=== PATIENT | female | born 1960 | race Caucasian/White ===

== ENCOUNTER 2023-06-10 07:38 | Outpatient (OUT) | payer OTHER, SELFPAY ==
--- NOTE | 2023-06-10 07:48 | US_ITS ---
The [address] [address] Patient Name: MUNA MCKINNEY MRN: [id number] date: 1960 Sex: F Assigned Patient Location: [place] Current Patient Location: US Accession/Order Number: [id number] Exam Date: 06/10/2023 08:00 Report Date: 06/10/2023 09:21 At the request of: FLORENCIA WILSON Procedure: US renal bladder EXAM: US renal bladder HISTORY: . Flank Pain R10.9 . COMPARISON: None. TECHNIQUE: Grayscale and color imaging was performed FINDINGS: Scanning of the right kidney demonstrates right kidney to measure 10 x 3.5 x 2.7 cm. No solid renal cortical masses or hydronephrosis is noted. Left kidney measures 10.7 x 4.9 x 5.4 cm. No solid renal cortical masses or hydronephrosis was noted. Scanning of the bladder demonstrates no masses within the bladder. Prevoid volume was 493 cc and post void residual was 23 cc ureteral jets were noted. US/US renal bladder IMPRESSION: 1. Normal ultrasound of the kidneys. 2. Normal-appearing bladder with bilateral ureteral jets. 3. Post void residual was 23 cc for a post void residual of approximately 5%. Electronically authenticated by: MICKI RAMIREZ Date: 06/10/2023 09:21
[2023-06-10 07:59] LABS: Basophils Absolute Auto 0.1 10^3/uL (0.0-0.1); Basophils Percent Auto 0.9 % (0.2-2.0); Eosinophils Percent Auto 0.6 % (0.9-7.0); Hematocrit 39.8 % (36.0-48.0); Hemoglobin 12.8 g/dL (12.0-16.0); Immature Granulocytes Abs Auto 0.01 10^3/uL (0.00-0.03); Immature Granulocytes Pct Auto 0.1 % (0.0-0.5); Lymphocytes Absolute Auto 1.5 10^3/uL (1.2-3.8); Mean Corpuscular HGB Conc 32.2 g/dL (29.9-35.2); Mean Corpuscular Hemoglobin 29.2 pg (26.7-34.0); Mean Corpuscular Volume 90.9 fL (81.0-99.0); Mean Platelet Volume 9.9 fL (9.5-13.5); Monocytes Absolute Auto 0.6 10^3/uL (0.3-0.8); Monocytes Percent Auto 8.5 % (1.7-12.0); Neutrophils Absolute Auto 4.6 10^3/uL (1.4-6.5); Neutrophils Percent Auto 67.9 % (43.0-75.0); Platelet Count 214 10^3/uL (150-450); Red Blood Count 4.38 10^6/uL (4.20-5.40); Red Cell Distribution Width 11.9 % (11.0-15.0); White Blood Count 6.7 10^3/uL (4.0-11.0)
[2023-06-10 08:16] LABS: Estimated Average Glucose 108 mg/dL; Glycohemoglobin A1C 5.4 % (4.5-6.2)
[2023-06-10 08:32] LABS: Alanine Aminotransferase 21 U/L (14-59); Albumin Globulin Ratio 1.3; Albumin Level 3.9 g/dL (3.4-5.0); Alkaline Phosphatase 69 U/L (46-116); Anion Gap 14.3; Aspartate Amino Transferase 22 U/L (15-37); BUN Creatinine Ratio 17.8; Bilirubin Total 0.6 mg/dL (0.2-1.0); Calcium 8.3 mg/dL (8.5-10.1); Carbon Dioxide 28.5 mmol/L (21.0-32.0); Chloride 101 mmol/L (98-107); Chol HDL Ratio 2.7; Cholesterol 177 mg/dL (<=200); Estimated GFR (African America >60 (>=60); Estimated GFR (Non-African Ame >60 (>=60); Free T3 2.75 pg/mL (2.18-3.98); Globulin 3.1 g/dL; Glucose 90 mg/dL (74-106); HDL Cholesterol 65 mg/dL (40-60); Potassium 3.8 mmol/L (3.5-5.1); Sodium 140 mmol/L (136-145); Thyroid Stimulating Hormone 1.472 uIU/mL (0.358-3.740); Triglycerides 95 mg/dL (<=150)
--- OUTSIDE RECORDS SUMMARY | 2023-07-16 17:35 | XMS_ITS | CCD ---
Author Name Unknown Address [address] [place] [address] Organization [facility] Care Team Providers Care Benefits Analyst Name Role Phone Álvaro Powell Attending Unavailable Álvaro Powell Referring Unavailable Florencia Tomas Primary Care Unavailable Unavailable Primary Care Provider Unavailberna e Unavailable Primary Care Provider Unavailabl e LUIY ., DR DON Consulting Unavailable HOY ., DR DON Primary Care Unavailable HOY ., DR DON Admitting Unavailable HOY ., DR DON Attending Unavailable HOY ., DR DON Primary Care Unavailable HOY ., DR DON Admitting Unavailable HOY ., DR DON Attending Unavailable HOY ., DR DON Consulting Unavailable HOY ., DR DON Primary Care Unavailable HOY ., DR DON Admitting Unavailable HOY ., DR DON Attending Unavailable HOY ., DR DON Primary Care Unavailable JAMES PERERA Admitting Unavailable JAMES PERERA Attending Unavailable JAMES PERERA Consulting Unavailable HOY ., DR DON Consulting Unavailable HOY ., DR DON Primary Care Unavailable HOY ., DR DON Admitting Unavailable HOY ., DR DON Attending Unavailable MARLBORO, DR MICKI Burgess Consulting Unavailable Unavailable Primary Care Provider UnavailLILLIE Robertson Attending Unavailable RUSSELL MAGALLANES Referring Unavailable RUSSELL MAGALLANES Attending Unavailable HAILEY GONZALEZ Attending Unavailable Allergies Allergy Classification Reported Allergen(s) Allergy Type Date of Onset Reaction(s) Facility (5 sources) Sulfonamides (Antibiotic); Translations: [SULFA (SULFONAMIDE ANTIBIOTICS)] Propensity to adverse reactions to drug 2 Unknown [facility] (5 sources) Sutures; Translations: [SUTURES] Propensity to adverse reactions 2 Unknown [facility] (1 source) Sulfonamides (Antibiotic) Drug allergy (disorder) 5 [facility] Medications Completed/Discontinued Medications Medication Drug Class(es) Dates Sig (Normalized) Sig (Original) diclofenac sodium 75 mg delayed release oral tablet (4 sources) Nonsteroidal Anti-inflammatory Drug Start: 03-19-2022 take 1 tablet by mouth twice daily diclofenac, EC, (VOLTAREN) 75 mg EC tablet Take 75 mg by mouth twice daily. 0 03/19/2022 Active Comment on above: Take 75 mg by mouth twice daily. gabapentin 100 mg oral capsule (1 source) Anti-epileptic Agent Start: 02-04-2022 End: 04-13-2022 take 1 capsule by mouth twice daily gabapentin (NEURONTIN) 100 mg capsule Take 100 mg by mouth twice daily. 0 02/04/2022 04/13/2022 Discontinued Comment on above: Take 100 mg by mouth twice daily. pregabalin 25 mg oral capsul e (4 sources) Start: 04-13-2022 End: 05-12-2022 pregabalin (LYRICA) 25 mg ca psule Indications: Radiculopathy of lumbar region Take one capsule daily at bedtime for 3-5 days, then one in the morning and one at night for 3-5 days. Then increase to one capsule three times daily if tolerating well. 90 capsule 1 04/13/2022 Active Comment on above: Take one capsule lina ly at bedtime for 3-5 days, then one in the morning and one at night for 3-5 days. Then increase to one capsule three times daily if tolerating well. Problems Active Problems Problem Classification Problem Date Documented Da te Episodic/Chronic Allergic reactions (1 source) Solar degeneration; Translations: [Other skin changes due to chronic exposure to nonionizing radiation] Episodic Other and unspecified benign neoplasm (1 source) Dermatofibroma; Translations: [Other benign neoplasm of skin, unspecified] Episodic Other and unspecified benign neoplasm (1 source) Hemangioma; Translations: [Hemangioma unspecified site] Episodic Other and unspecified benign neoplasm (1 source) Multiple benign melanocytic nevi ; Translations: [Melanocytic nevi, unspecified] Episodic Other connective tissue disease (2 sources) Pain of left thigh; Translations: [Pain in left thigh] Episodic Other injuries and conditions due to external causes (4 sources) Other injury of muscle, fascia and tendon of lower back, initial encounter; Translations: [OTH INJ MUSC FASC TEND LW BACK INIT] Onset: 08-20-2022 Episodic Other non-traumatic joint disorders (2 sources) Hip pain; Translations: [Pain in left hip] Episodic Other non-traumatic joint disorders (1 source) Pain in right hip; Translations: [PAIN IN RIGHT HIP] Onset: 08-28-2022 Episodic Other non-traumatic joint disorders (1 source) Pain in right hip joint; Translations: [Pain in right hip] Onset: 08-28-2022 11-09-2022 Episodic Other skin disorders (1 source) Seborrheic keratosis; Translations: [Other seborrheic keratosis] Episodic Sprains and strains (2 sources) Strain of flexor muscle of left hip; Translations: [Strain of muscle, fascia and tendon of left hip, sequela] Episodic Viral infection (1 source) COVID-19; Translations: [COVID-19] Onset: 05-31-2022 Past or Other Problems Problem Classification Problem Date Documented Da te Episodic/Chronic Other connective tissue disease (1 source) Pain in left thigh; Translations: [Left thigh pain] Onset: 04-13-2022 Episodic Other non-traumatic joint disorders (1 source) Pain in left hip; Translations: [Lateral pain of left hip] Onset: 04-13-2022 Episodic Other upper respiratory infections (4 sources) Acute sinusitis, unspecified; Translations: [ACUTE SINUSITIS UNSPECIFIED] Onset: 05-29-2022 Episodic Spondylosis; intervertebral disc disorders; other back problems (8 sources) Lumbar radiculopathy; Translations: [Radiculopathy, lumbar region] Onset: 04-13-2022 Episodic Results Test Name Value Interpretation Reference Range Rula Olivares 11-09-2022 CNOV Office Visit (DERMCC ) KARINA FLEMING ([id number]) 1960 F Date Time Provider Department 11/09/22 8:30 AM LILLIE BARONE During your visit today, we recorded the following information about you: Lillie Barone MD 11/09/2022 8:49 AM Signed DERMATOLOGY / NEW PATIENT CONSULT Consultation requested by patient for an opinion regarding skin. HPI: The patient is a 62 year old female presenting with a 3 lesions of concern Left lateral lower leg - raised conley lesion Mid upper back - brown raised lesion [place] raised lesion- right cheek DERM HISTORY: No history of chronic skin disease FAMILY DERM HISTORY: Positive for non melanoma skin cancer No past medical history on file. No past surgical history on file. Medications and Allergies reviewed. PHYSICAL EXAM: The patient is pleasant, oriented x 3, in no acute distress. Exam performed of the face, neck, back, arms, and legs. Significant findings noted below, otherwise no suspicious lesions noted at this time. Head, Neck, Torso - Posterior (Back) Diffusely scattered conley macules and patches on sun exposed areas. Left Lower Leg - Anterior Hyperpigmented 5 mm fibrous papule that dimples with lateral pressure Right Malar Cheek Page red papule Mid Back Brown flat-topped papule. Torso - Posterior (Back) Multiple scattered symmetric conley to brown macules with uniform pigmentation over the trunk IMPRESSION/PLAN: Diffuse photodamage of skin (3) Torso - Posterior (Back); Head; Neck Diffuse photodamage of skin Sun protection and avoidance discussed with patient Dermatofibroma Left Lower Leg - Anterior Educated and reassured. AAD booklet given. Hemangioma, unspecified site Right Malar Cheek -Educated and reassured Seborrheic keratosis Mid Back -Patient reassured of benign nature of lesion(s). Multiple benign nevi Torso - Posterior (Back) FOLLOW UP: PRN The documentation for this note was completed by Loni Thompson RN/ Dora Conley LPN acting as scribe for Lillie Barone MD. November 09, 2022 8:22 AM. I agree with the Chief Complaint, ROS, and Past Histories independently gathered by the clinical network support engineer and the remaining scribed note accurately describes my personal service to the patient. Lillie Barone MD Medical Decision Making: Problems: Low: 2+ self-limited or minor problems Risk: Low: Low risk from testing/treatment Medical Decision Making Level: 3 - Low Referring Provider: SELF [200] Allergies As of Date: 11/09/2022 Noted Allergy Reaction SULFA (SULFONAMIDE ANTIBIOTICS) 04/13/2022 16 - Unknown VICRYL (SUTURES) 04/13/2022 16 - Unknown Date Reviewed: 04/13/2022 Reviewed by: Ebony Weiss Ma - Fully Assessed Reason for Visit: LESION, SKIN [936] Primary Visit Diagnosis:Diffuse photodamage of skin [L57.8] Other Visit Diagnoses:Dermatofibroma [D23.9] Hemangioma, unspecified site [D18.00] Seborrheic keratosis [L82.1] Multiple benign nevi [D22.9] Prescriptions as of 11/09/2022 - diclofenac, EC, (VOLTAREN) 75 mg EC tablet Take 75 mg by mouth twice daily. - pregabalin (LYRICA) 25 mg capsule Take one capsule daily at bedtime for 3-5 days, then one in the morning and one at night for 3-5 days. Then increase to one capsule three times daily if tolerating well. Problem List As Of Date 11/09/2022 Noted Resolved Dorsalgia, unspecified [M54.9] 08/28/2022 Right hip pain [M25.551] 08/28/2022 Disposition: Return if symptoms worsen or fail to improve. Follow-up and Disposition History for Encounter Date Provider Department Center 11/09/2022 [id number] BARONE [facility] Encounter Status:Closed by LILLIE BARONE on 11/09/22 Normal [facility] XR LSPINE MIN 4 VIEWSon 07-30 XR LSPINE MIN 4 VIEWS EXAMINATION: XR LS PINE MIN 4 VIEWS HISTORY: Muscle and tendon injury COMPARISON: No relevant comparison available. FINDINGS: BONES: Minimal dextrocurvature centered at L2-L3. Mild degenerative spondylosis and facet osteoarthropathy DISC SPACES: Normal. No significant disc height narrowing, subluxation, or endplate abnormality. PARASPINOUS: Negative. No paraspinous abnormality is seen. OTHER: Negative. IMPRESSION: Mild degenerative changes Electronically authenticated by: MICKI LUCERO Date: 2022-08-21 07:50 Normal [facility] l GLUCOSE BLOODon 07-10-2022 Glucose [Mass/Vol] 87 mg/dL Normal 74-[address] [facility] Comment on above: Performed By: #### L IPID, GLUC #### [facility] [address] [address] [address] Kadeem Clemens LIPID PROFILEon 07-10-2022 CHOL-HDL RATIO NORM SEE BELOW Normal [facility] Comment on above: Result Comment: 3.3 - 4.4 LOW RISK 4.4 - 7.1 AVERAGE RISK 7.1 - 11.0 MODERATE RISK >11.0 HIGH RISK Performed By: #### L IPID, GLUC #### [facility] [address] [address] [address] Kadeem Clemens Cholesterol [Mass/Vol] 182 mg/dL Normal <=200 [facility] Comment on above: Performed By: #### L IPID, GLUC #### [facility] [address] [address] [address] Kadeem Clemens Cholesterol in HDL [Mass/Vol] 66 mg/dL Critically high 4 0-60 [facility] Comment on above: Performed By: #### L IPID, GLUC #### [facility] [address] [address] [address] Kadeem Clemens Cholesterol in LDL [Mass/Vol] 101.4 mg/dL Normal [facility] Comment on above: Performed By: #### L IPID, GLUC #### [facility] [address] [address] [address] Kadeem Clemens Cholesterol.total/Cholestero l in HDL [Mass ratio] 2.8 {ratio} Normal [facility] Comment on above: Performed By: #### L IPID, GLUC #### [facility] [address] [address] [address] Kadeem Clemens HDL NORMAL > or = 60 mg/dl - LO W CARDIOVASCULAR RISK <40 mg/dl - HIGH CARDIOVASCULAR RISK Normal [facility] Comment on above: Performed By: #### L IPID, GLUC #### [facility] [address] [address] [address] Kadeem Clemens LDL CALC NORMAL SEE BELOW Normal [facility] Comment on above: Result Comment: <100 mg/dl OPTIMAL 100 - 129 mg/dl NEAR OR ABOVE OPTIMAL 130 - 159 mg/dl BORDERLINE HIGH 160 - 189 mg/dl HIGH >190 mg/dl VERY HIGH Performed By: #### L IPID, GLUC #### [facility] [address] [address] [address] Kadeem Clemens Triglyceride [Mass/Vol] 73 mg/dL Normal <=150 [facility] Comment on above: Performed By: #### L IPID, GLUC #### [facility] [address] [address] [address] Kadeem Clemens VLDL CALC 14.6 mg/dL Normal [facility] Comment on above: Performed By: #### L IPID, GLUC #### [facility] [address] [address] [address] Kadeem Clemens Covid-19 PCR (CVDTB)on SARS-CoV-2 (COVID-19) RNA DARÍO+probe Ql (Unsp spec) Detected Critically abnormal NOT DETECTED [facility] Comment on above: Result Comment: This test is not yet approved or cleared by the [place] FDA. When there are no FDA-approved or cleared tests available, and other criteria are met, FDA can make tests available under an emergency access mechanism called an Emergency Use Authorization (EUA). The EUA for this test is supported by the [place] of Health and Human Service's (HHS's) declaration that circumstances exist to justify the emergency use of in vitro diagnostics for the detection and/or diagnosis of the virus that causes COVID-19. This EUA will remain in effect (meaning this test can be used) for the duration of the COVID-19 declaration justifying emergency of IVDs, unless it is terminated or revoked by FDA (after which the test may no longer be used). Performed By: #### C VDTBH #### [facility] [address] [address] [address] Kadeem Clemens INFLUENZA A AND B AGon 05-29 INFLUANEGH SEE BELOW Normal [facility] Comment on above: Result Comment: Nega tive for Flu A protein angiten. Infection due to Flu A cannot be ruled out. Flu A angiten in the sample may be below the detection limit of the test. Performed By: #### I NFLUAB #### [facility] [address] [place] [address] [facility] SEE BELOW Normal [facility] Comment on above: Result Comment: Nega tive for Flu B protein antigen. Infection due to Flu B cannot be ruled out. Flu B antigen in the sample may be below the detection limit of the test. Performed By: #### I NFLUAB #### [facility] [address] [place] [address] Dr. Kadeem Clemens INFLUENZA A AG Negative Normal NEGATIVE SEE COMMENT [facility] Comment on above: Performed By: #### I NFLUAB #### [facility] [address] [place] [address] Dr. Kadeem Clemens INFLUENZA B AG Negative Normal NEGATIVE SEE COMMENT [facility] Comment on above: Performed By: #### I NFLUAB #### [facility] [address] [place] [address] Dr. Kadeem Clemens INTERNAL CONTROLS Within Normal Limits Normal Wi thin Normal Limits [facility] Comment on above: Performed By: #### I NFLUAB #### [facility] [address] [place] [address] Dr. Kadeem Olivares 04-13-2022 CNOV Office Visit (SPMESH ) HANKKARINA S ([id number]) 1960 F Date Time Provider Department 04/13/22 2:30 PM RUSSELL MAGALLANES During your visit today, we recorded the following information about you: Pulse Respiration Blood pressure Weight 65/minute 16/minute 111/47 45.5 kg Height 1.524 m Russell Magallanes DO 05/06/2022 1:40 PM Signed [facility] - [facility] Spine Initial Exam SUBJECTIVE HISTORY OF PRESENT ILLNESS: Karina Fleming is a 61 year old female who presents with a chief complaint of left posterior thigh pain. Pain since Summer 2014 without inciting event. Pain is located left middle of posterior thigh and radiates distally either medially or laterally, not directly into knee. Described as burning, aching, discomfort. Sometimes numbness/tingling. General weakness LLE. Pain has improved some ever since her son helped her perform a piriformis stretch and she felt relief in the exact spot of her pain. Denies low back pain. Also for 3 months has pain around left lateral hip/pelvis region, sometimes lateral, sometimes groin, sometimes around posteriorly, and sometimes along with that will have pain left posterior calf. Patient limits her energy. Denies bowel/bladder incontinence or saddle anesthesia. The pain is currently 3/10 posterior thigh, but now gets up to 5-6/10. The pain previously got up to 8/10 at the highest. Pain around left hip 2/10, but can get to 8/10. PAIN EVALUATION 04/13/2022 1406 04/13/2022 1408 Pain Level: 2 -- Pain Location: Leg-Left -- Description: Pressure;Aching -- Duration Amount of Time: 7 -- Duration Units: Years -- Frequency: Continuous Intermittent Intervention/Comfort measure: -- Medication Pain Radiation: As above Aggravating Factors: Sitting Heat Alleviating Factors: Ice Stretching Pain Ratio: Left posterior thigh Current Treatment: Medications Aspercreme with Lidocaine cream - good relief Therapies PT HEP 5 days per week Stretching - has helped some Prior Treatment: Medications Diclofenac 75 mg BID PRN - mild relief Gabapentin 100 mg BID - caused too much drowsiness Voltaren gel - some relief Therapies PT: November 2020, maybe 15 sessions, some included dry needling, treatment for possible sciatic nerve pain. Massage therapy 3 visits - first time helped for 2 weeks, other sessions didn't help Heat - worse Heat patches - worse Prior spine interventions: Denies Prior spine surgery: Denies Previously treated by: -Neurologist that performed EMG told her no neuropathy, nerve damage, not coming from her back. -Ortho surgeon Dr. Agosto in [place] prior to pandemic. Told her it was not her back, but it was her sciatic nerve. 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 Higher percentile rankings indicate better function/quality of life. 50th percentile is the average of the general population and indicates half of respondents had a worse score. Depression Screening: PHQ-9 Self-Harm (Item 9) response options: 0 Not at all 1 Several days 2 More than half the days 3 Nearly every day PHQ-9 Levels: 0-4 No - mild depression 5-9 Mild depression 10-14 Moderate depression 15-19 Moderately severe depression 20-27 Severe depression There is no problem list on file for this patient. No past medical history on file. No past surgical history on file. Social History Tobacco Use Smoking status: Never Passive exposure: Never Smokeless tobacco: Never No family history on file. ALLERGIES Allergen Reactions Sulfa (Sulfonamide * Unknown Vicryl [Sutures] Unknown CURRENT MEDICATIONS: diclofenac, EC, (VOLTAREN) 75 mg EC tablet Take 75 mg by mouth twice daily. gabapentin (NEURONTIN) 100 mg capsule Take 100 mg by mouth twice daily. REVIEW OF SYSTEMS: 14 systems reviewed and otherwise negative unless mentioned above. OBJECTIVE: PHYSICAL EXAM BP (!) 111/47 Pulse 65 Resp 16 Ht 152.4 cm (5') Wt 45.5 kg (100 lb 4.8 oz) SpO2 99% BMI 19.59 kg/m? GENERAL APPEARANCE: Well nourished, well developed, and no apparent distress. NEURO PSYCH: Patient oriented to person, place, (more content not included)... Normal [facility] No Panel Informationon 04-13 [facility] XR HIP 3V PELV+ AP/LAT LTon 04-13-2022 XR HIP 3V PELV+ AP/LAT LT * * *Final Report* * * DATE OF EXAM: Apr 13 2022 3:47PM [id number] - XR HIP 3V PELV+ AP/LAT LT / PROCEDURE REASON: multiple diagnoses * * * * Physician Interpretation * * * * TECHNIQUE: AP pelvis and 2 coned-down views of the left hip CLINICAL DATA: Left thigh pain. COMPARISON: None. RESULT: There is no acute fracture or dislocation. The joint spaces demonstrate early arthritic changes involving both hips. There is mild narrowing of the inferior right sacroiliac joint. IMPRESSION: No acute findings. Tomographic Tech: [facility] Transcribe Date/Time: Apr 14 2022 2:38P Dictated by : BRUNA LUONG MD This examination was interpreted and the report reviewed and electronically signed by: BRUNA LUONG MD on Apr 14 2022 2:39PM EST [id number] Normal [facility] XR LUMBAR 2V AP/LATon 2021 XR LUMBAR 2V AP/LAT * * *Final Report* * * DATE OF EXAM: Apr 13 2022 3:47PM [id number] - XR LUMBAR 2V AP/LAT / PROCEDURE REASON: Radiculopathy of lumbar region * * * * Physician Interpretation * * * * XR LUMBAR 2V AP/LAT PROVIDED HISTORY: Radiculopathy of lumbar region COMPARISON: No previous similar exams are available for comparison TECHNIQUE: 2 views lumbar spine RESULT: Bony mineralization grossly unremarkable. Mild narrowing at L5-S1 disc space. Moderate facet degenerative change L4-5 and severe facet degenerative change L5-S1. No acute fracture or radiopaque foreign body is seen IMPRESSION: Lower lumbar degenerative changes Tomographic Tech: [employer] Transcribe Date/Time: Apr 15 2022 11:11P Dictated by : REGINO ELIAS MD This examination was interpreted and the report reviewed and electronically signed by: REGINO ELIAS MD on Apr 15 2022 11:12PM EST [id number] Normal [facility] INSULINon 03-24-2022 Insulin 6.0 uIU/mL Normal 2.6-24.9 [facility] Comment on above: Performed By: #### I NSULIN ####[facility] [address] [place], [place] [address]Dr. Kadeem Clemens T4, T3U, FTI LABCORPon 03-24 Free Thyroxine Index 2.3 Normal 1.2-4.9 [facility] Comment on above: Performed By: #### T HYLC ####[facility] [address] [address]Dr. Kadeem Clemens T3 Uptake 32 % Normal 24-39 [facility] Comment on above: Performed By: #### T HYLC ####[facility] [address] [address]Dr. Kadeem Clemens T4 [Mass/Vol] 7.1 ug/dL Normal 4.5-12.0 [facility] Comment on above: Performed By: #### T HYLC ####[facility] [address] [place], [place] [address]Dr. Kadeem Clemens CBC AUTO DIFFon 03-23-2022 BASO # 0.1 103/ul Normal 0.0-0.1 [facility] Comment on above: Performed By: #### C BC ####[facility] [address] [place], [place] [address]Dr. Kadeem Sarath Basophils/100 WBC (Bld) 1.0 % Normal 0.2-2.0 [facility] Comment on above: Performed By: #### C BC ####[facility] [address] [place], [place] [address]Dr. Kadeem Clemens EO # 0.1 103/ul Normal 0.0-0.7 [facility] Comment on above: Performed By: #### C BC ####[facility] [address] [place], [place] [address]Dr. Kadeem Clemens Eosinophils/100 WBC (Bld) 2.1 % Normal 0.9-7.0 [facility] Comment on above: Performed By: #### C BC ####[facility] [address] [place], [place] [address]Dr. Kadeem Clemens Erythrocyte distribution wid th (RBC) [Ratio] 12.2 % Normal 11.0-15.0 [facility] Comment on above: Performed By: #### C BC ####[facility] [address] [address]Dr. Kadeem Clemens Hematocrit (Bld) [Volume fraction] 42.3 % Normal 3 6.0-48.0 [facility] Comment on above: Performed By: #### C BC ####[facility] [address] [address]Dr. Kadeem Clemens Hemoglobin (Bld) [Mass/Vol] 13.8 g/dL Normal 12.0-16. 0 [facility] Comment on above: Performed By: #### C BC ####[facility] [address] [place], [place] [address]Dr. Carolinmiguel Clemens IG # 0.01 10e3/ul Normal 0.00-0.03 [facility] Comment on above: Performed By: #### C BC ####[facility] [address] [place], [place] [address]Dr. Kadeem Clemens IG % 0.2 % Normal 0.0-0.5 [facility] [facility] Comment on above: Performed By: #### C BC ####[facility] [address] [place], [place] [address]Dr. Kadeem Sarath LYMPH # 2.3 103/ul Normal 1.2-3.8 [facility] Comment on above: Performed By: #### C BC ####[facility] W[address]hych[address]pe[address] [place], [place] [address]Dr. Carolinmiguel Clemens Lymphocytes/100 WBC (Bld) 37.8 % Normal 20.5-60.0 [facility] Comment on above: Performed By: #### C BC ####[facility] Lmbv[address]grn[address] [place], [place] [address]Dr. Carolinmiguel Clemens MANUAL DIFF REQ NO Normal The [facility] Comment on above: Performed By: #### C BC ####[facility] [address]vpfwspz[address] [place], [place] [address]Dr. Kadeem Clemens MCH (RBC) [Entitic mass] 29.1 pg Normal 26.7-34.0 [facility] Comment on above: Performed By: #### C BC ####[facility] [address] [place] [id number]. Kadeem Sarath MCHC (RBC) [Mass/Vol] 32.6 g/dL Normal 29.9-35.2 [facility] Comment on above: Performed By: #### C BC ####[facility] [address] [place], [place] [address]Dr. Kadeem Clemens MCV (RBC) [Entitic vol] 89.1 fL Normal 81.0-99.0 [facility] Comment on above: Performed By: #### C BC ####[facility] Tum[address]zzbdy[address] [place], [place] [address]Dr. Kadeem Clemens MONO # 0.5 103/ul Normal 0.3-0.8 [facility] Comment on above: Performed By: #### C BC ####[facility] W[address]zgxfzs[address] [place], [place] [address]Dr. Kadeem Clemens Monocytes/100 WBC (Bld) 7.6 % Normal 1.7-12.0 [facility] Comment on above: Performed By: #### C BC ####[facility] [address]flu[address] [place], [place] [address]Dr. Kadeem Clemens NEUT # 3.1 103/ul Normal 1.4-6.5 [facility] Comment on above: Performed By: #### C BC ####[facility] [address] [place], [place] [address]Dr. Kadeem Clemens Neutrophils/100 WBC (Bld) 51.3 % Normal 43.0-75.0 [facility] Comment on above: Performed By: #### C BC ####[facility] [address] [place], [place] [address]DrOdette Clemens Platelet mean volume (Bld) [Entitic vol] 9.6 fL Normal 9.5-13.5 [facility] Comment on above: Performed By: #### C BC ####[facility] [address] [place], [place] [address]Dr. Kadeem Clemens PLT 240 103/ul Normal 150-450 [facility] Comment on above: Performed By: #### C BC ####[facility] [address] [place] [address]DrOdette Clemens RBC 4.75 106/ul Normal 4.20-5.40 [facility] Comment on above: Performed By: #### C BC ####[facility] [address] [place] [id number] Clemens WBC 6.1 103/ul Normal 4.0-11.0 [facility] Comment on above: Performed By: #### C BC ####[facility] [address] [place] [address]Dr. Kadeem Clemens GLYCOHEMOGLOBIN A1Con 2021 ADA RECOMMENDATION SEE BELOW Normal [facility] Comment on above: Result Comment: ADA RECOMMENDED LIMIT 4.0 - 6.0 ADA THERAPEUTIC TARGET < 7.0 ACTION SUGGESTED > 7.0 Performed By: #### A 1C ####[facility] [address] [place] [address]Dr. Kadeem Clemens Glucose [Mass/Vol] 105 mg/dL Normal The [facility] Comment on above: Performed By: #### A 1C ####[facility] [address] [place] [address]DrOdette Clemens HbA1c (Bld) [Mass fraction] 5.3 % Normal 4.5-6.2 [facility] Comment on above: Performed By: #### A 1C ####[facility] [address] [place] [address]Dr. Kadeem Clemens IRONon 03-23-2022 Iron [Mass/Vol] 106.0 ug/dL Normal 50.0-170.0 The [facility] Comment on above: Performed By: #### I MOO #### [facility] [address] [address] [address] Kadeem Clemens LIPID PROFILEon 03-23-2022 CHOL-HDL RATIO NORM SEE BELOW Normal [facility] Comment on above: Result Comment: 3.3 - 4.4 LOW RISK 4.4 - 7.1 AVERAGE RISK 7.1 - 11.0 MODERATE RISK >11.0 HIGH RISK Performed By: #### C MP, LIPID, TSH #### [facility] [address] [address] [address] Kadeem Clemens Cholesterol [Mass/Vol] 185 mg/dL Normal <=200 Th [facility] Comment on above: Performed By: #### C MP, LIPID, TSH #### [facility] [address] [address] [address] Kadeem Clemens Cholesterol in HDL [Mass/Vol] 66 mg/dL Critically high 4 0-60 [facility] Comment on above: Performed By: #### C MP, LIPID, TSH #### [facility] [address] [place] [address] Dr. Kadeem Clemens Cholesterol in LDL [Mass/Vol] 99.6 mg/dL Normal [facility] Comment on above: Performed By: #### C MP, LIPID, TSH #### [facility] [address] [place] [address] Dr. Kadeem Clemens Cholesterol.total/Cholestero l in HDL [Mass ratio] 2.8 {ratio} Normal [facility] Comment on above: Performed By: #### C MP, LIPID, TSH #### [facility] [address] [place] [address] Dr. Kadeem Clemens HDL NORMAL > or = 60 mg/dl - LO W CARDIOVASCULAR RISK <40 mg/dl - HIGH CARDIOVASCULAR RISK Normal [facility] Comment on above: Performed By: #### C MP, LIPID, TSH #### [facility] [address] [place] [address] Dr. Kadeem Clemens LDL CALC NORMAL SEE BELOW Normal [facility] Comment on above: Result Comment: <100 mg/dl OPTIMAL 100 - 129 mg/dl NEAR OR ABOVE OPTIMAL 130 - 159 mg/dl BORDERLINE HIGH 160 - 189 mg/dl HIGH >190 mg/dl VERY HIGH Performed By: #### C MP, LIPID, TSH #### [facility] [address] [place] [address] Dr. Kadeem Clemens Triglyceride [Mass/Vol] 97 mg/dL Normal <=150 T [facility] Comment on above: Performed By: #### C MP, LIPID, TSH #### [facility] [address] [address] [address] Kadeem Clemens VLDL CALC 19.4 mg/dL Normal [facility] Comment on above: Performed By: #### C MP, LIPID, TSH #### [facility] [address] [address] [address] Kadeem Clemens PROF 14(COMP METB)on 022 Albumin [Mass/Vol] 4.0 g/dL Normal 3.4-5.[address] [facility] Comment on above: Performed By: #### C MP, LIPID, TSH #### [facility] [address] [place] [address] Dr. Kadeem Clemens Albumin/Globulin [Mass ratio] 1.3 {ratio} Normal [facility] Comment on above: Performed By: #### C MP, LIPID, TSH #### [facility] [address] [place] [address] Dr. Kadeem Clemens ALP [Catalytic activity/Vol] 82 U/L Normal 46-116 [facility] Comment on above: Performed By: #### C MP, LIPID, TSH #### [facility] [address] [place] [address] Dr. Kadeem Clemens ALT [Catalytic activity/Vol] 20 U/L Normal 14-59 [facility] Comment on above: Performed By: #### C MP, LIPID, TSH #### [facility] [address] [address] [address] Kadeem Clemens Anion gap [Moles/Vol] 11.4 mmol/L Normal [facility] Comment on above: Performed By: #### C MP, LIPID, TSH #### [facility] [address] [place] [address] Dr. Kadeem Clemens AST [Catalytic activity/Vol] 23 U/L Normal 15-37 [facility] Comment on above: Performed By: #### C MP, LIPID, TSH #### [facility] [address] [address] [address] Kadeem Clemens Bilirubin [Mass/Vol] 0.6 mg/dL Normal 0.2-1.0 [facility] Comment on above: Performed By: #### C MP, LIPID, TSH #### [facility] [address] [place] [address] Dr. Kadeem Clemens Calcium [Mass/Vol] 8.8 mg/dL Normal 8.5-10.[address] [facility] Comment on above: Performed By: #### C MP, LIPID, TSH #### [facility] [address] [place] [address] Dr. Kadeem Clemens Chloride [Moles/Vol] 105 mmol/L Normal 98-107 [facility] Comment on above: Performed By: #### C MP, LIPID, TSH #### [facility] [address] [place] [address] Dr. Kadeem Clemens CO2 [Moles/Vol] 28.3 mmol/L Normal 21.0-32.0 [facility] Comment on above: Performed By: #### C MP, LIPID, TSH #### [facility] [address] [place] [address] Dr. Kadeem Cleemns Creatinine [Mass/Vol] 0.73 mg/dL Normal 0.55-1.02 [facility] Comment on above: Performed By: #### C MP, LIPID, TSH #### [facility] [address] [place] [address] Dr. Kadeem Clemens EGFR-AF [place]IAN >60 Normal >=60 [facility] Comment on above: Performed By: #### C MP, LIPID, TSH #### [facility] [address] [place] [address] Dr. Kadeem Clemens EGFR-NON AF [place]IAN >60 Normal >=60 [facility] Comment on above: Performed By: #### C MP, LIPID, TSH #### [facility] [address] [place] [address] Dr. Kadeem Clemens Globulin (S) [Mass/Vol] 3.2 g/dL Normal T [facility] Comment on above: Performed By: #### C MP, LIPID, TSH #### [facility] [address] [place] [address] Dr. Kadeem Clemens Glucose [Mass/Vol] 92 mg/dL Normal 74-106 [facility] Comment on above: Performed By: #### C MP, LIPID, TSH #### [facility] [address] [address] [address] Kadeem Clemens Potassium [Moles/Vol] 3.7 mmol/L Normal 3.5-5.1 [facility] Comment on above: Performed By: #### C MP, LIPID, TSH #### [facility] [address] [address] [address] Kadeem Clemens Protein [Mass/Vol] 7.2 g/dL Normal 6.4-8.2 [facility] Comment on above: Performed By: #### C MP, LIPID, TSH #### [facility] [address] [place] [address] Dr. Kadeem Clemens Sodium [Moles/Vol] 141 mmol/L Normal 136-[address] [facility] Comment on above: Performed By: #### C MP, LIPID, TSH #### [facility] [address] [place] [address] Dr. Kadeem Clemens Urea nitrogen [Mass/Vol] 15.0 mg/dL Normal 7.0-18.0 [facility] Comment on above: Performed By: #### C MP, LIPID, TSH #### [facility] [address] [place] [address] Dr. Kadeem Clemens Urea nitrogen/Creatinine [Mass ratio] 20.5 mg/mg Normal [facility] Comment on above: Performed By: #### C MP, LIPID, TSH #### [facility] [address] [place] [address] Dr. Kadeem Clemens TSHon 03-23-2022 TSH 1.409 uIU/mL Normal 0.358-3.740 [facility] Comment on above: Performed By: #### C MP, LIPID, TSH #### [facility] [address] [place] [address] Dr. Kadeem Clemens SCREENING MAMMOGRAM W/MELI, BILATERAL*on 12-04-2021 SCREENING MAMMOGRAM W/MELI, BILATERAL* CLINICAL HISTORY: Screening Mammogram COMPARISON: Priors from 2020, 2019 TECHNIQUE: 2D and 3D mammogram imaging of both breasts was performed. RESULT: DENSITY: Heterogeneously dense, which may obscure small masses. There is no suspicious mass, asymmetry, architectural distortion, or calcification. No significant change since the prior mammograms. Stable asymmetries. IMPRESSION: BIRADS 2 : BENIGN FINDINGS, NORMAL INTERVAL FOLLOW UP. FOLLOW UP: 12 months DENSITY: Heterogeneously dense MAMMOGRAPHY IS VERY IMPORTANT TO YOUR HEALTH. THE CURRENT [place] [employer] GUIDELINES RECOMMENDS ANNUAL MAMMOGRAPHY BEGINNING AT AGE 38 THIS FACILITY USES A REMINDER SYSTEM TO ENSURE ALL PATIENTS RECEIVE REMINDER NOTIFICATIONS AT THE APPROPRIATE TIME BASED ON THE RECOMMENDATIONS OF THIS EXAM. Board Certified Radiologist. Accredited by the ACR and FDA. Report reported and signed by Deep Haney on 12/04/2021 1301 Normal [facility] Medica l Specialist [facility] Cytologyon 11-12-2018 [facility] Cytology Patient Name KARINA FLEMING Date of Procedure: 11/12/2018 Date Reported: 11/14/2018 Date Received: 11/12/2018 Date of / Sex 1960 (Age: 58) / F Race: WHITE Submitting Physician: ÁLVARO POWELL MD Attending Physician: ÁLVARO POWELL MD Other External # FINAL CYTOLOGICAL INTERPRETATION A. FINE NEEDLE ASPIRATION OF THYROID - RIGHT LOBE: --BENIGN. --ABUNDANT MACROPHAGES, FOLLICULAR CELLS AND COLLOID. Interpretation performed at: [facility] Department of Pathology [id number] [place] [address] Electronically Signed Out By MAXIME JACOBSEN MD By the signature on this report, the individual or group listed as making the Final Interpretation/Diagnosis certifies that they have reviewed this case. 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 FINE NEEDLE ASPIRATION OF THYROID - RIGHT LOBE: RECEIVED 30 cc TURBID WITH PARTICLES DARK RED CYTOLYT, 6 DIRECT SMEARS, 3 AIR DRIED, 3 SPRAY FIXED Normal [facility] Comment on above: Performed By: #### C #### [facility] Cytology [id number] [address] [facility] [address] [place] FNA SUPERFCLon 11-12-2018 US FNA SUPERFCL Patient Name: KARINA FLEMING STUDY: US FNA SUPERFCL; 11/12/2018 3:03 pm INDICATION: right thyroid nodule. COMPARISON: Outside thyroid ultrasound, 08/26/2018. ACCESSION NUMBER(S): [id number] ORDERING CLINICIAN: ÁLVARO POWELL TECHNIQUE: Prior to the procedure, the risks, benefits, and alternatives to the procedure were discussed with the patient and written informed consent was obtained. Preliminary ultrasound evaluation of the right thyroid lobe was performed. Findings: There is a mixed cystic and solid nodule at the lower pole of the right thyroid measuring up to 1.7 x 1.2 cm. A time-out was performed and the patient's name, the procedure, and the site of the procedure were verified. The neck was prepped and draped in the usual sterile fashion. Local anesthesia was performed with 1% lidocaine. Under direct ultrasound guidance, a total of three 25 gauge needles were advanced into the thyroid nodule and FNA of both the cystic and solid components was performed with light aspiration. Samples were obtained and placed in fixation solution and on slides per standard hospital protocol. At the conclusion of the procedure, the needle was removed and hemostasis was obtained with direct pressure. The patient was observed for 1 hour and was discharged home in good condition. Ice was applied to the biopsy site during recovery. SEDATION: Local anesthesia with lidocaine. No intravenous sedation required. IMPRESSION: Successful ultrasound-guided fine-needle aspiration of a mixed cystic and solid nodule at the lower pole of the right thyroid measuring up to 1.7 cm. Electronically signed by: BERNICE MANDUJANO MD [facility] Initial Visit (Otolaryngolog y)on 10-14-2018 Initial Visit (Otolaryngology) Diagnoses/Problems Right thyroid nodule (241.0) (E04.1) Patient Discussion/Summary Right-sided thyroid nodule which measures 1.6 cm. The patient is sent for an ultrasound-guided needle aspirate. I discussed with her all the different possible results. I will see her after the biopsy. Provider ImpressionsRight-sided thyroid nodule which measures 1.6 cm. The patient is sent for an ultrasound-guided needle aspirate. I discussed with her all the different possible results. I will see her after the biopsy. Chief Complaint Consultation for the management of a thyroid nodule History of Present Illness This 58-year-old lady is seen at the request of her family physician he cause she was found to have a thyroid nodule. This was found on a CT scan that was obtained for a different reason. This led to an ultrasound that showed a 1.6 cm partially solid and partially cystic right-sided thyroid nodule. There is some calcification. There is no family history of thyroid cancer. Her mother takes thyroid medication. I personally reviewed the scan that was done. It shows some nodularities on the thyroid. Past Medical History History of Sciatic nerve pain (724.3) (M54.30) Surgical History History of section History of Hysterectomy Family History Family history of hypertension (V17.49) (Z82.49) Family history of Heart problem Family history of Meniere's disease (V19.3) (Z83.52) Social History Currently working Lives with family Allergies sulfa Recorded By: Cheo Lora; 10/14/2018 2:04:41 PM Current Meds Medication NameInstruction Voltaren 75 MG TBEC (Diclofenac Sodium) Vitals Vital Signs Recorded: 14Oct2018 01:56PM Ojvuwmmrnsz91.9 F Heart Rate73 Vmpsprcp415 Knevpvqpf75 Height5 ft Yqdplc534 lb 6 oz BMI Uhtxnopdqb35.8 BSA Calculated1.4 Physical Exam The patient is alert and oriented. Examination of the external ears, ear canals, and eardrums, is within normal limits. Examination of the anterior and external nose is negative. Examination of the oral cavity and oropharynx is normal. There is no evidence of any mucosal lesions. There is good mobility of the tongue and palate. There is good mandibular excursion. Palpation of the parotid, neck, and thyroid field is negative except for a small nodularity that is perceived in the right paratracheal area. This is very ill-defined. There is no worrisome adenopathies. A flexible laryngoscopy was carried out. Under topical Xylocaine and Alfredo-Synephrine the scope was introduced through the nostril. The nasopharynx, base of tongue, hypopharynx, and larynx are visualized. The vocal cords are normally mobile. There is no pooling of secretions in the piriform sinuses. There is no evidence of any mucosal lesions. Signatures Electronically signed by : Álvaro Powell MD; Oct 14 2018 2:19PM EST (Author) Normal [facility] Vital Signs Date Time Vital Sign Value Performing Clinician Faci lity 04-13-2022 14:16-0400 Diastolic blood pressure 47 mm[Hg] Russell Magallanes DO Work Phone: [facility] 04-13-2022 14:16-0400 Systolic blood pressure 111 mm[Hg] Russell Sextonis DO Work Phone: [facility] 04-13-2022 14:11-0400 Body height 152.4 cm Russell Magallanes DO Work Phone: [facility] 04-13-2022 14:11-0400 Body weight 45.5 kg Russell Magallanes DO Work Phone: [facility] 04-13-2022 14:11-0400 Heart rate 65 /min Russell Sextonis DO Work Phone: [facility] 04-13-2022 14:11-0400 Respiratory rate 16 /min Russell Sextonis DO Work Phone: [facility] 04-13-2022 14:11-0400 SaO2% (BldA) [Mass fraction] 99 % Russellstaci Magallanes DO Work Phone: [facility] Encounters Encounter Date Encounter Type Care Provider Facility Start: 07-03-2023 End: 07-03-2023 ambulatory HAILEY GONZALEZ Not Available Start: 11-09-2022 End: 11-09-2022 ambulatory LILLIE BARONE Facility:[facility] Start: 11-09-2022 End: 11-09-2022 Patient encounter procedure Lillie Barone MD Work Phone: Dermatology Comment on above: Diffuse photodamage of skin (Primary Dx); Dermatofibroma; Hemangioma, unspecified site; Seborrheic keratosis; Multiple benign nevi Start: 08-28-2022 End: 09-21-[address] FLORENCIA TOMAS . Facility:[facility] Start: 08-20-2022 End: 08-21-[address] FLORENCIA TOMAS . Facility:[facility] Start: 07-14-2022 Encounter for genera l adult medical examination without abnormal findings JAMES PERERA [facility] Start: 07-10-2022 End: 07-11-[address] FLORENCIA TOMAS . Facility:[facility] Start: 07-10-2022 End: 07-11-2022 Encounter for general adult medical examination without abnormal findings DR FLORENCIA TOMAS . Facility:[facility] Start: 05-29-2022 End: 05-29-[address] FLORENCIA TOMAS . Facility: Start: 04-13-2022 End: 04-13-2022 Subsequent hospital visit by physician Xr [facility] Work Phone: Radiology Comment on above: Left thigh pain [M79 .652] Start: 04-13-2022 End: 04-13-2022 ambulatory Deborah Awad RT(R) Radiology Comment on above: Radiology XR Start: 04-13-2022 End: 04-13-2022 Patient encounter procedure Deborah Awad RT(R) [facility] Saldana Comment on above: Radiculopathy of lum bar region (Primary Dx); Left thigh pain; Lateral pain of left hip; Strain of flexor muscle of left hip, sequela; Strain of left piriformis muscle, sequela Start: 03-23-2022 End: 03-24-[address] FLORENCIA TOMAS . Facility: Start: 10-14-2018 Patient encounter procedure Álvaro cheema Facility:[id number] Procedures Date Procedure Procedure Detail Performing Clinician Start: 04-13-2022 Radex hip unilateral with pelvis 2-3 views Russell Magallanes DO Work Phone: Plan of Treatment Date Care Activity Detail Author Start: 03-29-2023 Influenza vaccination INFLUENZA (Season Ended) [facility] Start: 07-29-2022 DEPRESSION ASSESSMENT DEPRESSION ASSESSMENT [facility] Start: 03-29-2022 Influenza vaccination INFLUENZA (#1) [facility] Start: 07-29-2021 DEPRESSION ASSESSMENT DEPRESSION ASSESSMENT [facility] Start: 03-02-2021 COVID-19 VACCINE (3 - Booster for Pfizer series) COVID-19 VACCINE (3 - Booster for Pfizer series) [facility] Start: 11-25-2020 COVID-19 VACCINE (3 - Booster for Pfizer series) COVID-19 VACCINE (3 - Booster for Pfizer series) [facility] Start: 2008 SHINGRIX VACCINE (1 of 2) SHINGRIX VACCINE (1 of 2) [facility] Start: 2003 COLOGUARD (FIT-DNA) COLOGUARD (FIT-DNA) [facility] Start: 2003 Colonoscopy COLONOSCOPY [facility] Start: 2003 COLORECTAL CANCER SCREENING COLORECTAL CANCER SCREENING [facility] Start: [address] COLONOGRAPHY [facility] Start: 2003 DIABETES SCREEN DIABETES SCREEN [facility] Start: 2003 FECAL OCCULT BLOOD FECAL OCCULT BLOOD [facility] Start: 2003 LIPID SCREEN LIPID SCREEN [facility] Start: 2003 SIGMOIDOSCOPY SIGMOIDOSCOPY [facility] Start: 1998 Mammography MAMMOGRAM [facility] Start: 1988 HPV TESTING HPV TESTING [facility] Start: 1979 PAP TESTING PAP TESTING [facility] Start: 1977 Urine microalbumin profile DTAP,TDAP,TD (1 - Tdap) [facility] Start: 1976 HEPATITIS C SCREENING HEPATITIS C SCREENING [facility] Start: 1976 HIV SCREENING HIV SCREENING [facility] Start: 1970 Adult depression screening assessment DEPRESSION SCREENING [facility] End: 05-13-2023 Mri spinal canal lumbar w/o contrast material MRI LUMBAR SPINE WO IVCON Radiology Routine Radiculopathy of lumbar region Left thigh pain Lateral pain of left hip 1 Occurrences starting 04/13/2022 until 05/13/2023 [facility] Work Phone: Comment on above: 1 Occurrences starti ng 04/13/2022 until 05/13/2023 End: 04-13-2022 Radex spine lumbosacral 2/3 views [facility] Work Phone: Comment on above: 1 Occurrences starti ng 04/13/2022 until 04/13/2022 Payers Date Payer Category Payer Unknown [id number] 2021 Unknown [id number] 1959 Unknown [id number] 1958 Unknown [id number]. [id number] 1958 Unknown [id number] 2.16.84 [id number] 1958 Unknown [id number] 2.16.84 [id number] 1958 Unknown [id number] 2.16.84 [id number] 1958 Unknown [id number] 2.16.84 [id number] 1958 Unknown [id number] 2.16.84 [id number] 1958 Unknown [id number] Unknown [id number] Social History Date Type Detail Facility Start: 04-13-2022 Tobacco smoking status NHIS Never smoked tobacco [facility] Start: 04-13-2022 Tobacco use and exposure Smokeless tobacco non-user [facility] Start: 1960 Sex Assigned At Not on file [facility] Start: 04-03-2022 End: 04-13-2022 Exposure to SARS-CoV-2 (event) Not sure [facility] NEGATED: Highlighted rowStart: NINF History of tobacco use Passive smoker [facility] Clinical Notes 12-04-2021 to 11-09-2022 Lillie Barone MD - 11/09/2022 8:18 AM EDTRT Vaughn(R) - 04/13/2022 3:41 PM EDTPangelique Magallanes DO - 04/13/2022 2:25 PM EDT Note Date & Type Note Facility 11-09-2022 Note HNO ID: [id number] Author: Lillie Barone MD Service: ? Author Type: Physician Type: Progress Notes Filed: 11/09/2022 8:49 AM Note Text: DERMATOLOGY / NEW PATIENT CONSULT Consultation requested by patient for an opinion regarding skin. HPI: The patient is a 62 year old female presenting with a 3 lesions of concern Left lateral lower leg - raised conley lesion Mid upper back - brown raised lesion [place] raised lesion- right cheek DERM HISTORY: No history of chronic skin disease FAMILY DERM HISTORY: Positive for non melanoma skin cancer No past medical history on file. No past surgical history on file. Medications and Allergies reviewed. PHYSICAL EXAM: The patient is pleasant, oriented x 3, in no acute distress. Exam performed of the face, neck, back, arms, and legs. Significant findings noted below, otherwise no suspicious lesions noted at this time. Head, Neck, Torso - Posterior (Back) Diffusely scattered conley macules and patches on sun exposed areas. Left Lower Leg - Anterior Hyperpigmented 5 mm fibrous papule that dimples with lateral pressure Right Malar Cheek Page red papule Mid Back Brown flat-topped papule. Torso - Posterior (Back) Multiple scattered symmetric conley to brown macules with uniform pigmentation over the trunk IMPRESSION/PLAN: Diffuse photodamage of skin (3) Torso - Posterior (Back); Head; Neck Diffuse photodamage of skin Sun protection and avoidance discussed with patient Dermatofibroma Left Lower Leg - Anterior Educated and reassured. AAD booklet given. Hemangioma, unspecified site Right Malar Cheek -Educated and reassured Seborrheic keratosis Mid Back -Patient reassured of benign nature of lesion(s). Multiple benign nevi Torso - Posterior (Back) FOLLOW UP: PRN The documentation for this note was completed by Loni Thompson RN/ Dora Conley LPN acting as scribe for Lillie Barone MD. November 09, 2022 8:22 AM. I agree with the Chief Complaint, ROS, and Past Histories independently gathered by the clinical network support engineer and the remaining scribed note accurately describes my personal service to the patient. Lillie Barone MD Medical Decision Making: Problems: Low: 2+ self-limited or minor problems Risk: Low: Low risk from testing/treatment Medical Decision Making Level: 3 - Low [facility] 11-09-2022 History of Present illness Narrative DERMATOLOGY / NEW PATIENT CONSULT Consultation requested by patient for an opinion regarding skin. HPI: The patient is a 62 year old female presenting with a 3 lesions of concern Left lateral lower leg - raised conley lesion Mid upper back - brown raised lesion [place] raised lesion- right cheek DERM HISTORY: No history of chronic skin disease FAMILY DERM HISTORY: Positive for non melanoma skin cancer No past medical history on file. No past surgical history on file. Medications and Allergies reviewed. PHYSICAL EXAM: The patient is pleasant, oriented x 3, in no acute distress. Exam performed of the face, neck, back, arms, and legs. Significant findings noted below, otherwise no suspicious lesions noted at this time. Head, Neck, Torso - Posterior (Back) Diffusely scattered conley macules and patches on sun exposed areas. Left Lower Leg - Anterior Hyperpigmented 5 mm fibrous papule that dimples with lateral pressure Right Malar Cheek Page red papule Mid Back Brown flat-topped papule. Torso - Posterior (Back) Multiple scattered symmetric conley to brown macules with uniform pigmentation over the trunk IMPRESSION/PLAN: Diffuse photodamage of skin (3) Torso - Posterior (Back); Head; Neck Diffuse photodamage of skin Sun protection and avoidance discussed with patient Dermatofibroma Left Lower Leg - Anterior Educated and reassured. AAD booklet given. Hemangioma, unspecified site Right Malar Cheek -Educated and reassured Seborrheic keratosis Mid Back -Patient reassured of benign nature of lesion(s). Multiple benign nevi Torso - Posterior (Back) FOLLOW UP: PRN The documentation for this note was completed by Loni Thompson RN/ Dora Conley LPN acting as scribe for Lillie Barone MD. November 09, 2022 8:22 AM. I agree with the Chief Complaint, ROS, and Past Histories independently gathered by the clinical network support engineer and the remaining scribed note accurately describes my personal service to the patient. Lillie Barone MD Medical Decision Making: Problems: Low: 2+ self-limited or minor problems Risk: Low: Low risk from testing/treatment Medical Decision Making Level: 3 - Low documented in this encounter [facility] 08-21-2022 Note PROCEDURE: XR HIP RT 2 3V W PELVIS COMPARISON: None. HISTORY: Muscle and tendon injury FINDINGS: BONES:No fracture, acute abnormality, or significant arthropathy. SOFT TISSUES:Negative. No visible soft tissue swelling. EFFUSION:None visible. OTHER: Negative. IMPRESSION: No acute abnormality Electronically authenticated by: MICKI ULCERO Date: 2022-08-21 07:52 [facility] 04-13-2022 Note HNO ID: [id number] Author: RT Vaughn(R) Service: ? Author Type: Technologist Type: Progress Notes Filed: 04/13/2022 3:42 PM Note Text: Radiology Service Progress Note PATIENT NAME: Karina Fleming DATE OF SERVICE: April 13, 2022 TIME: 3:41 PM PATIENT IDENTITY VERIFICATION COMPLETED USING TWO (2) IDENTIFIERS: Name and Date of confirmed by patient verbally. FALL SCREENING: Has the patient had 2 falls in the last year or 1 fall with injury or currently using an Ambulatory Assistive Device (Walker, Cane, Wheelchair, Crutches, etc.)? No PATIENT GENDER DATA: Female. status: : No status: NO. PATIENT RELEVANT IMPLANT DATA REVIEWED: Not Applicable RADIOLOGY DEPARTMENT: General X-ray: Exam(s) Completed: Spine X-Ray(s): Lumbar AP / LAT / L5-S1 Pelvis X-Ray: Pelvis with Hip Left PERIPHERAL IV DATA: Not applicable SIGNED BY: RT Vaughn(R), RT Suyapa April 13, 2022 3:41 PM [facility] 04-13-2022 Note HNO ID: [id number] Author: Russell Magallanes, DO Service: ? Author Type: Physician Type: Progress Notes Filed: 05/06/2022 1:40 PM Note Text: [facility] [place] [facility] [place] [facility] - Medical Spine Initial Exam SUBJECTIVE HISTORY OF PRESENT ILLNESS: Karina Fleming is a 61 year old female who presents with a chief complaint of left posterior thigh pain. Pain since Summer 2014 without inciting event. Pain is located left middle of posterior thigh and radiates distally either medially or laterally, not directly into knee. Described as burning, aching, discomfort. Sometimes numbness/tingling. General weakness LLE. Pain has improved some ever since her son helped her perform a piriformis stretch and she felt relief in the exact spot of her pain. Denies low back pain. Also for 3 months has pain around left lateral hip/pelvis region, sometimes lateral, sometimes groin, sometimes around posteriorly, and sometimes along with that will have pain left posterior calf. Patient limits her energy. Denies bowel/bladder incontinence or saddle anesthesia. The pain is currently 3/10 posterior thigh, but now gets up to 5-6/10. The pain previously got up to 8/10 at the highest. Pain around left hip 2/10, but can get to 8/10. PAIN EVALUATION 04/13/2022 1406 04/13/2022 1408 Pain Level: 2 -- Pain Location: Leg-Left -- Description: Pressure;Aching -- Duration Amount of Time: 7 -- Duration Units: Years -- Frequency: Continuous Intermittent Intervention/Comfort measure: -- Medication Pain Radiation: As above Aggravating Factors: Sitting Heat Alleviating Factors: Ice Stretching Pain Ratio: Left posterior thigh Current Treatment: Medications Aspercreme with Lidocaine cream - good relief Therapies PT HEP 5 days per week Stretching - has helped some Prior Treatment: Medications Diclofenac 75 mg BID PRN - mild relief Gabapentin 100 mg BID - caused too much drowsiness Voltaren gel - some relief Therapies PT: November 2020, maybe 15 sessions, some included dry needling, treatment for possible sciatic nerve pain. Massage therapy 3 visits - first time helped for 2 weeks, other sessions didn't help Heat - worse Heat patches - worse Prior spine interventions: Denies Prior spine surgery: Denies Previously treated by: -Neurologist that performed EMG told her no neuropathy, nerve damage, not coming from her back. -Ortho surgeon Dr. Agosto in [place] prior to pandemic. Told her it was not her back, but it was her sciatic nerve. 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 Higher percentile rankings indicate better function/quality of life. 50th percentile is the average of the general population and indicates half of respondents had a worse score. Depression Screening: PHQ-9 Self-Harm (Item 9) response options: 0 Not at all 1 Several days 2 More than half the days 3 Nearly every day PHQ-9 Levels: 0-4 No - mild depression 5-9 Mild depression 10-14 Moderate depression 15-19 Moderately severe depression 20-27 Severe depression There is no problem list on file for this patient. No past medical history on file. No past surgical history on file. Social History Tobacco Use Smoking status: Never Passive exposure: Never Smokeless tobacco: Never No family history on file. ALLERGIES Allergen Reactions Sulfa (Sulfonamide * Unknown Vicryl [Sutures] Unknown CURRENT MEDICATIONS: diclofenac, EC, (VOLTAREN) 75 mg EC tablet Take 75 mg by mouth twice daily. gabapentin (NEURONTIN) 100 mg capsule Take 100 mg by mouth twice daily. REVIEW OF SYSTEMS: 14 systems reviewed and otherwise negative unless mentioned above. OBJECTIVE: PHYSICAL EXAM BP (!) 111/47 Pulse 65 Resp 16 Ht 152.4 cm (5') Wt 45.5 kg (100 lb 4.8 oz) SpO2 99% BMI 19.59 kg/m? GENERAL APPEARANCE: Well nourished, well developed, and no apparent distress. NEURO PSYCH: Patient oriented to person, place, and time. Mood pleasant. Benign affect. CARDIOVASCULAR: Palpable pulses. No edema noted. RESPIRATORY: non-labored breathing, no grunting/flaring/retractions SKIN: Head, neck, trunk, and extremities dry, intact and without lesions. MUSCULOSKELETAL VISUAL INSPECTION Posture: (more content not included)... [facility] 04-13-2022 History of Present illness Narrative Radiology Service Progress Note PATIENT NAME: Karina Fleming DATE OF SERVICE: April 13, 2022 TIME: 3:41 PM PATIENT IDENTITY VERIFICATION COMPLETED USING TWO (2) IDENTIFIERS: Name and Date of confirmed by patient verbally. FALL SCREENING: Has the patient had 2 falls in the last year or 1 fall with injury or currently using an Ambulatory Assistive Device (Walker, Cane, Wheelchair, Crutches, etc.)? No PATIENT GENDER DATA: Female. status: : No status: NO. PATIENT RELEVANT IMPLANT DATA REVIEWED: Not Applicable RADIOLOGY DEPARTMENT: General X-ray: Exam(s) Completed: Spine X-Ray(s): Lumbar AP / LAT / L5-S1 Pelvis X-Ray: Pelvis with Hip Left PERIPHERAL IV DATA: Not applicable SIGNED BY: RT Vaughn(R), RT Suyapa April 13, 2022 3:41 PM documented in this encounter [facility] 04-13-2022 History of Present illness Narrative Images from the original note were not included. [facility] [place] [facility] - Medical Spine Initial Exam SUBJECTIVE HISTORY OF PRESENT ILLNESS: Karina Fleming is a 61 year old female who presents with a chief complaint of left posterior thigh pain. Pain since Summer 2014 without inciting event. Pain is located left middle of posterior thigh and radiates distally either medially or laterally, not directly into knee. Described as burning, aching, discomfort. Sometimes numbness/tingling. General weakness LLE. Pain has improved some ever since her son helped her perform a piriformis stretch and she felt relief in the exact spot of her pain. Denies low back pain. Also for 3 months has pain around left lateral hip/pelvis region, sometimes lateral, sometimes groin, sometimes around posteriorly, and sometimes along with that will have pain left posterior calf. Patient limits her energy. Denies bowel/bladder incontinence or saddle anesthesia. The pain is currently 3/10 posterior thigh, but now gets up to 5-6/10. The pain previously got up to 8/10 at the highest. Pain around left hip 2/10, but can get to 8/10. PAIN EVALUATION 04/13/2022 1406 04/13/2022 1408 Pain Level: 2 -- Pain Location: Leg-Left -- Description: Pressure;Aching -- Duration Amount of Time: 7 -- Duration Units: Years -- Frequency: Continuous Intermittent Intervention/Comfort measure: -- Medication Pain Radiation: As above Aggravating Factors: Sitting Heat Alleviating Factors: Ice Stretching Pain Ratio: Left posterior thigh Current Treatment: Medications Aspercreme with Lidocaine cream - good relief Therapies PT HEP 5 days per week Stretching - has helped some Prior Treatment: Medications Diclofenac 75 mg BID PRN - mild relief Gabapentin 100 mg BID - caused too much drowsiness Voltaren gel - some relief Therapies PT: November 2020, maybe 15 sessions, some included dry needling, treatment for possible sciatic nerve pain. Massage therapy 3 visits - first time helped for 2 weeks, other sessions didn't help Heat - worse Heat patches - worse Prior spine interventions: Denies Prior spine surgery: Denies Previously treated by: -Neurologist that performed EMG told her no neuropathy, nerve damage, not coming from her back. -Ortho surgeon Dr. Agosto in [place] prior to pandemic. Told her it was not her back, but it was her sciatic nerve. 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 Higher percentile rankings indicate better function/quality of life. 50th percentile is the average of the general population and indicates half of respondents had a worse score. Depression Screening: PHQ-9 Self-Harm (Item 9) response options: 0 Not at all 1 Several days 2 More than half the days 3 Nearly every day PHQ-9 Levels: 0-4 No - mild depression 5-9 Mild depression 10-14 Moderate depression 15-19 Moderately severe depression 20-27 Severe depression There is no problem list on file for this patient. No past medical history on file. No past surgical history on file. Social History Tobacco Use Smoking status: Never Passive exposure: Never Smokeless tobacco: Never No family history on file. ALLERGIES Allergen Reactions Sulfa (Sulfonamide * Unknown Vicryl [Sutures] Unknown CURRENT MEDICATIONS: diclofenac, EC, (VOLTAREN) 75 mg EC tablet Take 75 mg by mouth twice daily. gabapentin (NEURONTIN) 100 mg capsule Take 100 mg by mouth twice daily. REVIEW OF SYSTEMS: 14 systems reviewed and otherwise negative unless mentioned above. OBJECTIVE: PHYSICAL EXAM BP (!) 111/47 Pulse 65 Resp 16 Ht 152.4 cm (5') Wt 45.5 kg (100 lb 4.8 oz) SpO2 99% BMI 19.59 kg/m GENERAL APPEARANCE: Well nourished, well developed, and no apparent distress. NEURO PSYCH: Patient oriented to person, place, and time. Mood pleasant. Benign affect. CARDIOVASCULAR: Palpable pulses. No edema noted. RESPIRATORY: non-labored breathing, no grunting/flaring/retractions SKIN: Head, neck, trunk, and extremities dry, intact and without lesions. MUSCULOSKELETAL VISUAL INSPECTION Posture: normal posture and alignment PALPATION: mild tenderness to palpation left piriformis, none in lumbar or sacroiliac joint SPINE ROM: LUMBAR ROM: Full ROM Without Pain MUSCLE BULK: Normal and symmetrical in the upper & lower extremities. MUSCLE TONE: Normal. MOTOR: 4/5 BL EHL 5/5 bilateral LE hip flexion, knee flexion, knee extension, ankle dorsiflexion, plantarflexion. SENSORY: sensation intact to light touch BLE REFLEXES: 2+ bilateral patella, medial hamstring, achilles LONG TRACT SIGNS: No clonus. No Hoffmans. BABINSKI: absent bilateral GAIT: Non-antalgic. Able to stand on toes and heels. Able to perform tandem gait. PERIPHERAL JOINT ROM: HIP ROM: WFL STRAIGHT LEG TEST: negative bilateral Hip: tenderness to palpation left hip flexor medial to ASIS Mild pain with DIDIER on left lateral hip, negative right. FADIR, Stinchfield, log roll negative. SI joint: Negative Al, thigh thrust, sacral thrust, gaenslen, yeoman, compression, distraction Extremity: no tenderness hamstring Knee: No pain with flexion. Data Review: All images/reports listed below were personally reviewed by me unless otherwise indicated. Imaging and outside records independently reviewed XR lumbar: Bony mineralization grossly unremarkable. Mild narrowing at L5-S1 disc space. Moderate facet degenerative change L4-5 and severe facet degenerative change L5-S1. No acute fracture or radiopaque foreign body is seen. 04/13/22 XR left hip/pelvis: There is no acute fracture or dislocation. The joint spaces demonstrate early arthritic changes involving both hips. There is mild narrowing of the inferior right sacroiliac joint. February 2022 EMG/NCS - report not available: Patient was told no nerve damage, neuropathy, not coming from her back. 2021 DXA scan per patient -3.7 07/13/2021 MRI left thigh with and without contrast ([facility] [place], [place]): Bones: Normal. No significant arthropathy or acute abnormality. Soft tissues: Negative. No visible soft tissue swelling, mass, fluid collection, edema or hematoma. Effusion: None visible. Other: Skin surface markers overlie the posterior thigh and localized area of pain. Impression: No abnormal or suspicious findings to account for patient's symptoms. 06/28/2021 ultrasound venous Doppler LLE ([place], [place]): No left femoral-popliteal venous thrombosis. 06/23/2021 XR left femur ([facility] [place], [place]): Bones: No fracture, acute abnormality, or significant arthropathy. No bone lesion. Soft tissue: No visible soft tissue swelling. Effusion: None visible. Other: Negative. Impression: No abnormal or suspicious findings to account for patient's symptoms. 2019 DXA scan per patient report. -3.4 ASSESSMENT/PLAN DIAGNOSIS: M54.16 Radiculopathy of lumbar region (primary encounter diagnosis) M79.652 Left thigh pain M25.552 Lateral pain of left hip S76.012S Strain of flexor muscle of left hip, sequela S76.312S Strain of left piriformis muscle, sequela ASSESSMENT: Karina Fleming is a 61 year old female with PMH of Osteoporosis, presenting with chronic pain left middle of posterior thigh and radiates distally either medially or laterally, not directly into knee. Described as burning, aching, discomfort. Sometimes numbness/tingling. General weakness LLE. This pain is improved partially with piriformis stretching. For 3 months also reports pain around left lateral hip/pelvis region, sometimes groin, sometimes around posteriorly, and sometimes along with that will have pain left posterior calf. Unclear source of her pain at this time. Pain is rather diffuse through the left hip/thigh/pelvis. She had mild pain left lateral hip with DIDIER. Tenderness palpation left hip flexor region and left piriformis. Exam otherwise unremarkable. LLE US was negative for DVT. MRI left thigh did not show any findings to explain patient's pain. MSK source such as piriformis or hip flexor could be involved, however patient's description suggest possible nerve source. Recommend MRI lumbar spine to evaluate for lumbosacral nerve etiology. PLAN: 1) Imaging/Diagnostic Studies: -XR lumbar spine and left hip. -MRI lumbar spine without contrast. Chronic pain left posterior thigh to knee, left lateral hip to posterior calf, burning pain, associated with numnbess/tingling, general weakness. Pain has not improved with physical therapy, NSAIDs, Gabapentin, massage, dry needling. Suspect possible lumbosacral nerve impingement causing radicular pain. Interventional planning. -Imaging reviewed as above. 2) Therapy/Rehabilitation: -Continue PT HEP. -Activities and exercise as tolerated. 3) Pharmacological Management: -Trial Lyrica 25 mg, titrate to TID. Common side effects discussed. Avoid abrupt discontinuation. 4) Spine/MSK Interventions: -none 5) Consultations: -none 6) Follow -up: -We will notify patient of MRI lumbar findings once available. -Patient instructed to call/seek urgent medical care with worsening of symptoms or change of neurological status. 7) Future treatment considerations: -Left Sciatic nerve US. -Left piriformis injection. -Sports Medicine consult I spent a total of 70 minutes on the date of the service which included preparing to see the patient, [id number] patient care, completing clinical documentation, obtaining and/or reviewing separately obtained history, performing a medically appropriate examination, counseling and educating the patient/family/caregiver, ordering medications, tests, or procedures, independently interpreting results (not separately reported), and communicating results to the patient/family/caregiver. SIGNATURE: Russell Magallanes DO PATIENT NAME: Karina Fleming DATE: April 13, 2022 TIME: 2:25 PM documented in this encounter [facility] 12-04-2021 Note HISTORY: Bone densit y screening. COMPARISON: 09/03/2019 PROCEDURE: Imaging of the lumbar spine and bilateral hips was obtained for bone density evaluation. FINDINGS: REGION BMD (g/cm??) YOUNG ADULT T-SCORE AGE-MATCHED Z-SCORE LEFT NECK 0.616 -2.1 -0.7 RIGHT NECK 0.597 -2.3 -0.8 LUMBAR (L1-L4) 0.645 -3.7 -2.0 The mean BMD and corresponding T-score listed above indicate: Osteoporosis and thus places the patient at a significant increased risk for fracture. Recommend follow-up exam in 1 year, sooner as clinically necessary. Compared to prior study, significant 3.7% decrease in BMD of the lumbar spine and 3.4% increase in BMD of the hip via total mean. Comment: The T-score is the primary focus of the interpretation of a patient???s bone mineral density measurement. The T-score is the number of standard deviations and individual is above or below the mean value for a young female having normal bone mass. The WHO defines osteoporosis based on the T-score value: +1.0 to -0.9 : Normal bone mass -1.0 to -2.5 : Osteopenia and thus may be at future risk of fracture. -2.6 to -5.0 : Osteoporosis and at significantly increased risk of fracture. IMPRESSION: OSTEOPOROSIS : RECOMMEND ONE YEAR FOLLOW-UP. Report reported and signed by Deep Haney on 12/04/2021 130[address] [facility] Order Puller Evaluation note Diagnosis Left thigh pain Pain in limb Lateral pain of left hip Pain in joint, pelvic region and thigh Radiculopathy of lumbar region Thoracic or lumbosacral neuritis or radiculitis, unspecified documented [facility] this [facility] Diagnosis Radiculopathy of lumbar region- Primary Thoracic or lumbosacral neuritis or radiculitis, unspecified Left thigh pain Pain in limb Lateral pain of left hip Pain in joint, pelvic region and thigh Strain of flexor muscle of left hip, sequela Strain of left piriformis muscle, sequela documented in this encounter [facility] Diagnosis Diffuse photodamage of skin- Primary Other chronic dermatitis due to solar radiation Dermatofibroma Benign neoplasm of skin, site unspecified Hemangioma, unspecified site Seborrheic keratosis Other seborrheic keratosis Multiple benign nevi Benign neoplasm of skin, site unspecified documented in this encounter [facility] for referral (narrative)* Diagnostic Procedure Only (Routine) - Closed Specialty Diagnoses / Procedures Referred By Contac t Referred To Contact XR IMAGING Diagnoses Radiculopathy of lumbar region Procedures XR LUMBAR LIMITED 2V AP/LAT RADEX SPINE LUMBOSACRAL 2/3 VIEWS Russell Magallanes DO [address] [place] [address] Xr Imaging Referral ID Status Reason Start Date Expiration Date V isits Requested Visits Authorized [id number] Closed Auto-Generate d Referral 04/13/2022 05/13/2023 1 1 * Diagnostic Procedure Only (Routine) - Closed Specialty Diagnoses / Procedures Referred By Contac t Referred To Contact XR IMAGING Diagnoses Left thigh pain Lateral pain of left hip Procedures XR HIP GENERAL 3V PELV/AP/LAT LEFT RADEX HIP UNILATERAL WITH PELVIS 2-3 VIEWS Russell Magallanes DO [address] [place] [address] Xr Imaging Referral ID Status Reason Start Date Expiration Date V isits Requested Visits Authorized [id number] Closed Auto-Generate d Referral 04/13/2022 05/13/2023 1 1 [facility] for referral (narrative)* Diagnostic Procedure Only (Routine) - Closed Specialty Diagnoses / Procedures Referred By Contac t Referred To Contact XR IMAGING Diagnoses Radiculopathy of lumbar region Procedures XR LUMBAR LIMITED 2V AP/LAT RADEX SPINE LUMBOSACRAL 2/3 VIEWS Russell Magallanes, DO [address] [place] [address] Xr Imaging Referral ID Status Reason Start Date Expiration Date V isits Requested Visits Authorized [id number] Closed Auto-Generate d Referral 04/13/2022 05/13/2023 1 1 * Diagnostic Procedure Only (Routine) - Closed Specialty Diagnoses / Procedures Referred By Contac t Referred To Contact XR IMAGING Diagnoses Left thigh pain Lateral pain of left hip Procedures XR HIP GENERAL 3V PELV/AP/LAT LEFT RADEX HIP UNILATERAL WITH PELVIS 2-3 VIEWS Russell Magallanes DO [address] [place] [address] Xr Imaging Referral ID Status Reason Start Date Expiration Date V isits Requested Visits Authorized [id number] Closed Auto-Generate d Referral 04/13/2022 05/13/2023 1 1 * MRI/CT (Routine) - Pending Review Specialty Diagnoses / Procedures Referred By Devon stern Referred To Contact MR IMAGING Diagnoses Radiculopathy of lumbar region Left thigh pain Lateral pain of left hip Procedures MRI LUMBAR SPINE WO IVCON MRI SPINAL CANAL LUMBAR W/O CONTRAST MATERIAL Russell Magallanes DO [address] [place] [address] Mr Imaging Referral ID Status Reason Start Date Expiration Date Visits Requested Visits Authorized [id number] Pending Review Auto-Generat ed Referral 04/13/2022 05/13/2023 1 1 [facility] for visit Narrative* Diagnostic Procedure Only (Routine) - Closed Specialty Diagnoses / Procedures Referred By Devon t Referred To Contact XR IMAGING Diagnoses Radiculopathy of lumbar region Procedures XR LUMBAR LIMITED 2V AP/LAT RADEX SPINE LUMBOSACRAL 2/3 VIEWS Russell Magallanes DO [address] [place] [address] Xr Imaging Referral ID Status Reason Start Date Expiration Date V isits Requested Visits Authorized [id number] Closed Auto-Generate d Referral 04/13/2022 05/13/2023 1 1 [facility] Summary Purpose Family History No Family History Records FoundNo Family History Records FoundNo Family History Records FoundNo Family History Records FoundNo Family History Records FoundNo Family History Records FoundNo Family History Records Found Advance Directives No Advanced Directives Records FoundNo Advanced Directives Records FoundNo Advanced Directives Records FoundNo Advanced Directives Records FoundNo Advanced Directives Records FoundNo Advanced Directives Records FoundNo Advanced Directives Records Found Procedure Findings Note Pre-procedure Verification a nd Time Out: Pre-Procedure Verification and Time Out: Procedure Locationprocedure area HUDDLE - Pre-procedure Verificationcompleted TIME OUT - Final Verificationcompleted DEBRIEFcompleted General Information: Date/Time of Procedure: 12-Nov-2018 14:59 Post-Procedure Diagnosis: thyroid nodule Procedure Name: thyroid FNA Findings: thyroid nodule Procedure performed by: wi Bed Spring Maker(s): none Estimated Blood Loss (mL): none Specimen: yes Informed Consent: written consent obtained Signature/Cosignature/Attestation: Attending AttestationI performed the procedure without a resident Electronic Signatures: Bernice Mandujano) (Signed 12-Nov-2018 15:00) Authored: Pre-procedure Verification and Time Out, General Information, Signature/Cosignature/Attestation Last Updated: 12-Nov-2018 15:00 by Bernice Mandujano) Additional Source Comments INFORMATION SOURCE (unrecogn ized section and content) DATE CREATED AUTHOR 10/14/2018 [employer] DATE CREATED AUTHOR AUTHOR'S ORGANIZ ATION 11/15/2018 [facility] DATE CREATED AUTHOR AUTHOR'S ORGANIZ ATION 02/16/2019 [facility] DATE CREATED AUTHOR AUTHOR'S ORGANIZ ATION 12/05/2021 [facility] Specialist DATE CREATED AUTHOR AUTHOR'S ORGANIZ ATION 09/28/2022 [facility] DATE CREATED AUTHOR AUTHOR'S ORGANIZ ATION 11/12/2022 [facility] DATE CREATED AUTHOR AUTHOR'S ORGANIZ ATION 07/05/2023 [facility] dical Specialists EPIC Source Comments (unrecognize d section and content) In the event this informatio n is protected by the Federal Confidentiality of Alcohol and Drug Abuse Patient Records regulations: The Federal rules restrict any use of the information to criminally investigate or prosecute any alcohol or drug abuse patient.[facility] the event this information is protected by the Federal Confidentiality of Alcohol and Drug Abuse Patient Records regulations: The Federal rules restrict any use of the information to criminally investigate or prosecute any alcohol or drug abuse patient.[facility] the event this information is protected by the Federal Confidentiality of Alcohol and Drug Abuse Patient Records regulations: The Federal rules restrict any use of the information to criminally investigate or prosecute any alcohol or drug abuse patient.[facility] Reason for Visit (unrecogniz ed section and content) Reason Comments Radiology XR Reason Comments Leg Pain Nerve pain in left l eg since 2014. Begins middle of thigh downward and sometimes from inner thigh downward. Has xray and MRI of leg images from [facility]. Inaddition to left hip as well. Disc with MRI, Xray, and US of leg. Reason Comments LESION, SKIN FOR RECORDS PERTAINING TO PATIENTS WHO ARE OR HAVE BEEN ENROLLED IN A CHEMICAL DEPENDENCY/SUBSTANCEABUSE PROGRAM, SOME INFORMATION MAY BE OMITTED. This clinical summary was aggregated from multiple sources. Caution should be exercised in using it in the provision of clinical care. This summary normalizes information from multiple sources, and as a consequence, information in this document may materially change the coding, format and clinical context of patient data. In addition, data may be omitted in some cases. CLINICAL DECISIONS SHOULD BE BASED ON THE PRIMARY CLINICAL RECORDS. [facility]. provides no warranty or guarantee of the accuracy or completeness of information in this document.
== END 2023-06-10 07:39 | disposition home or self-care (01) ==
LOC: US 07:39
PROVIDERS: PCP Family Medicine; Visit Provider Family Medicine
DX: Z00.00 Encounter for general adult medical examination without abnormal findings (principal); R10.9 Unspecified abdominal pain
CPT/HCPCS: 36415; 76770; 80053; 80061; 82306; 83036; 83540; 84436; 84443; 84481; 85025

== ENCOUNTER 2024-05-05 07:54 | Outpatient (OUT) | payer MEDICARE, OTHER, SELFPAY ==
--- OUTSIDE RECORDS SUMMARY | 2024-05-05 08:16 | XMS_ITS | CCD ---
Author Organization [facility] Care Team Providers Care Director Phone Name Role Phone Álvaro Powell Attending Unavailable Álvaro Powell Referring Unavailable Florencia Tomas Primary Care Unavailable Unavailable Primary Care Provider Unavailberna e Unavailable Primary Care Provider Unavailberna POEY ., DR DON Consulting Unavailable HOY ., [...] Unavailable HOY ., DR DON Attending Unavailable PRIM, DR MICKI Burgess Consulting Unavailable Unavailable Primary Care Provider UnavailLILLIE Robertson Attending Unavailable RUSSELL MAGALLANES Referring Unavailable RUSSELL MAGALLANES Attending Unavailable STALIN GONZALEZA Junior Attending Unavailable STALIN GONZALEZA Junior Attending Unavailable NATAPRSALORA, HAILEY J Referring Unavailable NATAPRJORGE, HAILEY J Attending Unavailable NATRASHIDA, HAILEY J Referring Unavailable Allergies Allergy Classification Reported Allergen(s) Allergy Type Date of Onset Reaction(s) Facility (5 sources) Sulfonamides (Antibiotic); Translations: [SULFA (SULFONAMIDE ANTIBIOTICS)] Propensity to adverse reactions to drug 2 Unknown [facility] (5 sources) Sutures; Translations: [SUTURES] Propensity to adverse reactions 2 Unknown [facility] (1 source) Sulfonamides (Antibiotic) Drug allergy (disorder) 5 [facility] Repository Medications Completed/Discontinued Medications Medication Drug Class(es) [...] mouth twice daily. pregabalin 25 mg oral capsule (4 sources) Start: 04-13-2022 End: 05-12-2022 pregabalin (LYRICA) 25 mg capsule Indications: Radiculopathy of lumbar region Take one [...] Results Test Name Value Interpretation Reference Range Facility BI MAMMOGRAM SCREENING TOMOS YNTHESIS BILATERALon 08-08-2023 BI MAMMOGRAM SCREENING TOMOSYNTHESIS BILATERAL This is a summary report. The complete report is available in the patient's medical record. If you cannot access the medical record, please contact the sending organization for a detailed fax or copy. EXAM: BI MAMMOGRAM SCREENING TOMOSYNTHESIS BILATERAL DATE: 09/05/2023 10:37 AM CLINICAL HISTORY: screening. COMPARISONS: 12/04/2021, 11/24/2020, and 09/03/2019. TECHNIQUE: Routine full-field digital mammograms and 3D breast tomosynthesis of both breasts were obtained. FINDINGS: There are no developing masses, suspicious microcalcifications, or areas of architectural distortion identified on the current study. No significant changes are identified from the prior studies, given differences in technique and positioning. Stable postoperative changes with a few coarse microcalcifications, and asymmetric densities. IMPRESSION: BIRADS 2 - Benign Follow-up: Routine Screening Mamm. Density: Heterogeneously dense [3]. Board Certified Radiologists. Accredited by the ACR and FDA. MAMMOGRAPHY IS VERY IMPORTANT TO YOUR HEALTH. THE CURRENT ETHIOPIAN COLLEGE OF RADIOLOGY AND NATIONAL COMPREHENSIVE CANCER NETWORK GUIDELINES RECOMMENDS ANNUAL MAMMOGRAPHY BEGINNING AT AGE 40. THIS FACILITY UTILIZES A REMINDER SYSTEM TO ENSURE ALL PATIENTS RECEIVE REMINDER NOTIFICATIONS AT THE APPROPRIATE TIME BASED ON THE RECOMMENDATIONS OF THIS EXAM. ELECTRONICALLY SIGNED BY: Arcadio Hamilton MD Normal Not Available Comment on above: Order Comment: Us or spot compression prn CNOVon 11-09-2022 CNOV Office Visit (DERMCC) KARINA FLEMING ([id number]) 1960 F Date Time Provider Department 11/09/22 8:30 AM LILLIE BARONE DERMHENRRY During your visit today, we recorded the following information about you: Lillie Barone MD 11/09/2022 8:49 AM Signed DERMATOLOGY / NEW PATIENT CONSULT Consultation requested by patient for an opinion regarding skin. HPI: The patient is a 62 year old female presenting with a 3 lesions of concern Left lateral lower leg - raised conley lesion Mid upper back - brown raised lesion [place] raised lesion- right cheek DERM HISTORY: No [...] Past Histories independently gathered by the clinical director of operations support and the remaining scribed note accurately describes [...] Diagnosis:Diffuse photodamage of skin [L57.8] Other Visit Diagnoses:Dermatofib dudley [D23.9] Hemangioma, unspecified site [D18.00] Seborrheic keratosis [...] for Encounter Date Provider Department Center 11/09/2022 [id number] BARONE [facility] Encounter Status:Closed by LILLIE BARONE on 11/09/22 Normal [facility] XR LSPINE MIN 4 VIEWSon 07-30 XR LSPINE MIN 4 VIEWS EXAMINATION: XR LSPINE MIN 4 VIEWS HISTORY: Muscle and tendon injury COMPARISON: No relevant comparison available. FINDINGS: BONES: Minimal dextrocurvature centered at L2-L3. Mild degenerative spondylosis and facet osteoarthropathy DISC SPACES: Normal. No significant disc height narrowing, subluxation, or endplate abnormality. PARASPINOUS: Negative. No paraspinous abnormality is seen. OTHER: Negative. IMPRESSION: Mild degenerative changes Electronically authenticated by: MICKI LUCERO Date: 2022-08-21 07:50 Normal [facility] GLUCOSE BLOODon 07-10-2022 Glucose [Mass/Vol] 87 mg/dL Normal 74-106 [facility] Comment on above: Performed By: #### L IPID, GLUC #### [facility] [address] [address] [address] Kadeem Clemens LIPID PROFILEon 07-10-2022 CHOL-HDL RATIO NORM SEE BELOW Normal [facility] Comment on above: Result Comment: 3.3 - 4.4 LOW RISK 4.4 - 7.1 AVERAGE RISK 7.1 - 11.0 MODERATE RISK >11.0 HIGH RISK Performed By: #### L IPID, GLUC #### [facility] [address] [address] [address] Kadeem Clemens Cholesterol [Mass/Vol] 182 mg/dL Normal <=200 [facility] Comment on above: Performed By: #### L IPID, GLUC #### [facility] [address] [address] [address] Kadeem Clemens Cholesterol in HDL [Mass/Vol] 66 mg/dL Critically high 40-60 [facility] Comment on above: Performed By: #### L IPID, GLUC #### [facility] [address] [address] [address] Kadeem Clemens Cholesterol in LDL [Mass/Vol] 101.4 mg/dL Normal [facility] Comment on above: Performed By: #### L IPID, GLUC #### [facility] [address] [address] [address] Kadeem Clemens Cholesterol.total/Ch olesterol in HDL [Mass ratio] 2.8 {ratio} Normal [facility] Comment on above: Performed By: #### L IPID, GLUC #### [facility] [address] [address] [address] Kadeem Clemens HDL NORMAL > or = 60 mg/dl - LOW CARDIOVASCULAR RISK <40 mg/dl - HIGH CARDIOVASCULAR RISK Normal [facility] Comment on above: Performed By: #### L IPID, GLUC #### [facility] [address] [address] [address] Kadeem Clemens LDL CALC NORMAL SEE BELOW Normal [facility] Comment on above: Result Comment: <100 mg/dl OPTIMAL 100 - 129 mg/dl NEAR OR ABOVE OPTIMAL 130 - 159 mg/dl BORDERLINE HIGH 160 - 189 mg/dl HIGH >190 mg/dl VERY HIGH Performed By: #### L IPID, GLUC #### [facility] [address] [address] [address] Kadeem Clemens Triglyceride [Mass/Vol] 73 mg/dL Normal <=150 [facility] Comment on above: Performed By: #### L IPID, GLUC #### [facility] [address] [address] [address] Kadeem Clemens VLDL CALC 14.6 mg/dL Normal [facility] Comment on above: Performed By: #### L IPID, GLUC #### [facility] [address] [place] [address] Dr. Kadeem Clemens Covid-19 PCR (CVDTB)on SARS-CoV-2 (COVID-19) RNA DARÍO+probe Ql (Unsp spec) Detected Critically abnormal NOT DETECTED [facility] Comment on above: Result Comment: This test is not yet approved or cleared by the [place] FDA. When there are no FDA-approved or cleared tests available, and other criteria are met, FDA can make tests available under an emergency access mechanism called an Emergency Use Authorization (EUA). The EUA for this test is supported by the Subacute Nurse of Health and Human Service's (HHS's) declaration [...] used). Performed By: #### C VDTBH #### [facility] [address] [place] [address] Dr. Kadeem Clemens INFLUENZA A AND B AGon 05-29 INFLUANEGH SEE BELOW Normal [facility] Comment on above: Result Comment: Nega tive for Flu A protein angiten. Infection due to Flu A cannot be ruled out. Flu A angiten in the sample may be below the detection limit of the test. Performed By: #### I NFLUAB #### [facility] [address] [place] [address] Dr. Kadeem Clemens INFLUBNEGH SEE BELOW Normal [facility] Comment on above: Result Comment: Nega tive for Flu B protein antigen. Infection due to Flu B cannot be ruled out. Flu B antigen in the sample may be below the detection limit of the test. Performed By: #### I NFLUAB #### [facility] [address] [place] [address] Dr. Kadeem Clemens INFLUENZA A AG Negative Normal NEGATIVE SEE COMMENT [facility] Comment on above: Performed By: #### I NFLUAB #### [facility] [address] [address] [address] Kadeem Clemens INFLUENZA B AG Negative Normal NEGATIVE SEE COMMENT [facility] Comment on above: Performed By: #### I NFLUAB #### [facility] [address] [address] [address] Kadeem Clemens INTERNAL CONTROLS Within Normal Limits Normal Wi thin Normal Limits [facility] Comment on above: Performed By: #### I NFLUAB #### [facility] [address] [address] [address] Kadeem Clemens CNOVon 04-13-2022 CNOV Office Visit (SPMESH) KARINA FLEMING ([id number]) 1960 F Date Time Provider Department 04/13/22 2:30 PM RUSSELL MAGALLANES [facility] During your visit today, we recorded the following information about you: Pulse Respiration Blood pressure Weight 65/minute 16/minute 111/47 45.5 kg Height 1.524 m Russell Magallanes DO 05/06/2022 1:40 PM Signed [facility] Neurological [facility] [...] her back. -Ortho surgeon Dr. Agosto in [place] prior to pandemic. Told her it was not her back, but it was her sciatic nerve. 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 Normal [facility] No Panel Informationon 04-13 [facility] XR HIP 3V PELV+ AP/LAT LTon 04-13-2022 [...] right sacroiliac joint. IMPRESSION: No acute findings. Putty Glazer: GARY Transcribe Date/Time: Apr 14 2022 2:38P Dictated by : BRUNA LUONG MD This examination was interpreted and the report reviewed and electronically signed by: BRUNA LUONG MD on Apr 14 2022 2:39PM EST [id number] CN Normal [facility] XR LUMBAR 2V AP/LATon 2021 XR LUMBAR [...] is seen IMPRESSION: Lower lumbar degenerative changes Putty Glazer: GARY Transcribe Date/Time: Apr 15 2022 11:11P Dictated by : REGINO ELIAS MD This examination was interpreted and the report reviewed and electronically signed by: REGINO ELIAS MD on Apr 15 2022 11:12PM EST [id number] CN Normal [facility] INSULINon 03-24-2022 Insulin 6.0 uIU/mL Normal 2.6-24.9 [facility] Comment on above: Performed By: #### I NSULIN ####[facility] [address] [address]Dr. Kadeem Clemens T4, T3U, FTI LABCORPon 03-24 Free Thyroxine Index 2.3 Normal 1.2-4.9 [facility] Comment on above: Performed By: #### T HYLC ####[facility] [address] [id number]. Kadeem Clemens T3 Uptake 32 % Normal 24-39 [facility] Comment on above: Performed By: #### T HYLC ####[facility] [address] [id number]. Kadeem Clemens T4 [Mass/Vol] 7.1 ug/dL Normal 4.5-12.0 [facility] Comment on above: Performed By: #### T HYLC ####[facility] [address] [address]Dr. Kadeem Clemens CBC AUTO DIFFon 03-23-2022 BASO # 0.1 103/ul Normal 0.0-0.1 [facility] Comment on above: Performed By: #### C BC ####[facility] [address] [place], [place] [id number]. Kadeem Clemens Basophils/100 WBC (Bld) 1.0 % Normal 0.2-2.0 [facility] Comment on above: Performed By: #### C BC ####[facility] [address] [place], [place] [address]Dr. Kadeem Clemens EO # 0.1 103/ul Normal 0.0-0.7 [facility] Comment on above: Performed By: #### C BC ####[facility] [address] [place], [place] [address]Dr. Kadeem Sarath Eosinophils/100 WBC (Bld) 2.1 % Normal 0.9-7.0 [facility] Comment on above: Performed By: #### C BC ####[facility] [address] [place], [place] [address]Dr. Kadeem Clemens Erythrocyte distribution width (RBC) [Ratio] 12.2 % Normal 11.0-15.0 [facility] Comment on above: Performed By: #### C BC ####[facility] [address] [place], [place] [address]Dr. Kadeem Clemens Hematocrit (Bld) [Volume fraction] 42.3 % Normal 36.0-48.0 [facility] Comment on above: Performed By: #### C BC ####[facility] [address] [place], [place] [address]Dr. Kadeem Clemens Hemoglobin (Bld) [Mass/Vol] 13.8 g/dL Normal 12.0-16.0 [facility] Comment on above: Performed By: #### C BC ####[facility] [address] [place], [place] [address]Dr. Kadeem Clemens IG # 0.01 10e3/ul Normal 0.00-0.03 [facility] Comment on above: Performed By: #### C BC ####[facility] [address] [place], [place] [address]Yg. Kadeem Clemens IG % 0.2 % Normal 0.0-0.5 [facility] Comment on above: Performed By: #### C BC ####[facility] [address] [id number]. Kadeem Clemens LYMPH # 2.3 103/ul Normal 1.2-3.8 [facility] Comment on above: Performed By: #### C BC ####[facility] [address] [id number]. Kadeem Clemens Lymphocytes/100 WBC (Bld) 37.8 % Normal 20.5-60.0 [facility] Comment on above: Performed By: #### C BC ####[facility] [address] [id number]. Kadeem Clemens MANUAL DIFF REQ NO Normal [facility] Comment on above: Performed By: #### C BC ####[facility] [address] [id number]. Kadeem Clemens MCH (RBC) [Entitic mass] 29.1 pg Normal 26.7-34.0 [facility] Comment on above: Performed By: #### C BC ####[facility] [address] [id number]. Kadeem Clemens MCHC (RBC) [Mass/Vol] 32.6 g/dL Normal 29.9-35.2 [facility] Comment on above: Performed By: #### C BC ####[facility] [address] [id number]. Kadeem Clemens MCV (RBC) [Entitic vol] 89.1 fL Normal 81.0-99.0 [facility] Comment on above: Performed By: #### C BC ####[facility] [address] [id number]. Kadeem Clemens MONO # 0.5 103/ul Normal 0.3-0.8 [facility] Comment on above: Performed By: #### C BC ####[facility] [address] [id number]. Kadeem Clemens Monocytes/100 WBC (Bld) 7.6 % Normal 1.7-12.0 [facility] Comment on above: Performed By: #### C BC ####[facility] [address] [id number]. Kadeem Clemens NEUT # 3.1 103/ul Normal 1.4-6.5 [facility] Comment on above: Performed By: #### C BC ####[facility] [address] [id number]. Kadeem Clemens Neutrophils/100 WBC (Bld) 51.3 % Normal 43.0-75.0 [facility] Comment on above: Performed By: #### C BC ####[facility] [address] [id number]. Kadeem Clemens Platelet mean volume (Bld) [Entitic vol] 9.6 fL Normal 9.5-13.5 [facility] Comment on above: Performed By: #### C BC ####[facility] [address] [id number]. Kadeem Clemens PLT 240 103/ul Normal 150-450 [facility] Comment on above: Performed By: #### C BC ####[facility] [address] [id number]. Kadeem Clemens RBC 4.75 106/ul Normal 4.20-5.40 [facility] Comment on above: Performed By: #### C BC ####[facility] [address] [id number]. Kadeem Clemens WBC 6.1 103/ul Normal 4.0-11.0 [facility] Comment on above: Performed By: #### C BC ####[facility] [address] [id number]. Kadeem Clemens GLYCOHEMOGLOBIN A1Con 2021 ADA RECOMMENDATION SEE BELOW Normal [facility] Comment on above: Result Comment: ADA RECOMMENDED LIMIT 4.0 - 6.0 ADA THERAPEUTIC TARGET < 7.0 ACTION SUGGESTED > 7.0 Performed By: #### A 1C ####[facility] [address] [id number] Clemens Glucose [Mass/Vol] 105 mg/dL Normal [facility] Comment on above: Performed By: #### A 1C ####[facility] [address] [place], [place] [address]YyOdette Clemens HbA1c (Bld) [Mass fraction] 5.3 % Normal 4.5-6.2 [facility] Comment on above: Performed By: #### A 1C ####[facility] [address] [id number] Clemens IRONon 03-23-2022 Iron [Mass/Vol] 106.0 ug/dL Normal 50.0-170.0 [facility] Comment on above: Performed By: #### I MOO #### [facility] [address] [address] [address] Kadeem Clemens LIPID PROFILEon 03-23-2022 CHOL-HDL RATIO NORM SEE BELOW Normal [facility] Comment on above: Result Comment: 3.3 - 4.4 LOW RISK 4.4 - 7.1 AVERAGE RISK 7.1 - 11.0 MODERATE RISK >11.0 HIGH RISK Performed By: #### C MP, LIPID, TSH #### [facility] [address] [address] [address] Kadeem Clemens Cholesterol [Mass/Vol] 185 mg/dL Normal <=200 [facility] Comment on above: Performed By: #### C MP, LIPID, TSH #### [facility] [address] [address] [address] Kadeem Clemens Cholesterol in HDL [Mass/Vol] 66 mg/dL Critically high 40-60 [facility] Comment on above: Performed By: #### C MP, LIPID, TSH #### [facility] [address] [address] [address] Kadeem Clemens Cholesterol in LDL [Mass/Vol] 99.6 mg/dL Normal [facility] Comment on above: Performed By: #### C MP, LIPID, TSH #### [facility] [address] [address] [address] Kadeem Clemens Cholesterol.total/Ch olesterol in HDL [Mass ratio] 2.8 {ratio} Normal [facility] Comment on above: Performed By: #### C MP, LIPID, TSH #### [facility] [address] [address] [address] Kadeem Clemens HDL NORMAL > or = 60 mg/dl - LOW CARDIOVASCULAR RISK <40 mg/dl - HIGH CARDIOVASCULAR RISK Normal [facility] Comment on above: Performed By: #### C MP, LIPID, TSH #### [facility] [address] [address] [address] Kadeem Clemens LDL CALC NORMAL SEE BELOW Normal [facility] Comment on above: Result Comment: <100 mg/dl OPTIMAL 100 - 129 mg/dl NEAR OR ABOVE OPTIMAL 130 - 159 mg/dl BORDERLINE HIGH 160 - 189 mg/dl HIGH >190 mg/dl VERY HIGH Performed By: #### C MP, LIPID, TSH #### [facility] [address] [address] [address] Kadeem Clemens Triglyceride [Mass/Vol] 97 mg/dL Normal <=150 [facility] Comment on above: Performed By: #### C MP, LIPID, TSH #### [facility] [address] [address] [address] Kadeem Clemens VLDL CALC 19.4 mg/dL Normal [facility] Comment on above: Performed By: #### C MP, LIPID, TSH #### [facility] [address] [place] [address] Dr. Kadeem Clemens PROF 14(COMP METB)on 022 Albumin [Mass/Vol] 4.0 g/dL Normal 3.4-5.0 [facility] Comment on above: Performed By: #### C MP, LIPID, TSH #### [facility] [address] [place] [address] Dr. Kadeem Clemens Albumin/Globulin [Mass ratio] 1.3 {ratio} Normal [facility] Comment on above: Performed By: #### C MP, LIPID, TSH #### [facility] [address] [place] [address] Dr. Kadeem Clemens ALP [Catalytic activity/Vol] 82 U/L Normal 46-116 [facility] Comment on above: Performed By: #### C MP, LIPID, TSH #### [facility] [address] [address] [address] Kadeem Clemens ALT [Catalytic activity/Vol] 20 U/L Normal 14-59 [facility] Comment on above: Performed By: #### C MP, LIPID, TSH #### [facility] [address] [address] [address] Kadeem Clemens Anion gap [Moles/Vol] 11.4 mmol/L Normal [facility] Comment on above: Performed By: #### C MP, LIPID, TSH #### [facility] [address] [address] [address] Kadeem Clemens AST [Catalytic activity/Vol] 23 U/L Normal 15-37 [facility] Comment on above: Performed By: #### C MP, LIPID, TSH #### [facility] [address] [address] [address] Kadeem Clemens Bilirubin [Mass/Vol] 0.6 mg/dL Normal 0.2-1.0 [facility] Comment on above: Performed By: #### C MP, LIPID, TSH #### [facility] [address] [address] [address] Kadeem Clemens Calcium [Mass/Vol] 8.8 mg/dL Normal 8.5-10.1 [facility] Comment on above: Performed By: #### C MP, LIPID, TSH #### [facility] [address] [place] [address] Dr. Kadeem Clemens Chloride [Moles/Vol] 105 mmol/L Normal 98-107 [facility] Comment on above: Performed By: #### C MP, LIPID, TSH #### [facility] [address] [address] [address] Kdaeem Clemens CO2 [Moles/Vol] 28.3 mmol/L Normal 21.0-32.0 [facility] Comment on above: Performed By: #### C MP, LIPID, TSH #### [facility] [address] [address] [address] Kadeem Clemens Creatinine [Mass/Vol] 0.73 mg/dL Normal 0.55-1.02 [facility] Comment on above: Performed By: #### C MP, LIPID, TSH #### [facility] [address] [address] [address] Kadeem Clemens EGFR-AF ETHIOPIAN >60 Normal >=60 [facility] Comment on above: Performed By: #### C MP, LIPID, TSH #### [facility] [address] [address] [address] Kadeem Clemens EGFR-NON AF ETHIOPIAN >60 Normal >=60 [facility] Comment on above: Performed By: #### C MP, LIPID, TSH #### [facility] [address] [address] [address] Kadeem Clemens Globulin (S) [Mass/Vol] 3.2 g/dL Normal [facility] Comment on above: Performed By: #### C MP, LIPID, TSH #### [facility] [address] [address] [address] Kadeem Clemens Glucose [Mass/Vol] 92 mg/dL Normal 74-106 [facility] Comment on above: Performed By: #### C MP, LIPID, TSH #### [facility] [address] [address] [address] Kadeem Clemens Potassium [Moles/Vol] 3.7 mmol/L Normal 3.5-5.1 [facility] Comment on above: Performed By: #### C MP, LIPID, TSH #### [facility] [address] [address] [address] Kadeem Clemens Protein [Mass/Vol] 7.2 g/dL Normal 6.4-8.2 [facility] Comment on above: Performed By: #### C MP, LIPID, TSH #### [facility] [address] [address] [address] Kadeem Clemens Sodium [Moles/Vol] 141 mmol/L Normal 136-145 [facility] Comment on above: Performed By: #### C MP, LIPID, TSH #### [facility] [address] [place], [place] [address] Dr. Kadeem Clemens Urea nitrogen [Mass/Vol] 15.0 mg/dL Normal 7.0-18.0 [facility] Comment on above: Performed By: #### C MP, LIPID, TSH #### [facility] [address] [address] [address] Kadeem Clemens Urea nitrogen/Creatinine [Mass ratio] 20.5 mg/mg Normal [facility] Comment on above: Performed By: #### C MP, LIPID, TSH #### [facility] [address] [address] [address] Kadeem Clemens TSHon 03-23-2022 TSH 1.409 uIU/mL Normal 0.358-3.740 [facility] Comment on above: Performed By: #### C MP, LIPID, TSH #### [facility] [address] [address] [address] Kadeem Clemens SCREENING MAMMOGRAM W/MELI, BILATERAL*on [...] VERY IMPORTANT TO YOUR HEALTH. THE CURRENT [employer] AND N[employer] COMPREHENSIVE CANCER NETWORK GUIDELINES RECOMMENDS ANNUAL MAMMOGRAPHY BEGINNING AT AGE 38 THIS FACILITY USES A REMINDER SYSTEM TO ENSURE ALL PATIENTS RECEIVE REMINDER NOTIFICATIONS AT THE APPROPRIATE TIME BASED ON THE RECOMMENDATIONS OF THIS EXAM. Board Certified Radiologist. Accredited by the ACR and FDA. Report reported and signed by Deep Haney on 12/04/2021 1301 Normal [facility] Therapy Assistant [facility] Cytologyon 11-12-2018 [facility] Cytology Patient Name KARINA FLEMING Date of Procedure: 11/12/2018 Date Reported: 11/14/2018 Date Received: 11/12/2018 Date of / Sex 1960 (Age: 58) / F Race: WHITE Submitting Physician: ÁLVARO POWELL MD Attending Physician: ÁLVARO POWELL MD Other External # FINAL CYTOLOGICAL INTERPRETATION A. FINE NEEDLE ASPIRATION OF THYROID - RIGHT LOBE: --BENIGN. --ABUNDANT MACROPHAGES, FOLLICULAR CELLS AND COLLOID. Interpretation performed at: [facility] [place] [address] [address] Electronically Signed Out By MAXIME JACOBSEN MD By the signature on this report, the individual or group listed as making the Final Interpretation/Diagn osis certifies that they have reviewed this case. 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 FINE NEEDLE ASPIRATION OF THYROID - RIGHT LOBE: RECEIVED 30 cc TURBID WITH PARTICLES DARK RED CYTOLYT, 6 DIRECT SMEARS, 3 AIR DRIED, 3 SPRAY FIXED Normal [facility] Comment on above: Performed By: #### C #### [facility] Cytology [address] [place] [address] US FNA SUPERFCLon 11-12-2018 US FNA SUPERFCL Patient Name: KARINA FLEMING STUDY: US FNA SUPERFCL; 11/12/2018 3:03 pm INDICATION: right thyroid nodule. COMPARISON: Outside thyroid ultrasound, 08/26/2018. ACCESSION NUMBER(S): [id number] ORDERING CLINICIAN: ÁLVARO POWELL TECHNIQUE: Prior to [...] cm. Electronically signed by: BERNICE MANDUJANO MD [facility] Initial Visit (Otolaryngolog y)on 10-14-2018 Initial Visit (Otolaryngology) Diagnoses/Problems Right thyroid nodule (241.0) (E04.1) Patient Discussion/Summary Right-sided thyroid nodule which measures 1.6 cm. The patient is sent for an ultrasound-guided needle aspirate. I discussed with her all the different possible results. I will see her after the biopsy. [facility] which measures 1.6 cm. The [...] Sodium) Vitals Vital Signs Recorded: 14Oct2018 01:56PM Hdmsyuxjknn71.9 F Heart Rate73 Gclpfgvr024 Hvyscttth47 Height5 ft Vpaddv475 lb 6 oz BMI Zgemuucpgd49.8 BSA Calculated1.4 Physical Exam The patient is [...] Oct 14 2018 2:19PM EST (Author) Normal [facility] Vital Signs Date Time Vital Sign Value Performing Clinician Faci lity 04-13-2022 14:16-0400 Diastolic blood pressure 47 mm[Hg] Russell Magallanes DO Work Phone: [facility] 04-13-2022 14:16-0400 Systolic blood pressure 111 mm[Hg] Russell Magallanes DO Work Phone: [facility] 04-13-2022 14:11-0400 Body height 152.4 cm Russell Magallanes DO Work Phone: [facility] 04-13-2022 14:11-0400 Body weight 45.5 kg Russell Magallanes DO Work Phone: [facility] 04-13-2022 14:110400 Heart rate 65 /min Russell Magallanes DO Work Phone: [facility] 04-13-2022 14:110400 Respiratory rate 16 /min Russell Magallanes DO Work Phone: [facility] 04-13-2022 14:11-0400 SaO2% (BldA) [Mass fraction] 99 % Russell Magallanes DO Work Phone: [facility] Encounters Encounter Date Encounter Type Care Provider Facility Start: 09-05-2023 End: 09-06-2023 ambulatory HAILEY GONZALEZ Not Available Start: 08-28-2023 End: 08-28-2023 ambulatory HAILEY Pacheco NATRASHIDA Not Available Start: 08-08-2023 End: 08-08-2023 ambulatory HAILEY GONZALEZ Not Available Start: 07-03-2023 End: 07-03-2023 ambulatory HAILEY GONZALEZ Not Available Start: 11-09-2022 End: 11-09-2022 ambulatory LILLIE BARONE Facility:[facility] Start: 11-09-2022 End: 11-09-2022 Patient [...] medical examination without abnormal findings JAMES PERERA [facility] Start: 07-10-2022 End: 07-11-[address] FLORENCIA TOMAS . Facility:[facility] Start: 07-10-2022 End: 07-11-2022 Encounter for general adult medical examination without abnormal findings DR FLORENCIA TOMAS . Facility:[facility] Start: 05-29-2022 End: 05-29-[address] FLORENCIA TOMAS . Facility:[facility] Start: 04-13-2022 End: 04-13-2022 Subsequent hospital visit by physician Yaya [facility] Work Phone: Radiology Comment on above: Left thigh pain [M79 .652] Start: 04-13-2022 End: 04-13-2022 ambulatory Deborah Awad RT(R) Radiology Comment on above: Radiology XR Start: 04-13-2022 End: 04-13-2022 Patient encounter procedure Deborah Awad RT(R) [facility] Comment on above: Radiculopathy of lum bar region (Primary Dx); Left thigh pain; Lateral pain of left hip; Strain of flexor muscle of left hip, sequela; Strain of left piriformis muscle, sequela Start: 03-23-2022 End: 03-24-[address] FLORENCIA TOMAS . Facility: Start: 10-14-2018 Patient encounter procedure Álvaro Powell Facility:[id number] Procedures Date Procedure Procedure Detail Performing Clinician Start: 04-13-2022 Radex hip unilateral with pelvis 2-3 views Russell Magallanes DO Work Phone: Plan of Treatment Date Care Activity Detail Author Start: 03-29-2023 Influenza vaccination INFLUENZ A (Season Ended) [facility] Start: 07-29-2022 DEPRESSION ASSESSMENT DEPRESSION ASS ESSMENT [facility] Start: 03-29-2022 Influenza vaccination INFLUENZA (#1) [facility] Start: 07-29-2021 DEPRESSION ASSESSMENT DEPRESSION ASS ESSMENT [facility] Start: 03-02-2021 COVID-19 VACCINE (3 - Booster for Pfizer series) COVID-19 VACCINE (3 - Booster for Pfizer series) [facility] Start: 11-25-2020 COVID-19 VACCINE (3 - Booster for Pfizer series) COVID-19 VACCINE (3 - Booster for Pfizer series) [facility] Start: 2008 SHINGRIX VACCINE (1 of 2) SHINGRIX VACCINE (1 of 2) [facility] Start: 2003 COLOGUARD (FIT-DNA) COLOGUARD (FIT-D NA) [facility] Start: 2003 Colonoscopy COLONOSCOPY [facility] Start: 2003 COLORECTAL CANCER SCREENING COLORECTAL CANCER SCREENING [facility] Start: [address] COLONOGRAPHY [facility] Start: 2003 DIABETES SCREEN DIABETES SCREEN [facility] Start: 2003 FECAL OCCULT BLOOD FECAL OCCULT BLOO D [facility] Start: 2003 LIPID SCREEN LIPID SCREEN [facility] Start: 2003 SIGMOIDOSCOPY SIGMOIDOSCOPY [facility] Start: 1998 Mammography MAMMOGRAM [facility] Start: 1988 HPV TESTING HPV TESTING [facility] Start: 1979 PAP TESTING PAP TESTING [facility] Start: 1977 Urine microalbumin profile DTAP,TDAP,TD (1 - Tdap) [facility] Start: 1976 HEPATITIS C SCREENING HEPATITIS C SC REENING [facility] Start: 1976 HIV SCREENING HIV SCREENING [facility] Start: 1970 Adult depression screening assessment DEPRESSION SCREENING [facility] End: 05-13-2023 Mri spinal canal lumbar w/o contrast material MRI LUMBAR SPINE WO IVCON Radiology Routine Radiculopathy of lumbar region Left thigh pain Lateral pain of left hip 1 Occurrences starting 04/13/2022 until 05/13/2023 [facility] Work Phone: Comment on above: 1 Occurrences starti ng 04/13/2022 until 05/13/2023 End: 04-13-2022 Radex spine lumbosacral 2/3 views [facility] Work Phone: Comment on above: 1 Occurrences starti ng 04/13/2022 until 04/13/2022 Payers Date Payer Category Payer Medicare [id number] 2023 Unknown [id number] 2022 Unknown [id number] 2021 Unknown [id number] 1959 Unknown [id number] 1960 Unknown [id number] 2.16. [id number] 1960 Unknown [id number] 2.16.84 [id number] 1960 Unknown [id number] 2.16.84 [id number] 1960 Unknown [id number] 2.16.84 [id number] 1960 Unknown [id number] 2.16.84 [id number] 1960 Unknown [id number] 2.16.84 [id number] 1960 Unknown [id number] 2.16.84 [id number] 1960 Unknown [id number] 2.16.84 [id number] 1960 Unknown [id number] 2.16.84 [id number] 1960 Unknown [id number] [id number] .[id number] Unknown [id number] Social History Date Type Detail Facility Start: 04-13-2022 Tobacco smoking status NHIS Never smoked tobacco [facility] Start: 04-13-2022 Tobacco use and exposure Smokeless tobacco non-user [facility] Start: 1960 Sex Assigned At Not on file [facility] Start: 04-03-2022 End: 04-13-2022 Exposure to SARS-CoV-2 (event) Not sure [facility] NEGATED: Highlighted rowStart: NINF History of tobacco use Passive smoker [facility] Clinical Notes 12-04-2021 to 11-09-2022 Lillie Barone MD - 11/09/2022 8:18 AM EDTRT Vaughn(R) - 04/13/2022 3:41 PM EDTPangelique Magallanes DO - 04/13/2022 2:25 PM EDT Note Date & Type Note Facility 11-09-2022 Note HNO ID: [id number] Author: Lillie Barone MD Service: ? Author Type: Physician Type: Progress Notes Filed: 11/09/2022 8:49 AM Note Text: DERMATOLOGY / NEW PATIENT CONSULT Consultation requested by patient for an opinion regarding skin. HPI: The patient is a 62 year old female presenting with a 3 lesions of concern Left lateral lower leg - raised conley lesion Mid upper back - brown raised lesion [place] raised lesion- right cheek DERM HISTORY: No [...] Past Histories independently gathered by the clinical director of operations support and the remaining scribed note accurately describes my personal service to the patient. Lillie Barone MD Medical Decision Making: Problems: Low: 2+ self-limited or minor problems Risk: Low: Low risk from testing/treatment Medical Decision Making Level: 3 - Low [facility] 11-09-2022 History of Present illness Narrative DERMATOLOGY / NEW PATIENT CONSULT Consultation requested by patient for an opinion regarding skin. HPI: The patient is a 62 year old female presenting with a 3 lesions of concern Left lateral lower leg - raised conley lesion Mid upper back - brown raised lesion [place] raised lesion- right cheek DERM HISTORY: No [...] Past Histories independently gathered by the clinical director of operations support and the remaining scribed note accurately describes my personal service to the patient. Lillie Barone MD Medical Decision Making: Problems: Low: 2+ self-limited or minor problems Risk: Low: Low risk from testing/treatment Medical Decision Making Level: 3 - Low documented in this encounter [facility] 08-21-2022 Note PROCEDURE: XR HIP RT 2 3V W PELVIS COMPARISON: None. HISTORY: Muscle and tendon injury FINDINGS: BONES:No fracture, acute abnormality, or significant arthropathy. SOFT TISSUES:Negative. No visible soft tissue swelling. EFFUSION:None visible. OTHER: Negative. IMPRESSION: No acute abnormality Electronically authenticated by: MICKI LUCERO Date: 2022-08-21 07:52 [facility] 04-13-2022 Note HNO ID: [id number] Author: RT Vaughn(R) Service: ? Author Type: [...] RT Suyapa April 13, 2022 3:41 PM [facility] 04-13-2022 Note HNO ID: [id number] Author: Russell Magallanes, DO Service: ? Author Type: Physician Type: Progress Notes Filed: 05/06/2022 1:40 PM Note Text: [facility] [place] [facility] [place] [facility] - Medical Spine Initial [...] her back. -Ortho surgeon Dr. Agosto in [place] prior to pandemic. Told her it was not her back, but it was her sciatic nerve. 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 [facility] 04-13-2022 History of Present illness Narrative Radiology [...] 2022 3:41 PM documented in this encounter [facility] 04-13-2022 History of Present illness Narrative Images from the original note were not included. [facility] [place] [facility] [place] [facility] - Medical Spine Initial [...] her back. -Ortho surgeon Dr. Agosto in [place] prior to pandemic. Told her it was not her back, but it was her sciatic nerve. 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 No significant arthropathy or acute abnormality. Soft tissues: Negative. No visible soft tissue swelling, mass, fluid collection, edema or hematoma. Effusion: None visible. Other: Skin surface markers overlie the posterior thigh and localized area of pain. Impression: No abnormal or suspicious findings to account for patient's symptoms. 06/28/2021 ultrasound venous Doppler LLE ([place], [place]): No left femoral-popliteal venous thrombosis. 06/23/2021 XR left femur ([place], [place]): Bones: No fracture, acute abnormality, or [...] which included preparing to see the patient, [id number] patient care, completing clinical documentation, obtaining and/or reviewing separately obtained history, performing a medically appropriate examination, counseling and educating the patient/family/caregiver, ordering medications, tests, or procedures, independently interpreting results (not separately reported), and communicating results to the patient/family/caregiver. SIGNATURE: Russell Magallanes DO PATIENT NAME: Karina Fleming DATE: April 13, 2022 TIME: 2:25 PM documented in this encounter [facility] 12-04-2021 Note HISTORY: Bone densit y screening. [...] by Deep Haney on 12/04/2021 1305 [facility] Therapy Assistant Evaluation note Diagnosis Left thigh pain Pain in limb Lateral pain of left hip Pain in joint, pelvic region and thigh Radiculopathy of lumbar region Thoracic or lumbosacral neuritis or radiculitis, unspecified documented [facility] this [facility] Diagnosis Radiculopathy of lumbar region- Primary Thoracic or lumbosacral neuritis or radiculitis, unspecified Left thigh pain Pain in limb Lateral pain of left hip Pain in joint, pelvic region and thigh Strain of flexor muscle of left hip, sequela Strain of left piriformis muscle, sequela documented [facility] Diagnosis Diffuse photodamage of skin- Primary Other chronic dermatitis due to solar radiation Dermatofibroma Benign neoplasm of skin, site unspecified Hemangioma, unspecified site Seborrheic keratosis Other seborrheic keratosis Multiple benign nevi Benign neoplasm of skin, site unspecified documented in this encounter [facility] Diagnostic Procedure Only (Routine) - Closed Specialty Diagnoses / Procedures Referred By Contac t Referred To Contact XR IMAGING Diagnoses Radiculopathy of lumbar region Procedures XR LUMBAR LIMITED 2V AP/LAT RADEX SPINE LUMBOSACRAL 2/3 VIEWS Russell Magallanes, DO [address] [place] [address] Xr Imaging Referral ID Status Reason Start Date Expiration Date V isits Requested Visits Authorized [id number] Closed Auto-Generate d Referral 04/13/2022 05/13/2023 1 1 * Diagnostic Procedure Only (Routine) - Closed Specialty Diagnoses / Procedures Referred By Contac t Referred To Contact XR IMAGING Diagnoses Left thigh pain Lateral pain of left hip Procedures XR HIP GENERAL 3V PELV/AP/LAT LEFT RADEX HIP UNILATERAL WITH PELVIS 2-3 VIEWS Russell Magallanes, [address] [place] [address] Xr Imaging Referral ID Status Reason Start Date Expiration Date V isits Requested Visits Authorized [id number] Closed Auto-Generate d Referral 04/13/2022 05/13/2023 1 1 [facility] for referral (narrative)* Diagnostic Procedure Only (Routine) - Closed Specialty Diagnoses / Procedures Referred By Contac t Referred To Contact XR IMAGING Diagnoses Radiculopathy of lumbar region Procedures XR LUMBAR LIMITED 2V AP/LAT RADEX SPINE LUMBOSACRAL 2/3 VIEWS Russell Magallanes, DO [address] [place] [address] Xr Imaging Referral ID Status Reason Start Date Expiration Date V isits Requested Visits Authorized [id number] Closed Auto-Generate d Referral 04/13/2022 05/13/2023 1 1 * Diagnostic Procedure Only (Routine) - Closed Specialty Diagnoses / Procedures Referred By Contac t Referred To Contact XR IMAGING Diagnoses Left thigh pain Lateral pain of left hip Procedures XR HIP GENERAL 3V PELV/AP/LAT LEFT RADEX HIP UNILATERAL WITH PELVIS 2-3 VIEWS Russell Magallanes DO [address] [place] [address] Xr Imaging Referral ID Status Reason Start Date Expiration Date V isits Requested Visits Authorized [id number] Closed Auto-Generate d Referral 04/13/2022 05/13/2023 1 1 * MRI/CT (Routine) - Pending Review Specialty Diagnoses / Procedures Referred By Conthanane stern Referred To Contact MR IMAGING Diagnoses Radiculopathy of lumbar region Left thigh pain Lateral pain of left hip Procedures MRI LUMBAR SPINE WO IVCON MRI SPINAL CANAL LUMBAR W/O CONTRAST MATERIAL Russell Magallanes DO [address] [place] [address] Mr Imaging Referral ID Status Reason Start Date Expiration Date Visits Requested Visits Authorized [id number] Pending Review Auto-Generat ed Referral 04/13/2022 05/13/2023 1 1 [facility] for visit Narrative* Diagnostic Procedure Only (Routine) - Closed Specialty Diagnoses / Procedures Referred By Devon t Referred To Contact XR IMAGING Diagnoses Radiculopathy of lumbar region Procedures XR LUMBAR LIMITED 2V AP/LAT RADEX SPINE LUMBOSACRAL 2/3 VIEWS Russell Magallanes DO [address] [place] [address] Xr Imaging Referral ID Status Reason Start Date Expiration Date V isits Requested Visits Authorized [id number] Closed Auto-Generate d Referral 04/13/2022 05/13/2023 1 1 [facility] Summary Purpose Family History No Family History [...] FNA Findings: thyroid nodule Procedure performed by: nv Inter Com Installer(s): none Estimated Blood Loss (mL): none Specimen: yes Informed Consent: written consent obtained Signature/Cosignature/Attestation: Attending AttestationI performed the procedure without a resident Electronic Signatures: Bernice Mandujano) (Signed 12-Nov-2018 15:00) Authored: Pre-procedure Verification and Time Out, General Information, Signature/Cosignature/Attestation Last Updated: 12-Nov-2018 15:00 by Bernice Mandujano) Additional Source Comments INFORMATION SOURCE (unrecogn ized section and content) DATE CREATED AUTHOR 10/14/2018 [employer] DATE CREATED AUTHOR AUTHOR'S ORGANIZ ATION 11/15/2018 [facility] DATE CREATED AUTHOR AUTHOR'S ORGANIZ ATION 02/16/2019 [facility] DATE CREATED AUTHOR AUTHOR'S ORGANIZ ATION 12/05/2021 [facility] DATE CREATED AUTHOR AUTHOR'S ORGANIZ ATION 09/28/2022 [facility] DATE CREATED AUTHOR AUTHOR'S ORGANIZ ATION 11/12/2022 [facility] DATE CREATED AUTHOR AUTHOR'S ORGANIZ ATION 09/09/2023 [facility] EPIC Source Comments (unrecognize d section and content) In the event this informatio n is protected by the Federal Confidentiality of Alcohol and Drug Abuse Patient Records regulations: The Federal rules restrict any use of the information to criminally investigate or prosecute any alcohol or drug abuse patient.[facility] the event this information is protected by the Federal Confidentiality of Alcohol and Drug Abuse Patient Records regulations: The Federal rules restrict any use of the information to criminally investigate or prosecute any alcohol or drug abuse patient.[facility] the event this information is protected by the Federal Confidentiality of Alcohol and Drug Abuse Patient Records regulations: The Federal rules restrict any use of the information to criminally investigate or prosecute any alcohol or drug abuse patient.[facility] Reason for Visit (unrecogniz ed section and content) Reason Comments Radiology XR Reason Comments Leg Pain Nerve pain in left l eg since 2014. Begins middle of thigh downward and sometimes from inner thigh downward. Has xray and MRI of leg images from [facility]. Inaddition to left hip as well. Disc [...] BE BASED ON THE PRIMARY CLINICAL RECORDS. [employer] [facility]. provides no warranty or guarantee of the accuracy or completeness of information in this document.
[2024-05-05 10:14] LABS: Calcium 8.9 mg/dL (8.5-10.1)
== END 2024-05-05 07:55 | disposition home or self-care (01) ==
LOC: LAB 07:58
PROVIDERS: PCP Family Medicine; Visit Provider Obstetrics & Gynecology
DX: M81.0 Age-related osteoporosis without current pathological fracture (principal)
CPT/HCPCS: 36415; 82310

== ENCOUNTER 2024-09-30 13:13 | Outpatient (OUT) | payer MEDICARE, OTHER, SELFPAY ==
--- OUTSIDE RECORDS SUMMARY | 2024-09-30 13:24 | XMS_ITS | CCD ---
Author Organization [facility] Care Team Providers Care Rx Specialist Name Role Phone Álvaro Powell Attending Unavailable Álvaro Powell Referring Unavailable Florencia Tomas Primary Care Unavailable Unavailable Primary Care Provider Unavailberna e Unavailable Primary Care Provider Unavailberna TOMAS ., DR DON Consulting Unavailable HOY ., DR DON Primary Care Unavailable HOY ., DR DON Admitting Unavailable HOY ., DR DON Attending Unavailable HOY ., DR DON Primary Care Unavailable HOY ., DR DON Admitting Unavailable HOY ., DR DON Attending Unavailable HOY ., DR DON Consulting Unavailable HOY ., DR ODN Primary Care Unavailable HOY ., DR DON Admitting Unavailable HOY ., DR DON Attending Unavailable HOY ., DR DON Primary Care Unavailable JAMES PERERA Admitting Unavailable JAMES PERERA Attending Unavailable JAMES PERERA Consulting Unavailable HOY ., DR DON Consulting Unavailable HOY ., DR DON Primary Care Unavailable HOY ., DR DON Admitting Unavailable HOY ., DR DON Attending Unavailable [place], DR MICKI Burgess Consulting Unavailable Unavailable Primary Care Provider UnavailLILLIE Robertson Attending Unavailable RUSSELL MAGALLANES Referring Unavailable RUSSELL MAGALLANES Attending Unavailable Taina Chakraborty Attending Unavailable Taina Chakraborty Referring Unavailable Florencia Tomas Primary Care Unavailable Taina Chakraborty Admitting Unavailable Florencia Tomas MD Primary Care Provider [phone] TAINA CHAKRABORTY Attending Unavailable TAINA CHAKRABORTY Referring Unavailable TAINA CHAKRABORTY Referring Unavailable TAINA CHAKRABORTY Attending Unavailable Allergies Allergy Classification Reported Allergen(s) Allergy Type Date of Onset Reaction(s) Facility (7 sources) Sulfonamides (Antibiotic); Translations: [SULFA (SULFONAMIDE ANTIBIOTICS)] Propensity to adverse reactions to drug 2 Unknown [facility] (6 sources) Sutures; Translations: [SUTURES] Propensity to adverse reactions 2 Unknown [facility] (1 source) Sulfonamides (Antibiotic) Drug allergy (disorder) 5 [facility] Repository (1 source) Sulfonamides (Antibiotic) Drug allergy (disorder) 4 [facility] Repository (2 sources) Other Propensity to adverse reactions 2 Unknown [facility] Medications Current Medications Medication Drug Class(es) Dates Sig (Normalized) Sig (Original) Multiple Vitamins-Minerals (Multivitamin Women) tablet (2 sources) Multiple Vitamins-Minerals (Multivitamin Women) tablet as directed Orally Active Completed/Discontinued Medications Medication Drug Class(es) Dates Sig (Normalized) Sig (Original) 1 ml denosumab 60 mg/ml prefilled syringe (2 sources) RANK Ligand Inhibitor Start: 08-12-2023 End: 08-10-2024 denosumab (Prolia) 60 MG/ML solution prefilled syringe Indications: Osteoporosis, post-menopausal ([facility]) Inject 1 mL (60 mg) under the skin every 6 (six) months 1 mL 1 08/12/2023 08/10/2024 Discontinued diclofenac sodium 75 mg delayed release oral [...] Active Problems Problem Classification Problem Date Documented Date Episodic/Chronic Allergic reactions (1 source) Solar degeneration; Translations: [Other skin changes due to chronic exposure to nonionizing radiation] Episodic Osteoporosis (5 sources) Age-related osteoporosis without current pathological fracture; Translations: [Postmenopausal osteoporosis] Onset: 05-11-2024 08-12-2024 Chronic Other and unspecified benign neoplasm (1 source) Dermatofibroma; Translations: [Other benign neoplasm of skin, unspecified] Episodic Other and unspecified benign neoplasm (1 source) Hemangioma; Translations: [Hemangioma unspecified site] Episodic Other and unspecified benign neoplasm (1 source) Multiple benign melanocytic nevi ; Translations: [Melanocytic nevi, unspecified] Episodic Other connective tissue disease (2 sources) Pain of left thigh; Translations: [Pain in left thigh] Episodic Other female genital disorders (2 sources) Stenosis of vagina; 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] 08-12-2024 Episodic Other injuries and conditions due to [...] right hip] Onset: 08-28-2022 11-09-2022 Episodic Other screening for suspected conditions (not mental disorders or infectious disease) (2 sources) Breast neoplasm screening status; Translations: [Encounter for screening mammogram for malignant neoplasm of breast] 08-12-2024 Episodic Other skin disorders (1 source) Seborrheic keratosis; Translations: [Other seborrheic keratosis] Episodic Residual codes; unclassified (2 sources) Postmenopausal state; Translations: [Asymptomatic menopausal state] 08-10-2024 Episodic Residual codes; unclassified (2 sources) History of hysterectomy for benign disease; Translations: [Acquired absence of both cervix and uterus] 08-10-2024 Episodic Spondylosis; intervertebral disc disorders; other back problems (10 sources) Lumbar radiculopathy; Translations: [Radiculopathy, lumbar region] Onset: 04-13-2022 Episodic Sprains and strains (2 sources) Strain [...] Translations: [ACUTE SINUSITIS UNSPECIFIED] Onset: 05-29-2022 Episodic Results Test Name Value Interpretation Reference Range Facility Urinalysis macro (dipstick) panel (U)on 08-12-2024 Bilirubin, UA Negative Negative - 4(70) +++ mg/dL [facility] Blood, UA Negative Negative - 50 Shiv/mcL [facility] Clarity, UA Clear [facility] Color, UA Ashley [facility] Glucose, UA Negative Negative - 1999(110) ++++ mg/dL [facility] Interpretation and review of laboratory results Normal [facility] Ketones, UA Negative Negative - 160(16) ++++ mg/dL [facility] Leukocytes, UA Negative Negative - 500+++ Mauricio/mcL [facility] Nitrite, UA Negative Negative - Positive [facility] pH, UA 6 5 - 9 [facility] Protein, UA Trace Negative - 2000(20) ++++ mg/dL [facility] Spec Grav, UA 1.02 1 - 1.03 [facility] Urobilinogen, UA 1.0 0.2 - 12 mg/[facility] HANKKARINA Olguin ([id number]) 1960 F Date Time Provider Department 11/09/22 8:30 AM LILLIE BARONE DERM[facility] During your visit today, we recorded the following information about you: Lillie Barone MD 11/09/2022 8:49 AM Signed DERMATOLOGY / NEW PATIENT CONSULT Consultation requested by patient for an opinion regarding skin. HPI: The patient is a 62 year old female presenting with a 3 lesions of concern Left lateral lower leg - raised conley lesion Mid upper back - brown raised lesion [place] raised lesion- right cheek DERM HISTORY: No [...] Past Histories independently gathered by the clinical direct support staff and the remaining scribed note accurately describes [...] for Encounter Date Provider Department Center 11/09/2022 [id number]-ZKSELLILLIE BARONE [facility] Encounter Status:Closed by LILLIE BARONE on 11/09/[address] [facility] XR LSPINE MIN 4 VIEWSon 01-2 4-2023 XR LSPINE MIN 4 VIEWS EXAMINATION: XR [...] MICKI LUCERO Date: 2022-08-21 07:50 Normal [facility] GLUCOSE BLOODon 07-10-2022 Glucose [Mass/Vol] 87 mg/dL Normal 74-106 [facility] Comment on above: Performed By: #### L IPID, GLUC #### [facility] [address] [place] [address] Dr. Kadeem Clemens LIPID PROFILEon 07-10-2022 CHOL-HDL RATIO NORM SEE BELOW Normal [facility] Comment on above: Result Comment: 3.3 - 4.4 LOW RISK 4.4 - 7.1 AVERAGE RISK 7.1 - 11.0 MODERATE RISK >11.0 HIGH RISK Performed By: #### L IPID, GLUC #### [facility] [address] [address] [address] Kadeem Clemens Cholesterol [Mass/Vol] 182 mg/dL Normal <=200 [facility] Comment on above: Performed By: #### L IPID, GLUC #### [facility] [address] [address] [address] Kadeem Clemens Cholesterol in HDL [Mass/Vol] 66 mg/dL Critically high 40-60 [facility] Comment on above: Performed By: #### L IPID, GLUC #### [facility] [address] [address] [address] Kadeem Clemens Cholesterol in LDL [Mass/Vol] 101.4 mg/dL Normal [facility] Comment on above: Performed By: #### L IPID, GLUC #### [facility] [address] [address] [address] Kadeem Clemens Cholesterol.total/Ch olesterol in HDL [Mass ratio] 2.8 {ratio} Normal [facility] Comment on above: Performed By: #### L IPID, GLUC #### [facility] [address] [address] [address] Kadeem Clemens HDL NORMAL > or = 60 mg/dl - LOW CARDIOVASCULAR RISK <40 mg/dl - HIGH CARDIOVASCULAR RISK Normal [facility] Comment on above: Performed By: #### L IPID, GLUC #### [facility] [address] [address] [address] Kadeem Clemens LDL CALC NORMAL SEE BELOW Normal [facility] Comment on above: Result Comment: <100 mg/dl OPTIMAL 100 - 129 mg/dl NEAR OR ABOVE OPTIMAL 130 - 159 mg/dl BORDERLINE HIGH 160 - 189 mg/dl HIGH >190 mg/dl VERY HIGH Performed By: #### L IPID, GLUC #### [facility] [address] [place] [address] Dr. Kadeem Clemens Triglyceride [Mass/Vol] 73 mg/dL Normal <=150 [facility] Comment on above: Performed By: #### L IPID, GLUC #### [facility] [address] [address] [address] Kadeem Clemens VLDL CALC 14.6 mg/dL Normal [facility] Comment on above: Performed By: #### L IPID, GLUC #### [facility] [address] [place] [address] Dr. Kadeem Clemens [facility]on SARS-CoV-2 (COVID-19) RNA DARÍO+probe Ql (Unsp spec) Detected Critically abnormal NOT DETECTED [facility] Comment on above: Result Comment: This test is not yet approved or cleared by the [place] FDA. When there are no FDA-approved or cleared tests available, and other criteria are met, FDA can make tests available under an emergency access mechanism called an Emergency Use Authorization (EUA). The EUA for this test is supported by the Supervisor M[employer] of Health and Human Service's (HHS's) declaration [...] longer be used). Performed By: #### [facility] #### [facility] [address] [place] [address] Dr. Kadeem Clemens INFLUENZA A AND B AGon 05-29 [facility] SEE BELOW Normal [facility] Comment on above: Result Comment: Nega tive for Flu A protein angiten. Infection due to Flu A cannot be ruled out. Flu A angiten in the sample may be below the detection limit of the test. Performed By: #### I NFLUAB #### [facility] [address] [place] [address] Dr. Kadeem Clemens [facility] SEE BELOW Normal [facility] Comment on above: Result Comment: Nega tive for Flu B protein antigen. Infection due to Flu B cannot be ruled out. Flu B antigen in the sample may be below the detection limit of the test. Performed By: #### I NFLUAB #### [facility] [address] [place] [address] Dr. Kadeem Clemens INFLUENZA A AG Negative Normal NEGATIVE SEE COMMENT [facility] Comment on above: Performed By: #### I NFLUAB #### [facility] [address] [place] [address] Dr. Kadeem Clemens INFLUENZA B AG Negative Normal NEGATIVE SEE COMMENT [facility] Comment on above: Performed By: #### I NFLUAB #### [facility] [address] [place] [address] Dr. Kadeem Clemens INTERNAL CONTROLS Within Normal Limits Normal Wi thin Normal Limits [facility] Comment on above: Performed By: #### I NFLUAB #### [facility] [address] [place] [address] Dr. Kadeem Olivares 04-13-2022 CNOV Office Visit ([facility]) KARINA FLEMING ([id number]) 1960 F Date Time Provider Department 04/13/22 2:30 PM RUSSELL MAGALLANES During your visit today, we recorded the following information about you: Pulse Respiration Blood pressure Weight 65/minute 16/minute 111/47 45.5 kg Height 1.524 m Russell Magallanes DO 05/06/2022 1:40 PM Signed [facility] [...] her back. -Ortho surgeon Dr. Agosto in [place] prior to pandemic. Told her it was not her back, but it was her sciatic nerve. 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 Normal [facility] No Panel Informationon 04-13 [facility] XR HIP 3V PELV+ AP/LAT LTon [...] right sacroiliac joint. IMPRESSION: No acute findings. Geophysical Support Specialist: GARY Transcribe Date/Time: Apr 14 2022 2:38P Dictated by : BRUNA LUONG MD This examination was interpreted and the report reviewed and electronically signed by: BRUNA LUONG MD on Apr 14 2022 2:39PM EST [id number] CN Normal [facility] XR LUMBAR 2V AP/LATon 2021 XR [...] is seen IMPRESSION: Lower lumbar degenerative changes Geophysical Support Specialist: [facility] Transcribe Date/Time: Apr 15 2022 11:11P Dictated by : REGINO ELIAS MD This examination was interpreted and the report reviewed and electronically signed by: REGINO ELIAS MD on Apr 15 2022 11:12PM EST [id number] CN Normal [facility] INSULINon 03-24-2022 Insulin 6.0 uIU/mL Normal 2.6-24.9 [facility] Comment on above: Performed By: #### I NSULIN ####[facility] [address] [place], [place] [address]Dr. Kadeem Clemens T4, T3U, FTI LABCORPon 03-24 Free Thyroxine Index 2.3 Normal 1.2-4.9 [facility] Comment on above: Performed By: #### T HYLC ####[facility] [address] [place], [place] [address]Dr. Kadeem Clemens T3 Uptake 32 % Normal 24-39 [facility] Comment on above: Performed By: #### T HYLC ####[facility] [address] [place], [place] [address]Dr. Kadeem Clemens T4 [Mass/Vol] 7.1 ug/dL Normal 4.5-12.0 [facility] Comment on above: Performed By: #### T HYLC ####[facility] [address] [place], [place] [address]Dr. Kadeem Clemens CBC AUTO DIFFon 03-23-2022 BASO # 0.1 103/ul Normal 0.0-0.1 [facility] Comment on above: Performed By: #### C BC ####[facility] [address] [place], [place] [address]Dr. Kadeem Clemens Basophils/100 WBC (Bld) 1.0 % Normal 0.2-2.0 [facility] Comment on above: Performed By: #### C BC ####[facility] [address] [place], [place] [address]Dr. Kadeem Clemens EO # 0.1 103/ul Normal 0.0-0.7 [facility] Comment on above: Performed By: #### C BC ####[facility] [address] [place], [place] [address]Dr. Kadeem Clemens Eosinophils/100 WBC (Bld) 2.1 % Normal 0.9-7.0 [facility] Comment on above: Performed By: #### C BC ####[facility] [address] [address]Dr. Kadeem Clemens Erythrocyte distribution width (RBC) [Ratio] 12.2 % Normal 11.0-15.0 [facility] Comment on above: Performed By: #### C BC ####[facility] [address] [place], [place] [address]Dr. Kadeem Clemens Hematocrit (Bld) [Volume fraction] 42.3 % Normal 36.0-48.0 [facility] Comment on above: Performed By: #### C BC ####[facility] [address] [place], [place] [address]Dr. Kadeem Clemens Hemoglobin (Bld) [Mass/Vol] 13.8 g/dL Normal 12.0-16.0 [facility] Comment on above: Performed By: #### C BC ####[facility] [address] [place], [place] [address]Dr. Kadeem Clemens IG # 0.01 10e3/ul Normal 0.00-0.03 [facility] Comment on above: Performed By: #### C BC ####[facility] [address] [place], [place] [address]Dr. Kadeem Clemens IG % 0.2 % Normal 0.0-0.5 [facility] Comment on above: Performed By: #### C BC ####[facility] [address] [place], [place] [address]Dr. Kadeem Clemens LYMPH # 2.3 103/ul Normal 1.2-3.8 [facility] Comment on above: Performed By: #### C BC ####[facility] [address] [place], [place] [address]Dr. Kadeem Clemens Lymphocytes/100 WBC (Bld) 37.8 % Normal 20.5-60.0 [facility] Comment on above: Performed By: #### C BC ####[facility] [address] [address]Dr. Kadeem Sarath MANUAL DIFF REQ NO Normal [facility] Comment on above: Performed By: #### C BC ####[facility] [address] [address]Dr. Kadeem Clemens MCH (RBC) [Entitic mass] 29.1 pg Normal 26.7-34.0 [facility] Comment on above: Performed By: #### C BC ####[facility] [address] [place], [place] [address]Dr. Kadeem Sarath MCHC (RBC) [Mass/Vol] 32.6 g/dL Normal 29.9-35.2 [facility] Comment on above: Performed By: #### C BC ####[facility] [address] [place], [place] [address]Dr. Kadeem Sarath MCV (RBC) [Entitic vol] 89.1 fL Normal 81.0-99.0 [facility] Comment on above: Performed By: #### C BC ####[facility] [address] [place], [place] [address]Dr. Kadeem Sarath MONO # 0.5 103/ul Normal 0.3-0.8 [facility] Comment on above: Performed By: #### C BC ####[facility] [address] [place], [place] [address]Dr. Carolinmiguel Clemens Monocytes/100 WBC (Bld) 7.6 % Normal 1.7-12.0 [facility] Comment on above: Performed By: #### C BC ####[facility] [address] [place], [place] [address]Dr. Carolinmiguel Sarath NEUT # 3.1 103/ul Normal 1.4-6.5 [facility] Comment on above: Performed By: #### C BC ####[facility] [address] [place], [place] [address]Dr. Carolinmiguel Clemens Neutrophils/100 WBC (Bld) 51.3 % Normal 43.0-75.0 [facility] Comment on above: Performed By: #### C BC ####[facility] [address] [place], [place] [address]Dr. Kadeem Clemens Platelet mean volume (Bld) [Entitic vol] 9.6 fL Normal 9.5-13.5 [facility] Comment on above: Performed By: #### C BC ####[facility] [address] [address]Dr. Kadeem Clemens PLT 240 103/ul Normal 150-450 [facility] Comment on above: Performed By: #### C BC ####[facility] [address] [address]Dr. Kadeem Clemens RBC 4.75 106/ul Normal 4.20-5.40 [facility] Comment on above: Performed By: #### C BC ####[facility] [address] [address]Dr. Kadeem Clemens WBC 6.1 103/ul Normal 4.0-11.0 [facility] Comment on above: Performed By: #### C BC ####[facility] [address] [address]Dr. Kadeem Clemens GLYCOHEMOGLOBIN A1Con 2021 ADA RECOMMENDATION SEE BELOW Normal [facility] Comment on above: Result Comment: ADA RECOMMENDED LIMIT 4.0 - 6.0 ADA THERAPEUTIC TARGET < 7.0 ACTION SUGGESTED > 7.0 Performed By: #### A 1C ####[facility] [address] [address]Dr. Kadeem Clemens Glucose [Mass/Vol] 105 mg/dL Normal [facility] Comment on above: Performed By: #### A 1C ####[facility] [address] [address]Dr. Kadeem Clemens HbA1c (Bld) [Mass fraction] 5.3 % Normal 4.5-6.2 [facility] Comment on above: Performed By: #### A 1C ####[facility] [address] [address]Dr. Kadeem Clemens IRONon 03-23-2022 Iron [Mass/Vol] 106.0 ug/dL Normal 50.0-170.0 [facility] Comment on above: Performed By: #### I MOO #### [facility] [address] [address] [address] Kadeem Clemens LIPID PROFILEon 03-23-2022 CHOL-HDL RATIO NORM SEE BELOW Normal [facility] Comment on above: Result Comment: 3.3 - 4.4 LOW RISK 4.4 - 7.1 AVERAGE RISK 7.1 - 11.0 MODERATE RISK >11.0 HIGH RISK Performed By: #### C MP, LIPID, TSH #### [facility] [address] [address] [address] Kadeem Clemens Cholesterol [Mass/Vol] 185 mg/dL Normal <=200 [facility] Comment on above: Performed By: #### C MP, LIPID, TSH #### [facility] [address] [address] [address] Kadeem Clemens Cholesterol in HDL [Mass/Vol] 66 mg/dL Critically high 40-60 [facility] Comment on above: Performed By: #### C MP, LIPID, TSH #### [facility] [address] [address] [address] Kadeem Clemens Cholesterol in LDL [Mass/Vol] 99.6 mg/dL Normal [facility] Comment on above: Performed By: #### C MP, LIPID, TSH #### [facility] [address] [address] [address] Kadeem Clemens Cholesterol.total/Ch olesterol in HDL [Mass ratio] 2.8 {ratio} Normal [facility] Comment on above: Performed By: #### C MP, LIPID, TSH #### [facility] [address] [place] [address] Dr. Kadeem Clemens HDL NORMAL > or = 60 mg/dl - LOW CARDIOVASCULAR RISK <40 mg/dl - HIGH CARDIOVASCULAR RISK Normal [facility] Comment on above: Performed By: #### C MP, LIPID, TSH #### [facility] [address] [place] [address] Dr. Kadeem Clemens LDL CALC NORMAL SEE BELOW Normal [facility] Comment on above: Result Comment: <100 mg/dl OPTIMAL 100 - 129 mg/dl NEAR OR ABOVE OPTIMAL 130 - 159 mg/dl BORDERLINE HIGH 160 - 189 mg/dl HIGH >190 mg/dl VERY HIGH Performed By: #### C MP, LIPID, TSH #### [facility] [address] [place] [address] Dr. Kadeem Clemens Triglyceride [Mass/Vol] 97 mg/dL Normal <=150 [facility] Comment on above: Performed By: #### C MP, LIPID, TSH #### [facility] [address] [address] [address] Kadeem Clemens VLDL CALC 19.4 mg/dL Normal [facility] Comment on above: Performed By: #### C MP, LIPID, TSH #### [facility] [address] [place] [address] Dr. Kadeem Clemens PROF 14(COMP METB)on 022 Albumin [Mass/Vol] 4.0 g/dL Normal 3.4-5.0 [facility] Comment on above: Performed By: #### C MP, LIPID, TSH #### [facility] [address] [place] [address] Dr. Kadeem Clemens Albumin/Globulin [Mass ratio] 1.3 {ratio} Normal [facility] Comment on above: Performed By: #### C MP, LIPID, TSH #### [facility] [address] [place] [address] Dr. Kadeem Clemens ALP [Catalytic activity/Vol] 82 U/L Normal 46-116 [facility] Comment on above: Performed By: #### C MP, LIPID, TSH #### [facility] [address] [place] [address] Dr. Kadeem Clemens ALT [Catalytic activity/Vol] 20 U/L Normal 14-59 [facility] Comment on above: Performed By: #### C MP, LIPID, TSH #### [facility] [address] [place] [address] Dr. Kadeem Clemens Anion gap [Moles/Vol] 11.4 mmol/L Normal [facility] Comment on above: Performed By: #### C MP, LIPID, TSH #### [facility] [address] [place] [address] Dr. Kadeem Clemens AST [Catalytic activity/Vol] 23 U/L Normal 15-37 [facility] Comment on above: Performed By: #### C MP, LIPID, TSH #### [facility] [address] [place] [address] Dr. Kadeem Clemens Bilirubin [Mass/Vol] 0.6 mg/dL Normal 0.2-1.0 [facility] Comment on above: Performed By: #### C MP, LIPID, TSH #### [facility] [address] [place] [address] Dr. Kadeem Clemens Calcium [Mass/Vol] 8.8 mg/dL Normal 8.5-10.1 [facility] Comment on above: Performed By: #### C MP, LIPID, TSH #### [facility] [address] [place] [address] Dr. Kadeem Clemens Chloride [Moles/Vol] 105 mmol/L Normal 98-107 [facility] Comment on above: Performed By: #### C MP, LIPID, TSH #### [facility] [address] [place] [address] Dr. Kadeem Clemens CO2 [Moles/Vol] 28.3 mmol/L Normal 21.0-32.0 [facility] [place] [facility] Comment on above: Performed By: #### C MP, LIPID, TSH #### [facility] [address] [place] [address] Dr. Kadeem Clemens Creatinine [Mass/Vol] 0.73 mg/dL Normal 0.55-1.02 [facility] Comment on above: Performed By: #### C MP, LIPID, TSH #### [facility] [address] [place] [address] Dr. Kadeem Clemens EGFR-AF ANGUILLAN >60 Normal >=60 [facility] [place] [facility] Comment on above: Performed By: #### C MP, LIPID, TSH #### [facility] [address] [place] [address] Dr. Kadeem Clemens EGFR-NON AF ANGUILLAN >60 Normal >=60 [facility] Comment on above: Performed By: #### C MP, LIPID, TSH #### [facility] [address] [place] [address] Dr. Kadeem Clemens Globulin (S) [Mass/Vol] 3.2 g/dL Normal [facility] Comment on above: Performed By: #### C MP, LIPID, TSH #### [facility] [address] [place] [address] Dr. Kadeem Clemens Glucose [Mass/Vol] 92 mg/dL Normal 74-106 [facility] Comment on above: Performed By: #### C MP, LIPID, TSH #### [facility] [address] [place] [address] Dr. Kadeem Clemens Potassium [Moles/Vol] 3.7 mmol/L Normal 3.5-5.1 [facility] Comment on above: Performed By: #### C MP, LIPID, TSH #### [facility] [address] [place] [address] Dr. Kadeem Clemens Protein [Mass/Vol] 7.2 g/dL Normal 6.4-8.2 [facility] Comment on above: Performed By: #### C MP, LIPID, TSH #### [facility] [address] [place] [address] Dr. Kadeem Clemens Sodium [Moles/Vol] 141 mmol/L Normal 136-145 [facility] Comment on above: Performed By: #### C MP, LIPID, TSH #### [facility] [address] [place] [address] Dr. Kadeem Clemens Urea nitrogen [Mass/Vol] 15.0 mg/dL Normal 7.0-18.0 [facility] Comment on above: Performed By: #### C MP, LIPID, TSH #### [facility] [address] [place] [address] Dr. Kadeem Clemens Urea nitrogen/Creatinine [Mass ratio] 20.5 mg/mg Normal [facility] Comment on above: Performed By: #### C MP, LIPID, TSH #### [facility] [address] [place] [address] Dr. Kadeem Clemens TSHon 03-23-2022 TSH 1.409 uIU/mL Normal 0.358-3.740 [facility] Comment on above: Performed By: #### C MP, LIPID, TSH #### [facility] [address] [place], [place] [address] Dr. Kadeem Clemens SCREENING MAMMOGRAM W/MELI, BILATERAL*on [...] VERY IMPORTANT TO YOUR HEALTH. THE CURRENT [employer] OF [employer] AND NATIONAL COMPREHENSIVE CANCER NETWORK GUIDELINES RECOMMENDS ANNUAL MAMMOGRAPHY BEGINNING AT AGE 38 THIS FACILITY USES A REMINDER SYSTEM TO ENSURE ALL PATIENTS RECEIVE REMINDER NOTIFICATIONS AT THE APPROPRIATE TIME BASED ON THE RECOMMENDATIONS OF THIS EXAM. Board Certified Radiologist. Accredited by the ACR and FDA. Report reported and signed by Deep Haney on 12/04/2021 1301 Normal [facility] Cytologyon 11-12-2018 [facility] Cytology Patient Name KARINA FLEMING Date of Procedure: 11/12/2018 Date Reported: 11/14/2018 Date Received: 11/12/2018 Date of / Sex 1960 (Age: 58) / F Race: WHITE Submitting Physician: ÁLVARO POWELL MD Attending Physician: ÁLVARO POWELL MD Other External # FINAL CYTOLOGICAL INTERPRETATION A. FINE NEEDLE ASPIRATION OF THYROID - RIGHT LOBE: --BENIGN. --ABUNDANT MACROPHAGES, FOLLICULAR CELLS AND COLLOID. Interpretation performed at: [facility] Department of Pathology [id number] [place] [address] Electronically Signed Out By MAXIME JACOBSEN MD By the signature on this report, the individual or group listed as making the Final Interpretation/Diagn osis certifies that they have reviewed this case. Slide(s) initially screened by a Solar Business Developer at [place] [address] Clinical History RIGHT THYROID NODULE Source of Specimen A: FINE NEEDLE ASPIRATION OF THYROID - RIGHT LOBE Specimen Submitted as: A: FINE NEEDLE ASPIRATION OF THYROID - RIGHT LOBE pap stain non-boiler installer, pap stain non-boiler installer, pap stain non-boiler installer, Pap conventional Diff Quick, Pap conventional Diff Quick, Pap conventional Diff Quick, pap non-boiler installer ThinPrep slide Gross Description A. FINE NEEDLE ASPIRATION OF THYROID - RIGHT LOBE: RECEIVED 30 cc TURBID WITH PARTICLES DARK RED CYTOLYT, 6 DIRECT SMEARS, 3 AIR DRIED, 3 SPRAY FIXED Normal [facility] Comment on above: Performed By: #### C #### [facility]ology [id number] [address] [facility] [address] [place] [facility] SUPERFCLon 11-12-2018 [facility] SUPERFCL Patient Name: KARINA FLEMING STUDY: US FNA SUPERFCL; 11/12/2018 3:03 pm INDICATION: right thyroid nodule. COMPARISON: Outside thyroid ultrasound, 08/26/2018. ACCESSION NUMBER(S): [id number] ORDERING CLINICIAN: ÁLVARO POWELL TECHNIQUE: Prior to [...] cm. Electronically signed by: BERNICE MANDUJANO MD [facility] Initial Visit (Otolaryngolog y)on 10-14-2018 Initial Visit (Otolaryngology) Diagnoses/Problems Right thyroid nodule (241.0) (E04.1) Patient Discussion/Summary Right-sided thyroid nodule which measures 1.6 cm. The patient is sent for an ultrasound-guided needle aspirate. I discussed with her all the different possible results. I will see her after the biopsy. [facility] which measures 1.6 cm. [...] Sodium) Vitals Vital Signs Recorded: 14Oct2018 01:56PM Xqcccrnanus71.9 F Heart Rate73 Rtcviktc571 Nepftlnnc66 Height5 ft Nzsudn961 lb 6 oz BMI Cuzlawazug84.8 BSA Calculated1.4 Physical Exam The patient is [...] Oct 14 2018 2:19PM EST (Author) Normal [employer] Vital Signs Date Time Vital Sign Value Performing Clinician Gisselle armenta 08-12-2024 10:55-0500 Body mass index (BMI) [Ratio] 20.31 kg/m2 Taina Natnicolera DO Work Phone: [facility] 08-12-2024 10:55-0500 Body weight 47.17 kg Taina Nataprhannahra DO Work Phone: [facility] 08-12-2024 10:55-0500 Diastolic blood pressure 64 mm[Hg] Taina Nataprawira DO Work Phone: [facility] 08-12-2024 10:55-0500 Systolic blood pressure 110 mm[Hg] Taina Nataprawira DO Work Phone: [facility] 04-13-2022 14:16-0400 Diastolic blood pressure 47 mm[Hg] Russell Magallanes DO Work Phone: [facility] 04-13-2022 14:16-0400 Systolic blood pressure 111 mm[Hg] Russell Sextonis DO Work Phone: [facility] 04-13-2022 14:11-0400 Body height 152.4 cm Russell Magallanes DO Work Phone: [facility] 04-13-2022 14:11-0400 Body weight 45.5 kg Russell Magallanes DO Work Phone: [facility] 04-13-2022 14:11-0400 Heart rate 65 /min Russell Magallanes DO Work Phone: [facility] 04-13-2022 14:0400 Respiratory rate 16 /min Russell Magallanes DO Work Phone: [facility] 04-13-2022 14:11-0400 SaO2% (BldA) [Mass fraction] 99 % Russell Magallanes DO Work Phone: [facility] Encounters Encounter Date Encounter Type Care Provider Facility Start: 08-12-2024 End: 08-12-2024 Office outpatient visit 15 minutes Taina Pacheco Chrisshannah DO Work Phone: [facility] Comment on above: Vaginal stenosis (Pr imary Dx); Osteoporosis, post-menopausal (CMS/HCC); Age-related osteoporosis without current pathological fracture (CMS/HCC); Postmenopausal; Hx of hysterectomy for benign disease; Low back pain, unspecified back pain laterality, unspecified chronicity, unspecified whether sciatica present; Other screening mammogram Start: 08-12-2024 End: 08-12-2024 ambulatory TAINA LINRA Not Available Start: 05-11-2024 ambulatory Taina Del Toroawira Facili ty:[facility] Start: 09-05-2023 End: 09-05-2023 ambulatory TAINA Junior DEL TOROAWIRA Not Available Start: 08-28-2023 End: 08-28-2023 ambulatory TAINA Junior MITTALAPRAWIRA Not Available Start: 11-09-2022 End: 11-09-2022 ambulatory LILLIE BARONE Facility:[facility] Start: 11-09-2022 End: 11-09-2022 Patient encounter procedure Lillie Barone MD Work Phone: Dermatology Comment on above: Diffuse photodamage of skin (Primary Dx); Dermatofibroma; Hemangioma, unspecified site; Seborrheic keratosis; Multiple benign nevi Start: 08-28-2022 End: 09-21-[address] FLORENCIA TOMAS . Facility: Start: 08-20-2022 End: 08-21-[address] FLORENCIA TOMAS . Facility:[facility] Start: 07-14-2022 Encounter for genera l adult medical examination without abnormal findings JAMES PERERA [facility] Start: 07-10-2022 End: 07-11-[address] FLORENCIA TOMAS . Facility: Start: 07-10-2022 End: 07-11-2022 Encounter for general adult medical examination without abnormal findings DR FLORENCIA TOMAS . Facility: Start: 05-29-2022 End: 05-29-[address] FLORENCIA TOMAS . Facility:[facility] Start: 04-13-2022 End: 04-13-2022 Subsequent hospital visit by physician Xr [facility] Work Phone: Radiology Comment on above: Left thigh pain [M79 .652] Start: 04-13-2022 End: 04-13-2022 ambulatory Deborah Awad RT(R) Radiology Comment on above: Radiology XR Start: 04-13-2022 End: 04-13-2022 Patient encounter procedure Deborah Awad RT(R) [facility] Comment on above: Radiculopathy of lum bar region (Primary Dx); Left thigh pain; Lateral pain of left hip; Strain of flexor muscle of left hip, sequela; Strain of left piriformis muscle, sequela Start: 03-23-2022 End: 03-24-[address] FLORENCIA TOMAS . Facility: Start: 10-14-2018 Patient encounter procedure Álvaro Powell Facility:[id number] Procedures Date Procedure Procedure Detail Performing Clinician Start: 08-12-2024 Urnls dip stick/tabl et rgnt non-auto w/o micrscp Taina Chakraborty DO Work Phone: Start: 09-05-2023 Mammography Taina birmingham DO Work Phone: Start: 04-13-2022 Radex hip unilateral with pelvis 2-3 views Russell Magallanes DO Work Phone: Plan of Treatment Date Care Activity Detail Author Start: 09-18-2026 Screening for malign ant neoplasm of colon [facility] Start: 08-16-2025 End: 08-16-2025 Patient encounter procedure 08/16/2025 10:15 AM EST Office Visit [facility] [address] [place] [id number] Taina Chakraborty, DO [address] [address] [facility] Start: 09-06-2024 End: 10-08-2025 DBT Breast - bilateral screening Bilateral screening mammogram with tomosynthesis Imaging Routine Other screening mammogram Expected: 09/06/2024, Expires: 10/08/2025 [facility] Work Phone: Comment on above: Expected: 09/06/2024 , Expires: 10/08/2025 Start: 09-05-2024 Screening for malign ant neoplasm of breast Mammogram [facility] Start: 03-29-2024 Influenza vaccination Influenza Vacc ine (#1) [facility] Start: 2023 Pneumococcal Vaccine : 65+ Years (1 of 1 - PCV) Pneumococcal Vaccine: 65+ Years (1 of 1 - PCV) [facility] Start: 03-29-2023 Influenza vaccination INFLUENZA (Sea son Ended) [facility] Start: 07-29-2022 DEPRESSION ASSESSMENT [facility] Start: 03-29-2022 Influenza vaccination INFLUENZA (#1) [facility] Start: 07-29-2021 DEPRESSION ASSESSMENT DEPRESSION ASS [facility] Start: 03-02-2021 COVID-19 VACCINE (3 - Booster for Pfizer series) COVID-19 VACCINE (3 - Booster for Pfizer series) [facility] Start: 11-25-2020 COVID-19 VACCINE (3 - Booster for Pfizer series) COVID-19 VACCINE (3 - Booster for Pfizer series) [facility] Start: 2008 SHINGRIX VACCINE (1 of 2) SHINGRIX VACCINE (1 of 2) [facility] Start: 2003 COLOGUARD (FIT-DNA) COLOGUARD (FIT-D NA) [facility] Start: 2003 Colonoscopy COLONOSCOPY [facility] Start: 2003 COLORECTAL CANCER SCREENING COLORECTAL CANCER SCREENING [facility] Start: [address] COLONOGRAPHY [facility] Start: 2003 DIABETES SCREEN DIABETES SCREEN [facility] Start: 2003 FECAL OCCULT BLOOD FECAL OCCULT BLOO D [facility] Start: 2003 LIPID SCREEN LIPID SCREEN [facility] Start: 2003 SIGMOIDOSCOPY SIGMOIDOSCOPY [facility] Start: 1998 Mammography MAMMOGRAM [facility] Start: 1988 HPV TESTING HPV TESTING [facility] Start: 1988 Screening for malign ant neoplasm of cervix [facility] Start: 1979 PAP TESTING PAP TESTING [facility] Start: 1979 Screening for malign ant neoplasm of cervix Pap Smear [facility] Start: 1977 Urine microalbumin profile DTAP,TDAP,TD (1 - Tdap) [facility] Start: 1976 HEPATITIS C SCREENING HEPATITIS C SC REENING [facility] Start: 1976 HIV SCREENING HIV SCREENING [facility] Start: 1970 Adult depression screening assessment DEPRESSION SCREENING [facility] Start: 1960 Screening for malign ant neoplasm of colon [facility] Calcium [Mass/volume ] in Serum or Plasma Calcium Lab Routine Postmenopausal Ordered: 08/12/2024 [facility] Comment on above: Ordered: 08/12/2024 DXA Skeletal system Views for bone density DEXA bone density Imaging Routine Postmenopausal Ordered: 08/12/2024 [facility] Comment on above: Ordered: 08/12/2024 End: 05-13-2023 Mri spinal canal lumbar w/o contrast material MRI LUMBAR SPINE WO IVCON Radiology Routine Radiculopathy of lumbar region Left thigh pain Lateral pain of left hip 1 Occurrences starting 04/13/2022 until 05/13/2023 [facility] Work Phone: Comment on above: 1 Occurrences starti ng 04/13/2022 until 05/13/2023 End: 04-13-2022 Radex spine lumbosacral 2/3 views [facility] Work Phone: Comment on above: 1 Occurrences starti ng 04/13/2022 until 04/13/2022 Immunizations Immunization Date Immunization Notes Care Provider Martine campos 05-03-2018 influenza virus vaccine, unspecified formulation Taina Chakraborty DO Work Phone: [facility] Payers Date Payer Category Payer Self-pay 2024 Unknown [id number] 2023 Medicare MEDICARE [id number] 2023 Medicare [id number] 2023 Private Health Insurance [facility] [id number] 2023 Medicare [id number] 2023 Unknown [id number] 2022 Unknown [id number] 2021 Unknown [id number] 1959 Unknown [id number] 1960 Unknown [id number]. 356 1960 Unknown [id number] [id number]. 593 1960 Unknown [id number] [id number]. 593 1958 Unknown [id number] [id number]. 593 1958 Unknown [id number] [id number]. 593 1958 Unknown [id number] [id number]. 593 1960 Unknown [id number] [id number]. 1259 1958 Unknown [id number] [id number]. 1259 1960 Unknown [id number] [id number]. 125 Unknown [id number] Unknown [id number]. 531 Social History Date Type Detail Facility Start: 04-13-2022 End: 07-03-2023 Tobacco smoking status CAIS Never smoked tobacco [facility] Start: 04-13-2022 End: 07-03-2023 Tobacco use and exposure Smokeless tobacco non-user [facility] Start: 1960 Sex Assigned At Not on file [facility] Start: 04-03-2022 End: 04-13-2022 Exposure to SARS-CoV-2 (event) Not sure [facility] Start: 08-12-2024 Alcoholic beverage intake Ex-drinker (finding) [facility] Start: 08-12-2024 History of Social function [facility] Start: 08-12-2024 Tobacco use panel [facility] NEGATED: Highlighted rowStart: NINF History of tobacco use Passive smoker [facility] Clinical Notes 12-04-2021 to 08-12-2024 Taina Chakraborty DO - 08/12/2024 10:45 AM Lourdes Barone MD - 11/09/2022 8:18 AM RT Keaton(R) - 04/13/2022 3:41 PM EDTPangelique Magallanes DO - 04/13/2022 2:25 PM EDT Note Date & Type Note Facility 08-12-2024 History of Present illness Narrative Images from the original note were not included. Taina Chakraborty DO Obstetrics and Gynecology Name: Karina Fleming Date/Time of Service:08/12/2024 11:23 AM :1960 Age: 63 y.o. Subjective Karina Fleming is a 63 y.o. female who is here for a routine exam. Gynecologic Exam (Patient here for a yearly. Denies any problems at this time. Mammogram and DEXA scan order sent to [facility] Next Prolia infusion on 11/09/24. Completed cologuard on 09/18/23-normal. Calcium order printed and provided to the patient. ) Control Contraception: status post hysterectomy. LMP: No LMP recorded. Patient has had a hysterectomy. Last Mammogram Results for orders placed in visit on 08/08/23 Bilateral screening mammogram with tomosynthesis Narrative EXAM: BI MAMMOGRAM SCREENING TOMOSYNTHESIS BILATERAL DATE: [...] a few coarse microcalcifications, and asymmetric densities. Impression BIRADS 2 - Benign Follow-up: Routine Screening Mamm. Density: Heterogeneously dense [3]. Board Certified Radiologists. Accredited by the ACR and FDA. MAMMOGRAPHY IS VERY IMPORTANT TO YOUR HEALTH. THE CURRENT [employer]GE OF RADIOLOGY AND NATIONAL COMPREHENSIVE CANCER NETWORK GUIDELINES RECOMMENDS ANNUAL MAMMOGRAPHY BEGINNING AT AGE 40. THIS FACILITY UTILIZES A REMINDER SYSTEM TO ENSURE ALL PATIENTS RECEIVE REMINDER NOTIFICATIONS AT THE APPROPRIATE TIME BASED ON THE RECOMMENDATIONS OF THIS EXAM. ELECTRONICALLY SIGNED BY: Arcadio Hamilton MD Current Outpatient Medications on File Prior to Visit Medication Sig Dispense Refill Multiple Vitamins-Minerals (Multivitamin Women) tablet as directed Orally [DISCONTINUED] denosumab (Prolia) 60 MG/ML solution prefilled syringe Inject 1 mL (60 mg) under the skin every 6 (six) months 1 mL 1 No current facility-administered medications on file prior to visit. Past Medical History: Diagnosis Date Breast lump removed x3 Mitral valve prolapse Sciatic nerve pain Past Surgical History: Procedure Laterality Date SECTION, LOW TRANSVERSE x2 DILATION AND CURETTAGE OF UTERUS HYSTERECTOMY 1999 MAMADOU/BSO No family history on file. Social History Tobacco Use Smoking status: Never Smokeless tobacco: Never Substance Use Topics Alcohol use: Not Currently Drug use: Never OB History No obstetric history on file. Allergies Allergen Reactions Other Unknown Sulfa Antibiotics Other Reaction(s): Unknown Review of Systems Constitutional: Negative. Respiratory: Negative. Cardiovascular: Negative. Gastrointestinal: Negative. Musculoskeletal: Negative. Skin: Negative. Neurological: Negative. Endocrine: Negative. Objective BP 110/64 Wt 104 lb BMI 20.31 kg/m Body mass index is 20.31 kg/m . Physical Exam Genitourinary: Urethral meatus normal. No lesions in the vagina. Right Labia: No lesions. Left Labia: No lesions. No vaginal discharge. No vaginal prolapse present. Severe vaginal atrophy present. Vaginal exam comments: Vaginal introitous can only accommodate 1 finger. Right Adnexa: not tender and no mass present. Left Adnexa: not tender and no mass present. Cervix is absent. Uterus is absent. No urethral stress urinary incontinence with cough stress test present. Bladder is not tender. Rectum: No rectovaginal septum nodularity. Breasts: Right: No mass, nipple discharge, skin change or tenderness. Left: No mass, nipple discharge, skin change or tenderness. HENT: Head: Normocephalic and atraumatic. Mouth/Throat: Mouth: Mucous membranes are moist. Cardiovascular: Rate and Rhythm: Normal rate and regular rhythm. Pulmonary: Effort: Pulmonary effort is normal. Breath sounds: Normal breath sounds. Abdominal: General: Bowel sounds are normal. Palpations: Abdomen is soft. Musculoskeletal: General: No tenderness. Cervical back: Neck supple. Neurological: Mental Status: She is alert and oriented to person, place, and time. Skin: General: Skin is warm and dry. Psychiatric: Mood and Affect: Mood normal. Vitals and nursing note reviewed. Assessment/Plan 1. Vaginal stenosis (Primary) Stable, continue to observe 2. Osteoporosis, post-menopausal (CMS/HCC) Continue Prolia treatment. DEXA scan to be done this year, order given today 3. Age-related osteoporosis without current pathological fracture (CMS/HCC) 4. Postmenopausal Breast and pelvic exam performed. Discussed findings. Patient to contact the office with any changes to her gynecological condition. - DEXA bone density - Calcium 5. Hx of hysterectomy for benign disease 6. Low back pain, unspecified back pain laterality, unspecified chronicity, unspecified whether sciatica present Urine dip without signs of urinary tract infection - Urine dip 7. Other screening mammogram Mammogram order given to patient. Patient to schedule appointment - Bilateral screening mammogram with tomosynthesis; Future ICD-10-CM 1. Vaginal stenosis N89.5 2. Osteoporosis, post-menopausal (CMS/HCC) M81.0 3. Age-related osteoporosis without current pathological fracture (CMS/HCC) M81.0 4. Postmenopausal Z78.0 DEXA bone density Calcium 5. Hx of hysterectomy for benign disease Z90.710 6. Low back pain, unspecified back pain laterality, unspecified chronicity, unspecified whether sciatica present M54.50 Urine dip 7. Other screening mammogram Z12.31 Bilateral screening mammogram with tomosynthesis No follow-ups on file. Taina Chakraborty DO 08/12/2024 11:23 AM documented in this encounter [facility] 11-09-2022 Note HNO ID: [id number] Author: Lillie Barone MD Service: ? Author Type: Physician Type: Progress Notes Filed: 11/09/2022 8:49 AM Note Text: DERMATOLOGY / NEW PATIENT CONSULT Consultation requested by patient for an opinion regarding skin. HPI: The patient is a 62 year old female presenting with a 3 lesions of concern Left lateral lower leg - raised conley lesion Mid upper back - brown raised lesion [place] raised lesion- right cheek DERM HISTORY: No [...] Past Histories independently gathered by the clinical direct support staff and the remaining scribed note accurately describes my personal service to the patient. Lillie Barone MD Medical Decision Making: Problems: Low: 2+ self-limited or minor problems Risk: Low: Low risk from testing/treatment Medical Decision Making Level: 3 - Low [facility] 11-09-2022 History of Present illness Narrative DERMATOLOGY / NEW PATIENT CONSULT Consultation requested by patient for an opinion regarding skin. HPI: The patient is a 62 year old female presenting with a 3 lesions of concern Left lateral lower leg - raised conley lesion Mid upper back - brown raised lesion [place] raised lesion- right cheek DERM HISTORY: No [...] Past Histories independently gathered by the clinical direct support staff and the remaining scribed note accurately describes my personal service to the patient. Lillie Barone MD Medical Decision Making: Problems: Low: 2+ self-limited or minor problems Risk: Low: Low risk from testing/treatment Medical Decision Making Level: 3 - Low documented in this encounter [facility] 08-21-2022 Note PROCEDURE: XR HIP RT 2 3V W PELVIS COMPARISON: None. HISTORY: Muscle and tendon injury FINDINGS: BONES:No fracture, acute abnormality, or significant arthropathy. SOFT TISSUES:Negative. No visible soft tissue swelling. EFFUSION:None visible. OTHER: Negative. IMPRESSION: No acute abnormality Electronically authenticated by: MICKI LUCERO Date: 2022-08-21 07:52 [facility] 04-13-2022 Note HNO ID: [id number] Author: Mady Woodruff RT(R) Service: ? Author Type: Technologist Type: Progress [...] RT Suyapa April 13, 2022 3:[address] [facility] 04-13-2022 Note HNO ID: [id number] Author: Russell Magallanes, DO Service: ? Author Type: Physician Type: Progress Notes Filed: 05/06/2022 1:40 PM Note Text: [facility] - Medical Spine Initial [...] her back. -Ortho surgeon Dr. Agosto in [place] prior to pandemic. Told her it was not her back, but it was her sciatic nerve. 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 [facility] 04-13-2022 History of Present illness Narrative [...] 2022 3:41 PM documented in this encounter [facility] 04-13-2022 History of Present illness Narrative Images from the original note were not included. [facility] - Medical Spine Initial [...] her back. -Ortho surgeon Dr. Agosto in [place] prior to pandemic. Told her it was not her back, but it was her sciatic nerve. 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 No significant arthropathy or acute abnormality. Soft tissues: Negative. No visible soft tissue swelling, mass, fluid collection, edema or hematoma. Effusion: None visible. Other: Skin surface markers overlie the posterior thigh and localized area of pain. Impression: No abnormal or suspicious findings to account for patient's symptoms. 06/28/2021 ultrasound venous Doppler LLE ([place], [place]): No left femoral-popliteal venous thrombosis. 06/23/2021 XR left femur ([facility] [place], [place]): Bones: No fracture, acute abnormality, or [...] which included preparing to see the patient, [id number] patient care, completing clinical documentation, obtaining and/or reviewing separately obtained history, performing a medically appropriate examination, counseling and educating the patient/family/caregiver, ordering medications, tests, or procedures, independently interpreting results (not separately reported), and communicating results to the patient/family/caregiver. 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 Evaluation note Diagnosis Left thigh pain Pain in limb Lateral pain of left hip Pain in joint, pelvic region and thigh Radiculopathy of lumbar region Thoracic or lumbosacral neuritis or radiculitis, unspecified [facility] Radiculopathy of lumbar region- Primary Thoracic or lumbosacral neuritis or radiculitis, unspecified Left thigh pain Pain in limb Lateral pain of left hip Pain in joint, pelvic region and thigh Strain of flexor muscle of left hip, sequela Strain of left piriformis muscle, sequela [facility] Diffuse photodamage of skin- Primary Other chronic dermatitis due to solar radiation Dermatofibroma Benign neoplasm of skin, site unspecified Hemangioma, unspecified site Seborrheic keratosis Other seborrheic keratosis Multiple benign nevi Benign neoplasm of skin, site unspecified [facility] Vaginal stenosis- Primary Osteoporosis, post-menopausal (CMS/HCC) Senile osteoporosis Age-related osteoporosis without current pathological fracture (CMS/HCC) Postmenopausal Asymptomatic postmenopausal status (age-related) (natural) Hx of hysterectomy for benign disease Low back pain, unspecified back pain laterality, unspecified chronicity, unspecified whether sciatica present Other screening mammogram documented in this encounter [facility] (narrative)* Diagnostic Procedure Only (Routine) - Closed Specialty Diagnoses / Procedures Referred By Conthanane t Referred To Contact XR IMAGING Diagnoses Radiculopathy of lumbar region Procedures XR LUMBAR LIMITED 2V AP/LAT RADEX SPINE LUMBOSACRAL 2/3 VIEWS Russell Magallanes, [address] [place] [address] Xr Imaging Referral ID Status Reason Start Date Expiration Date V isits Requested Visits Authorized [id number] Closed Auto-Generate d Referral 04/13/2022 05/13/2023 1 1 * Diagnostic Procedure Only (Routine) - Closed Specialty Diagnoses / Procedures Referred By Contac t Referred To Contact XR IMAGING Diagnoses Left thigh pain Lateral pain of left hip Procedures XR HIP GENERAL 3V PELV/AP/LAT LEFT RADEX HIP UNILATERAL WITH PELVIS 2-3 VIEWS Russell Magallanes DO [address] [place] [address] Xr Imaging Referral ID Status Reason Start Date Expiration Date V isits Requested Visits Authorized [id number] Closed Auto-Generate d Referral 04/13/2022 05/13/2023 1 1 [facility] for referral (narrative)* Diagnostic Procedure Only (Routine) - Closed Specialty Diagnoses / Procedures Referred By Contac t Referred To Contact XR IMAGING Diagnoses Radiculopathy of lumbar region Procedures XR LUMBAR LIMITED 2V AP/LAT RADEX SPINE LUMBOSACRAL 2/3 VIEWS Russell Magallanes DO [address] [place] [address] Xr Imaging Referral ID Status Reason Start Date Expiration Date V isits Requested Visits Authorized [id number] Closed Auto-Generate d Referral 04/13/2022 05/13/2023 1 1 * Diagnostic Procedure Only (Routine) - Closed Specialty Diagnoses / Procedures Referred By Contac t Referred To Contact XR IMAGING Diagnoses Left thigh pain Lateral pain of left hip Procedures XR HIP GENERAL 3V PELV/AP/LAT LEFT RADEX HIP UNILATERAL WITH PELVIS 2-3 VIEWS Russell Magallanes DO [address] [place] [address] Xr Imaging Referral ID Status Reason Start Date Expiration Date V isits Requested Visits Authorized [id number] Closed Auto-Generate d Referral 04/13/2022 05/13/2023 1 1 * MRI/CT (Routine) - Pending Review Specialty Diagnoses / Procedures Referred By Devon stern Referred To Contact MR IMAGING Diagnoses Radiculopathy of lumbar region Left thigh pain Lateral pain of left hip Procedures MRI LUMBAR SPINE WO IVCON MRI SPINAL CANAL LUMBAR W/O CONTRAST MATERIAL Russell Magallanes DO [address] [place] [address] Mr Imaging Referral ID Status Reason Start Date Expiration Date Visits Requested Visits Authorized [id number] Pending Review Auto-Generat ed Referral 04/13/2022 05/13/2023 1 1 [facility] for visit Narrative* Diagnostic Procedure Only (Routine) - Closed Specialty Diagnoses / Procedures Referred By Devon stern Referred To Contact XR IMAGING Diagnoses Radiculopathy of lumbar region Procedures XR LUMBAR LIMITED 2V AP/LAT RADEX SPINE LUMBOSACRAL 2/3 VIEWS Russell Magallanes DO [address] [place] [address] Xr Imaging Referral ID Status Reason Start Date Expiration Date V isits Requested Visits Authorized [id number] Closed Auto-Generate d Referral 04/13/2022 05/13/2023 1 1 [facility] Summary Purpose Family History No Family [...] FNA Findings: thyroid nodule Procedure performed by: al Licensed Optician(s): none Estimated Blood Loss (mL): none Specimen: yes Informed Consent: written consent obtained Signature/Cosignature/Attestation: Attending AttestationI performed the procedure without a resident Electronic Signatures: Bernice Mandujano) (Signed 12-Nov-2018 15:00) Authored: Pre-procedure Verification and Time Out, General Information, Signature/Cosignature/Attestation Last Updated: 12-Nov-2018 15:00 by Bernice Mandujano) Additional Source Comments INFORMATION SOURCE (unrecogn ized section and content) DATE CREATED AUTHOR 10/14/2018 [employer] DATE CREATED AUTHOR AUTHOR'S ORGANIZ ATION 11/15/2018 [facility] DATE CREATED AUTHOR AUTHOR'S ORGANIZ ATION 02/16/2019 [facility] DATE CREATED AUTHOR AUTHOR'S ORGANIZ ATION 12/05/2021 [facility] DATE CREATED AUTHOR AUTHOR'S ORGANIZ ATION 09/28/2022 [facility] DATE CREATED AUTHOR AUTHOR'S ORGANIZ ATION 11/12/[address] [facility] DATE CREATED AUTHOR AUTHOR'S ORGANIZ ATION 07/09/2024 [facility] DATE CREATED AUTHOR AUTHOR'S ORGANIZ ATION 08/15/2024 [facility] EPIC Source Comments (unrecognize d section and content) In the event this informatio n is protected by the Federal Confidentiality of Alcohol and Drug Abuse Patient Records regulations: The Federal rules restrict any use of the information to criminally investigate or prosecute any alcohol or drug abuse patient.[facility] the event this information is protected by the Federal Confidentiality of Alcohol and Drug Abuse Patient Records regulations: The Federal rules restrict any use of the information to criminally investigate or prosecute any alcohol or drug abuse patient.[facility] the event this information is protected by the Federal Confidentiality of Alcohol and Drug Abuse Patient Records regulations: The Federal rules restrict any use of the information to criminally investigate or prosecute any alcohol or drug abuse patient.[facility] Reason for Visit (unrecogniz ed section and content) Reason Comments Radiology XR Reason Comments Leg Pain Nerve pain in left l eg since 2014. Begins middle of thigh downward and sometimes from inner thigh downward. [facility] xray and [facility]. Inaddition to left hip as well. Disc with MRI, Xray, and US of leg. Reason Comments LESION, SKIN Reason Comments Gynecologic Exam Patient here for a y early. Denies any problems at this time. Mammogram and DEXA scan order sent to [facility]. Next Prolia infusion on 11/09/24. Completed cologuard on 09/18/23-normal. Calcium order printed and provided to the patient. Care Teams (unrecognized sec tion and content) Rx Specialist Relationship Specialty Start Date End Date Florencia Tomas MD [address] [place] [id number] PCP - General Family Medicine 07/03/23 FOR RECORDS PERTAINING TO PATIENTS WHO ARE [...] BE BASED ON THE PRIMARY CLINICAL RECORDS. [facility] [employer] [facility]. provides no warranty or guarantee of the accuracy or completeness of information in this document.
[2024-09-30 13:42] LABS: Calcium 8.7 mg/dL (8.5-10.1)
== END 2024-09-30 13:14 | disposition home or self-care (01) ==
LOC: LAB 13:13
PROVIDERS: PCP Family Medicine; Visit Provider Obstetrics & Gynecology
DX: Z78.0 Asymptomatic menopausal state (principal)
CPT/HCPCS: 36415; 82310

== ENCOUNTER 2025-04-14 10:48 | Outpatient (OUT) | payer MEDICARE, OTHER, SELFPAY ==
--- OUTSIDE RECORDS SUMMARY | 2025-04-08 10:57 | XMS_ITS | CCD ---
Author Organization [facility] CliniSyvt Care Team Providers Care Director Emergency Services Name Role Phone Álvaro Powell Attending Unavailable [...] Unavailable HOY ., DR DON Attending Unavailable MILTON, DR MICKI Burgess Consulting Unavailable Unavailable Primary Care Provider UnavailLILLIE Robertson Attending Unavailable RUSSELL MAGALLANES Referring Unavailable RUSSELL MAGALLANES Attending Unavailable Florencia Tomas MD Primary Care Provider [phone] TAINA CHAKRABORTY Referring Unavailable TAINA CHAKRABORTY Referring Unavailable TAINA CHAKRABORTY Attending Unavailable Florencia Tomas Primary Care Unavailable Taina Chakraborty Referring Unavailable Taina Chakraborty Attending Unavailable Taina Chakraborty Admitting Unavailable Allergies Allergy Classification Reported Allergen(s) Allergy Type Date of Onset Reaction(s) Facility (7 sources) Sulfonamides (Antibiotic); Translations: [SULFA (SULFONAMIDE ANTIBIOTICS)] Propensity to adverse reactions to drug 2 Unknown [facility] (6 sources) Sutures; Translations: [SUTURES] Propensity to adverse reactions 2 Unknown [facility] (1 source) Sulfonamides (Antibiotic) Drug allergy (disorder) 5 [facility] Repository (2 sources) Other Propensity to adverse reactions 2 Unknown [facility] (1 source) Sulfonamides (Antibiotic) Drug allergy (disorder) 4 [facility] Repository Medications Current Medications Medication Drug Class(es) Dates Sig (Normalized) Sig (Original) Multiple Vitamins-Minerals (Multivitamin Women) tablet (2 sources) Multiple Vitamins-Minerals (Multivitamin Women) tablet as directed Orally Active Completed/Discontinued Medications Medication Drug Class(es) Dates Sig (Normalized) Sig (Original) 1 ml denosumab 60 mg/ml prefilled syringe (2 sources) RANK Ligand Inhibitor Start: 08-12-2023 End: 08-10-2024 denosumab (Prolia) 60 MG/ML solution prefilled syringe Indications: Osteoporosis, post-menopausal (CMS/HCC) Inject 1 mL (60 mg) under the [...] to nonionizing radiation] Episodic Osteoporosis (5 sources) Postmenopausal osteoporosis; Translations: [Age-related osteoporosis without current pathological fracture] Onset: 11-09-2024 08-12-2024 Chronic Other and unspecified benign neoplasm [...] Reference Range Facility BI MAMMOGRAM SCREENING TOMOS TIANNA BILATERALon 10-06-2024 BI MAMMOGRAM SCREENING TOMOSYNTHESIS BILATERAL This is a summary report. The complete report is available in the patient's medical record. If you cannot access the medical record, please contact the sending organization for a detailed fax or copy. Examination: BI MAMMOGRAM SCREENING TOMOSYNTHESIS BILATERAL Clinical History: screening Technique: Screening digital mammography study of both breasts was performed with 2-D and 3-D tomosynthesis imaging. Study was compared to the prior exam dated 09/05/2023. Findings: There is no evidence of interval dominant spiculated mass, grouped microcalcifications, or skin thickening which would be suggestive of malignancy. Mild scattered benign-appearing calcifications on the right with a single benign-appearing calcification noted on the left. There are 2 adjacent small benign-appearing asymmetric densities in the superior aspect of the left breast on MLO view similar to the prior study. IMPRESSION: Impression: No specific evidence of malignancy seen in either breast. BIRADS 2 - Benign Findings DENSITY: The breasts are heterogeneously dense, which may obscure small masses. FOLLOW-UP: Routine Screening Mammogram ELECTRONICALLY SIGNED BY: Ba Wilson M.D. Normal Not Available DEXA BONE DENSITYon 08-12-19 DEXA BONE DENSITY Examination: DEXA BONE DENSITY Clinical History: screening Technique: Bone density study was performed. T score values for the lumbar spine, right femoral neck and left femoral neck were obtained. Comparison: 12/04/2021. Findings: Value for the lumbar spine from L1-L4 is -3.4. Value for the right femoral neck is -1.8. Value for the left femoral neck is -2.0. Findings are compatible with osteoporosis with high increased fracture risk. Study was compared to the prior exam dated 12/04/2021 which demonstrates similar findings. IMPRESSION: Impression: Findings compatible with osteoporosis with high increased fracture risk. Findings are similar to the prior exam. ELECTRONICALLY SIGNED BY: Ba Wilson M.D. Normal Not Available Urinalysis macro (dipstick) panel (U)on 08-12-2024 Bilirubin, UA Negative Negative - 4(70) +++ mg/dL [facility] Blood, UA Negative Negative - 50 Shiv/mcL [facility] Clarity, UA Clear [facility] Color, UA Ashley [facility] Glucose, UA Negative Negative - 1999(110) ++++ mg/dL [facility] Interpretation and review of laboratory results Normal [facility] Ketones, UA Negative Negative - 160(16) ++++ mg/dL [facility] Leukocytes, UA Negative Negative - 500+++ Mauricio/mcL [facility] Nitrite, UA Negative Negative - Positive [facility] pH, UA 6 5 - 9 [facility] Protein, UA Trace Negative - 1999(20) ++++ mg/dL [facility] Spec Grav, UA 1.02 1 - 1.03 [facility] Urobilinogen, UA 1.0 0.2 - 12 mg/dL [facility] CNOVon 11-09-2022 CNOV Office Visit ([facility]) KARINA FLEMING ([id number]) 1960 F Date Time Provider Department 11/09/22 [...] Mid upper back - brown raised lesion Ronceverte raised lesion- right cheek DERM HISTORY: No [...] Past Histories independently gathered by the clinical technical support intern and the remaining scribed note accurately describes [...] for Encounter Date Provider Department Center 11/09/2022 [id number]counter Status:Closed by LILLIE BARONE on 11/09/22 Normal [facility] XR LSPINE MIN 4 VIEWSon [...] MICKI LUCERO Date: 2022-08-21 07:50 Normal [facility] GLUCOSE BLOODon 07-10-2022 Glucose [Mass/Vol] 87 mg/dL Normal 74-106 [facility] Comment on above: Performed By: #### L IPID, GLUC #### [facility] [address] [address] [address] Kadeem Clemens LIPID PROFILEon 07-10-2022 CHOL-HDL RATIO NORM SEE BELOW Normal [facility] Comment on above: Result Comment: 3.3 - 4.4 LOW RISK 4.4 - 7.1 AVERAGE RISK 7.1 - 11.0 MODERATE RISK >11.0 HIGH RISK Performed By: #### L IPID, GLUC #### [facility] [address] [address] [address] Kadeem Clemens Cholesterol [Mass/Vol] 182 mg/dL Normal <=200 [facility] Comment on above: Performed By: #### L IPID, GLUC #### [facility] [address] [address] [address] Kadeem Clemens Cholesterol in HDL [Mass/Vol] 66 mg/dL Critically high 40-60 [facility] Comment on above: Performed By: #### L IPID, GLUC #### [facility] [address] [address] [address] Kadeem Clemens Cholesterol in LDL [Mass/Vol] 101.4 mg/dL Normal [facility] Comment on above: Performed By: #### L IPID, GLUC #### [facility] [address] [address] [address] Kadeem Clemens Cholesterol.total/Ch olesterol in HDL [Mass ratio] 2.8 {ratio} Normal [facility] Comment on above: Performed By: #### L IPID, GLUC #### [facility] [address] [address] [address] Kadeem Clemens HDL NORMAL > or = 60 mg/dl - LOW CARDIOVASCULAR RISK <40 mg/dl - HIGH CARDIOVASCULAR RISK Normal [facility] Comment on above: Performed By: #### L IPID, GLUC #### [facility] [address] [address] [address] Kadeem Clemens LDL CALC NORMAL SEE BELOW Normal [facility] Comment on above: Result Comment: <100 mg/dl OPTIMAL 100 - 129 mg/dl NEAR OR ABOVE OPTIMAL 130 - 159 mg/dl BORDERLINE HIGH 160 - 189 mg/dl HIGH >190 mg/dl VERY HIGH Performed By: #### L IPID, GLUC #### [facility] [address] [address] [address] Kadeem Clemens Triglyceride [Mass/Vol] 73 mg/dL Normal <=150 [facility] Comment on above: Performed By: #### L IPID, GLUC #### [facility] [address] [place] [address] Dr. Kadeem Clemens VLDL CALC 14.6 mg/dL Normal [facility] Comment on above: Performed By: #### L IPID, GLUC #### [facility] [address] [place] [address] Dr. Kadeem Clemens Covid-19 PCR (CVDTBH)on SARS-CoV-2 (COVID-19) RNA DARÍO+probe Ql (Unsp spec) Detected Critically abnormal NOT DETECTED [facility] Comment on above: Result Comment: This test is not yet approved or cleared by the [place] FDA. When there are no FDA-approved or cleared tests available, and other criteria are met, FDA can make tests available under an emergency access mechanism called an Emergency Use Authorization (EUA). The EUA for this test is supported by the [place] of Health and Human Service's (HHS's) declaration [...] used). Performed By: #### C VDTBH #### [facility] [address] [place] [address] Dr. Kadeem Clemens INFLUENZA A AND B AGon 05-29 INFLUANEGH SEE BELOW Normal [facility] Comment on above: Result Comment: Nega tive for Flu A protein angiten. Infection due to Flu A cannot be ruled out. Flu A angiten in the sample may be below the detection limit of the test. Performed By: #### I NFLUAB #### [facility] [address] [place] [address] Dr. Kadeem Clemens [facility] SEE BELOW Normal [facility] Comment on above: Result Comment: Nega tive for Flu B protein antigen. Infection due to Flu B cannot be ruled out. Flu B antigen in the sample may be below the detection limit of the test. Performed By: #### I NFLUAB #### [facility] [address] [place] [address] Dr. Kadeem Clemens INFLUENZA A AG Negative Normal NEGATIVE SEE COMMENT [facility] Comment on above: Performed By: #### I NFLUAB #### [facility] [address] [place] [address] Dr. Kadeem Clemens INFLUENZA B AG Negative Normal NEGATIVE SEE COMMENT [facility] Comment on above: Performed By: #### I NFLUAB #### [facility] [address] [place] [address] Dr. Kadeem Clemens INTERNAL CONTROLS Within Normal Limits Normal Wi thin Normal Limits [facility] Comment on above: Performed By: #### I NFLUAB #### [facility] [address] [place] [address] Dr. Kadeem Olivares 04-13-2022 [facility] Office Visit ([facility]) KARINA FLEMING ([id number]) 1960 F Date Time Provider Department 04/13/22 2:30 PM RUSSELL MAGALLANES During your visit today, we recorded the following information about you: Pulse Respiration Blood pressure Weight 65/minute 16/minute 111/47 45.5 kg Height 1.524 m Russell Magallanes, DO 05/06/2022 1:40 PM Signed [facility] Neurological [facility] - Medical Spine Initial Exam [...] her back. -Ortho surgeon Dr. Agosto in [place] prior to pandemic. Told her it was not her back, but it was her sciatic nerve. 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 Normal [facility] No Panel Informationon 04-13 [facility] XR HIP 3V PELV+ AP/LAT LTon [...] right sacroiliac joint. IMPRESSION: No acute findings. 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 Kadeem Clemens T4, T3U, FTI LABCORPon 03-24 Free Thyroxine Index 2.3 Normal 1.2-4.9 [facility] Comment on above: Performed By: #### T HYLC ####[facility] [address] [place], [place] [address]Dr. Kadeem Clemens T3 Uptake 32 % Normal 24-39 [facility] Comment on above: Performed By: #### T HYLC ####[facility] [address] [place], [place] [address]Dr. Kadeem Clemens T4 [Mass/Vol] 7.1 ug/dL Normal 4.5-12.0 [facility] Comment on above: Performed By: #### T HYLC ####[facility] [address] [place], [place] [address]Dr. Kadeem Clemens CBC AUTO DIFFon 03-23-2022 BASO # 0.1 103/ul Normal 0.0-0.1 [facility] Comment on above: Performed By: #### C BC ####[facility] [address] [place], [place] [address]Dr. Kadeem Clemnes Basophils/100 WBC (Bld) 1.0 % Normal 0.2-2.0 [facility] Comment on above: Performed By: #### C BC ####[facility] [address] [place], [place] [address]Dr. Kadeem Clemens EO # 0.1 103/ul Normal 0.0-0.7 [facility] Comment on above: Performed By: #### C BC ####[facility] [address] [place], [place] [address]Dr. Kadeem Clemens Eosinophils/100 WBC (Bld) 2.1 % Normal 0.9-7.0 [facility] Comment on above: Performed By: #### C BC ####[facility] [address] [place], [place] [address]Dr. Kadeem Clemens Erythrocyte distribution width (RBC) [Ratio] 12.2 % Normal 11.0-15.0 [facility] Comment on above: Performed By: #### C BC ####[facility] [address] [address]DrOdette Clemens Hematocrit (Bld) [Volume fraction] 42.3 % Normal 36.0-48.0 [facility] Comment on above: Performed By: #### C BC ####[facility] [address] [address]DrOdette Clemens Hemoglobin (Bld) [Mass/Vol] 13.8 g/dL Normal 12.0-16.0 [facility] Comment on above: Performed By: #### C BC ####[facility] [address] [place], [place] [address]DrOdette Clemens IG # 0.01 10e3/ul Normal 0.00-0.03 [facility] Comment on above: Performed By: #### C BC ####[facility] [address] [place], [place] [address]Dr. Kadeem Clemens IG % 0.2 % Normal 0.0-0.5 [facility] Comment on above: Performed By: #### C BC ####[facility] [address] [place], [place] [address]DrOdette Clemens LYMPH # 2.3 103/ul Normal 1.2-3.8 [facility] Comment on above: Performed By: #### C BC ####[facility] [address] [place], [place] [address]DrOdette Clemens Lymphocytes/100 WBC (Bld) 37.8 % Normal 20.5-60.0 [facility] Comment on above: Performed By: #### C BC ####[facility] [address] [place], [place] [address]DrOdette Clemens MANUAL DIFF REQ NO Normal [facility] Comment on above: Performed By: #### C BC ####[facility] [address] [address]DrOdette Clemens MCH (RBC) [Entitic mass] 29.1 pg Normal 26.7-34.0 [facility] Comment on above: Performed By: #### C BC ####[facility] [address] [address]Dr. Kadeem Clemens MCHC (RBC) [Mass/Vol] 32.6 g/dL Normal 29.9-35.2 [facility] Comment on above: Performed By: #### C BC ####[facility] [address] [address]Dr. Kadeem Clemens MCV (RBC) [Entitic vol] 89.1 fL Normal 81.0-99.0 [facility] Comment on above: Performed By: #### C BC ####[facility] [address] [place], [place] [address]DrOdette Clemens MONO # 0.5 103/ul Normal 0.3-0.8 [facility] Comment on above: Performed By: #### C BC ####[facility] [address] [place], [place] [address]Dr. Kadeem Clemens Monocytes/100 WBC (Bld) 7.6 % Normal 1.7-12.0 [facility] Comment on above: Performed By: #### C BC ####[facility] [address] [place], [place] [address]Dr. Kadeem Clemens NEUT # 3.1 103/ul Normal 1.4-6.5 [facility] Comment on above: Performed By: #### C BC ####[facility] [address] [place], [place] [address]Dr. Kadeem Clemens Neutrophils/100 WBC (Bld) 51.3 % Normal 43.0-75.0 [facility] Comment on above: Performed By: #### C BC ####[facility] [address] [place], [place] [address]DrOdette Clemens Platelet mean volume (Bld) [Entitic vol] 9.6 fL Normal 9.5-13.5 [facility] Comment on above: Performed By: #### C BC ####[facility] [address] [place], [place] [address]Dr. Kadeem Clemens PLT 240 103/ul Normal 150-450 [facility] Comment on above: Performed By: #### C BC ####[facility] [address] [id number] Kadeem Sarath RBC 4.75 106/ul Normal 4.20-5.40 [facility] Comment on above: Performed By: #### C BC ####[facility] [address] [id number] Clemens WBC 6.1 103/ul Normal 4.0-11.0 [facility] Comment on above: Performed By: #### C BC ####[facility] [address] [id number]. Kadeem Clemens GLYCOHEMOGLOBIN A1Con 2021 ADA RECOMMENDATION SEE BELOW Normal [facility] Comment on above: Result Comment: ADA RECOMMENDED LIMIT 4.0 - 6.0 ADA THERAPEUTIC TARGET < 7.0 ACTION SUGGESTED > 7.0 Performed By: #### A 1C ####[facility] [address] [address]Dr. Kadeem Clemens Glucose [Mass/Vol] 105 mg/dL Normal [facility] Comment on above: Performed By: #### A 1C ####[facility] [address] [id number] Carolinmiguel Clemens HbA1c (Bld) [Mass fraction] 5.3 % Normal 4.5-6.2 [facility] Comment on above: Performed By: #### A 1C ####[facility] [address] [address]Dr. Kadeem Clemens IRONon 03-23-2022 Iron [Mass/Vol] 106.0 ug/dL Normal 50.0-170.0 [facility] Comment on above: Performed By: #### I MOO #### [facility] [address] [address] [address] Kadeem Clemens LIPID PROFILEon 03-23-2022 CHOL-HDL RATIO NORM SEE BELOW Normal [facility] Comment on above: Result Comment: 3.3 - 4.4 LOW RISK 4.4 - 7.1 AVERAGE RISK 7.1 - 11.0 MODERATE RISK >11.0 HIGH RISK Performed By: #### C MP, LIPID, TSH #### [facility] [address] [address] [address] Kadeem Clemens Cholesterol [Mass/Vol] 185 mg/dL Normal <=200 [facility] Comment on above: Performed By: #### C MP, LIPID, TSH #### [facility] [address] [address] [address] Kadeem Clemens Cholesterol in HDL [Mass/Vol] 66 mg/dL Critically high 40-60 [facility] Comment on above: Performed By: #### C MP, LIPID, TSH #### [facility] [address] [address] [address] Kadeem Clemens Cholesterol in LDL [Mass/Vol] 99.6 mg/dL Normal [facility] Comment on above: Performed By: #### C MP, LIPID, TSH #### [facility] [address] [address] [address] Kadeem Clemens Cholesterol.total/Ch olesterol in HDL [Mass ratio] 2.8 {ratio} Normal [facility] Comment on above: Performed By: #### C MP, LIPID, TSH #### [facility] [address] [address] [address] Kadeem Clemens HDL NORMAL > or = 60 mg/dl - LOW CARDIOVASCULAR RISK <40 mg/dl - HIGH CARDIOVASCULAR RISK Normal [facility] Comment on above: Performed By: #### C MP, LIPID, TSH #### [facility] [address] [address] [address] Kadeem Clemens LDL CALC NORMAL SEE BELOW Normal [facility] Comment on above: Result Comment: <100 mg/dl OPTIMAL 100 - 129 mg/dl NEAR OR ABOVE OPTIMAL 130 - 159 mg/dl BORDERLINE HIGH 160 - 189 mg/dl HIGH >190 mg/dl VERY HIGH Performed By: #### C MP, LIPID, TSH #### [facility] [address] [address] [address] Kadeem Clemens Triglyceride [Mass/Vol] 97 mg/dL Normal <=150 [facility] Comment on above: Performed By: #### C MP, LIPID, TSH #### [facility] [address] [address] [address] Kadeem Clemens VLDL CALC 19.4 mg/dL Normal [facility] Comment on above: Performed By: #### C MP, LIPID, TSH #### [facility] [address] [address] [address] Kadeem Clemens PROF 14(COMP METB)on 022 Albumin [Mass/Vol] 4.0 g/dL Normal 3.4-5.0 [facility] Comment on above: Performed By: #### C MP, LIPID, TSH #### [facility] [address] [address] [address] Kadeem Clemens Albumin/Globulin [Mass ratio] 1.3 {ratio} Normal [facility] Comment on above: Performed By: #### C MP, LIPID, TSH #### [facility] [address] [address] [address] Kadeem Clemens ALP [Catalytic activity/Vol] 82 U/L Normal 46-116 [facility] Comment on above: Performed By: #### C MP, LIPID, TSH #### [facility] [address] [address] [address] Kadeem Clemens ALT [Catalytic activity/Vol] 20 U/L Normal 14-59 [facility] Comment on above: Performed By: #### C MP, LIPID, TSH #### [facility] [address] [address] [address] Kadeem Clemens Anion gap [Moles/Vol] 11.4 mmol/L Normal [facility] Comment on above: Performed By: #### C MP, LIPID, TSH #### [facility] [address] [address] [address] Kadeem Clemens AST [Catalytic activity/Vol] 23 U/L Normal 15-37 [facility] Comment on above: Performed By: #### C MP, LIPID, TSH #### [facility] [address] [address] [address] Kadeem Clemens Bilirubin [Mass/Vol] 0.6 mg/dL Normal 0.2-1.0 [facility] Comment on above: Performed By: #### C MP, LIPID, TSH #### [facility] [address] [address] [address] Kadeem Clemens Calcium [Mass/Vol] 8.8 mg/dL Normal 8.5-10.1 [facility] Comment on above: Performed By: #### C MP, LIPID, TSH #### [facility] [address] [address] [address] Kadeem Clemens Chloride [Moles/Vol] 105 mmol/L Normal 98-107 [facility] Comment on above: Performed By: #### C MP, LIPID, TSH #### [facility] [address] [place] [address] Dr. Kadeem Clemens CO2 [Moles/Vol] 28.3 mmol/L Normal 21.0-32.0 [facility] Comment on above: Performed By: #### C MP, LIPID, TSH #### [facility] [address] [place] [address] Dr. Kadeem Clemens Creatinine [Mass/Vol] 0.73 mg/dL Normal 0.55-1.02 [facility] Comment on above: Performed By: #### C MP, LIPID, TSH #### [facility] [address] [place] [address] Dr. Kadeem Clemens EGFR-AF DUTCH >60 Normal >=60 [facility] Comment on above: Performed By: #### C MP, LIPID, TSH #### [facility] [address] [place] [address] Dr. Kadeem Clemens EGFR-NON AF DUTCH >60 Normal >=60 [facility] Comment on above: Performed By: #### C MP, LIPID, TSH #### [facility] [address] [address] [address] Kadeem Clemens Globulin (S) [Mass/Vol] 3.2 g/dL Normal [facility] Comment on above: Performed By: #### C MP, LIPID, TSH #### [facility] [address] [address] [address] Kadeem Clemens Glucose [Mass/Vol] 92 mg/dL Normal 74-106 [facility] Comment on above: Performed By: #### C MP, LIPID, TSH #### [facility] [address] [address] [address] Kadeem Clemens Potassium [Moles/Vol] 3.7 mmol/L Normal 3.5-5.1 [facility] Comment on above: Performed By: #### C MP, LIPID, TSH #### [facility] [address] [place] [address] Dr. Kadeem Clemens Protein [Mass/Vol] 7.2 g/dL Normal 6.4-8.2 [facility] Comment on above: Performed By: #### C MP, LIPID, TSH #### [facility] [address] [place] [address] Dr. Kadeem Clemens Sodium [Moles/Vol] 141 mmol/L Normal 136-145 [facility] Comment on above: Performed By: #### C MP, LIPID, TSH #### [facility] [address] [place] [address] Dr. Kadeem Clemens Urea nitrogen [Mass/Vol] 15.0 mg/dL Normal 7.0-18.0 [facility] Comment on above: Performed By: #### C MP, LIPID, TSH #### [facility] [address] [place] [address] Dr. Kadeem Clemens Urea nitrogen/Creatinine [Mass ratio] 20.5 mg/mg Normal [facility] Comment on above: Performed By: #### C MP, LIPID, TSH #### [facility] [address] [place] [address] Dr. Kadeem Clemens TSHon 03-23-2022 TSH 1.409 uIU/mL Normal 0.358-3.740 [facility] Comment on above: Performed By: #### C MP, LIPID, TSH #### [facility] [address] [place] [address] Dr. Kadeem Clemens SCREENING MAMMOGRAM W/MELI, BILATERAL*on [...] VERY IMPORTANT TO YOUR HEALTH. THE CURRENT [employer] AND N[employer] COMPREHENSIVE CANC[employer] NETWORK GUIDELINES RECOMMENDS ANNUAL MAMMOGRAPHY BEGINNING AT AGE 38 THIS FACILITY USES A REMINDER SYSTEM TO ENSURE ALL PATIENTS RECEIVE REMINDER NOTIFICATIONS AT THE APPROPRIATE TIME BASED ON THE RECOMMENDATIONS OF THIS EXAM. Board Certified Radiologist. Accredited by the ACR and FDA. Report reported and signed by Deep Haney on 12/04/2021 1301 Normal [facility] Cytologyon 11-12-2018 [facility] Cytology Patient Name KARINA FLEMING Date of Procedure: 11/12/2018 Date Reported: 11/14/2018 Date Received: 11/12/2018 Date of / Sex 1960 (Age: 58) / F Race: WHITE Submitting Physician: ÁLVARO POWELL MD Attending Physician: ÁLVARO POWELL MD Other External # FINAL CYTOLOGICAL INTERPRETATION A. FINE NEEDLE ASPIRATION OF THYROID - RIGHT LOBE: --BENIGN. --ABUNDANT MACROPHAGES, FOLLICULAR CELLS AND COLLOID. Interpretation performed at: [facility] Department of Pathology [id number] [place] [address] Electronically Signed Out By MAXIME JACOBSEN MD By the signature on this report, the individual or group listed as making the Final Interpretation/Diagn osis certifies that they have reviewed this case. Slide(s) initially screened by a Obstetrics/Gynecology Nurse at [place] [address] Clinical History RIGHT THYROID NODULE Source of Specimen A: FINE NEEDLE ASPIRATION OF THYROID - RIGHT LOBE Specimen Submitted as: A: FINE NEEDLE ASPIRATION OF THYROID - RIGHT LOBE pap stain non-lumber trimmer, pap stain non-lumber trimmer, pap stain non-lumber trimmer, Pap conventional Diff Quick, Pap conventional Diff Quick, Pap conventional Diff Quick, pap non-lumber trimmer ThinPrep slide Gross Description A. FINE NEEDLE ASPIRATION OF THYROID - RIGHT LOBE: RECEIVED 30 cc TURBID WITH PARTICLES DARK RED CYTOLYT, 6 DIRECT SMEARS, 3 AIR DRIED, 3 SPRAY FIXED Normal [facility] Comment on above: Performed By: #### C #### [facility] Cytology [id number] [address] [facility] [address] [facility] FNA SUPERFCLon 11-12-2018 [facility] SUPERFCL Patient Name: KARINA FLEMING STUDY: US FNA SUPERFCL; 11/12/2018 3:03 pm INDICATION: right thyroid nodule. COMPARISON: Outside thyroid ultrasound, 08/26/2018. ACCESSION NUMBER(S): [id number] ORDERING CLINICIAN: ÁLVARO POWELL TECHNIQUE: Prior to [...] cm. Electronically signed by: BERNICE MANDUJANO MD [facility] Initial Visit (Otolaryngolog y)on 10-14-2018 Initial Visit (Otolaryngology) Diagnoses/Problems Right thyroid nodule (241.0) (E04.1) Patient Discussion/Summary Right-sided thyroid nodule which measures 1.6 cm. The patient is sent for an ultrasound-guided needle aspirate. I discussed with her all the different possible results. I will see her after the biopsy. [facility] which measures 1.6 [...] Sodium) Vitals Vital Signs Recorded: 14Oct2018 01:56PM Afswhzwbows70.9 F Heart Rate73 Wegmxmhk610 Blhmsduud90 Height5 ft Biggyn995 lb 6 oz BMI Nczmtzqscu23.8 BSA Calculated1.4 Physical Exam The patient is [...] Date Time Vital Sign Value Performing Clinician Tobii rosa my 08-12-2024 10:55-0500 Body mass index (BMI) [Ratio] 20.31 kg/m2 Taina Nataprawira DO Work Phone: [facility] 08-12-2024 10:55-0500 Body weight 47.17 kg Taina Nataprawira DO Work Phone: [facility] 08-12-2024 10:55-0500 Diastolic blood pressure 64 mm[Hg] Taina Nataprawira DO Work Phone: [facility] 08-12-2024 10:55-0500 Systolic blood pressure 110 mm[Hg] Taina Nataprawira DO Work Phone: [facility] 04-13-2022 14:16-0400 Diastolic blood pressure 47 mm[Hg] Russell Mendis DO Work Phone: [facility] 04-13-2022 14:16-0400 Systolic blood pressure 111 mm[Hg] Russell Mendis DO Work Phone: [facility] 04-13-2022 14:11-0400 Body height 152.4 cm Russell Mendis DO Work Phone: [facility] 04-13-2022 14:11-0400 Body weight 45.5 kg Russell Mendis DO Work Phone: [facility] 04-13-2022 14:11-0400 Heart rate 65 /min Russell Mendis DO Work Phone: [facility] 04-13-2022 14:11-0400 Respiratory rate 16 /min Russell Sextonis DO Work Phone: [facility] 04-13-2022 14:11-0400 SaO2% (BldA) [Mass fraction] 99 % Russell Magallanes DO Work Phone: [facility] Encounters Encounter Date Encounter Type Care Provider Facility Start: 11-09-2024 ambulatory Florencia Tomas Facility: [facility] Start: 10-06-2024 End: 10-06-2024 ambulatory TAINA CHAKRABORTY Not Available Start: 08-12-2024 End: 08-12-2024 Office outpatient visit 15 minutes Taina Junior Chakraborty DO Work Phone: [facility] Comment on above: Vaginal stenosis (Pr imary Dx); Osteoporosis, post-menopausal (CMS/HCC); Age-related osteoporosis without current pathological fracture (CMS/HCC); Postmenopausal; Hx of hysterectomy for benign disease; Low back pain, unspecified back pain laterality, unspecified chronicity, unspecified whether sciatica present; Other screening mammogram Start: 08-12-2024 End: 08-12-2024 ambulatory TAINA CHAKRABORTY Not Available Start: 11-09-2022 End: 11-09-2022 ambulatory LILLIE BARONE Facility:[facility] Start: 11-09-2022 End: 11-09-2022 Patient encounter [...] medical examination without abnormal findings JAMES PERERA [facility] Start: 07-10-2022 End: 07-11-[address] FLORENCIA TOMAS . Facility:[facility] Start: 07-10-2022 End: 07-11-2022 Encounter for general adult medical examination without abnormal findings DR FLORENCIA TOMAS . Facility:[facility] Start: 05-29-2022 End: 05-29-[address] FLORENCIA TOMAS . Facility:[facility] Start: 04-13-2022 End: 04-13-2022 Subsequent hospital visit by physician Xr [facility] Work Phone: Radiology [...] Radex hip unilateral with pelvis 2-3 views Russellstaci Magallanes DO Work Phone: Plan of Treatment Date Care Activity Detail Author Start: 09-18-2026 Screening for malign ant neoplasm of colon [facility] Start: 08-16-2025 End: 08-16-2025 Patient encounter procedure 08/16/2025 10:15 AM EST Office Visit [facility] [address] [address] Taina Chakraborty, DO [address] [address] [facility] Start: 09-06-2024 End: 10-08-2025 DBT Breast - bilateral screening Bilateral screening mammogram with tomosynthesis Imaging Routine Other screening mammogram Expected: 09/06/2024, Expires: 10/08/2025 [facility] Work Phone: Comment on above: Expected: 09/06/2024 , Expires: 10/08/2025 Start: 09-05-2024 Screening for malign ant neoplasm of breast Mammogram [facility] Start: 03-29-2024 Influenza vaccination Influenza Vacc ine (#1) [facility] Start: 2023 Pneumococcal Vaccine : 65+ Years (1 of 1 - PCV) Pneumococcal Vaccine: 65+ Years (1 of 1 - PCV) [facility] Start: 03-29-2023 Influenza vaccination INFLUENZA (Sea son Ended) [facility] Start: 07-29-2022 [facility] Start: 03-29-2022 Influenza vaccination INFLUENZA (#1) [facility] Start: 07-29-2021 DEPRESSION ASSESSMENT [facility] Start: 03-02-2021 COVID-19 VACCINE (3 - Booster for Pfizer series) COVID-19 VACCINE (3 - Booster for Pfizer series) [facility] Start: 11-25-2020 COVID-19 VACCINE (3 - Booster for Pfizer series) COVID-19 VACCINE (3 - Booster for Pfizer series) [facility] Start: 2008 SHINGRIX VACCINE (1 of 2) SHINGRIX VACCINE (1 of 2) [facility] Start: 2003 COLOGUARD (FIT-DNA) COLOGUARD (FIT-D NA) [facility] Start: 2003 Colonoscopy COLONOSCOPY [facility] Start: 2003 COLORECTAL CANCER SCREENING COLORECTAL CANCER SCREENING [facility] Start: [address] COLONOGRAPHY [facility] Start: 2003 DIABETES SCREEN DIABETES SCREEN [facility] Start: 2003 FECAL OCCULT BLOOD FECAL OCCULT BLOO D [facility] Start: 2003 LIPID SCREEN LIPID SCREEN [facility] Start: 2003 SIGMOIDOSCOPY SIGMOIDOSCOPY [facility] Start: 1998 Mammography MAMMOGRAM [facility] Start: 1988 HPV TESTING HPV TESTING [facility] Start: 1988 Screening for malign ant neoplasm of cervix [facility] Start: 1979 PAP TESTING PAP TESTING [facility] Start: 1979 Screening for malign ant neoplasm of cervix Pap Smear [facility] Start: 1977 Urine microalbumin profile DTAP,TDAP,TD (1 - Tdap) [facility] Start: 1976 HEPATITIS C SCREENING HEPATITIS C SC TANYA [facility] Start: 1976 HIV SCREENING HIV SCREENING [facility] Start: 1970 Adult depression screening assessment DEPRESSION SCREENING [facility] Start: 1960 Screening for malign ant neoplasm of colon [facility] Calcium [Mass/volume ] in Serum or Plasma Calcium Lab Routine Postmenopausal Ordered: 08/12/2024 [facility] Comment on above: Ordered: 08/12/2024 DXA Skeletal system Views for bone density DEXA bone density Imaging Routine Postmenopausal Ordered: 08/12/2024 [facility] Comment on above: Ordered: 08/12/2024 End: 05-13-2023 Mri spinal canal lumbar w/o contrast material MRI LUMBAR SPINE WO IVCON Radiology Routine Radiculopathy of lumbar region Left thigh pain Lateral pain of left hip 1 Occurrences starting 04/13/2022 until 05/13/2023 [facility] Work Phone: Comment on above: 1 Occurrences starti ng 04/13/2022 until 05/13/2023 End: 04-13-2022 Radex spine lumbosacral 2/3 views [facility] Work Phone: Comment on above: 1 Occurrences starti ng 04/13/2022 until 04/13/2022 Immunizations Immunization Date Immunization Notes Care Provider Martine campos 05-03-2018 influenza virus vaccine, unspecified formulation Taina Chakraborty DO Work Phone: [facility] Healthcare Payers Date Payer Category Payer Self-pay 2023 Medicare MEDICARE [id number] 2023 Medicare [id number] 2023 Private Health Insurance [facility] [id number] 2023 Unknown [id number] 2022 Unknown [id number] 2021 Unknown [id number] 1959 Unknown [id number] 1960 Unknown [id number]. 356 1960 Unknown [id number] [id number]. 593 1960 Unknown [id number] [id number]. 593 1958 Unknown [id number] [id number]. 593 1958 Unknown [id number] [id number]. 593 1958 Unknown [id number] [id number]. 593 1958 Unknown [id number] [id number]. 1259 1958 Unknown [id number] [id number]. 1259 1958 Unknown [id number] 2..[id number]. 1259 Unknown [id number] Unknown [id number] 531 Social History Date Type Detail Facility Start: 04-13-2022 End: 07-03-2023 Tobacco smoking status NHIS Never smoked tobacco [facility] Start: 04-13-2022 End: 07-03-2023 Tobacco use and exposure Smokeless tobacco non-user [facility] Start: 1960 Sex Assigned At Not on file C [facility] Start: 04-03-2022 End: 04-13-2022 Exposure to SARS-CoV-2 (event) Not sure [facility] Start: 08-12-2024 Alcoholic beverage intake Ex-drinker (finding) [facility] Start: 08-12-2024 History of Social function [facility] Start: 08-12-2024 Tobacco use panel [facility] NEGATED: Highlighted rowStart: NINF History of tobacco use Passive smoker [facility] Clinical Notes 12-04-2021 to 08-12-2024 Taina [...] VERY IMPORTANT TO YOUR HEALTH. 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 Author Type: Physician Type: Progress Notes Filed: 11/09/2022 8:49 AM Note Text: DERMATOLOGY / NEW PATIENT CONSULT Consultation requested by patient for an opinion regarding skin. HPI: The patient is a 62 year old female presenting with a 3 lesions of concern Left lateral lower leg - raised conley lesion Mid upper back - brown raised lesion Ronceverte raised lesion- right cheek DERM HISTORY: No [...] Past Histories independently gathered by the clinical technical support intern and the remaining scribed note accurately describes my personal service to the patient. Lillie Barone MD Medical Decision Making: Problems: Low: 2+ self-limited or minor problems Risk: Low: Low risk from testing/treatment Medical Decision Making Level: 3 - Low [facility] 11-09-2022 History of Present illness Narrative DERMATOLOGY / NEW PATIENT CONSULT Consultation requested by patient for an opinion regarding skin. HPI: The patient is a 62 year old female presenting with a 3 lesions of concern Left lateral lower leg - raised conley lesion Mid upper back - brown raised lesion Ronceverte raised lesion- right cheek DERM HISTORY: No [...] Past Histories independently gathered by the clinical technical support intern and the remaining scribed note accurately describes my personal service to the patient. Lillie Barone MD Medical Decision Making: Problems: Low: 2+ self-limited or minor problems Risk: Low: Low risk from testing/treatment Medical Decision Making Level: 3 - Low documented in this encounter [facility] 08-21-2022 Note PROCEDURE: XR HIP RT 2 3V W PELVIS COMPARISON: None. HISTORY: Muscle and tendon injury FINDINGS: BONES:No fracture, acute abnormality, or significant arthropathy. SOFT TISSUES:Negative. No visible soft tissue swelling. EFFUSION:None visible. OTHER: Negative. IMPRESSION: No acute abnormality Electronically authenticated by: MICKI LUCERO Date: 2022-08-21 07:52 [facility] 04-13-2022 Note HNO ID: [id number] Author: Mady Woodruff RT(R) Service: ? Author [...] PERIPHERAL IV DATA: Not applicable SIGNED BY: Mady Woodruff, RT(R), Deborah Awad, RT April 13, 2022 3:41 PM [facility] 04-13-2022 Note HNO ID: [id number] Author: Russell Magallanes, DO Service: ? Author Type: Physician Type: Progress Notes Filed: 05/06/2022 1:40 PM Note Text: [facility] [place] [facility] Medical Spine Initial [...] her back. -Ortho surgeon Dr. Agosto in [place] prior to pandemic. Told her it was not her back, but it was her sciatic nerve. 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 [facility] 04-13-2022 History of Present illness [...] 2022 3:41 PM documented in this encounter [facility] 04-13-2022 History of Present illness Narrative Images from the original note were not included. [facility] [place] [facility] - Medical Spine Initial [...] her back. -Ortho surgeon Dr. Agosto in [place] prior to pandemic. Told her it was not her back, but it was her sciatic nerve. 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 No significant arthropathy or acute abnormality. Soft tissues: Negative. No visible soft tissue swelling, mass, fluid collection, edema or hematoma. Effusion: None visible. Other: Skin surface markers overlie the posterior thigh and localized area of pain. Impression: No abnormal or suspicious findings to account for patient's symptoms. 06/28/2021 ultrasound venous Doppler LLE ([place], [place]): No left femoral-popliteal venous thrombosis. 06/23/2021 XR left femur ([facility] [place], [place]): Bones: No fracture, acute abnormality, or [...] which included preparing to see the patient, [id number] patient care, completing clinical documentation, obtaining and/or reviewing separately obtained history, performing a medically appropriate examination, counseling and educating the patient/family/caregiver, ordering medications, tests, or procedures, independently interpreting results (not separately reported), and communicating results to the patient/family/caregiver. SIGNATURE: Russell Magallanes DO PATIENT NAME: Karina Fleming DATE: April 13, 2022 TIME: 2:25 PM documented in this encounter [facility] 12-04-2021 Note HISTORY: Bone densit y [...] signed by Deep Haney on 12/04/2021 1305 [facility] Spine Supervisor Evaluation note Diagnosis Left thigh pain Pain in limb Lateral pain of left hip Pain in joint, pelvic region and thigh Radiculopathy of lumbar region Thoracic or lumbosacral neuritis or radiculitis, unspecified [facility] Diagnosis Radiculopathy of lumbar region- Primary Thoracic or lumbosacral neuritis or radiculitis, unspecified Left thigh pain Pain in limb Lateral pain of left hip Pain in joint, pelvic region and thigh Strain of flexor muscle of left hip, sequela Strain of left piriformis muscle, sequela documented in this encounter [facility] Diagnosis Diffuse photodamage of skin- Primary Other chronic dermatitis due to solar radiation Dermatofibroma Benign neoplasm of skin, site unspecified Hemangioma, unspecified site Seborrheic keratosis Other seborrheic keratosis Multiple benign nevi Benign neoplasm of skin, site unspecified documented in this encounter [facility]* Diagnosis Vaginal stenosis- Primary Osteoporosis, post-menopausal (CMS/HCC) Senile osteoporosis Age-related osteoporosis without current pathological fracture (CMS/HCC) Postmenopausal Asymptomatic postmenopausal status (age-related) (natural) Hx of hysterectomy for benign disease Low back pain, unspecified back pain laterality, unspecified chronicity, unspecified whether sciatica present Other screening mammogram documented in this encounter [facility] for referral (narrative)* Diagnostic Procedure Only (Routine) - Closed Specialty Diagnoses / Procedures Referred By Devon stern Referred To Contact XR IMAGING Diagnoses Radiculopathy of lumbar region Procedures XR LUMBAR LIMITED 2V AP/LAT RADEX SPINE LUMBOSACRAL 2/3 VIEWS Russell Magallanes DO [address] [place] [address] Xr Imaging Referral ID Status Reason Start Date Expiration Date V isits Requested Visits Authorized [id number] Closed Auto-Generate d Referral 04/13/2022 05/13/2023 1 1 * Diagnostic Procedure Only (Routine) - Closed Specialty Diagnoses / Procedures Referred By Devon stern Referred To Contact XR IMAGING Diagnoses Left thigh pain Lateral pain of left hip Procedures XR HIP GENERAL 3V PELV/AP/LAT LEFT RADEX HIP UNILATERAL WITH PELVIS 2-3 VIEWS Russell Magallanes DO [address] [place] [address] Xr Imaging Referral ID Status Reason Start Date Expiration Date V isits Requested Visits Authorized [id number] Closed Auto-Generate d Referral 04/13/2022 05/13/2023 1 1 [facility] for referral (narrative)* Diagnostic Procedure Only (Routine) - Closed Specialty Diagnoses / Procedures Referred By Contac t Referred To Contact XR IMAGING Diagnoses Radiculopathy of lumbar region Procedures XR LUMBAR LIMITED 2V AP/LAT RADEX SPINE LUMBOSACRAL 2/3 VIEWS Russell Magallanes DO [address] [place] [address] Xr Imaging Referral ID Status Reason Start Date Expiration Date V isits Requested Visits Authorized [id number] Closed Auto-Generate d Referral 04/13/2022 05/13/2023 1 1 * Diagnostic Procedure Only (Routine) - Closed Specialty Diagnoses / Procedures Referred By Contac t Referred To Contact XR IMAGING Diagnoses Left thigh pain Lateral pain of left hip Procedures XR HIP GENERAL 3V PELV/AP/LAT LEFT RADEX HIP UNILATERAL WITH PELVIS 2-3 VIEWS Russell Magallanes DO [address] [place] [address] Xr Imaging Referral ID Status Reason Start Date Expiration Date V isits Requested Visits Authorized [id number] Closed Auto-Generate d Referral 04/13/2022 05/13/2023 1 1 * MRI/CT (Routine) - Pending Review Specialty Diagnoses / Procedures Referred By Contac t Referred To Contact MR IMAGING Diagnoses Radiculopathy of lumbar region Left thigh pain Lateral pain of left hip Procedures MRI LUMBAR SPINE WO IVCON MRI SPINAL CANAL LUMBAR W/O CONTRAST MATERIAL Russell Magallanes DO [address] [place] [address] Mr Imaging Referral ID Status Reason Start Date Expiration Date Visits Requested Visits Authorized [id number] Pending Review Auto-Generat ed Referral 04/13/2022 05/13/2023 1 1 [facility] for visit Narrative* Diagnostic Procedure Only (Routine) - Closed Specialty Diagnoses / Procedures Referred By Contac t Referred To Contact XR IMAGING Diagnoses Radiculopathy of lumbar region Procedures XR LUMBAR LIMITED 2V AP/LAT RADEX SPINE LUMBOSACRAL 2/3 VIEWS Russell Magallanes, [address] [place] [address] Xr Imaging Referral ID Status Reason Start Date Expiration Date V isits Requested Visits Authorized [id number] Closed Auto-Generate d Referral 04/13/2022 05/13/2023 1 1 [facility] Summary Purpose Family History No Family [...] Out: Pre-Procedure Verification and Time Out: [facility] - Pre-procedure Verificationcompleted TIME OUT - Final Verificationcompleted DEBRIEFcompleted General Information: Date/Time of Procedure: 12-Nov-2018 14:59 Post-Procedure Diagnosis: thyroid nodule Procedure Name: thyroid FNA Findings: thyroid nodule Procedure performed by: me Ophthalmic Dispenser(s): none Estimated Blood Loss (mL): none Specimen: [...] DATE CREATED AUTHOR AUTHOR'S ORGANIZ ATION 11/15/2018 [facility] DATE CREATED AUTHOR AUTHOR'S ORGANIZ ATION 02/16/2019 [facility] DATE CREATED AUTHOR AUTHOR'S ORGANIZ ATION 12/05/2021 [facility] DATE CREATED AUTHOR AUTHOR'S ORGANIZ ATION 09/28/2022 [facility] DATE CREATED AUTHOR AUTHOR'S ORGANIZ ATION 11/12/2022 [facility] DATE CREATED AUTHOR AUTHOR'S ORGANIZ ATION 10/12/2024 [facility] EPIC DATE CREATED AUTHOR AUTHOR'S ORGANIZ ATION 11/14/2024 [facility] y[facility] Source Comments (unrecognize d section and content) In the event this informatio n is protected by the Federal Confidentiality of Alcohol and Drug Abuse Patient Records regulations: The Federal rules restrict any use of the information to criminally investigate or prosecute any alcohol or drug abuse patient.[facility] the event this information is protected by the Federal Confidentiality of Alcohol and Drug Abuse Patient Records regulations: The Federal rules restrict any use of the information to criminally investigate or prosecute any alcohol or drug abuse patient.[facility] the event this information is protected by the Federal Confidentiality of Alcohol and Drug Abuse Patient Records regulations: The Federal rules restrict any use of the information to criminally investigate or prosecute any alcohol or drug abuse patient.[facility] Reason for Visit (unrecogniz ed section [...] Care Teams (unrecognized sec tion and content) Director Emergency Services Relationship Specialty Start Date End Date Florencia Tomas MD [address] [place] [address] PCP - General Family Medicine 07/03/23 FOR [...] BE BASED ON THE PRIMARY CLINICAL RECORDS. [employer] provides no warranty or guarantee of the accuracy or completeness of information in this document.
--- OUTSIDE RECORDS SUMMARY | 2025-04-14 10:50 | XMS_ITS | Encounter Summary ---
Author Organization [facility] Address [address] [facility] [place] [address] Care Team Providers Care Salesperson Books Name Role Phone Manuel Tomas MD Primary Care Provider [phone] Encounter Details Date Type Department Care Team (Late Contact Info) Description 04/01/2025 Orders Only [facility] [address] [facility] [place] [address] [place] [phone] Raven Carmona MA Osteoporosis, post-menopausal Social History Tobacco Use Types Packs/Day Years Used Date Smoking Tobacco: Never Smokeless Tobacco: Never Alcohol Use Standard Drinks/Week Comments Not Currently 0 (1 standard drink = 0.6 oz pur e alcohol) Comments No Sex and Gender Information Value Date Recorded Sex Assigned at Not on file Legal Sex Female 7:05 PM EDT Gender Identity Not on file Sexual Orientation Not on file documented as of this encounter Plan of Treatment Upcoming Encounters Date Type Department Care Team (Late Contact Info) Description 08/16/2025 10:15 AM EST Office Visit [facility] [address] [facility] [place] [address] [place] [phone] Taina Chakraborty DO [address] [phone] Scheduled Orders Name Type Priority Associated Diagnoses Orde r Schedule Calcium Lab Routine Osteoporosis, post-menopausal Expected: 04/01/2025 (Approximate), Expires: 04/01/2026 documented as of this encounter Visit Diagnoses Diagnosis Osteoporosis, post-menopausal Senile osteoporosis documented in this encounter Care Teams Salesperson Books Relationship Specialty Start Date End Date Manuel Tomas MD PCP - General Family Medicine 07/03/23 documented as of this encounter
--- OUTSIDE RECORDS SUMMARY | 2025-04-14 10:50 | XMS_ITS | Clinical Summary ---
Author Organization [facility] Address [address] [place] [address] Care Team Providers Care Home Care Aide Name Role Phone Unavailable Primary Care Provider Unavailabl e Allergies Active Allergy Reactions Criticality Noted Date Comments Sulfa (Sulfonamide Antibiotics) Unknown 03/29 Sutures Unknown 04/13/2022 Medications diclofenac, EC, (VOLTAREN) 75 mg EC tablet Take 75 mg by mouth twice daily. 2 Active pregabalin (LYRICA) 25 mg capsuleIndicati ons:Radiculopat hy of lumbar region Take one capsule daily at bedtime for 3-5 days, then one in the morning and one at night for 3-5 days. Then increase to one capsule three times daily if tolerating well. 90 capsule 1 2 Active Active Problems Problem Noted Date Diagnosed Date Dorsalgia, unspecified 08/28/2022 Right hip pain 08/28/2022 Social History Tobacco Use Types Packs/Day Years Used Date Smoking Tobacco: Never Passive Smoke Exposure: Never Smokeless Tobacco: Never Tobacco Cessation:Counseling Given: Not Answered Area Deprivation Index Answer Date Norm rded National Score (1-100), lower number is lower ri sk 73 08/26/2022 State Score (1-10), lower number is lower risk N ot on file 08/26/2022 Data from: https://www.neighborhoodatlas.medicine.[facility].edu/. Last address used for calculation [address] 08/26/2022 Comments Unknown Sex and Gender Information Value Date Recorded Sex Assigned at Not on file Legal Sex Female 3:57 PM EDT Gender Identity Not on file Sexual Orientation Not on file Last Filed Vital Signs Vital Sign Reading Time Taken Comments Blood Pressure 111/47 04/13/2022 2:16 PM EDT Pulse 65 04/13/2022 2:11 PM EDT Temperature - - Respiratory Rate 16 04/13/2022 2:11 PM EDT Oxygen Saturation 99% 04/13/2022 2:11 PM EDT Inhaled Oxygen Concentration - - Weight 45.5 kg (100 lb 4.8 oz) 04/13/2022 2:11 P M EDT Height 152.4 cm (5') 04/13/2022 2:11 PM EDT Body Mass Index 19.59 04/13/2022 2:11 PM EDT Plan of Treatment Health Maintenance Due Date Last Done Comments Anxiety Screening 1976 Depression Screening 1976 Hepatitis C Screening 1976 DTaP,Tdap,Td Vaccine (1 - Tdap) [address] Colonography 2003 Cologuard (FIT-DNA) 2003 Colonoscopy 2003 Colorectal Cancer Screening 2003 Diabetes Screening 2003 Fecal Occult Blood 2003 Lipid Screening 2003 Sigmoidoscopy 2003 Pneumococcal Vaccine: 50+ (1 of 1 - PCV) 2008 Shingrix Vaccine (1 of 2) 2008 Bone Density Screening 2023 Advance Directive Discussion 07/29/2024 Influenza Vaccine (#1) 2025 8, 05/09/2017, 05/10/2016, Additional history exists RSV Vaccine (1 - 1-dose 75+ series) 2033 Insurance [facility] PPO
--- OUTSIDE RECORDS SUMMARY | 2025-04-14 10:50 | XMS_ITS | Clinical Summary ---
Author Organization [facility] Address [address] [place] [address] Care Team Providers Care Marketing Finance Specialist Name Role Phone Unavailable Primary Care Provider Unavailabl e Social History Tobacco Use Types Packs/Day Years Used Date Smoking Tobacco: Never Assessed [place] Safety & Environment Answer Date Rec orded Fear of Current or Ex-Partner Not on file Emotionally Abused Not on file 09/19/2023 Physically Abused Not on file 09/19/2023 Sexually Abused Not on file 09/19/2023 Physically or Sexually Abused Not on file Comments Unknown Sex and Gender Information Value Date Recorded Sex Assigned at Not on file Legal Sex Female 12:41 AM EDT Gender Identity Not on file Sexual Orientation Not on file Plan of Treatment Not on file
--- OUTSIDE RECORDS SUMMARY | 2025-04-14 10:50 | XMS_ITS | Encounter Summary ---
Author Organization [facility] Address [address] [place] [address] Care Team Providers Care Poured Pipe Maker Name Role Phone Manuel Tomas MD Primary Care Provider [phone] Encounter Details Date Type Department Care Team (Late Contact Info) Description 04/14/2025 Telephone [facility] [address] [facility] [address] [place] [address] Yolanda Ward, PATIENT SERVICES REPRESENTATIVE [address] [place] [address] Social History Tobacco Use Types Packs/Day Years [...] Encounters Date Type Department Care Team (Late st Contact Info) Description 08/16/2025 10:15 AM EST Office Visit [facility] [address] [facility] [address] [phone] Taina Chakraborty DO [address] [phone] documented as of this encounter Visit Diagnoses Not on filedocumented in this encounter Care Teams Poured Pipe Maker Relationship Specialty Start Date End Date Manuel Tomas MD PCP - General Family Medicine 07/03/23 documented as of this encounter
--- OUTSIDE RECORDS SUMMARY | 2025-04-14 10:50 | XMS_ITS | Encounter Summary ---
Author Organization [facility] Address [address] [facility] [place] [address] Care Team Providers Care Sccm Administrator Name Role Phone Manuel Tomas MD Primary Care Provider [phone] Encounter Details Date Type Department Care Team (Late Contact Info) Description 04/27/2024 Orders Only [facility] [address] [facility] [address] [phone] Raven Carmona MA Age-related osteoporosis without current pathological fracture (Primary Dx); Osteoporosis, post-menopausal Social History Tobacco Use Types [...] EST Office Visit [facility] [address] [facility] [address] [phone] Taina Chakraborty DO [address] [phone] Scheduled Orders Name Type Priority Associated Diagnoses Orde r Schedule Calcium Lab Routine Age-related osteoporosis without current pathological fracture Osteoporosis, post-menopausal Expected: 04/27/2024 (Approximate), Expires: 04/27/2025 documented as of this encounter Visit Diagnoses Diagnosis Age-related osteoporosis without current pathological fracture- Primary Osteoporosis, post-menopausal Senile osteoporosis documented in this encounter Care Teams Sccm Administrator Relationship Specialty Start Date End Date Manuel Tomas MD PCP - General Family Medicine 07/03/23 documented as of this encounter
--- OUTSIDE RECORDS SUMMARY | 2025-04-14 10:50 | XMS_ITS | Clinical Summary ---
Author Organization [facility] Address [address] [facility] [place] [address] Care Team Providers Care Base Engineer Name Role Phone Manuel Tomas MD Primary Care Provider [phone] Allergies Active Allergy Reactions Criticality Noted Date Comments Other Unknown 04/13/2022 Sulfa Antibiotics 07/03/2023 Other Reaction(s): Unknown Medications Multiple Vitamins-Minera ls (Multivitamin Women) tablet as directed Orally Active Encounters Date Type Department Care Team Description 04/14/2025 Telephone [facility] [address] [facility] [address] [place] [phone] Yolanda Ward LPN 04/02/2025 Telephone [facility] [address] [phone] Taina Chakraborty DO 04/01/2025 Orders Only [facility] [address] [phone] Raven Carmona MA Osteoporosis, post-menopausal from Last 3 Months Family History Relation Name Status Comments Father Alive Mother Social History Tobacco Use Types Packs/Day Years Used Date Smoking Tobacco: Never Smokeless Tobacco: Never Tobacco Cessation:Counseling Given: Not Answered Alcohol Use Standard Drinks/Week Comments Not Currently 0 (1 standard drink = 0.6 oz pur e alcohol) Comments No Sex and Gender Information Value Date Recorded Sex Assigned at Not on file Legal Sex Female 7:05 PM EDT Gender Identity Not on file Sexual Orientation Not on file Last Filed Vital Signs Vital Sign Reading Time Taken Comments Blood Pressure 110/64 08/12/2024 10:55 AM EST Pulse - - Temperature - - Respiratory Rate - - Oxygen Saturation - - Inhaled Oxygen Concentration - - Weight 47.2 kg (104 lb) 08/12/2024 10:55 AM EST Height 152.4 cm (5') 11/22/2021 12:00 PM EDT Body Mass Index 20.31 11/22/2021 12:00 PM EDT Plan of Treatment Upcoming Encounters Date Type Department Care Team (Late st Contact Info) Description 08/16/2025 10:15 AM EST Office Visit [facility] [address] [place] [address] [phone] Taina Chakraborty DO [address] [phone] Health Maintenance Due Date Last Done Comments CT Colonography 1958 Colonoscopy 1958 FIT 1958 FOBT 1958 Sigmoidoscopy 1958 Pneumococcal Vaccine: 65+ Ye ars (1 of 1 - PCV) 2008 Influenza Vaccine (#1) 2025 8, 05/09/2017, 05/10/2016, Additional history exists Mammogram 10/06/2025 10/06/2024, 02/2024, 12/06/2021, Additional history exists Colorectal Cancer Screening 09/18/2026 FIT-DNA 09/18/2026 09/18/2023 Procedures Procedure Name Priority Date/Time Associated Diagnosis Comments BI MAMMOGRAM SCREENING TOMOSYNTHESIS BILATERAL Routine 10/06/2024 11:38 AM EDT Other screening mammogram LAB COLOGUARD COLON CANCER SCREEN Routine 09/18/2023 8:00 AM EST Screening for colon cancer from Last 3 Months or Most Recently Relevant to Health Maintenance Results * Bilateral screening mammogram with tomosynthesis (10/06/2024 11:38 AM EDT) Anatomical Region Laterality Modality Breast Bilateral Mammography 10/07/2024 11:2 2 AM EDT Impressions 10/07/2024 11:27 AM EDT Impression: No specific evidence of malignancy seen in either breast. BIRADS 2 - Benign Findings DENSITY: The breasts are heterogeneously dense, which may obscure small masses. FOLLOW-UP: Routine Screening Mammogram ELECTRONICALLY SIGNED BY: Ba Wilson M.D. Narrative 10/07/2024 11:27 AM EDT Examination: BI MAMMOGRAM SCREENING TOMOSYNTHESIS BILATERAL Clinical [...] MLO view similar to the prior study. Procedure Note Ba Wilson MD - 10/07/2024 Examination: BI MAMMOGRAM SCREENING TOMOSYNTHESIS BILATERAL Clinical History: screening Technique: Screening digital mammography study of both breasts wasperformed with 2-D and 3-D tomosynthesis imaging. Study was compared tothe prior exam dated 09/05/2023. Findings: There is no evidence of interval dominant spiculated mass,grouped microcalcifications, or skin thickening which would be suggestiveof malignancy. Mild scattered benign-appearing calcifications on the right with a singlebenign-appearing calcification noted on the left. There are 2 adjacentsmall benign-appearing asymmetric densities in the superior aspect of theleft breast on MLO view similar to the prior study. IMPRESSION: Impression: No specific evidence of malignancy seen in either breast. BIRADS 2 - Benign Findings DENSITY: The breasts are heterogeneously dense, which may obscure smallmasses. FOLLOW-UP: Routine Screening Mammogram ELECTRONICALLY SIGNED BY: Ba Wilson M.D. Taina Chakraborty DO IMG BI PROCEDURES Final Re sult * Cologuard?? colon cancer screening (09/18/2023 8:00 AM EST) NONINV COLON CA DNA+OCC BLD SCRN STL-IMP Negative Negative 09/29/2023 12:18 AM EST T3 Search (CLIA #:[id number]) Comment: NEGATIVE TEST RESULT. A negative Cologuard result indicates a low likelihood that a colorectal cancer (CRC) or advanced adenoma (adenomatous polyps with more advanced pre-malignant features) is present. The chance that a person with a negative Cologuard test has a colorectal cancer is less than 1 in 1500 (negative predictive value >99.9%) or has an advanced adenoma is less than 5.3% (negative predictive value 94.7%). These data are based on a prospective cross-sectional study of 10,000 individuals at average risk for colorectal cancer who were screened with both Cologuard and colonoscopy. (Mary Douglas. et al, N Engl J Med 2014;370(14):5352-2071) The normal value (reference range) for this assay is negative. COLOGUARD RE-SCREENING RECOMMENDATION: Periodic colorectal cancer screening is an important part of preventive healthcare for asymptomatic individuals at average risk for colorectal cancer. Following a negative Cologuard result, the [place] [employer] Society and U.S. Multi-Society Task Force screening guidelines recommend a Cologuard re-screening interval of 3 years. References: [place] [employer] Society Guideline for Colorectal Cancer Screening: https://www.cancer.org/cancer/zmnah-gpctao-iubmvq/xjbfdsuee-uyhyalmif-njndolw/ac s-rec ommendations.html.; Fab GENTILE, Ananya FOSS, Bella KIMBALL, Colorectal Cancer Screening: Recommendations for Physicians and Patients from the U.S. Multi-Society Task Force on Colorectal Cancer Screening , Am J Gastroenterology 2017; 112:8542-4481. TEST DESCRIPTION: Composite algorithmic analysis of stool DNA-biomarkers with hemoglobin immunoassay. Quantitative values of individual biomarkers are not reportable and are not associated with individual biomarker result reference ranges. Cologuard is intended for colorectal cancer screening of adults of either sex, 45 years or older, who are at average-risk for colorectal cancer (CRC). Cologuard has been approved for use by the U.S. FDA. The performance of Cologuard was established in a cross sectional study of average-risk adults aged 50-84. Cologuard performance in patients ages 45 to 49 years was estimated by sub-group analysis of near-age groups. Colonoscopies performed for a positive result may find as the most clinically significant lesion: colorectal cancer [4.0%], advanced adenoma (including sessile serrated polyps greater than or equal to 1cm diameter) [20%] or non- advanced adenoma [31%]; or no colorectal neoplasia [45%]. These estimates are derived from a prospective cross-sectional screening study of 10,000 individuals at average risk for colorectal cancer who were screened with both Cologuard and colonoscopy. (Mary Tobias et al, N Engl J Med 2014;370(14):6105-4819.) Cologuard may produce a false negative or false positive result (no colorectal cancer or precancerous polyp present at colonoscopy follow up). A negative Cologuard test result does not guarantee the absence of CRC or advanced adenoma (pre-cancer). The current Cologuard screening interval is every 3 years. ([place] [employer] Society and U.S. Multi-Society Task Force). Cologuard performance data in a 10,000 patient pivotal study using colonoscopy as the reference method can be accessed at the following location: www.Infogami/results. Additional description of the Cologuard test process, warnings and precautions can be found at www.cologuard.com. Stool specimen (specimen) 09/18/2023 8:00 AM EST 09/19/2023 12:47 PM EST Taina Chakraborty DO LAB MOLECULAR DIAGNOSTICS ORDERABLES Final Result .[employer] (CLIA #:[id number]) [address] [address], T3 Search (CLIA #:[id number]) [address] [address] from Last 3 Months or Most Recently Relevant to Health Maintenance Insurance MEDICARE [facility] [place] [address] Care Teams Base Engineer Relationship Specialty Start Date End Date Manuel Tomas MD PCP - General Family Medicine 07/03/23
--- OUTSIDE RECORDS SUMMARY | 2025-04-14 10:50 | XMS_ITS | Patient Health Record ---
Author Organization [facility] Address [address] [place] [address] Care Team Providers Care Caltrans Equipment Operator Name Role Phone Sagar Tomas Primary Care Provider Allergies Allergen (clinical drug ingredient) Drug/Non Drug Allergy documented on EMR Reaction Allergy Type Onset Date Status Substance with sulfonamide structure and antibacterial mechanism of action (substance) Sulfa Antibiotics rash Drug Allergy Active Results Component Value Reference Range Notes CALCIUM Reviewed date:05/05/2024 07:47:11 PM Interpretation: Performing Lab: Notes/Report: [facility] , Calcium 8.9 8.5-10.1 mg/dL Performing Lab: see note ML - [facility] LB CALCIUM Reviewed date:09/30/2024 09:14:07 PM Interpretation: Performing Lab: Notes/Report: [facility] , Calcium 8.7 8.5-10.1 mg/dL Performing Lab: see note ML - [facility] LB Reason For Referral No Information Medications Medication SIG (Take, Route, Frequency, Duration) Notes Start Date End Date Status Bmquwkcs-Enhlqdwsh-Nysnxfu h 3.5-04148-5.1 1 drop into affected eye Ophthalmic Four times a day; Duration: 5 05/31/2023 Active tiZANidine HCl 2 MG TAKE 1 TABLET BY DOROTHEA EVERYDAY AT BEDTIME; Duration: 90 Active Diclofenac Sodium 75 MG 1 tablet as need ed Orally Twice a day Active Social History Tobacco Use: Social History Observation Description Date Details (start date - stop date) Never Smoker NA - NA Tobacco Use/Smoking Question Answer Notes Patient is a nonsmoker Alcohol Screen (Audit-C) Question Answer Notes Did you have a drink containing alcohol in the p ast year? No Points 0 Interpretation Negative Problems Problem Type SNOMED Code ICD Code Onset Dates Problem Status W/U Status Risk Notes Problem Mitral valve prolapse (151377702) Mitral valve prolapse (I34.1) Active confirmed Problem Osteopenia (926859930) Osteopenia (M85.80) Active confirmed Problem Fibrocystic breast changes (50159863) Fibrocystic breast changes (N60.19) Active confirmed Problem Kidney stone (76909841) Kidney stones (N20.0) Active confirmed Problem Allergic rhinitis (36232640) Allergic rhinitis (J30.9) Active confirmed Problem Arthralgia of the pelvic region and thigh (767344348) Left hip pain (M25.552) Active confirmed Problem Cramp in lower limb (069796131) Leg cramps (R25.2) Active confirmed Problem Pain in limb (37143061) Left thigh pain (M79.652) Active confirmed Problem Disorder of conjunctiva (39686743) Conjunctiva disorder (H11.9) Active confirmed Problem Disorder of eyelid (70005654) Eyelid abnormality (H02.9) Active confirmed Problem Mass of chest wall (854619623) Mass of chest wall (R22.2) Active confirmed Problem Irritable bowel syndrome (66021895) IBS (irritable colon syndrome) (K58.9) Active confirmed Problem Goiter (6722957) Enlarged thyroid (E01.0) Active confirmed Plan Of Treatment Pending Test Test Name Order Date CMP (COMPLETE METABOLIC PANEL) 3 HEMOGLOBIN A1C (GLYCO) 05/31/2023 IRON, TOTAL 05/31/2023 LIPID PANEL (CHOL/TRIG/HDL/LDL) 05/31/20 23 CBC WITH DIFF 05/31/2023 VITAMIN D, 25 LEVEL (TOTAL) 05/31/2023 STOOL OCCULT BLOOD 05/31/2023 US KIDNEYS BLADDER 05/31/2023 THYROID PANEL (T4/TSH/FREE T3) 3 Insurance Providers Payer Name Payer Address Payer Phone Subscriber Number Group Number Insured Name Patient Relationship to Insured Coverage Start Date Coverage End Date [address] [place], [place] [id number] Karina Fleming Self - patient is the insured 3 Medical (General) History Medical History History ICD Code Kidney stones N20.0 Enlarged thyroid E01.0 Mass of chest wall R22.2 Leg cramps R25.2 Osteopenia M85.80 Fibrocystic breast changes N60.19 Allergic rhinitis J30.9 Mitral valve prolapse I34.1 Left hip pain M25.552 Left thigh pain M79.652 IBS (irritable colon syndrome) K58.9 Surgical History Surgery Date(Month/Year) Breast Biopsy, rt Tonsillectomy 08/06/2006 C- section x2 MAMADOU and BSO
--- OUTSIDE RECORDS SUMMARY | 2025-04-14 10:50 | XMS_ITS | Encounter Summary ---
Author Organization [facility] Address [address] [place] [address] Care Team Providers Care Electric Motor Mechanic Name Role Phone Manuel Tomas MD Primary Care Provider [phone] Encounter Details Date Type Department Care Team (Late st Contact Info) Description 04/02/2025 Telephone [facility] [address] [phone] Taina Chakraborty DO [address] [phone] Social History Tobacco Use Types Packs/Day Years [...] on file documented as of this encounter Miscellaneous Notes * Telephone Encounter - Raven Carmona MA - 04/06/2025 7:21 AM EDT Order has been refaxed * Telephone Encounter - Janice Perez MA - 04/02/2025 10:50 AM EDT [facility] left vm: Hi, this is Jennifer with [facility]. Outpatient infusion, I am calling on 2 patients. I received partial faxes for both of them and not quite sure what was ordered or what we need. But I did get like demographic stuff. And then the second 1 is a KarinaBruce, Sinan Argueta R Y. Let me take a look see if I can find a date of on This 1, because all I got on her was insurance cards and then a face sheet from [facility]Whatever was sent over refs to us, please. We were having issues with our facts yesterday. It does appear that it is resolved at this time. Vm script edited for relevancy of pt. documented in this encounter Plan of Treatment Upcoming Encounters Date Type Department Care Team (Late st Contact Info) Description 08/16/2025 10:15 AM EST Office Visit [facility] [address] [phone] Taina Chakraborty DO [address] [phone] documented as of this encounter Visit Diagnoses Not on filedocumented in this encounter Care Teams Electric Motor Mechanic Relationship Specialty Start Date End Date Manuel Tomas MD PCP - General Family Medicine 07/03/23 documented as of this encounter
--- OUTSIDE RECORDS SUMMARY | 2025-04-14 10:53 | XMS_ITS | CCD ---
Author Organization [facility] CliniSyal Care Team Providers Care Web Engineer Name Role Phone Álvaro Powell Attending Unavailable [...] Unavailable HOY ., DR DON Attending Unavailable WOODLAND, DR MICKI Burgess Consulting Unavailable Unavailable Primary Care Provider UnavailLILLIE Robertson Attending Unavailable RUSSELL MAGALLANES Referring Unavailable RUSSELL MAGALLANES Attending Unavailable Florencia Tomas MD Primary Care Provider [phone] TAINA CHAKRABORTY Referring Unavailable TAINA CHAKRABORTY Referring Unavailable TAINA CHAKRABORTY Attending Unavailable Florencia Tomas Primary Care Unavailable Taina Chakraborty Referring Unavailable Taina Chakraborty Attending Unavailable Taina Chakraborty Admitting Unavailable Allergies Allergy Classification Reported Allergen(s) Allergy Type Date of Onset Reaction(s) Facility (7 sources) Sulfonamides (Antibiotic); Translations: [SULFA (SULFONAMIDE ANTIBIOTICS)] Propensity to adverse reactions to drug 2 Unknown [facility] (6 sources) Sutures; Translations: [SUTURES] Propensity to adverse reactions 2 Unknown [facility] (1 source) Sulfonamides (Antibiotic) Drug allergy (disorder) 5 [facility] Repository (2 sources) Other Propensity to adverse reactions 2 Unknown [facility] (1 source) Sulfonamides (Antibiotic) Drug allergy (disorder) 4 [facility] Rep[facility] Medications Current Medications Medication Drug Class(es) [...] UA Negative Negative - 4(70) +++ mg/dL [facility] Blood, UA Negative Negative - 50 Shiv/mcL [facility] Clarity, UA Clear [facility] Color, UA Ashley [facility] Glucose, UA Negative Negative - 1999(110) ++++ mg/dL [facility] Interpretation and review of laboratory results Normal [facility] Ketones, UA Negative Negative - 160(16) ++++ mg/dL [facility] Leukocytes, UA Negative Negative - 500+++ Mauricio/mcL [facility] Nitrite, UA Negative Negative - Positive [facility] pH, UA 6 5 - 9 [facility] Protein, UA Trace Negative - 1999(20) ++++ mg/dL [facility] Spec Grav, UA 1.02 1 - 1.03 [facility] Urobilinogen, UA 1.0 0.2 - 12 mg/dL [facility] CNOVon 11-09-2022 CNOV Office Visit ([facility]) KARINA FLEMING ([id number]) 1960 F Date Time Provider Department 11/09/22 [...] Mid upper back - brown raised lesion Olivette raised lesion- right cheek DERM HISTORY: No [...] Past Histories independently gathered by the clinical vp software support and the remaining scribed note accurately [...] for Encounter Date Provider Department Center 11/09/2022 [id number] Encounter Status:Closed by LILLIE BARONE on 11/09/22 Normal [facility] XR LSPINE MIN 4 VIEWSon 07-30 [...] MICKI LUCERO Date: 2022-08-21 07:50 Normal [facility] GLUCOSE BLOODon 07-10-2022 Glucose [Mass/Vol] 87 mg/dL Normal 74-106 [facility] Comment on above: Performed By: #### L IPID, GLUC #### [facility] [address] [address] [address] Kadeem Clemens LIPID PROFILEon 07-10-2022 CHOL-HDL RATIO NORM SEE BELOW Normal [facility] Comment on above: Result Comment: 3.3 - 4.4 LOW RISK 4.4 - 7.1 AVERAGE RISK 7.1 - 11.0 MODERATE RISK >11.0 HIGH RISK Performed By: #### L IPID, GLUC #### [facility] [address] [address] [address] Kadeem Clemens Cholesterol [Mass/Vol] 182 mg/dL Normal <=200 [facility] Comment on above: Performed By: #### L IPID, GLUC #### [facility] [address] [address] [address] Kadeem Clemens Cholesterol in HDL [Mass/Vol] 66 mg/dL Critically high 40-60 [facility] Comment on above: Performed By: #### L IPID, GLUC #### [facility] [address] [address] [address] Kadeem Clemens Cholesterol in LDL [Mass/Vol] 101.4 mg/dL Normal [facility] Comment on above: Performed By: #### L IPID, GLUC #### [facility] [address] [address] [address] Kadeem Clemens Cholesterol.total/Ch olesterol in HDL [Mass ratio] 2.8 {ratio} Normal [facility] Comment on above: Performed By: #### L IPID, GLUC #### [facility] [address] [address] [address] Kadeem Clemens HDL NORMAL > or = 60 mg/dl - LOW CARDIOVASCULAR RISK <40 mg/dl - HIGH CARDIOVASCULAR RISK Normal [facility] Comment on above: Performed By: #### L IPID, GLUC #### [facility] [address] [address] [address] Kadeem Clemens LDL CALC NORMAL SEE BELOW Normal [facility] Comment on above: Result Comment: <100 mg/dl OPTIMAL 100 - 129 mg/dl NEAR OR ABOVE OPTIMAL 130 - 159 mg/dl BORDERLINE HIGH 160 - 189 mg/dl HIGH >190 mg/dl VERY HIGH Performed By: #### L IPID, GLUC #### [facility] [address] [address] [address] Kadeem Clemens Triglyceride [Mass/Vol] 73 mg/dL Normal <=150 [facility] Comment on above: Performed By: #### L IPID, GLUC #### [facility] [address] [place] [address] Dr. Kadeem Clemens VLDL CALC 14.6 mg/dL Normal [facility] Comment on above: Performed By: #### L IPID, GLUC #### [facility] [address] [place] [address] Dr. Kadeem Clemens Covid-19 PCR (CVDTBH)on SARS-CoV-2 (COVID-19) RNA DARÍO+probe Ql (Unsp spec) Detected Critically abnormal NOT DETECTED [facility] Comment on above: Result Comment: This test is not yet approved or cleared by the [place] FDA. When there are no FDA-approved or cleared tests available, and other criteria are met, FDA can make tests available under an emergency access mechanism called an Emergency Use Authorization (EUA). The EUA for this test is supported by the Senior Commissions Analyst of Health and Human Service's (HHS's) declaration [...] used). Performed By: #### C VDTBH #### [facility] [address] [place] [address] Dr. Kadeem Clemens INFLUENZA A AND B AGon 05-29 INFLUANEGH SEE BELOW Normal [facility] Comment on above: Result Comment: Nega tive for Flu A protein angiten. Infection due to Flu A cannot be ruled out. Flu A angiten in the sample may be below the detection limit of the test. Performed By: #### I NFLUAB #### [facility] [address] [place] [address] Dr. Kadeem Clemens [facility] SEE BELOW Normal [facility] Comment on above: Result Comment: Nega tive for Flu B protein antigen. Infection due to Flu B cannot be ruled out. Flu B antigen in the sample may be below the detection limit of the test. Performed By: #### I NFLUAB #### [facility] [address] [place] [address] Dr. Kadeem Clemens INFLUENZA A AG Negative Normal NEGATIVE SEE COMMENT [facility] Comment on above: Performed By: #### I NFLUAB #### [facility] [address] [place] [address] Dr. Kadeem Clemens INFLUENZA B AG Negative Normal NEGATIVE SEE COMMENT [facility] Comment on above: Performed By: #### I NFLUAB #### [facility] [address] [place] [address] Dr. Kadeem Clemens INTERNAL CONTROLS Within Normal Limits Normal Wi thin Normal Limits [facility] Comment on above: Performed By: #### I NFLUAB #### [facility] [address] [place] [address] Dr. Kadeem Olivares 04-13-2022 [facility] Office Visit ([facility]) KARINA FLEMING ([id number]) 1960 F Date Time Provider Department 04/13/22 2:30 PM RUSSELL MAGALLANES During your visit today, we recorded the following information about you: Pulse Respiration Blood pressure Weight 65/minute 16/minute 111/47 45.5 kg Height 1.524 m Russell Magallanes, DO 05/06/2022 1:40 PM Signed [facility] Neurological [facility] [...] her back. -Ortho surgeon Dr. Agosto in [place] prior to pandemic. Told her it was not her back, but it was her sciatic nerve. 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 Normal [facility] No Panel Informationon 04-13 [facility] XR HIP 3V PELV+ AP/LAT LTon 04-13-2022 [...] right sacroiliac joint. IMPRESSION: No acute findings. Pecan Picker: PSCB Transcribe Date/Time: Apr 14 2022 2:38P Dictated by : BRUNA LUONG MD This examination was interpreted and the report reviewed and electronically signed by: BRUNA LUONG MD on Apr 14 2022 2:39PM EST [id number] Normal [facility] XR LUMBAR 2V AP/LATon 2021 XR [...] is seen IMPRESSION: Lower lumbar degenerative changes Pecan Picker: PSCB Transcribe Date/Time: Apr 15 2022 11:11P Dictated by : REGINO ELIAS MD This examination was interpreted and the report reviewed and electronically signed by: REGINO ELIAS MD on Apr 15 2022 11:12PM EST [id number] Normal [facility] INSULINon 03-24-2022 Insulin 6.0 uIU/mL Normal 2.6-24.9 [facility] Comment on above: Performed By: #### I NSULIN ####[facility] [address] [id number]. Kadeem Clemens T4, T3U, FTI LABCORPon 03-24 Free Thyroxine Index 2.3 Normal 1.2-4.9 [facility] Comment on above: Performed By: #### T HYLC ####[facility] [address] [place], [place] [address]Dr. Kadeem Clemens T3 Uptake 32 % Normal 24-39 [facility] Comment on above: Performed By: #### T HYLC ####[facility] [address] [place], [place] [address]Dr. Kadeem Clemens T4 [Mass/Vol] 7.1 ug/dL Normal 4.5-12.0 [facility] Comment on above: Performed By: #### T HYLC ####[facility] [address] [place], [place] [address]Dr. Kadeem Clemens CBC AUTO DIFFon 03-23-2022 BASO # 0.1 103/ul Normal 0.0-0.1 [facility] Comment on above: Performed By: #### C BC ####[facility] [address] [place], [place] [address]Dr. Kadeem Clemens Basophils/100 WBC (Bld) 1.0 % Normal 0.2-2.0 [facility] Comment on above: Performed By: #### C BC ####[facility] [address] [place], [place] [address]Dr. Kadeem Clemens EO # 0.1 103/ul Normal 0.0-0.7 [facility] Comment on above: Performed By: #### C BC ####[facility] [address] [place], [place] [address]Dr. Kadeem Clemens Eosinophils/100 WBC (Bld) 2.1 % Normal 0.9-7.0 [facility] Comment on above: Performed By: #### C BC ####[facility] [address] [place], [place] [address]Dr. Kadeem Clemens Erythrocyte distribution width (RBC) [Ratio] 12.2 % Normal 11.0-15.0 [facility] Comment on above: Performed By: #### C BC ####[facility] [address] [address]DrOdette Clemens Hematocrit (Bld) [Volume fraction] 42.3 % Normal 36.0-48.0 [facility] Comment on above: Performed By: #### C BC ####[facility] [address] [address]DrOdette Clemens Hemoglobin (Bld) [Mass/Vol] 13.8 g/dL Normal 12.0-16.0 [facility] Comment on above: Performed By: #### C BC ####[facility] [address] [place], [place] [address]DrOdette Clemens IG # 0.01 10e3/ul Normal 0.00-0.03 [facility] Comment on above: Performed By: #### C BC ####[facility] [address] [place], [place] [address]Dr. Kadeem Clemens IG % 0.2 % Normal 0.0-0.5 [facility] Comment on above: Performed By: #### C BC ####[facility] [address] [place], [place] [address]DrOdette Clemens LYMPH # 2.3 103/ul Normal 1.2-3.8 [facility] Comment on above: Performed By: #### C BC ####[facility] [address] [place], [place] [address]DrOdette Clemens Lymphocytes/100 WBC (Bld) 37.8 % Normal 20.5-60.0 [facility] Comment on above: Performed By: #### C BC ####[facility] [address] [place], [place] [address]DrOdette Clemens MANUAL DIFF REQ NO Normal [facility] Comment on above: Performed By: #### C BC ####[facility] [address] [address]DrOdette Clemens MCH (RBC) [Entitic mass] 29.1 pg Normal 26.7-34.0 [facility] Comment on above: Performed By: #### C BC ####[facility] [address] [address]Dr. Kadeem Clemens MCHC (RBC) [Mass/Vol] 32.6 g/dL Normal 29.9-35.2 [facility] Comment on above: Performed By: #### C BC ####[facility] [address] [address]Dr. Kadeem Clemens MCV (RBC) [Entitic vol] 89.1 fL Normal 81.0-99.0 [facility] Comment on above: Performed By: #### C BC ####[facility] [address] [place], [place] [address]DrOdette Clemens MONO # 0.5 103/ul Normal 0.3-0.8 [facility] Comment on above: Performed By: #### C BC ####[facility] [address] [place], [place] [address]Dr. Kadeem Clemens Monocytes/100 WBC (Bld) 7.6 % Normal 1.7-12.0 [facility] Comment on above: Performed By: #### C BC ####[facility] [address] [place], [place] [address]Dr. Kadeem Clemens NEUT # 3.1 103/ul Normal 1.4-6.5 [facility] Comment on above: Performed By: #### C BC ####[facility] [address] [place], [place] [address]Dr. Kadeem Clemens Neutrophils/100 WBC (Bld) 51.3 % Normal 43.0-75.0 [facility] Comment on above: Performed By: #### C BC ####[facility] [address] [place], [place] [address]DrOdette Clemens Platelet mean volume (Bld) [Entitic vol] 9.6 fL Normal 9.5-13.5 [facility] Comment on above: Performed By: #### C BC ####[facility] [address] [place], [place] [address]Dr. Kadeem Clemens PLT 240 103/ul Normal 150-450 [facility] Comment on above: Performed By: #### C BC ####[facility] [address] [id number] Kadeem Sarath RBC 4.75 106/ul Normal 4.20-5.40 [facility] Comment on above: Performed By: #### C BC ####[facility] [address] [id number] Clemens WBC 6.1 103/ul Normal 4.0-11.0 [facility] Comment on above: Performed By: #### C BC ####[facility] [address] [id number]. Kadeem Clemens GLYCOHEMOGLOBIN A1Con 2021 ADA RECOMMENDATION SEE BELOW Normal [facility] Comment on above: Result Comment: ADA RECOMMENDED LIMIT 4.0 - 6.0 ADA THERAPEUTIC TARGET < 7.0 ACTION SUGGESTED > 7.0 Performed By: #### A 1C ####[facility] [address] [address]Dr. Kadeem Clemens Glucose [Mass/Vol] 105 mg/dL Normal [facility] Comment on above: Performed By: #### A 1C ####[facility] [address] [id number] Carolinmiguel Clemens HbA1c (Bld) [Mass fraction] 5.3 % Normal 4.5-6.2 [facility] Comment on above: Performed By: #### A 1C ####[facility] [address] [address]Dr. Kadeem Clemens IRONon 03-23-2022 Iron [Mass/Vol] 106.0 ug/dL Normal 50.0-170.0 [facility] Comment on above: Performed By: #### I MOO #### [facility] [address] [address] [address] Kadeem Clemens LIPID PROFILEon 03-23-2022 CHOL-HDL RATIO NORM SEE BELOW Normal [facility] Comment on above: Result Comment: 3.3 - 4.4 LOW RISK 4.4 - 7.1 AVERAGE RISK 7.1 - 11.0 MODERATE RISK >11.0 HIGH RISK Performed By: #### C MP, LIPID, TSH #### [facility] [address] [address] [address] Kadeem Clemens Cholesterol [Mass/Vol] 185 mg/dL Normal <=200 [facility] Comment on above: Performed By: #### C MP, LIPID, TSH #### [facility] [address] [address] [address] Kadeem Clemens Cholesterol in HDL [Mass/Vol] 66 mg/dL Critically high 40-60 [facility] Comment on above: Performed By: #### C MP, LIPID, TSH #### [facility] [address] [address] [address] Kadeem Clemens Cholesterol in LDL [Mass/Vol] 99.6 mg/dL Normal [facility] Comment on above: Performed By: #### C MP, LIPID, TSH #### [facility] [address] [address] [address] Kadeem Clemens Cholesterol.total/Ch olesterol in HDL [Mass ratio] 2.8 {ratio} Normal [facility] Comment on above: Performed By: #### C MP, LIPID, TSH #### [facility] [address] [address] [address] Kadeem Clemens HDL NORMAL > or = 60 mg/dl - LOW CARDIOVASCULAR RISK <40 mg/dl - HIGH CARDIOVASCULAR RISK Normal [facility] Comment on above: Performed By: #### C MP, LIPID, TSH #### [facility] [address] [address] [address] Kadeem Clemens LDL CALC NORMAL SEE BELOW Normal [facility] Comment on above: Result Comment: <100 mg/dl OPTIMAL 100 - 129 mg/dl NEAR OR ABOVE OPTIMAL 130 - 159 mg/dl BORDERLINE HIGH 160 - 189 mg/dl HIGH >190 mg/dl VERY HIGH Performed By: #### C MP, LIPID, TSH #### [facility] [address] [address] [address] Kadeem Clemens Triglyceride [Mass/Vol] 97 mg/dL Normal <=150 [facility] Comment on above: Performed By: #### C MP, LIPID, TSH #### [facility] [address] [address] [address] Kadeem Clemens VLDL CALC 19.4 mg/dL Normal [facility] Comment on above: Performed By: #### C MP, LIPID, TSH #### [facility] [address] [address] [address] Kadeem Clemens PROF 14(COMP METB)on 022 Albumin [Mass/Vol] 4.0 g/dL Normal 3.4-5.0 [facility] Comment on above: Performed By: #### C MP, LIPID, TSH #### [facility] [address] [address] [address] Kadeem Clemens Albumin/Globulin [Mass ratio] 1.3 {ratio} Normal [facility] Comment on above: Performed By: #### C MP, LIPID, TSH #### [facility] [address] [address] [address] Kadeem Clemens ALP [Catalytic activity/Vol] 82 U/L Normal 46-116 [facility] Comment on above: Performed By: #### C MP, LIPID, TSH #### [facility] [address] [address] [address] Kadeem Clemens ALT [Catalytic activity/Vol] 20 U/L Normal 14-59 [facility] Comment on above: Performed By: #### C MP, LIPID, TSH #### [facility] [address] [address] [address] Kadeem Clemens Anion gap [Moles/Vol] 11.4 mmol/L Normal [facility] Comment on above: Performed By: #### C MP, LIPID, TSH #### [facility] [address] [address] [address] Kadeem Clemens AST [Catalytic activity/Vol] 23 U/L Normal 15-37 [facility] Comment on above: Performed By: #### C MP, LIPID, TSH #### [facility] [address] [address] [address] Kadeem Clemens Bilirubin [Mass/Vol] 0.6 mg/dL Normal 0.2-1.0 [facility] Comment on above: Performed By: #### C MP, LIPID, TSH #### [facility] [address] [address] [address] Kadeem Clemens Calcium [Mass/Vol] 8.8 mg/dL Normal 8.5-10.1 [facility] Comment on above: Performed By: #### C MP, LIPID, TSH #### [facility] [address] [address] [address] Kadeem Clemens Chloride [Moles/Vol] 105 mmol/L Normal 98-107 [facility] Comment on above: Performed By: #### C MP, LIPID, TSH #### [facility] [address] [place] [address] Dr. Kadeem Clemens CO2 [Moles/Vol] 28.3 mmol/L Normal 21.0-32.0 [facility] Comment on above: Performed By: #### C MP, LIPID, TSH #### [facility] [address] [place] [address] Dr. Kadeem Clemens Creatinine [Mass/Vol] 0.73 mg/dL Normal 0.55-1.02 [facility] Comment on above: Performed By: #### C MP, LIPID, TSH #### [facility] [address] [place] [address] Dr. Kadeem Clemens EGFR-AF GERMAN >60 Normal >=60 [facility] Comment on above: Performed By: #### C MP, LIPID, TSH #### [facility] [address] [place] [address] Dr. Kadeem Clemens EGFR-NON AF GERMAN >60 Normal >=60 [facility] Comment on above: Performed By: #### C MP, LIPID, TSH #### [facility] [address] [address] [address] Kadeem Clemens Globulin (S) [Mass/Vol] 3.2 g/dL Normal [facility] Comment on above: Performed By: #### C MP, LIPID, TSH #### [facility] [address] [address] [address] Kadeem Clemens Glucose [Mass/Vol] 92 mg/dL Normal 74-[address] [facility] Comment on above: Performed By: #### C MP, LIPID, TSH #### [facility] [address] [address] [address] Kadeem Clemens Potassium [Moles/Vol] 3.7 mmol/L Normal 3.5-5.1 [facility] Comment on above: Performed By: #### C MP, LIPID, TSH #### [facility] [address] [place] [address] Dr. Kadeem Clemens Protein [Mass/Vol] 7.2 g/dL Normal 6.4-8.2 [facility] Comment on above: Performed By: #### C MP, LIPID, TSH #### [facility] [address] [place] [address] Dr. Kadeem Clemens Sodium [Moles/Vol] 141 mmol/L Normal 136-145 [facility] Comment on above: Performed By: #### C MP, LIPID, TSH #### [facility] [address] [place] [address] Dr. Kadeem Clemens Urea nitrogen [Mass/Vol] 15.0 mg/dL Normal 7.0-18.0 [facility] Comment on above: Performed By: #### C MP, LIPID, TSH #### [facility] [address] [place] [address] Dr. Kadeem Clemens Urea nitrogen/Creatinine [Mass ratio] 20.5 mg/mg Normal [facility] Comment on above: Performed By: #### C MP, LIPID, TSH #### [facility] [address] [place] [address] Dr. Kadeem Clemens TSHon 03-23-2022 TSH 1.409 uIU/mL Normal 0.358-3.740 [facility] Comment on above: Performed By: #### C MP, LIPID, TSH #### [facility] [address] [place] [address] Dr. Kadeem Clemens SCREENING MAMMOGRAM W/MELI, BILATERAL*on [...] VERY IMPORTANT TO YOUR HEALTH. THE CURRENT [employer] [employer] GUIDELINES RECOMMENDS ANNUAL MAMMOGRAPHY BEGINNING AT AGE 40 THIS FACILITY USES A REMINDER SYSTEM TO ENSURE ALL PATIENTS RECEIVE REMINDER NOTIFICATIONS AT THE APPROPRIATE TIME BASED ON THE RECOMMENDATIONS OF THIS EXAM. Board Certified Radiologist. Accredited by the ACR and FDA. Report reported and signed by Deep Haney on 12/04/2021 1301 Normal [facility] Cytologyon 11-12-2018 [facility] Cytology Patient Name KARINA FLEMING Date of Procedure: 11/12/2018 Date Reported: 11/14/2018 Date Received: 11/12/2018 Date of / Sex 1960 (Age: 58) / F Race: WHITE Submitting Physician: ÁLVARO POWELL MD Attending Physician: ÁLVARO PWOELL MD Other External # FINAL CYTOLOGICAL INTERPRETATION A. FINE NEEDLE ASPIRATION OF THYROID - RIGHT LOBE: --BENIGN. --ABUNDANT MACROPHAGES, FOLLICULAR CELLS AND COLLOID. Interpretation performed at: [facility] Department of [place]ology [id number] [place] [address] Electronically Signed Out By MAXIME JACOBSEN MD By the signature on this report, the individual or group listed as making the Final Interpretation/Diagn osis certifies that they have reviewed this case. Slide(s) initially screened by a Operating Room Tech at [place] [address] Clinical History RIGHT THYROID NODULE Source of Specimen A: FINE NEEDLE ASPIRATION OF THYROID - RIGHT LOBE Specimen Submitted as: A: FINE NEEDLE ASPIRATION OF THYROID - RIGHT LOBE pap stain non-turkish line attendant, pap stain non-turkish line attendant, pap stain non-turkish line attendant, Pap conventional Diff Quick, Pap conventional Diff Quick, Pap conventional Diff Quick, pap non-turkish line attendant ThinPrep slide Gross Description A. FINE NEEDLE ASPIRATION OF THYROID - RIGHT LOBE: RECEIVED 30 cc TURBID WITH PARTICLES DARK RED CYTOLYT, 6 DIRECT SMEARS, 3 AIR DRIED, 3 SPRAY FIXED Normal [facility] Comment on above: Performed By: #### C #### [facility] Cytology [address] [address] [facility] [address] [place] FNA SUPERFCLon 11-12-2018 US FNA SUPERFCL Patient Name: KARINA FLEMING STUDY: US FNA SUPERFCL; 11/12/2018 3:03 pm INDICATION: right thyroid nodule. COMPARISON: Outside thyroid ultrasound, 08/26/2018. ACCESSION NUMBER(S): [id number] ORDERING CLINICIAN: ÁLVARO POWELL TECHNIQUE: Prior to [...] by: BERNICE MANDUJANO MD [facility] Initial Visit (Otolaryngolog y)on 10-14-2018 Initial Visit (Otolaryngology) Diagnoses/Problems Right thyroid nodule (241.0) (E04.1) Patient Discussion/Summary Right-sided thyroid nodule which measures 1.6 cm. The patient is sent for an ultrasound-guided needle aspirate. I discussed with her all the different possible results. I will see her after the biopsy. [facility] which measures 1.6 cm. [...] Sodium) Vitals Vital Signs Recorded: 14Oct2018 01:56PM Xmhwbtuxqme61.9 F Heart Rate73 Fvbjaeqc213 Cxqvlwjbi70 Height5 ft Buawnw315 lb 6 oz BMI Xeyopyozjd37.8 BSA Calculated1.4 Physical Exam The patient is [...] 20.31 kg/m2 Taina Nataprawira DO Work Phone: [facility] 08-12-2024 10:55-0500 Body weight 47.17 kg Taina Nataprawira DO Work Phone: [facility] 08-12-2024 10:55-0500 Diastolic blood pressure 64 mm[Hg] Taina Nataprawira DO Work Phone: [facility] 08-12-2024 10:55-0500 Systolic blood pressure 110 mm[Hg] Taina Nataprawira DO Work Phone: [facility] 04-13-2022 14:16-0400 Diastolic blood pressure 47 mm[Hg] Russell Mendis DO Work Phone: [facility] 04-13-2022 14:16-0400 Systolic blood pressure 111 mm[Hg] Russell Mendis DO Work Phone: [facility] 04-13-2022 14:11-0400 Body height 152.4 cm Russell Mendis DO Work Phone: [facility] 04-13-2022 14:11-0400 Body weight 45.5 kg Russell Mendis DO Work Phone: [facility] 04-13-2022 14:11-0400 Heart rate 65 /min Russell Mendis DO Work Phone: [facility] 04-13-2022 14:11-0400 Respiratory rate 16 /min Russell Sextonis DO Work Phone: [facility] 04-13-2022 14:11-0400 SaO2% (BldA) [Mass fraction] 99 % Russell Magallanes DO Work Phone: [facility] Encounters Encounter Date Encounter Type Care Provider Facility Start: 11-09-2024 ambulatory Florencia Tomas Facility: [facility] Start: 10-06-2024 End: 10-06-2024 ambulatory TAINA CHAKRABORTY [...] Start: 11-09-2022 End: 11-09-2022 ambulatory LILLIE BARONE Facility:[facility] Start: 11-09-2022 End: 11-09-2022 Patient [...] medical examination without abnormal findings JAMES PERERA [facility] Start: 07-10-2022 End: 07-11-[address] FLORENCIA TOMAS . Facility:[facility] Start: 07-10-2022 End: 07-11-2022 Encounter for general adult medical examination without abnormal findings DR FLORENCIA TOMAS . Facility:[facility] Start: 05-29-2022 End: 05-29-[address] FLORENCIA TOMAS . Facility:[facility] Start: 04-13-2022 End: 04-13-2022 Subsequent hospital visit by physician Xr [facility] Work Phone: Radiology Comment on above: [...] Screening for malign ant neoplasm of colon [facility] Start: 08-16-2025 End: 08-16-2025 Patient encounter procedure 08/16/2025 10:15 AM EST Office Visit [facility] [address] [address] Taina Chakraborty, DO [address] [address] [facility] Start: 09-06-2024 End: 10-08-2025 DBT Breast - bilateral screening Bilateral screening mammogram with tomosynthesis Imaging Routine Other screening mammogram Expected: 09/06/2024, Expires: 10/08/2025 [facility] Work Phone: Comment on above: Expected: 09/06/2024 , Expires: 10/08/2025 Start: 09-05-2024 Screening for malign ant neoplasm of breast Mammogram [facility] Start: 03-29-2024 Influenza vaccination Influenza Vacc ine (#1) [facility] Start: 2023 Pneumococcal Vaccine : 65+ Years (1 of 1 - PCV) Pneumococcal Vaccine: 65+ Years (1 of 1 - PCV) [facility] Start: 03-29-2023 Influenza vaccination INFLUENZA (Sea son Ended) [facility] Start: 07-29-2022 DEPRESSION ASSESSMENT DEPRESSION ASS [facility] Start: 03-29-2022 Influenza vaccination INFLUENZA (#1) [facility] Start: 07-29-2021 DEPRESSION ASSESSMENT DEPRESSION ASS [facility] Start: 03-02-2021 COVID-19 VACCINE (3 - Booster for Pfizer series) COVID-19 VACCINE (3 - Booster for Pfizer series) [facility] Start: 11-25-2020 COVID-19 VACCINE (3 - Booster for Pfizer series) COVID-19 VACCINE (3 - Booster for Pfizer series) [facility] Start: 2008 SHINGRIX VACCINE (1 of 2) SHINGRIX VACCINE (1 of 2) [facility] Start: 2003 COLOGUARD (FIT-DNA) COLOGUARD (FIT-D NA) [facility] Start: 2003 Colonoscopy COLONOSCOPY [facility] Start: 2003 COLORECTAL CANCER SCREENING COLORECTAL CANCER SCREENING [facility] Start: [address] COLONOGRAPHY [facility] Start: 2003 DIABETES SCREEN DIABETES SCREEN [facility] Start: 2003 FECAL OCCULT BLOOD FECAL OCCULT BLOO D [facility] Start: 2003 LIPID SCREEN LIPID SCREEN [facility] Start: 2003 SIGMOIDOSCOPY SIGMOIDOSCOPY [facility] Start: 1998 Mammography MAMMOGRAM [facility] Start: 1988 HPV TESTING HPV TESTING [facility] Start: 1988 Screening for malign ant neoplasm of cervix [facility] Start: 1979 PAP TESTING PAP TESTING [facility] Start: 1979 Screening for malign ant neoplasm of cervix Pap Smear [facility] Start: 1977 Urine microalbumin profile DTAP,TDAP,TD (1 - Tdap) [facility] Start: 1976 HEPATITIS C SCREENING HEPATITIS C SC TANYA [facility] Start: 1976 HIV SCREENING HIV SCREENING [facility] Start: 1970 Adult depression screening assessment DEPRESSION SCREENING [facility] Start: 1960 Screening for malign ant neoplasm of colon [facility] Calcium [Mass/volume ] in Serum or Plasma Calcium Lab Routine Postmenopausal Ordered: 08/12/2024 [facility] Comment on above: Ordered: 08/12/2024 DXA Skeletal system Views for bone density DEXA bone density Imaging Routine Postmenopausal Ordered: 08/12/2024 [facility] Comment on above: Ordered: 08/12/2024 End: 05-13-2023 Mri spinal canal lumbar w/o contrast material MRI LUMBAR SPINE WO IVCON Radiology Routine Radiculopathy of lumbar region Left thigh pain Lateral pain of left hip 1 Occurrences starting 04/13/2022 until 05/13/2023 [facility] Work Phone: Comment on above: 1 Occurrences starti ng 04/13/2022 until 05/13/2023 End: 04-13-2022 Radex spine lumbosacral 2/3 views [facility] Work Phone: Comment on above: 1 Occurrences starti ng 04/13/2022 until 04/13/2022 Immunizations Immunization Date Immunization Notes Care Provider Martine campos 05-03-2018 influenza virus vaccine, unspecified formulation Taina Chakraborty DO Work Phone: [facility] Healthcare Payers Date Payer Category Payer Self-pay 2023 Medicare MEDICARE [id number] 2023 Medicare [id number] 2023 Private Health Insurance [facility] [id number] 2023 Unknown [id number] 2022 Unknown [id number] 2021 Unknown [id number] 1959 Unknown [id number] 1960 Unknown [id number]. 356 1960 Unknown [id number] [id number]. 593 1960 Unknown [id number] [id number]. 593 1960 Unknown [id number] [id number]. 593 1960 Unknown [id number] [id number]. 593 1960 Unknown [id number] [id number]. 593 1960 Unknown [id number] [id number]. 1259 1960 Unknown [id number] [id number]. 1259 1960 Unknown [id number] 2..[id number]. 1259 Unknown [id number] Unknown [id number] 531 Social History Date Type Detail Facility Start: 04-13-2022 End: 07-03-2023 Tobacco smoking status NHIS Never smoked tobacco [facility] Start: 04-13-2022 End: 07-03-2023 Tobacco use and exposure Smokeless tobacco non-user [facility] Start: 1960 Sex Assigned At Not on file C [facility] Start: 04-03-2022 End: 04-13-2022 Exposure to SARS-CoV-2 (event) Not sure [facility] Start: 08-12-2024 Alcoholic beverage intake Ex-drinker (finding) [facility] Start: 08-12-2024 History of Social function [facility] Start: 08-12-2024 Tobacco use panel [facility] NEGATED: Highlighted rowStart: NINF History of tobacco use Passive smoker [facility] Clinical Notes 12-04-2021 to 08-12-2024 Taina Chakraborty [...] VERY IMPORTANT TO YOUR HEALTH. THE CURRENT [employer] AND NATIONAL COMPREHENSIVE CANCER [...] 08/12/2024 11:23 AM documented in this encounter [facility] 11-09-2022 Note HNO ID: [id number] Author: Lillie Barone MD Service: ? Author Type: Physician Type: Progress Notes Filed: 11/09/2022 8:49 AM Note Text: DERMATOLOGY / NEW PATIENT CONSULT Consultation requested by patient for an opinion regarding skin. HPI: The patient is a 62 year old female presenting with a 3 lesions of concern Left lateral lower leg - raised conley lesion Mid upper back - brown raised lesion Olivette raised lesion- right cheek DERM HISTORY: No [...] Past Histories independently gathered by the clinical vp software support and the remaining scribed note accurately describes my personal service to the patient. Lillie Barone MD Medical Decision Making: Problems: Low: 2+ self-limited or minor problems Risk: Low: Low risk from testing/treatment Medical Decision Making Level: 3 - Low [facility] 11-09-2022 History of Present illness Narrative DERMATOLOGY / NEW PATIENT CONSULT Consultation requested by patient for an opinion regarding skin. HPI: The patient is a 62 year old female presenting with a 3 lesions of concern Left lateral lower leg - raised conley lesion Mid upper back - brown raised lesion Olivette raised lesion- right cheek DERM HISTORY: No [...] Past Histories independently gathered by the clinical vp software support and the remaining scribed note accurately describes my personal service to the patient. Lillie Barone MD Medical Decision Making: Problems: Low: 2+ self-limited or minor problems Risk: Low: Low risk from testing/treatment Medical Decision Making Level: 3 - Low documented in this encounter [facility] 08-21-2022 Note PROCEDURE: XR HIP RT 2 3V W PELVIS COMPARISON: None. HISTORY: Muscle and tendon injury FINDINGS: BONES:No fracture, acute abnormality, or significant arthropathy. SOFT TISSUES:Negative. No visible soft tissue swelling. EFFUSION:None visible. OTHER: Negative. IMPRESSION: No acute abnormality Electronically authenticated by: MICKI LUCERO Date: 2022-08-21 07:52 [facility] 04-13-2022 Note HNO ID: [id number] Author: Mady Woodruff RT(R) Service: ? Author [...] Awad, RT April 13, 2022 3:41 PM [facility] 04-13-2022 Note HNO ID: [id number] Author: Russell Magallanes, DO Service: ? Author Type: Physician Type: Progress Notes Filed: 05/06/2022 1:40 PM Note Text: [facility] Spine Initial [...] her back. -Ortho surgeon Dr. Agosto in [place] prior to pandemic. Told her it was not her back, but it was her sciatic nerve. 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 [facility] 04-13-2022 History of Present illness Narrative [...] 2022 3:41 PM documented in this encounter [facility] 04-13-2022 History of Present illness Narrative Images from the original note were not included. [facility] - Medical Spine Initial [...] her back. -Ortho surgeon Dr. Agosto in [place] prior to pandemic. Told her it was not her back, but it was her sciatic nerve. 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 No significant arthropathy or acute abnormality. Soft tissues: Negative. No visible soft tissue swelling, mass, fluid collection, edema or hematoma. Effusion: None visible. Other: Skin surface markers overlie the posterior thigh and localized area of pain. Impression: No abnormal or suspicious findings to account for patient's symptoms. 06/28/2021 ultrasound venous Doppler LLE ([place], [place]): No left femoral-popliteal venous thrombosis. 06/23/2021 XR left femur ([facility] [place], [place]): Bones: No fracture, acute abnormality, or [...] which included preparing to see the patient, [id number] patient care, completing clinical documentation, obtaining and/or reviewing separately obtained history, performing a medically appropriate examination, counseling and educating the patient/family/caregiver, ordering medications, tests, or procedures, independently interpreting results (not separately reported), and communicating results to the patient/family/caregiver. SIGNATURE: Russell Magallanes DO PATIENT NAME: Karina Fleming DATE: April 13, 2022 TIME: 2:25 PM documented in this encounter [facility] 12-04-2021 Note HISTORY: Bone densit y screening. [...] signed by Deep Haney on 12/04/2021 1305 [facility] Special Tester Evaluation note Diagnosis Left thigh pain Pain in limb Lateral pain of left hip Pain in joint, pelvic region and thigh Radiculopathy of lumbar region Thoracic or lumbosacral neuritis or radiculitis, unspecified [facility] Diagnosis Radiculopathy of lumbar region- Primary Thoracic or lumbosacral neuritis or radiculitis, unspecified Left thigh pain Pain in limb Lateral pain of left hip Pain in joint, pelvic region and thigh Strain of flexor muscle of left hip, sequela Strain of left piriformis muscle, sequela [facility] [place] [facility]* Diagnosis Diffuse photodamage of skin- Primary Other chronic dermatitis due to solar radiation Dermatofibroma Benign neoplasm of skin, site unspecified Hemangioma, unspecified site Seborrheic keratosis Other seborrheic keratosis Multiple benign nevi Benign neoplasm of skin, site unspecified [facility] encounter [facility] [place] [facility]* Diagnosis Vaginal stenosis- Primary Osteoporosis, post-menopausal (CMS/HCC) Senile osteoporosis Age-related osteoporosis without current pathological fracture (CMS/HCC) Postmenopausal Asymptomatic postmenopausal status (age-related) (natural) Hx of hysterectomy for benign disease Low back pain, unspecified back pain laterality, unspecified chronicity, unspecified whether sciatica present Other screening mammogram documented in this encounter [facility] for referral (narrative)* Diagnostic Procedure Only (Routine) - Closed Specialty Diagnoses / Procedures Referred By Devon stern Referred To Contact XR IMAGING Diagnoses Radiculopathy of lumbar region Procedures XR LUMBAR LIMITED 2V AP/LAT RADEX SPINE LUMBOSACRAL 2/3 VIEWS Russell Magallanes DO [address] [place] [address] Xr Imaging Referral ID Status Reason Start Date Expiration Date V isits Requested Visits Authorized [id number] Closed Auto-Generate d Referral 04/13/2022 05/13/2023 1 1 * Diagnostic Procedure Only (Routine) - Closed Specialty Diagnoses / Procedures Referred By Devon stern Referred To Contact XR IMAGING Diagnoses Left thigh pain Lateral pain of left hip Procedures XR HIP GENERAL 3V PELV/AP/LAT LEFT RADEX HIP UNILATERAL WITH PELVIS 2-3 VIEWS Russell Magallanes DO [address] [place] [address] Xr Imaging Referral ID Status Reason Start Date Expiration Date V isits Requested Visits Authorized [id number] Closed Auto-Generate d Referral 04/13/2022 05/13/2023 1 1 [facility] for referral (narrative)* Diagnostic Procedure Only (Routine) - Closed Specialty Diagnoses / Procedures Referred By Contac t Referred To Contact XR IMAGING Diagnoses Radiculopathy of lumbar region Procedures XR LUMBAR LIMITED 2V AP/LAT RADEX SPINE LUMBOSACRAL 2/3 VIEWS Russell Magallanes DO [address] [place] [address] Xr Imaging Referral ID Status Reason Start Date Expiration Date V isits Requested Visits Authorized [id number] Closed Auto-Generate d Referral 04/13/2022 05/13/2023 1 1 * Diagnostic Procedure Only (Routine) - Closed Specialty Diagnoses / Procedures Referred By Contac t Referred To Contact XR IMAGING Diagnoses Left thigh pain Lateral pain of left hip Procedures XR HIP GENERAL 3V PELV/AP/LAT LEFT RADEX HIP UNILATERAL WITH PELVIS 2-3 VIEWS Russell Magallanes DO [address] [place] [address] Xr Imaging Referral ID Status Reason Start Date Expiration Date V isits Requested Visits Authorized [id number] Closed Auto-Generate d Referral 04/13/2022 05/13/2023 1 1 * MRI/CT (Routine) - Pending Review Specialty Diagnoses / Procedures Referred By Contac t Referred To Contact MR IMAGING Diagnoses Radiculopathy of lumbar region Left thigh pain Lateral pain of left hip Procedures MRI LUMBAR SPINE WO IVCON MRI SPINAL CANAL LUMBAR W/O CONTRAST MATERIAL Russell Magallanes DO [address] [place] [address] Mr Imaging Referral ID Status Reason Start Date Expiration Date Visits Requested Visits Authorized [id number] Pending Review Auto-Generat ed Referral 04/13/2022 05/13/2023 1 1 [facility] for visit Narrative* Diagnostic Procedure Only (Routine) - Closed Specialty Diagnoses / Procedures Referred By Contac t Referred To Contact XR IMAGING Diagnoses Radiculopathy of lumbar region Procedures XR LUMBAR LIMITED 2V AP/LAT RADEX SPINE LUMBOSACRAL 2/3 VIEWS Russell Magallanes, [address] [place] [address] Xr Imaging Referral ID Status Reason Start Date Expiration Date V isits Requested Visits Authorized [id number] Closed Auto-Generate d Referral 04/13/2022 05/13/2023 1 1 [facility] Summary Purpose Family History No Family History [...] Out: Pre-Procedure Verification and Time Out: [facility] - Pre-procedure Verificationcompleted TIME OUT - Final Verificationcompleted DEBRIEFcompleted General Information: Date/Time of Procedure: 12-Nov-2018 14:59 Post-Procedure Diagnosis: thyroid nodule Procedure Name: thyroid FNA Findings: thyroid nodule Procedure performed by: me Tool Crib Clerk(s): none Estimated Blood Loss (mL): none Specimen: [...] DATE CREATED AUTHOR AUTHOR'S ORGANIZ ATION 11/15/2018 [facility] DATE CREATED AUTHOR AUTHOR'S ORGANIZ ATION 02/16/2019 [facility] DATE CREATED AUTHOR AUTHOR'S ORGANIZ ATION 12/05/2021 [facility] dical Specialist DATE CREATED AUTHOR AUTHOR'S ORGANIZ ATION 09/28/2022 [facility] DATE CREATED AUTHOR AUTHOR'S ORGANIZ ATION 11/12/2022 [facility] DATE CREATED AUTHOR AUTHOR'S ORGANIZ ATION 10/12/2024 [facility] dical Specialists EPIC DATE CREATED AUTHOR AUTHOR'S ORGANIZ ATION 11/14/2024 [facility] ysician Group Source Comments (unrecognize d section and content) In the event this informatio n is protected by the Federal Confidentiality of Alcohol and Drug Abuse Patient Records regulations: The Federal rules restrict any use of the information to criminally investigate or prosecute any alcohol or drug abuse patient.[facility] the event this information is protected by the Federal Confidentiality of Alcohol and Drug Abuse Patient Records regulations: The Federal rules restrict any use of the information to criminally investigate or prosecute any alcohol or drug abuse patient.[facility] the event this information is protected by the Federal Confidentiality of Alcohol and Drug Abuse Patient Records regulations: The Federal rules restrict any use of the information to criminally investigate or prosecute any alcohol or drug abuse patient.[facility] Reason for Visit (unrecogniz ed section and content) Reason Comments Radiology XR Reason Comments Leg Pain Nerve pain in left l eg since 2014. Begins middle of thigh downward and sometimes from inner thigh downward. Has xray and MRI of leg images from [facility]. Inaddition to left hip as well. Disc [...] Care Teams (unrecognized sec tion and content) Web Engineer Relationship Specialty Start Date End Date Florencia Tomas MD [address] [place] [address] PCP - General Family Medicine 07/03/23 FOR [...] BE BASED ON THE PRIMARY CLINICAL RECORDS. [employer] provides no warranty or guarantee of the accuracy or completeness of information in this document.
[2025-04-14 11:00] LABS: Calcium 8.2 mg/dL (8.5-10.1)
== END 2025-04-14 10:49 | disposition home or self-care (01) ==
LOC: LAB 10:48
PROVIDERS: PCP Family Medicine; Visit Provider Obstetrics & Gynecology
DX: M81.0 Age-related osteoporosis without current pathological fracture (principal)
CPT/HCPCS: 36415; 82310

== ENCOUNTER 2025-04-20 09:12 | Outpatient (OUT) | payer MEDICARE, OTHER, SELFPAY ==
--- OUTSIDE RECORDS SUMMARY | 2025-04-20 09:18 | XMS_ITS | CCD ---
Author Organization [facility] CliniSydc Care Team Providers Care Sidehand Name Role Phone Álvaro Powell Attending Unavailable [...] Unavailable HOY ., DR DON Attending Unavailable [place], DR MICKI Burgess Consulting Unavailable Unavailable Primary Care Provider UnavailLILLIE Robertson Attending Unavailable RUSSELL MAGALLANES Referring Unavailable RUSSELL MAGALLANES Attending Unavailable Florencia Tomas MD Primary Care Provider [phone] TAINA CHAKRABORTY Referring Unavailable TAINA CHAKRABORTY Referring Unavailable TAINA CHAKRABORTY Attending Unavailable Florencia Tomas Primary Care Unavailable Taina Chakraborty Referring Unavailable Taina Chakraborty Attending Unavailable Taina Chakraborty Admitting Unavailable Allergies Allergy Classification Reported Allergen(s) Allergy Type Date of Onset Reaction(s) Facility (7 sources) Sulfonamides (Antibiotic); Translations: [SULFA (SULFONAMIDE ANTIBIOTICS)] Propensity to adverse reactions to drug 2 Unknown [facility] (6 sources) Sutures; Translations: [SUTURES] Propensity to adverse reactions 2 Unknown [facility] (1 source) Sulfonamides (Antibiotic) Drug allergy (disorder) 5 [facility] Repository (2 sources) Other Propensity to adverse reactions 2 Unknown [facility] (1 source) Sulfonamides (Antibiotic) Drug allergy (disorder) 4 [facility] Repository Medications Current Medications Medication Drug Class(es) [...] UA Negative Negative - 4(70) +++ mg/dL [facility] Blood, UA Negative Negative - 50 Shiv/mcL [facility] Clarity, UA Clear [facility] Color, UA Ashley [facility] Glucose, UA Negative Negative - 1999(110) ++++ mg/dL [facility] Interpretation and review of laboratory results Normal [facility] Ketones, UA Negative Negative - 160(16) ++++ mg/dL [facility] Leukocytes, UA Negative Negative - 500+++ Mauricio/mcL [facility] Nitrite, UA Negative Negative - Positive [facility] pH, UA 6 5 - 9 [facility] Protein, UA Trace Negative - 1999(20) ++++ mg/dL [facility] Spec Grav, UA 1.02 1 - 1.03 [facility] Urobilinogen, UA 1.0 0.2 - 12 mg/dL [facility] CNOVon 11-09-2022 CNOV Office Visit ([facility]) KARINA FLEMING ([id number]) 1960 F Date Time Provider Department 11/09/22 [...] Mid upper back - brown raised lesion [place] raised lesion- right cheek DERM HISTORY: No [...] Past Histories independently gathered by the clinical intelligence support officer and the remaining scribed note accurately describes [...] for Encounter Date Provider Department Center 11/09/2022 [id number] Encounter Status:Closed by LILLIE BARONE on 11/09/22 Normal [facility] XR LSPINE MIN 4 VIEWSon 07-30 [...] MICKI LUCERO Date: 2022-08-21 07:50 Normal [facility] GLUCOSE BLOODon 07-10-2022 Glucose [Mass/Vol] 87 mg/dL Normal 74-106 [facility] Comment on above: Performed By: #### L IPID, GLUC #### [facility] [address] [address] [address] Kadeem Clemens LIPID PROFILEon 07-10-2022 CHOL-HDL RATIO NORM SEE BELOW Normal [facility] Comment on above: Result Comment: 3.3 - 4.4 LOW RISK 4.4 - 7.1 AVERAGE RISK 7.1 - 11.0 MODERATE RISK >11.0 HIGH RISK Performed By: #### L IPID, GLUC #### [facility] [address] [address] [address] Kadeem Clemens Cholesterol [Mass/Vol] 182 mg/dL Normal <=200 [facility] Comment on above: Performed By: #### L IPID, GLUC #### [facility] [address] [address] [address] Kadeem Clemens Cholesterol in HDL [Mass/Vol] 66 mg/dL Critically high 40-60 [facility] Comment on above: Performed By: #### L IPID, GLUC #### [facility] [address] [address] [address] Kadeem Clemens Cholesterol in LDL [Mass/Vol] 101.4 mg/dL Normal [facility] Comment on above: Performed By: #### L IPID, GLUC #### [facility] [address] [address] [address] Kadeem Clemens Cholesterol.total/Ch olesterol in HDL [Mass ratio] 2.8 {ratio} Normal [facility] Comment on above: Performed By: #### L IPID, GLUC #### [facility] [address] [address] [address] Kadeem Clemens HDL NORMAL > or = 60 mg/dl - LOW CARDIOVASCULAR RISK <40 mg/dl - HIGH CARDIOVASCULAR RISK Normal [facility] Comment on above: Performed By: #### L IPID, GLUC #### [facility] [address] [address] [address] Kadeem Clemens LDL CALC NORMAL SEE BELOW Normal [facility] Comment on above: Result Comment: <100 mg/dl OPTIMAL 100 - 129 mg/dl NEAR OR ABOVE OPTIMAL 130 - 159 mg/dl BORDERLINE HIGH 160 - 189 mg/dl HIGH >190 mg/dl VERY HIGH Performed By: #### L IPID, GLUC #### [facility] [address] [address] [address] Kadeem Clemens Triglyceride [Mass/Vol] 73 mg/dL Normal <=150 [facility] Comment on above: Performed By: #### L IPID, GLUC #### [facility] [address] [place] [address] Dr. Kadeem Clemens VLDL CALC 14.6 mg/dL Normal [facility] Comment on above: Performed By: #### L IPID, GLUC #### [facility] [address] [place] [address] Dr. Kadeem Clemens Covid-19 PCR (CVDTBH)on SARS-CoV-2 (COVID-19) RNA DARÍO+probe Ql (Unsp spec) Detected Critically abnormal NOT DETECTED [facility] Comment on above: Result Comment: This test is not yet approved or cleared by the [place] FDA. When there are no FDA-approved or cleared tests available, and other criteria are met, FDA can make tests available under an emergency access mechanism called an Emergency Use Authorization (EUA). The EUA for this test is supported by the Allergist/Immunologist of Health and Human Service's (HHS's) declaration [...] used). Performed By: #### C VDTBH #### [facility] [address] [place] [address] Dr. Kadeem Clemens INFLUENZA A AND B AGon 05-29 INFLUANEGH SEE BELOW Normal [facility] Comment on above: Result Comment: Nega tive for Flu A protein angiten. Infection due to Flu A cannot be ruled out. Flu A angiten in the sample may be below the detection limit of the test. Performed By: #### I NFLUAB #### [facility] [address] [place] [address] Dr. Kadeem Clemens [facility] SEE BELOW Normal [facility] Comment on above: Result Comment: Nega tive for Flu B protein antigen. Infection due to Flu B cannot be ruled out. Flu B antigen in the sample may be below the detection limit of the test. Performed By: #### I NFLUAB #### [facility] [address] [place] [address] Dr. Kadeem Clemens INFLUENZA A AG Negative Normal NEGATIVE SEE COMMENT [facility] Comment on above: Performed By: #### I NFLUAB #### [facility] [address] [place] [address] Dr. Kadeem Clemens INFLUENZA B AG Negative Normal NEGATIVE SEE COMMENT [facility] Comment on above: Performed By: #### I NFLUAB #### [facility] [address] [place] [address] Dr. Kadeem Clemens INTERNAL CONTROLS Within Normal Limits Normal Wi thin Normal Limits [facility] Comment on above: Performed By: #### I NFLUAB #### [facility] [address] [place] [address] Dr. Kadeem Olivares 04-13-2022 [facility] Office Visit ([facility]) KARINA FLEMING ([id number]) 1960 F Date Time Provider Department 04/13/22 2:30 PM RUSSELL MAGALLANES During your visit today, we recorded the following information about you: Pulse Respiration Blood pressure Weight 65/minute 16/minute 111/47 45.5 kg Height 1.524 m Russell Magallanes, DO 05/06/2022 1:40 PM Signed [facility] Medical Spine Initial Exam [...] her back. -Ortho surgeon Dr. Agosto in [place] prior to pandemic. Told her it was not her back, but it was her sciatic nerve. 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 Normal [facility] No Panel Informationon 04-13 [facility] XR HIP 3V PELV+ AP/LAT LTon [...] right sacroiliac joint. IMPRESSION: No acute findings. Academic Coach: PSCB Transcribe Date/Time: Apr 14 2022 2:38P Dictated by : BRUNA LUONG MD This examination was interpreted and the report reviewed and electronically signed by: BRUNA LUONG MD on Apr 14 2022 2:39PM EST [id number] CN Normal [facility] XR LUMBAR 2V AP/LATon 2021 XR [...] is seen IMPRESSION: Lower lumbar degenerative changes Academic Coach: PSCB Transcribe Date/Time: Apr 15 2022 11:11P Dictated by : REGINO ELIAS MD This examination was interpreted and the report reviewed and electronically signed by: REGINO ELIAS MD on Apr 15 2022 11:12PM EST [id number] CN Normal [facility] INSULINon 03-24-2022 Insulin 6.0 uIU/mL Normal 2.6-24.9 [facility] Comment on above: Performed By: #### I NSULIN ####[facility] [address] [id number]. Kadeem Clemens T4, T3U, FTI LABCORPon 03-24 Free Thyroxine Index 2.3 Normal 1.2-4.9 [facility] Comment on above: Performed By: #### T HYLC ####[facility] [address] [place], [place] [address]Dr. Kadeem Clemens T3 Uptake 32 % Normal 24-39 [facility] Comment on above: Performed By: #### T HYLC ####[facility] [address] [place], [place] [address]Dr. Kadeem Clemens T4 [Mass/Vol] 7.1 ug/dL Normal 4.5-12.0 [facility] Comment on above: Performed By: #### T HYLC ####[facility] [address] [place], [place] [address]Dr. Kadeem Clemens CBC AUTO DIFFon 03-23-2022 BASO # 0.1 103/ul Normal 0.0-0.1 [facility] Comment on above: Performed By: #### C BC ####[facility] [address] [place], [place] [address]Dr. Kadeem Clemens Basophils/100 WBC (Bld) 1.0 % Normal 0.2-2.0 [facility] Comment on above: Performed By: #### C BC ####[facility] [address] [place], [place] [address]Dr. Kadeem Clemens EO # 0.1 103/ul Normal 0.0-0.7 [facility] Comment on above: Performed By: #### C BC ####[facility] [address] [place], [place] [address]Dr. Kadeem Clemens Eosinophils/100 WBC (Bld) 2.1 % Normal 0.9-7.0 [facility] Comment on above: Performed By: #### C BC ####[facility] [address] [place], [place] [address]Dr. Kadeem Clemens Erythrocyte distribution width (RBC) [Ratio] 12.2 % Normal 11.0-15.0 [facility] Comment on above: Performed By: #### C BC ####[facility] [address] [address]DrOdette Clemens Hematocrit (Bld) [Volume fraction] 42.3 % Normal 36.0-48.0 [facility] Comment on above: Performed By: #### C BC ####[facility] [address] [address]DrOdette Clemens Hemoglobin (Bld) [Mass/Vol] 13.8 g/dL Normal 12.0-16.0 [facility] Comment on above: Performed By: #### C BC ####[facility] [address] [place], [place] [address]DrOdette Clemens IG # 0.01 10e3/ul Normal 0.00-0.03 [facility] Comment on above: Performed By: #### C BC ####[facility] [address] [place], [place] [address]Dr. Kadeem Clemens IG % 0.2 % Normal 0.0-0.5 [facility] Comment on above: Performed By: #### C BC ####[facility] [address] [place], [place] [address]DrOdette Clemens LYMPH # 2.3 103/ul Normal 1.2-3.8 [facility] Comment on above: Performed By: #### C BC ####[facility] [address] [place], [place] [address]DrOdette Clemens Lymphocytes/100 WBC (Bld) 37.8 % Normal 20.5-60.0 [facility] Comment on above: Performed By: #### C BC ####[facility] [address] [place], [place] [address]DrOdette Clemens MANUAL DIFF REQ NO Normal [facility] Comment on above: Performed By: #### C BC ####[facility] [address] [address]DrOdette Clemens MCH (RBC) [Entitic mass] 29.1 pg Normal 26.7-34.0 [facility] Comment on above: Performed By: #### C BC ####[facility] [address] [address]Dr. Kadeem Clemens MCHC (RBC) [Mass/Vol] 32.6 g/dL Normal 29.9-35.2 [facility] Comment on above: Performed By: #### C BC ####[facility] [address] [address]Dr. Kadeem Clemens MCV (RBC) [Entitic vol] 89.1 fL Normal 81.0-99.0 [facility] Comment on above: Performed By: #### C BC ####[facility] [address] [place], [place] [address]DrOdette Clemens MONO # 0.5 103/ul Normal 0.3-0.8 [facility] Comment on above: Performed By: #### C BC ####[facility] [address] [place], [place] [address]Dr. Kadeem Clemens Monocytes/100 WBC (Bld) 7.6 % Normal 1.7-12.0 [facility] Comment on above: Performed By: #### C BC ####[facility] [address] [place], [place] [address]Dr. Kadeem Clemens NEUT # 3.1 103/ul Normal 1.4-6.5 [facility] Comment on above: Performed By: #### C BC ####[facility] [address] [place], [place] [address]Dr. Kadeem Clemens Neutrophils/100 WBC (Bld) 51.3 % Normal 43.0-75.0 [facility] Comment on above: Performed By: #### C BC ####[facility] [address] [place], [place] [address]DrOdette Clemens Platelet mean volume (Bld) [Entitic vol] 9.6 fL Normal 9.5-13.5 [facility] Comment on above: Performed By: #### C BC ####[facility] [address] [place], [place] [address]Dr. Kadeem Clemens PLT 240 103/ul Normal 150-450 [facility] Comment on above: Performed By: #### C BC ####[facility] [address] [id number] Kadeem Sarath RBC 4.75 106/ul Normal 4.20-5.40 [facility] Comment on above: Performed By: #### C BC ####[facility] [address] [id number] Clemens WBC 6.1 103/ul Normal 4.0-11.0 [facility] Comment on above: Performed By: #### C BC ####[facility] [address] [id number]. Kadeem Clemens GLYCOHEMOGLOBIN A1Con 2021 ADA RECOMMENDATION SEE BELOW Normal [facility] Comment on above: Result Comment: ADA RECOMMENDED LIMIT 4.0 - 6.0 ADA THERAPEUTIC TARGET < 7.0 ACTION SUGGESTED > 7.0 Performed By: #### A 1C ####[facility] [address] [address]Dr. Kadeem Clemens Glucose [Mass/Vol] 105 mg/dL Normal [facility] Comment on above: Performed By: #### A 1C ####[facility] [address] [id number] Carolinmiguel Clemens HbA1c (Bld) [Mass fraction] 5.3 % Normal 4.5-6.2 [facility] Comment on above: Performed By: #### A 1C ####[facility] [address] [address]Dr. Kadeem Clemens IRONon 03-23-2022 Iron [Mass/Vol] 106.0 ug/dL Normal 50.0-170.0 [facility] Comment on above: Performed By: #### I MOO #### [facility] [address] [address] [address] Kadeem Clemens LIPID PROFILEon 03-23-2022 CHOL-HDL RATIO NORM SEE BELOW Normal [facility] Comment on above: Result Comment: 3.3 - 4.4 LOW RISK 4.4 - 7.1 AVERAGE RISK 7.1 - 11.0 MODERATE RISK >11.0 HIGH RISK Performed By: #### C MP, LIPID, TSH #### [facility] [address] [address] [address] Kadeem Clemens Cholesterol [Mass/Vol] 185 mg/dL Normal <=200 [facility] Comment on above: Performed By: #### C MP, LIPID, TSH #### [facility] [address] [address] [address] Kadeem Clemens Cholesterol in HDL [Mass/Vol] 66 mg/dL Critically high 40-60 [facility] Comment on above: Performed By: #### C MP, LIPID, TSH #### [facility] [address] [address] [address] Kadeem Clemens Cholesterol in LDL [Mass/Vol] 99.6 mg/dL Normal [facility] Comment on above: Performed By: #### C MP, LIPID, TSH #### [facility] [address] [address] [address] Kadeem Clemens Cholesterol.total/Ch olesterol in HDL [Mass ratio] 2.8 {ratio} Normal [facility] Comment on above: Performed By: #### C MP, LIPID, TSH #### [facility] [address] [address] [address] Kadeem Clemens HDL NORMAL > or = 60 mg/dl - LOW CARDIOVASCULAR RISK <40 mg/dl - HIGH CARDIOVASCULAR RISK Normal [facility] Comment on above: Performed By: #### C MP, LIPID, TSH #### [facility] [address] [address] [address] Kadeem Clemens LDL CALC NORMAL SEE BELOW Normal [facility] Comment on above: Result Comment: <100 mg/dl OPTIMAL 100 - 129 mg/dl NEAR OR ABOVE OPTIMAL 130 - 159 mg/dl BORDERLINE HIGH 160 - 189 mg/dl HIGH >190 mg/dl VERY HIGH Performed By: #### C MP, LIPID, TSH #### [facility] [address] [address] [address] Kadeem Clemens Triglyceride [Mass/Vol] 97 mg/dL Normal <=150 [facility] Comment on above: Performed By: #### C MP, LIPID, TSH #### [facility] [address] [address] [address] Kadeem Clemens VLDL CALC 19.4 mg/dL Normal [facility] Comment on above: Performed By: #### C MP, LIPID, TSH #### [facility] [address] [address] [address] Kadeem Clemens PROF 14(COMP METB)on 022 Albumin [Mass/Vol] 4.0 g/dL Normal 3.4-5.0 [facility] Comment on above: Performed By: #### C MP, LIPID, TSH #### [facility] [address] [address] [address] Kadeem Clemens Albumin/Globulin [Mass ratio] 1.3 {ratio} Normal [facility] Comment on above: Performed By: #### C MP, LIPID, TSH #### [facility] [address] [address] [address] Kadeem Clemens ALP [Catalytic activity/Vol] 82 U/L Normal 46-116 [facility] Comment on above: Performed By: #### C MP, LIPID, TSH #### [facility] [address] [address] [address] Kadeem Clemens ALT [Catalytic activity/Vol] 20 U/L Normal 14-59 [facility] Comment on above: Performed By: #### C MP, LIPID, TSH #### [facility] [address] [address] [address] Kadeem Clemens Anion gap [Moles/Vol] 11.4 mmol/L Normal [facility] Comment on above: Performed By: #### C MP, LIPID, TSH #### [facility] [address] [address] [address] Kadeem Clemens AST [Catalytic activity/Vol] 23 U/L Normal 15-37 [facility] Comment on above: Performed By: #### C MP, LIPID, TSH #### [facility] [address] [address] [address] Kadeem Clemens Bilirubin [Mass/Vol] 0.6 mg/dL Normal 0.2-1.0 [facility] Comment on above: Performed By: #### C MP, LIPID, TSH #### [facility] [address] [address] [address] Kadeem Clemens Calcium [Mass/Vol] 8.8 mg/dL Normal 8.5-10.1 [facility] Comment on above: Performed By: #### C MP, LIPID, TSH #### [facility] [address] [address] [address] Kadeem Clemens Chloride [Moles/Vol] 105 mmol/L Normal 98-107 [facility] Comment on above: Performed By: #### C MP, LIPID, TSH #### [facility] [address] [place] [address] Dr. Kadeem Clemens CO2 [Moles/Vol] 28.3 mmol/L Normal 21.0-32.0 [facility] Comment on above: Performed By: #### C MP, LIPID, TSH #### [facility] [address] [place] [address] Dr. Kadeem Clemens Creatinine [Mass/Vol] 0.73 mg/dL Normal 0.55-1.02 [facility] Comment on above: Performed By: #### C MP, LIPID, TSH #### [facility] [address] [place] [address] Dr. Kadeem Clemens EGFR-AF [place] >60 Normal >=60 [facility] Comment on above: Performed By: #### C MP, LIPID, TSH #### [facility] [address] [place] [address] Dr. Kadeem Clemens EGFR-NON AF [place] >60 Normal >=60 [facility] Comment on above: Performed By: #### C MP, LIPID, TSH #### [facility] [address] [address] [address] Kadeem Clemens Globulin (S) [Mass/Vol] 3.2 g/dL Normal [facility] Comment on above: Performed By: #### C MP, LIPID, TSH #### [facility] [address] [address] [address] Kadeem Clemens Glucose [Mass/Vol] 92 mg/dL Normal 74-106 [facility] Comment on above: Performed By: #### C MP, LIPID, TSH #### [facility] [address] [address] [address] Kadeem Clemens Potassium [Moles/Vol] 3.7 mmol/L Normal 3.5-5.1 [facility] Comment on above: Performed By: #### C MP, LIPID, TSH #### [facility] [address] [place] [address] Dr. Kadeem Clemens Protein [Mass/Vol] 7.2 g/dL Normal 6.4-8.2 [facility] Comment on above: Performed By: #### C MP, LIPID, TSH #### [facility] [address] [place] [address] Dr. Kadeem Clemens Sodium [Moles/Vol] 141 mmol/L Normal 136-145 [facility] Comment on above: Performed By: #### C MP, LIPID, TSH #### [facility] [address] [place] [address] Dr. Kadeem Clemens Urea nitrogen [Mass/Vol] 15.0 mg/dL Normal 7.0-18.0 [facility] Comment on above: Performed By: #### C MP, LIPID, TSH #### [facility] [address] [place] [address] Dr. Kadeem Clemens Urea nitrogen/Creatinine [Mass ratio] 20.5 mg/mg Normal [facility] Comment on above: Performed By: #### C MP, LIPID, TSH #### [facility] [address] [place] [address] Dr. Kadeem Clemens TSHon 03-23-2022 TSH 1.409 uIU/mL Normal 0.358-3.740 [facility] Comment on above: Performed By: #### C MP, LIPID, TSH #### [facility] [address] [place] [address] Dr. Kadeem Clemens SCREENING MAMMOGRAM W/MELI, BILATERAL*on [...] VERY IMPORTANT TO YOUR HEALTH. THE CURRENT [place] [employer] GUIDELINES RECOMMENDS ANNUAL MAMMOGRAPHY BEGINNING AT AGE 38 THIS FACILITY USES A REMINDER SYSTEM TO ENSURE ALL PATIENTS RECEIVE REMINDER NOTIFICATIONS AT THE APPROPRIATE TIME BASED ON THE RECOMMENDATIONS OF THIS EXAM. Board Certified Radiologist. Accredited by the ACR and FDA. Report reported and signed by Deep Haney on 12/04/2021 1301 Normal [facility] Cytologyon 11-12-2018 [facility] Cytology Patient Name KARINA FLEMING Date of Procedure: 11/12/2018 Date Reported: 11/14/2018 Date Received: 11/12/2018 Date of / Sex 1960 (Age: 58) / F Race: WHITE Submitting Physician: ÁLVARO POWELL MD Attending Physician: ÁLVARO POWELL MD Other External # FINAL CYTOLOGICAL INTERPRETATION A. FINE NEEDLE ASPIRATION OF THYROID - RIGHT LOBE: --BENIGN. --ABUNDANT MACROPHAGES, FOLLICULAR CELLS AND COLLOID. Interpretation performed at: [facility] [facility] Department of Pathology [id number] [place] [address] Electronically Signed Out By MAXIME JACOBSEN MD By the signature on this report, the individual or group listed as making the Final Interpretation/Diagn osis certifies that they have reviewed this case. Slide(s) initially screened by a Registered Public Health Nurse at [place] [address] Clinical History RIGHT THYROID NODULE Source of Specimen A: FINE NEEDLE ASPIRATION OF THYROID - RIGHT LOBE Specimen Submitted as: A: FINE NEEDLE ASPIRATION OF THYROID - RIGHT LOBE pap stain non-business education instructor, pap stain non-business education instructor, pap stain non-business education instructor, Pap conventional Diff Quick, Pap conventional Diff Quick, Pap conventional Diff Quick, pap non-business education instructor ThinPrep slide Gross Description A. FINE NEEDLE ASPIRATION OF THYROID - RIGHT LOBE: RECEIVED 30 cc TURBID WITH PARTICLES DARK RED CYTOLYT, 6 DIRECT SMEARS, 3 AIR DRIED, 3 SPRAY FIXED Normal [facility] Comment on above: Performed By: #### C #### [facility] Cytology [address] [facility] [address] US FNA SUPERFCLon 11-12-2018 US FNA SUPERFCL Patient Name: KARINA FLEMING STUDY: US FNA SUPERFCL; 11/12/2018 3:03 pm INDICATION: right thyroid nodule. COMPARISON: Outside thyroid ultrasound, 08/26/2018. ACCESSION NUMBER(S): [id number] ORDERING CLINICIAN: ÁLVARO POWELL TECHNIQUE: Prior to [...] cm. Electronically signed by: BERNICE MANDUJANO MD [facility] Initial Visit (Otolaryngolog y)on 10-14-2018 Initial Visit (Otolaryngology) Diagnoses/Problems Right thyroid nodule (241.0) (E04.1) Patient Discussion/Summary Right-sided thyroid nodule which measures 1.6 cm. The patient is sent for an ultrasound-guided needle aspirate. I discussed with her all the different possible results. I will see her after the biopsy. [facility] which measures 1.6 [...] Sodium) Vitals Vital Signs Recorded: 14Oct2018 01:56PM Rxzswmhvjnk77.9 F Heart Rate73 Qcpmetys269 Rtsmtnpsj63 Height5 ft Youokp809 lb 6 oz BMI Qgpzafzkdt43.8 BSA Calculated1.4 Physical Exam The patient is [...] 20.31 kg/m2 Taina Nataprawira DO Work Phone: [facility] 08-12-2024 10:55-0500 Body weight 47.17 kg Taina Nataprawira DO Work Phone: [facility] 08-12-2024 10:55-0500 Diastolic blood pressure 64 mm[Hg] Taina Nataprawira DO Work Phone: [facility] 08-12-2024 10:55-0500 Systolic blood pressure 110 mm[Hg] Taina Nataprawira DO Work Phone: [facility] 04-13-2022 14:16-0400 Diastolic blood pressure 47 mm[Hg] Russell Mendis DO Work Phone: [facility] 04-13-2022 14:16-0400 Systolic blood pressure 111 mm[Hg] Russell Mendis DO Work Phone: [facility] 04-13-2022 14:11-0400 Body height 152.4 cm Russell Mendis DO Work Phone: [facility] 04-13-2022 14:11-0400 Body weight 45.5 kg Russell Mendis DO Work Phone: [facility] 04-13-2022 14:11-0400 Heart rate 65 /min Russell Mendis DO Work Phone: [facility] 04-13-2022 14:11-0400 Respiratory rate 16 /min Russell Sextonis DO Work Phone: [facility] 04-13-2022 14:11-0400 SaO2% (BldA) [Mass fraction] 99 % Russell Magallanes DO Work Phone: [facility] Encounters Encounter Date Encounter Type Care Provider Facility Start: 11-09-2024 ambulatory Florencia Tomas Facility: [facility] Start: 10-06-2024 End: 10-06-2024 ambulatory TAINA CHAKRABORTY [...] Start: 11-09-2022 End: 11-09-2022 ambulatory LILLIE BARONE Facility:[facility] Start: 11-09-2022 End: 11-09-2022 Patient encounter procedure [...] medical examination without abnormal findings JAMES PERERA [facility] Start: 07-10-2022 End: 07-11-[address] FLORENCIA TOMAS . Facility:[facility] Start: 07-10-2022 End: 07-11-2022 Encounter for general adult medical examination without abnormal findings DR FLORENCIA TOMAS . Facility:[facility] Start: 05-29-2022 End: 05-29-[address] FLORENCIA TOMAS . Facility:[facility] Start: 04-13-2022 End: 04-13-2022 Subsequent hospital visit by physician Xr [facility] Work Phone: Radiology Comment [...] Screening for malign ant neoplasm of colon [facility] Start: 08-16-2025 End: 08-16-2025 Patient encounter procedure 08/16/2025 10:15 AM EST Office Visit [facility] [address] [address] Taina Chakraborty, DO [address] [address] [facility] Start: 09-06-2024 End: 10-08-2025 DBT Breast - bilateral screening Bilateral screening mammogram with tomosynthesis Imaging Routine Other screening mammogram Expected: 09/06/2024, Expires: 10/08/2025 [facility] Work Phone: Comment on above: Expected: 09/06/2024 , Expires: 10/08/2025 Start: 09-05-2024 Screening for malign ant neoplasm of breast Mammogram [facility] Start: 03-29-2024 Influenza vaccination Influenza Vacc ine (#1) [facility] Start: 2023 Pneumococcal Vaccine : 65+ Years (1 of 1 - PCV) Pneumococcal Vaccine: 65+ Years (1 of 1 - PCV) [facility] Start: 03-29-2023 Influenza vaccination INFLUENZA (Sea son Ended) [facility] Start: 07-29-2022 [facility] Start: 03-29-2022 Influenza vaccination INFLUENZA (#1) [facility] Start: 07-29-2021 DEPRESSION ASSESSMENT [facility] Start: 03-02-2021 COVID-19 VACCINE (3 - Booster for Pfizer series) COVID-19 VACCINE (3 - Booster for Pfizer series) [facility] Start: 11-25-2020 COVID-19 VACCINE (3 - Booster for Pfizer series) COVID-19 VACCINE (3 - Booster for Pfizer series) [facility] Start: 2008 SHINGRIX VACCINE (1 of 2) SHINGRIX VACCINE (1 of 2) [facility] Start: 2003 COLOGUARD (FIT-DNA) COLOGUARD (FIT-D NA) [facility] Start: 2003 Colonoscopy COLONOSCOPY [facility] Start: 2003 COLORECTAL CANCER SCREENING COLORECTAL CANCER SCREENING [facility] Start: [address] COLONOGRAPHY [facility] Start: 2003 DIABETES SCREEN DIABETES SCREEN [facility] Start: 2003 FECAL OCCULT BLOOD FECAL OCCULT BLOO D [facility] Start: 2003 LIPID SCREEN LIPID SCREEN [facility] Start: 2003 SIGMOIDOSCOPY SIGMOIDOSCOPY [facility] Start: 1998 Mammography MAMMOGRAM [facility] Start: 1988 HPV TESTING HPV TESTING [facility] Start: 1988 Screening for malign ant neoplasm of cervix [facility] Start: 1979 PAP TESTING PAP TESTING [facility] Start: 1979 Screening for malign ant neoplasm of cervix Pap Smear [facility] Start: 1977 Urine microalbumin profile DTAP,TDAP,TD (1 - Tdap) [facility] Start: 1976 HEPATITIS C SCREENING HEPATITIS C SC TANYA [facility] Start: 1976 HIV SCREENING HIV SCREENING [facility] Start: 1970 Adult depression screening assessment DEPRESSION SCREENING [facility] Start: 1958 Screening for malign ant neoplasm of colon [facility] Calcium [Mass/volume ] in Serum or Plasma Calcium Lab Routine Postmenopausal Ordered: 08/12/2024 [facility] Comment on above: Ordered: 08/12/2024 DXA Skeletal system Views for bone density DEXA bone density Imaging Routine Postmenopausal Ordered: 08/12/2024 [facility] Comment on above: Ordered: 08/12/2024 End: 05-13-2023 Mri spinal canal lumbar w/o contrast material MRI LUMBAR SPINE WO IVCON Radiology Routine Radiculopathy of lumbar region Left thigh pain Lateral pain of left hip 1 Occurrences starting 04/13/2022 until 05/13/2023 [facility] Work Phone: Comment on above: 1 Occurrences starti ng 04/13/2022 until 05/13/2023 End: 04-13-2022 Radex spine lumbosacral 2/3 views [facility] Work Phone: Comment on above: 1 Occurrences starti ng 04/13/2022 until 04/13/2022 Immunizations Immunization Date Immunization Notes Care Provider Martine campos 05-03-2018 influenza virus vaccine, unspecified formulation Taina Chakraborty DO Work Phone: [facility] Healthcare Payers Date Payer Category Payer Self-pay 2023 Medicare MEDICARE [id number] 2023 Medicare [id number] 2023 Private Health Insurance [facility] [id number] 2023 Unknown [id number] 2022 Unknown [id number] 2021 Unknown [id number] 1959 Unknown [id number] 1958 Unknown [id number]. 356 1958 Unknown [id number] [id number]. 593 1958 Unknown [id number] [id number]. 593 1958 Unknown [id number] [id number]. 593 1958 Unknown [id number] [id number]. 593 1958 Unknown [id number] [id number]. 593 1958 Unknown [id number] [id number]. 1259 1958 Unknown [id number] [id number]. 1259 1958 Unknown [id number] 2..[id number]. 1259 Unknown [id number] Unknown [id number] 531 Social History Date Type Detail Facility Start: 04-13-2022 End: 07-03-2023 Tobacco smoking status NHIS Never smoked tobacco [facility] Start: 04-13-2022 End: 07-03-2023 Tobacco use and exposure Smokeless tobacco non-user [facility] Start: 1960 Sex Assigned At Not on file [facility] Start: 04-03-2022 End: 04-13-2022 Exposure to SARS-CoV-2 (event) Not sure [facility] Start: 08-12-2024 Alcoholic beverage intake Ex-drinker (finding) [facility] Start: 08-12-2024 History of Social function [facility] Start: 08-12-2024 Tobacco use panel [facility] NEGATED: Highlighted rowStart: NINF History of tobacco use Passive smoker [facility] Clinical Notes 12-04-2021 to 08-12-2024 Taina [...] VERY IMPORTANT TO YOUR HEALTH. THE CURRENT [employer]IVE CANCER [...] 08/12/2024 11:23 AM documented in this encounter [facility] 11-09-2022 Note HNO ID: [id number] Author: Lillie Barone MD Service: ? Author Type: Physician Type: Progress Notes Filed: 11/09/2022 8:49 AM Note Text: DERMATOLOGY / NEW PATIENT CONSULT Consultation requested by patient for an opinion regarding skin. HPI: The patient is a 62 year old female presenting with a 3 lesions of concern Left lateral lower leg - raised conley lesion Mid upper back - brown raised lesion [place] raised lesion- right cheek DERM HISTORY: No [...] Past Histories independently gathered by the clinical intelligence support officer and the remaining scribed note accurately describes my personal service to the patient. Lillie Barone MD Medical Decision Making: Problems: Low: 2+ self-limited or minor problems Risk: Low: Low risk from testing/treatment Medical Decision Making Level: 3 - Low [facility] 11-09-2022 History of Present illness Narrative DERMATOLOGY / NEW PATIENT CONSULT Consultation requested by patient for an opinion regarding skin. HPI: The patient is a 62 year old female presenting with a 3 lesions of concern Left lateral lower leg - raised conley lesion Mid upper back - brown raised lesion [place] raised lesion- right cheek DERM HISTORY: No [...] Past Histories independently gathered by the clinical intelligence support officer and the remaining scribed note accurately describes my personal service to the patient. Lillie Barone MD Medical Decision Making: Problems: Low: 2+ self-limited or minor problems Risk: Low: Low risk from testing/treatment Medical Decision Making Level: 3 - Low documented in this encounter [facility] 08-21-2022 Note PROCEDURE: XR HIP RT 2 3V W PELVIS COMPARISON: None. HISTORY: Muscle and tendon injury FINDINGS: BONES:No fracture, acute abnormality, or significant arthropathy. SOFT TISSUES:Negative. No visible soft tissue swelling. EFFUSION:None visible. OTHER: Negative. IMPRESSION: No acute abnormality Electronically authenticated by: MICKI LUCERO Date: 2022-08-21 07:52 [facility] 04-13-2022 Note HNO ID: [id number] Author: Mady Woodruff RT(R) Service: ? Author [...] Awad, RT April 13, 2022 3:41 PM [facility] 04-13-2022 Note HNO ID: [id number] Author: Russell Magallanes, DO Service: ? Author Type: Physician Type: Progress Notes Filed: 05/06/2022 1:40 PM Note Text: [facility] [employer] [facility] [place] [facility] Spine Initial [...] her back. -Ortho surgeon Dr. Agosto in [place] prior to pandemic. Told her it was not her back, but it was her sciatic nerve. 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 [facility] 04-13-2022 History of Present illness Narrative [...] 2022 3:41 PM documented in this encounter [facility] 04-13-2022 History of Present illness Narrative Images from the original note were not included. [facility] [employer] [facility] [place] [facility] - Medical Spine Initial [...] her back. -Ortho surgeon Dr. Agosto in [place] prior to pandemic. Told her it was not her back, but it was her sciatic nerve. 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 No significant arthropathy or acute abnormality. Soft tissues: Negative. No visible soft tissue swelling, mass, fluid collection, edema or hematoma. Effusion: None visible. Other: Skin surface markers overlie the posterior thigh and localized area of pain. Impression: No abnormal or suspicious findings to account for patient's symptoms. 06/28/2021 ultrasound venous Doppler LLE ([place], [place]): No left femoral-popliteal venous thrombosis. 06/23/2021 XR left femur ([place], [place]): Bones: No fracture, acute abnormality, or [...] which included preparing to see the patient, [id number] patient care, completing clinical documentation, obtaining and/or reviewing separately obtained history, performing a medically appropriate examination, counseling and educating the patient/family/caregiver, ordering medications, tests, or procedures, independently interpreting results (not separately reported), and communicating results to the patient/family/caregiver. SIGNATURE: Russell Magallanes DO PATIENT NAME: Karina Fleming DATE: April 13, 2022 TIME: 2:25 PM documented in this encounter [facility] 12-04-2021 Note HISTORY: Bone densit y [...] signed by Deep Haney on 12/04/2021 1305 [facility] Travel Registered Nurse Nicu Evaluation note Diagnosis Left thigh pain Pain in limb Lateral pain of left hip Pain in joint, pelvic region and thigh Radiculopathy of lumbar region Thoracic or lumbosacral neuritis or radiculitis, unspecified [facility] Diagnosis Radiculopathy of lumbar region- Primary Thoracic or lumbosacral neuritis or radiculitis, unspecified Left thigh pain Pain in limb Lateral pain of left hip Pain in joint, pelvic region and thigh Strain of flexor muscle of left hip, sequela Strain of left piriformis muscle, sequela [facility] Diagnosis Diffuse photodamage of skin- Primary Other chronic dermatitis due to solar radiation Dermatofibroma Benign neoplasm of skin, site unspecified Hemangioma, unspecified site Seborrheic keratosis Other seborrheic keratosis Multiple benign nevi Benign neoplasm of skin, site unspecified documented [facility]* Diagnosis Vaginal stenosis- Primary Osteoporosis, post-menopausal (CMS/HCC) Senile osteoporosis Age-related osteoporosis without current pathological fracture (CMS/HCC) Postmenopausal Asymptomatic postmenopausal status (age-related) (natural) Hx of hysterectomy for benign disease Low back pain, unspecified back pain laterality, unspecified chronicity, unspecified whether sciatica present Other screening mammogram documented in this encounter [facility] for referral (narrative)* Diagnostic Procedure Only (Routine) - Closed Specialty Diagnoses / Procedures Referred By Devon stern Referred To Contact XR IMAGING Diagnoses Radiculopathy of lumbar region Procedures XR LUMBAR LIMITED 2V AP/LAT RADEX SPINE LUMBOSACRAL 2/3 VIEWS Russell Magallanes DO [address] [place] [address] Xr Imaging Referral ID Status Reason Start Date Expiration Date V isits Requested Visits Authorized [id number] Closed Auto-Generate d Referral 04/13/2022 05/13/2023 1 1 * Diagnostic Procedure Only (Routine) - Closed Specialty Diagnoses / Procedures Referred By Devon stern Referred To Contact XR IMAGING Diagnoses Left thigh pain Lateral pain of left hip Procedures XR HIP GENERAL 3V PELV/AP/LAT LEFT RADEX HIP UNILATERAL WITH PELVIS 2-3 VIEWS Russell Magallanes DO [address] [place] [address] Xr Imaging Referral ID Status Reason Start Date Expiration Date V isits Requested Visits Authorized [id number] Closed Auto-Generate d Referral 04/13/2022 05/13/2023 1 1 [facility] for referral (narrative)* Diagnostic Procedure Only (Routine) - Closed Specialty Diagnoses / Procedures Referred By Contac t Referred To Contact XR IMAGING Diagnoses Radiculopathy of lumbar region Procedures XR LUMBAR LIMITED 2V AP/LAT RADEX SPINE LUMBOSACRAL 2/3 VIEWS Russell Magallanes DO [address] [place] [address] Xr Imaging Referral ID Status Reason Start Date Expiration Date V isits Requested Visits Authorized [id number] Closed Auto-Generate d Referral 04/13/2022 05/13/2023 1 1 * Diagnostic Procedure Only (Routine) - Closed Specialty Diagnoses / Procedures Referred By Contac t Referred To Contact XR IMAGING Diagnoses Left thigh pain Lateral pain of left hip Procedures XR HIP GENERAL 3V PELV/AP/LAT LEFT RADEX HIP UNILATERAL WITH PELVIS 2-3 VIEWS Russell Magallanes DO [address] [place] [address] Xr Imaging Referral ID Status Reason Start Date Expiration Date V isits Requested Visits Authorized [id number] Closed Auto-Generate d Referral 04/13/2022 05/13/2023 1 1 * MRI/CT (Routine) - Pending Review Specialty Diagnoses / Procedures Referred By Contac t Referred To Contact MR IMAGING Diagnoses Radiculopathy of lumbar region Left thigh pain Lateral pain of left hip Procedures MRI LUMBAR SPINE WO IVCON MRI SPINAL CANAL LUMBAR W/O CONTRAST MATERIAL Russell Magallanes DO [address] [place] [address] Mr Imaging Referral ID Status Reason Start Date Expiration Date Visits Requested Visits Authorized [id number] Pending Review Auto-Generat ed Referral 04/13/2022 05/13/2023 1 1 [facility] for visit Narrative* Diagnostic Procedure Only (Routine) - Closed Specialty Diagnoses / Procedures Referred By Contac t Referred To Contact XR IMAGING Diagnoses Radiculopathy of lumbar region Procedures XR LUMBAR LIMITED 2V AP/LAT RADEX SPINE LUMBOSACRAL 2/3 VIEWS Russell Magallanes, [address] [place] [address] Xr Imaging Referral ID Status Reason Start Date Expiration Date V isits Requested Visits Authorized [id number] Closed Auto-Generate d Referral 04/13/2022 05/13/2023 1 1 [facility] Summary Purpose Family History No Family [...] Out: Pre-Procedure Verification and Time Out: [facility] - Pre-procedure Verificationcompleted TIME OUT - Final Verificationcompleted DEBRIEFcompleted General Information: Date/Time of Procedure: 12-Nov-2018 14:59 Post-Procedure Diagnosis: thyroid nodule Procedure Name: thyroid FNA Findings: thyroid nodule Procedure performed by: me Glove Cutter(s): none Estimated Blood Loss (mL): none Specimen: [...] DATE CREATED AUTHOR AUTHOR'S ORGANIZ ATION 11/15/2018 [facility] DATE CREATED AUTHOR AUTHOR'S ORGANIZ ATION 02/16/2019 [facility] DATE CREATED AUTHOR AUTHOR'S ORGANIZ ATION 12/05/2021 [facility] dical Specialist DATE CREATED AUTHOR AUTHOR'S ORGANIZ ATION 09/28/2022 [facility] DATE CREATED AUTHOR AUTHOR'S ORGANIZ ATION 11/12/2022 [facility] DATE CREATED AUTHOR AUTHOR'S ORGANIZ ATION 10/12/2024 [facility] dical Specialists EPIC DATE CREATED AUTHOR [...] or prosecute any alcohol or drug abuse patient.[facility] the event this information is protected by the Federal Confidentiality of Alcohol and Drug Abuse Patient Records regulations: The Federal rules restrict any use of the information to criminally investigate or prosecute any alcohol or drug abuse patient.[facility] the event this information is protected by the Federal Confidentiality of Alcohol and Drug Abuse Patient Records regulations: The Federal rules restrict any use of the information to criminally investigate or prosecute any alcohol or drug abuse patient.[facility] Reason for Visit (unrecogniz ed section and content) Reason Comments Radiology XR Reason Comments Leg Pain Nerve pain in left l eg since 2014. Begins middle of thigh downward and sometimes from inner thigh downward. Has xray and MRI [facility] leg [facility] from [facility]. Inaddition to left hip as [...] Care Teams (unrecognized sec tion and content) Sidehand Relationship Specialty Start Date End Date Florencia Tomas MD [address] [place] [address] PCP - General Family Medicine 07/03/23 FOR [...] BE BASED ON THE PRIMARY CLINICAL RECORDS. [email or web address] provides no warranty or guarantee of the accuracy or completeness of information in this document.
[2025-04-20 10:26] LABS: Hematocrit 42.0 % (36.0-48.0); Hemoglobin 13.9 g/dL (12.0-16.0); Immature Granulocytes Abs Auto 0.01 10^3/uL (0.00-0.03); Immature Granulocytes Pct Auto 0.2 % (0.0-0.5); Lymphocytes Absolute Auto 2.0 10^3/uL (1.2-3.8); Mean Corpuscular HGB Conc 33.1 g/dL (29.9-35.2); Mean Corpuscular Hemoglobin 29.6 pg (26.7-34.0); Mean Corpuscular Volume 89.6 fL (81.0-99.0); Platelet Count 252 10^3/uL (150-450); Red Blood Count 4.69 10^6/uL (4.20-5.40); White Blood Count 5.9 10^3/uL (4.0-11.0)
[2025-04-20 11:04] LABS: Alanine Aminotransferase 25 U/L (14-59); Albumin Globulin Ratio 1.1; Albumin Level 3.7 g/dL (3.4-5.0); Alkaline Phosphatase 50 U/L (46-116); Anion Gap 9.9; Aspartate Amino Transferase 23 U/L (15-37); Blood Urea Nitrogen 19.0 mg/dL (7.0-18.0); Calcium 8.6 mg/dL (8.5-10.1); Carbon Dioxide 29.1 mmol/L (21.0-32.0); Chloride 107 mmol/L (98-107); Cholesterol 207 mg/dL (<=200); Estimated GFR (African America >60 (>=60 mL/min/1.73m^2); Estimated GFR (Non-African Ame >60 (>=60 mL/min/1.73m^2); Free T3 2.95 pg/mL (2.18-3.98); Globulin 3.3 g/dL; Glucose 86 mg/dL (74-106); HDL Cholesterol 60 mg/dL (40-60); Potassium 4.0 mmol/L (3.5-5.1); Sodium 142 mmol/L (136-145); Thyroid Stimulating Hormone 1.068 uIU/mL (0.358-3.740); Total Protein 7.0 g/dL (6.4-8.2); Triglycerides 126 mg/dL (<=150); VLDL CHOLESTEROL 25.2 mg/dL
[2025-04-20 11:33] LABS: Iron 134.0 ug/dL (50.0-170.0)
[2025-04-21 17:08] LABS: Deamidated Gliadin Abs, IgA 19 units (0-19); Deamidated Gliadin Abs, IgG 8 units (0-19); Immunoglobulin A, Qn, Serum 164 mg/dL (87-352)
== END 2025-04-20 09:13 | disposition home or self-care (01) ==
LOC: LAB 09:14
PROVIDERS: PCP Family Medicine; Visit Provider Family Medicine
DX: I34.1 Nonrheumatic mitral (valve) prolapse (principal); M85.80 Other specified disorders of bone density and structure, unspecified site; E01.0 Iodine-deficiency related diffuse (endemic) goiter; K58.9 Irritable bowel syndrome, unspecified; E78.5 Hyperlipidemia, unspecified; R73.09 Other abnormal glucose; D64.9 Anemia, unspecified; E55.9 Vitamin D deficiency, unspecified; I10 Essential (primary) hypertension; R53.83 Other fatigue
CPT/HCPCS: 36415; 80053; 80061; 82306; 82784; 83036; 83540; 84436; 84443; 84481; 85025; 86231; 86258; 86364

== ENCOUNTER 2025-07-15 15:39 | Outpatient (OUT) | payer MEDICARE, OTHER, SELFPAY ==
--- OUTSIDE RECORDS SUMMARY | 2025-07-09 09:45 | XMS_ITS ---
Author Organization [facility] in [place] Address [address] [place] [address] Care Team Providers Care Casino Operations Supervisor Name Role Phone GenovevaSagar Primary Care Provider Allergies Allergen (clinical drug ingredient) Drug/Non Drug Allergy documented on EMR Reaction Allergy Type Onset Date Status Substance with sulfonamide s tructure and antibacterial mechanism of action (substance) Sulfa Antibiotics rash Drug Allergy ActiveSuturesbody rejects themAllergyActive REASON FOR VISIT needs MRI low back- Alexis PT sending notes over as well Medications Medication SIG (Take, Route, Frequency, Duration) Notes Start Date End Date Status Gabapentin 25 MG 1 Orally twice a day; Duration: 30 days 5ActiveProlia 60 MG/ML1 mL Subcutaneous twice yearlyActive Social History Tobacco Use: Social History Observation Description Date Details (start date - stop date) Never Smoker NA - NA Tobacco Use/Smoking Question Answer Notes Patient is a nonsmoker Problems Problem Type SNOMED Code ICD Code Onset Dates Problem Status W/U Status Risk Notes Problem Lumbar radiculopathy (922282813) Lumbar r adiculopathy, acute (M54.16) Activeconfirmed Vital Signs Weight 103.2 lbs 07/09/2025 Height 60 in 07/09/2025 Blood pressure systolic 104 mm Hg 07/09/20 25 Blood pressure diastolic 62 mm Hg 025 BMI 20.15 kg/m2 07/09/2025 Encounters Encounter Location Date Provider Diagnosis [facility] [address] [place] [address] 07/09/2025 Sagar Tomas Left hip pain M25.55 2 and Lumbar radiculopathy, acute M54.16 Assessments Encounter Date Diagnosis (ICD Code) Assessment Notes Treatment Notes Treatment Clinical Notes Section Notes 07/09/2025 Left hip pain (ICD-10 - M25.552) 07/09/2025Lumbar radiculopathy, acute (ICD-10 - M54.16)07/09/2025Other Recommended to rest and use a heating pad on the area. Take NSAIDs for pain as needed Plan Of Treatment Medication Medication Name Sig Start Date Stop Date Notes Gabapentin 25 MG 1 Orally twice a day; Duration: 30 da ys 07/09/2025 Treatment Notes Assessment Notes Other Recommended to rest and use a heating pad on the area. Take NSAIDs for pain as needed Pending Test Test Name Order Date MRI Lower Extremity w/o contrast 025 MRI HIP LT WO CON 07/09/2025 MRI LSPINE WO CON 07/09/2025 Progress Notes * HANKErasmoKarina SDOB: [birth year] (64 yo F)Acc No.[id number]:07/09/2025 Progress Note Patient: Karina TARIQ :?Maneul Tomas ([facility]), MDDOB:1960???Age: 64 Y???Sex:FemaleDate:07/09/2025Phone:[phone]:[address], [place], [place]Mjxig In:02:46 PM ESTCheck Out:03:27 PM EST Subjective: * Chief Complaints: * n eeds MRI low back- Alexis PT sending notes over as well * HPI: ???General:? No pain back - starte mid thigh and past the knee -? left hip can be affected tehn is past the knee. ???Back Pain:? The patient complains of -. The symptoms have been present for1-2 days. The patient believes symptoms are injury related No. The symptoms are mild. Symptomatic treatment has included heating pad, stretching. Associated symptoms include None. * ROS: ???General/Constitutional:?Lightheadedness?denies.?Change in appetite?denies.?Weight Change?denies.?Cardiovascular:?Irregular heartbeat?denies.?Swelling in hands/feet denies.?Respiratory:?Shortness of breath?denies.?Shortness of breath with e xertion?denies.?Wheezing?denies.?Musculoskeletal:?Comments?See HPI for details.?Neurologic:?Dizziness?denies.?Fainting?denies.?Headache denies.? * Active Problem List I34.1 Mitral valve prolaps e Modified On:05/31/2023 Status:wdqlbjnwpO63.80Osteopenia Modified On:05/31/2023 Status:ofwqxbhhrO34.19Fibrocystic breast changes Modified On:05/31/2023 Status:qqjxmgpguQ34.0Kidney stones Modified On:05/31/2023 Status:qnykbypsmK76.9Allergic rhinitis Modified On:05/31/2023U Status:bkiwqmzxuZ51.552Left hip pain Modified On:05/31/2023U Status:nqziijrkjA36.2Leg cramps Modified On:05/31/2023 Status:jzbndskwlL91.652Left thigh pain Modified On:05/31/2023U Status:sxopuwtbnI63.2Mass of chest wall Modified On:05/31/2023U Status:cpcmwameeE06.9IBS (irritable colon syndrome) Modified On:05/31/2023U Status:bnykpntzsU99.0Enlarged thyroid Modified On:05/31/2023U Status:pwpgytgbbI28.9Conjunctiva disorder Modified On:05/31/2023U Status:ognbwclbhQ30.9Eyelid abnormality Modified On:05/31/2023U Status:gimpxulhdS97.0Celiac disease Modified On:04/22/2025U Status:gxdflnkyqT42.16Lumbar radiculopathy, acute Modified On:07/09/2025W/U Status:confirmed * Medical History: * Surgical History: T onsillectomy 08/06/2006Breast Biopsy, rt TAH and BSO C- section x2 * Hospitalization/Major Diagno stic Procedure: D enies Past Hospitalization * Family History: F ather: alive. M other: alive, dementia, parkinsons, macular deg, diagnosed with Heart Disease. B rother(s): alive, Menieres syndrome. S on(s): alive. 1 brother(s) - healthy. 2 son(s) - healthy. . * Social History: ???Tobacco Use:?Tobacco Use/Smoking?Patient is a?nonsmoker * Medications: T akingProlia(Denosumab) 60 MG/ML Solution Prefilled Syringe 1 mL Subcutaneous twice yearly Taking Prolia(Denosumab) 60 MG/ML Solution Prefilled Syringe 1 mL Subcutaneous twice yearly DiscontinuedCefdinir 300 MG Capsule 2 capsule Orally once a day predniSONE 20 MG Tablet 2 tablets Orally Once a day Medication List reviewed and reconciled with the patientDiscontinued Cefdinir 300 MG Capsule 2 capsule Orally once a day Discontinued predniSONE 20 MG Tablet 2 tablets Orally Once a day Medication List reviewed and reconciled with the patient * Allergies: S ulfa Antibiotics: rashSutures: body rejects themno[Allergies Verified] Objective: * Vitals: W t:103.2lbs, Ht: 60 in, BP:104/62mm Hg, BMI:20.15Index, Ht-cm: 152.4 cm, Wt-k.81 kg. * Examination: ???General Examination: ?GENERAL APPEARANCE:?in no acute distress, well developed, well nourished.?LUNGS:? clear to auscultation bilaterally.?CARDIO:? S1, S2 normal, no murmurs, rubs, gallops.?MUSCULOSKELETAL:?Poor rom due to back paintw ing + OP and + SLR on the left? consistent with Lumbar radiculopathy.?EXTREMITIES:? no clubbing, cyanosis, or edema.?NEUROLOGIC:? alert, oriented to time, place, & person. ??? Assessment: * Assessment: 1.?Left hip pain - M25.552 (Primary)???2.?Lumbar radiculopathy, acute - M54 .16??? Plan: * Treatment: Start Gabapentin Tablet, 25 MG, 1, Orally, twice a day, 30 days, 60, Refills 3.?Imaging: MRI Lower Extremity w/o contrast ?Imaging: MRI HIP LT WO CON ?Imaging: MRI LSPINE WO CON2.?Lumbar radiculopathy, acute?Imaging: MRI Lower Extremity w/o contrast ?Imaging: MRI HIP LT WO CON ?Imaging: MRI LSPINE WO CON3.?Others? Notes: Recommended to rest and use a heating pad on the area. Take NSAIDs for pain as needed? * Procedure Codes: * * Sign off status: CompletedVisit Status:?CHK (Check Out) true * Provider: Shana Tomas ([facility])MD Date: 1 09/09/2024 Generated for Printing/Faxing/eTransmitting on:?07/15/2025 03:44 PM EST History and Physical Notes * HPI (History of Present Illness) CategorySub-CategoryDetailNotesCategory NotesGeneral No pain back - starte mid thigh and past the knee - left hip can be affected tehn is past the knee Examination CategorySub-CategoryDetailNotesCategory NotesGeneral ExaminationGENERAL APPEARANCE:in no acute distress, well developed, well nourishedCARDIO:S1, S2 normal, no murmurs, rubs, gallopsLUNGS:clear to auscultation bilaterally NEUROLOGIC:alert, oriented to time, place, & personEXTREMITIES:no clubbing, cyanosis, or edemaMUSCULOSKELETAL:Poor rom due to back paintw ing + OP and + SLR on the left consistent with Lumbar radiculopathy
--- OUTSIDE RECORDS SUMMARY | 2025-07-15 15:45 | XMS_ITS | Patient Health Record ---
Author Organization [facility] in [place] Address [address] [place] [address] Care Team Providers Care Boxing Promoter Name Role Phone Sagar Tomas Primary Care Provider [phone] Allergies Allergen (clinical drug ingredient) Drug/Non Drug Allergy documented on EMR Reaction Allergy Type Onset Date Status Substance with sulfonamide s tructure and antibacterial mechanism of action (substance) Sulfa Antibiotics rash Drug Allergy ActiveSuturesbody rejects themAllergyActive Results Component Value Reference Range Notes CALCIUM Reviewed date:09/30/2024 09:14:07 PM Interpretation: Performing Lab: Notes/Report: [facility] , Calcium 8.7 8.5-10.1 mg/dL Performing Lab:see note - [facility] LBCALCIUM Reviewed date:04/14/2025 12:29:39 PM Interpretation: Performing Lab: Notes/Report: [facility] ,Calcium8.28.5-10.1 mg/dLPerforming Lab:see karlosML - [facility] LBCBC AUTO DIFF Reviewed date:04/20/2025 12:48:04 PM Interpretation: Performing Lab: Notes/Report: [facility] ,White Blood Count5.94.0-11.0 10 3/uLRed Blood Count4.694.20-5.40 10 6/uL Naxkgscwhj23.912.0-16.0 g/iAYbsaprhygo51.036.0-48.0 %Mean Corpuscular Gjmsqy16.6 81.0-99.0 fLMean Corpuscular Xqozsignen04.626.7-34.0 pgMean Corpuscular HGB Conc 33.129.9-35.2 g/dLRed Cell Distribution Width12.311.0-15.0 %Platelet Grhbj568 150-450 10 3/uLMean Platelet Volume9.89.5-13.5 fLNeutrophils Percent Auto56.9 43.0-75.0 %Lymphocytes Percent Auto34.620.5-60.0 %Monocytes Percent Auto6.31.7- 12.0 %Eosinophils Percent Auto1.00.9-7.0 %Basophils Percent Auto1.00.2-2.0 % Immature Granulocytes Pct Auto0.20.0-0.5 %Neutrophils Absolute Auto3.31.4-6.5 10 3/uLLymphocytes Absolute Auto2.01.2-3.8 10 3/uLMonocytes Absolute Auto0.40.3-0.8 10 3/uLEosinophils Absolute Auto0.10.0-0.7 10 3/uLBasophils Absolute Auto0.10.0- 0.1 10 3/uLImmature Granulocytes Abs Auto0.010.00-0.03 10 3/uLPerforming Lab:see noteML - [facility] LBFREE T3 Reviewed date:04/20/2025 12:48:04 PM Interpretation: Performing Lab: Notes/Report: [facility] ,Free T32.952.18-3.98 pg/mLPerforming Lab:see note - [facility] LB GLYCOHEMOGLOBIN A1C Reviewed date:04/20/2025 03:02:52 PM Interpretation: Performing Lab: Notes/Report: [facility] ,Glycohemoglobin A1C5.24.5-6.2 % > 7.0 ADA RECOMMENDED LIMIT 4.0 - 6.0 ACTION SUGGESTED ADA THERAPEUTIC TARGET < 7.0 Estimated Average Csnybmv445Mboyxlvxcf Lab:see noteML - [facility] LB IRON Reviewed date:04/20/2025 12:48:04 PM Interpretation: Performing Lab: Notes/Report: [facility] ,Yfne114.050.0-170.0 ug/dLPerforming Lab:see noteML - [facility] LB LIPID PROFILE Reviewed date:04/20/2025 12:48:04 PM Interpretation: Performing Lab: Notes/Report: [facility] ,Sctnllxewrhym333<=150 mg/eBZzjoozkwibk795<=200 mg/dLHDL Tblebjxjjjs3783-00 mg/dL <40 mg/dl - HIGH CARDIOVASCULAR RISK > or =60 mg/dl - LOW CARDIOVASCULAR RISK LDL Cholesterol Fafmugllba599.0 130-159 mg/dl BORDERLINE HIGH <100 mg/dl OPTIMAL 160-189 mg/dl HIGH 100-129 mg/dl NEAR OR ABOVE OPTIMAL >190 mg/dl VERY HIGH VLDL JNIAEOFBRCK95.2Chol HDL Ratio3.5 4.4 - 7.1 AVERAGE RISK 3.3 - 4.4 LOW RISK 7.1 - 11.0 MODERATE RISK >11.0 HIGH RISK Performing Lab:see noteML - [facility] LBPROF 14(COMP METB) Reviewed date:04/20/2025 12:48:04 PM Interpretation: Performing Lab: Notes/Report: [facility] ,Cojdxq917347-932 mmol/LPotassium4.03.5-5.1 mmol/YZqzdraio21858-386 mmol/LCarbon Oblhkda71.121.0-32.0 mmol/LAnion Gap9.4Plnltof3082-805 mg/dLBlood Urea Nitrogen 19.07.0-18.0 mg/dLCreatinine0.810.55-1.02 mg/dLEstimated GFR ( Nila>60 >=60 mL/min/1.73m 2Estimated GFR (Non- Ayleen>60>=60 mL/min/1.73m 2BUN Creatinine Ratio23.8Yqelweo8.68.5-10.1 mg/dLBilirubin Total0.60.2-1.0 mg/dL Aspartate Amino Ukwgnwokbeb2906-94 U/LAlanine Ykuduebvjtexkxti6707-57 U/L Alkaline Gasbhfgviwm8132-401 U/LTotal Protein7.06.4-8.2 g/dLAlbumin Level3.73.4- 5.0 g/dLGlobulin3.3Albumin Globulin Ratio1.1Performing Lab:see noteML - [facility] LBT4 Reviewed date:04/20/2025 12:48:04 PM Interpretation: Performing Lab: Notes/Report: [facility] ,T4 Thyroxine6.604.80-13.90 ug/dLPerforming Lab:see noteML - [facility] LBTSH Reviewed date:04/20/2025 12:48:04 PM Interpretation: Performing Lab: Notes/Report: [facility] ,Thyroid Stimulating Hormone1.0680.358-3.740 uIU/mLPerforming Lab:see note - [facility] LBVITAMIN D 25 [place] Reviewed date:04/20/2025 12:48:04 PM Interpretation: Performing Lab: Notes/Report: [facility] ,Vitamin D29.5 <20 ng/mL Vit D deficient >100 ng/mL Potential Toxicity 20-<30 ng/mL Vit D insufficient 30-100 ng/mL Vit D sufficient Performing Lab:see note - [facility] LBCeliac Disease Comprehensive Reviewed date:04/21/2025 05:42:08 PM Interpretation: Performing Lab: Notes/Report: [facility] ,Deamidated Gliadin Abs, OtR121-86 units Weak Positive 20 - 30 Moderate to Strong Positive >30 Negative 0 - 19 Deamidated Gliadin Abs, ZhH92-70 units Weak Positive 20 - 30 Moderate to Strong Positive >30 Negative 0 - 19 t-Transglutaminase (tTG) IgA<20-3 U/mL ated that endomysial IgA antibodies have over 99% Positive >10 Negative 0 - 3 Tissue Transglutaminase (tTG) has been identified Weak Positive 4 - 10 specificity for gluten sensitive enteropathy. as the endomysial antigen. Studies have demonstr- t-Transglutaminase (tTG) IgG70-5 U/mL Negative 0 - 5 Weak Positive 6 - 9 Positive >9 Endomysial Antibody IgANegativeNegativeImmunoglobulin A, Qn, Stboj43108-658 mg/dL Ore Digger: Aamir Hill PhD, Phone: [phone] [address] [place], [place] [id number] Performed at: - [facility] Performing Lab:see note - [facility] LB Reason For Referral Diagnosis 1 Leg pain, diffuse, l eft (M79.605) Referral Organization [facility] Referring Provider First Name Sagar Referring Provider Last Name Genoveva Referring Provider Speciality [facility] reuben Referred Provider Remington Shah Referred Provider Specialty Orthopedic S urgery Referral Priority Routine Diagnosis 1 Left hip pain (M25.5 52) Referral Organization [facility] Referring Provider First Name Sagar Referring Provider Last Name Genoveva Referring Provider Speciality Family Med icine Referred Provider [facility], Physical Therap y Referred Provider Specialty Physical The rapist Referral Priority Routine Medications Medication SIG (Take, Route, Frequency, Duration) Notes Start Date End Date Status Gabapentin 25 MG 1 Orally twice a day; Duration: 30 days 5ActiveProlia 60 MG/ML1 mL Subcutaneous twice yearlyActiveGabapentin 100 MG 1 tablet Orally bid; Duration: 30 days M54.16 5Active Social History Tobacco Use: Social History Observation Description Date Details (start date - stop date) Never Smoker NA - NA Tobacco Use/Smoking Question Answer Notes Patient is a nonsmoker Alcohol Screen (Audit-C) Question Answer Notes Did you have a drink containing alcohol in the p ast year? No Hncpkq6KtehxwlwacjftbQljxhikaBCYFK-N (Standard) Question Answer Notes Did you have a drink containing alcohol in the p ast year? No Pesnjl7VtfdnwmbxcquryWkjzpftd Problems Problem Type SNOMED Code ICD Code Onset Dates Problem Status W/U Status Risk Notes Problem Celiac disease (530532934) Celiac disease (K90.0) ActiveconfirmedProblemMitral valve prolapse (001815235)Mitral valve prolapse (I34.1)ActiveconfirmedProblemOsteopenia (986657792)Osteopenia (M85.80)Active confirmedProblemFibrocystic breast changes (93954549)Fibrocystic breast changes (N60.19)ActiveconfirmedProblemKidney stone (14581955)Kidney stones (N20.0)Active confirmedProblemAllergic rhinitis (39087926)Allergic rhinitis (J30.9)Active confirmedProblemArthralgia of the pelvic region and thigh (094915096)Left hip pain (M25.552)ActiveconfirmedProblemCramp in lower limb (521818343)Leg cramps (R25.2)ActiveconfirmedProblemPain in limb (12721874)Left thigh pain (M79.652) ActiveconfirmedProblemDisorder of conjunctiva (15385415)Conjunctiva disorder (H11.9)ActiveconfirmedProblemDisorder of eyelid (98817065)Eyelid abnormality (H02.9)ActiveconfirmedProblemMass of chest wall (802167078)Mass of chest wall (R22.2)ActiveconfirmedProblemLumbar radiculopathy (016995508)Lumbar radiculopathy, acute (M54.16)ActiveconfirmedProblemIrritable bowel syndrome (62020716)IBS (irritable colon syndrome) (K58.9)ActiveconfirmedProblemGoiter (7128488)Enlarged thyroid (E01.0)Activeconfirmed Vital Signs Blood pressure diastolic 62 mm Hg 07/09/2025 Dccnex42 in07/09/2025lood pressure eayvzjho178 mm Hg07/09/20259562Bkiwhe588.2 lbs 07/09/2025BMI20.15 kg/m207/09/2025 Encounters Encounter Location Date Provider Diagnosis [facility] [address] [place] [address] 04/19/2025 Sagar Hoy Mitral valve prolaps e I34.1 ; Osteopenia M85.80 ; Enlarged thyroid E01.0 ; IBS (irritable colon syndrome) K58.9 and Leg pain, diffuse, left M79.605 [facility] [address] [place] [address] 06/23/2025 Sagar Hoy Acute non-recurrent sinusitis, unspecified location J01.90 and Nasal congestion R09.81 [facility] [address] [place] [address] 07/09/2025 Sagar Hoy Left hip pain M25.55 2 and Lumbar radiculopathy, acute M54.16 [facility] [address] [place] [address] 04/21/2025 Sagar Hoy [facility] [place] [address] 05/24/2025[facility]ac [facility] K90.0[facility] [place] [address]/30/2025Doug HoyLeft hip pain M25.552[facility] [place] [address]/ Sagar [facility] [place] [address]/06/2025Doug [facility] [place] [address]/06/2025Doug Hoy Assessments Encounter Date Diagnosis (ICD Code) Assessment Notes Treatment Notes Treatment Clinical Notes Section Notes 04/19/2025 Mitral valve prolapse (ICD-10 - I34.1) occ qsandbnpymge89/22/2025Osteopenia (ICD-10 - M85.80)Getting prolia and recommend calcium with tums04/19/2025Enlarged thyroid (ICD-10 - E01.0)07/09/2025 Left hip pain (ICD-10 - M25.552)07/09/2025Lumbar radiculopathy, acute (ICD-10 - M54.16)05/24/2025eliac disease (ICD-10 - K90.0)05/27/2025Left hip pain (ICD-10 - M25.552)5Acute non-recurrent sinusitis, unspecified location (ICD-10 - J01.90)Rest and drink more liquids, especially water. You may use a humidifier or vaporizer to help keep the drainage moist. Kuyr-ydj-zsilmhr Nasal Saline may help the stuffy and runny nose. Use Ibuprofen and or Tylenol as needed for fever, chills, body aches or pain. Children 5 years old should not be given zlvi-afi-tbkqkua cough and cold medications such as guaifenesin and dextromethorphan. If you're over age 5, you may try ltpm-kwi-bkqjrrx cold medications such as guaifenesin and dextromethorphan, or multi-symptom cold reliever such as Dayquil to help reduce the symptoms. Antibiotics have been pre scribed. You should take these until completed and follow the directions. Antibiotics can sometimescause upset stomach, and in rare cases, serious allergic reactions or serious gastrointestinal problems. If you start having severe abdominal pain, severe vomiting, or bloody diarrhea, you should be r eevaluated by your physician or urgent care immediately. Follow up with your Primary Care Provider or return to clinic if symptoms do not improve within 3-5 days06/23/2025Nasal congestion (ICD-10 - R09.81)04/19/2025IBS (irritable colon syndrome) (ICD-10 - K58.9)Does better on a gluten free diet04/19/2025Leg pain, diffuse, left (ICD-10 - M79.605)07/09/2025OtherRecommended to rest and use a heating pad on the area. Take NSAIDs for pain as needed Plan Of Treatment Pending Test Test Name Order Date CMP (COMPLETE METABOLIC PANEL) 3 HEMOGLOBIN A1C (GLYCO) 05/31/2023 HEMOGLOBIN A1C (GLYCO) 04/19/2025 IRON, TOTAL 04/19/2025 IRON, TOTAL 05/31/2023 LIPID PANEL (CHOL/TRIG/HDL/LDL) 05/31/20 23 LIPID PANEL (CHOL/TRIG/HDL/LDL) 04/19/20 25 CBC WITH DIFF (EXP 05/2025) 05/31/2023 VITAMIN D, 25 LEVEL (TOTAL) 05/31/2023 VITAMIN D, 25 LEVEL (TOTAL) 04/19/2025 MRI Lower Extremity w/o contrast 025 CELIAC GENETIC PANEL (HLA-DQ2/DQ8) 05/24 STOOL OCCULT BLOOD 05/31/2023 CELIAC ANTIBODIES PROFILE 04/19/2025 MRI HIP LT WO CON 07/09/2025 MRI LSPINE WO CON 07/09/2025 US KIDNEYS BLADDER 05/31/2023 THYROID PANEL (T4/TSH/FREE T3) 3 THYROID PANEL (T4/TSH/FREE T3) 5 CMP (COMP MET OLIVA) w/eGFR CKD-EPI 2024 CBC WITH DIFF 04/19/2025 Insurance Providers Payer Name Payer Address Payer Phone Subscriber Number Group Number Insured Name Patient Relationship to Insured Coverage Start Date Coverage End Date [place]IC[place] [address] [place] [place] [address] [id number] Lisa Flemingelf - patient is the [place] [address] LOI OF [place]I CHOWDHUR[place] 8 MEDICARE SUPP CLMS DEPT MAYELIN ADAME [id number], JaniceSelf - patient is the insured Medical (General) History Medical History History ICD Code Kidney stones N20.0 Enlarged thyroid E01.0 Mass of chest wall R22.2 Leg cramps R25.2 Osteopenia M85.80 Fibrocystic breast changes N60.19 Allergic rhinitis J30.9 Mitral valve prolapse I34.1 Left hip pain M25.552 Left thigh pain M79.652 IBS (irritable colon syndrome) K58.9 Surgical History Surgery Date(Month/Year) C- section x2 MAMADOU and BSO02/99Breast Biopsy, rt04/53Aoedjjkishxdx90/09/2007
--- OUTSIDE RECORDS SUMMARY | 2025-07-15 15:45 | XMS_ITS | Clinical Summary ---
Author Organization [facility] Address [address] [place] [address] Phone Care Team Providers Care Security Dispatcher Name Role Phone Manuel Tomas MD Primary Care Provider [phone] Social History Tobacco UseTypesPacks/DayYears UsedDateSmoking Tobacco: Never Assessed CommentsUnknownSex and Gender InformationValueDate RecordedSex Assigned at Not on fileLegal ZimGbaxgr59/25/2022 10:02 AM ESTGender IdentityNot on file Sexual OrientationNot on file Last Filed Vital Signs Vital SignReadingTime TakenCommentsBlood Bmenxyhg530/5504 12:46 PM EDT Opgcs6227 12:46 PM ZVIVdobdylhnkf46.4 ??C (99.3 ??F)11/12/2018 12:46 PM EDTRespiratory Ypis7061 12:46 PM EDTOxygen Zdswnmoaqn694%11/12/2018 12:46 PM EDTInhaled Oxygen Concentration--Equsmj58.3 kg (99 lb 13.9 oz) 11/12/2018 12:46 PM NENWluoxt871.4 cm (5')11/12/2018 12:46 PM EDTBody Mass Index 19.504 12:46 PM EDT Plan of Treatment Not on file Care Teams Team MemberRelationshipSpecialtyStart DateEnd Date Manuel Tomas MD [address] [facility] [place] [address] PCP - General07/29/18
--- OUTSIDE RECORDS SUMMARY | 2025-07-15 15:45 | XMS_ITS | Clinical Summary ---
Author Organization [facility] Address [address] [place] [id number] Care Team Providers Care Technical Service Representative Name Role Phone Unavailable Primary Care Provider Unavailabl e Allergies Active AllergyReactionsCriticalityNoted DateCommentsSulfa (Sulfonamide Antibiotics)Esmorsm9004/13/20227728TniljtsSgqgxvb37/16/2022 Medications MedicationSigDispense QuantityRefillsLast FilledStart DateEnd DateStatus diclofenac, EC, (VOLTAREN) 75 mg EC tablet Take 75 mg by mouth twice daily.03/19/2022ctive pregabalin (LYRICA) 25 mg capsule Indications:Radiculopathy of lumbar regionTake one capsule daily at bedtime for 3-5 days, then one in the morning and one at night for 3-5 days. Then increase to one capsule three times daily if tolerating well. 90 capsule ctive Active Problems ProblemNoted DateDiagnosed DateDorsalgia, olbkvtvcvyz30/31/2023Right hip pain 08/28/2022 Social History Tobacco UseTypesPacks/DayYears UsedDateSmoking Tobacco: NeverPassive Smoke Exposure: NeverSmokeless Tobacco: Never Tobacco Cessation:Counseling Given: Not Answered Area Deprivation IndexAnswerDate RecordedNational Score (1-100), lower number is lower vuki238508/26/2022State Score (1-10), lower number is lower riskNot on file 3Data from: https://www.neighborhoodatlas.medicine.[facility].edu/. Last address used for [address] 3CommentsUnknownSex and Gender InformationValueDate RecordedSex Assigned at BirthNot on fileLegal WjsBlgyle13/31/2022 3:57 PM EDTGender IdentityNot on fileSexual OrientationNot on file Last Filed Vital Signs Vital SignReadingTime TakenCommentsBlood Idgjxind052/4709 2:16 PM EDT Cuirf2599 2:11 PM EDTTemperature--Respiratory Vclq100404/13/2022 2:11 PM EDTOxygen Mlsfdpsnre20%04/13/2022 2:11 PM EDTInhaled Oxygen Concentration-- Gqyoiu45.5 kg (100 lb 4.8 oz)04/13/2022 2:11 PM HLBYntmix020.4 cm (5')04/13/2022 2:11 PM EDTBody Mass Index19.59004/13/2022 2:11 PM EDT Plan of Treatment Health MaintenanceDue DateLast DoneCommentsAnxiety Eraxbiwrg65/10/1977Depression Xkeijjbsp48/10/1977Hepatitis C Ftspdbgsy57/10/1977DTaP,Tdap,Td Vaccine (1 - Tdap)1977Mammogram Ljrpqqnbn69/10/1999CT Onasjfhmhcwa03/10/2004Cologuard (FIT-DNA)09/07/20038978Zgapfyftbrn11/10/2004Colorectal Cancer Zbeceycvc47/10/2004 Diabetes Xldceejxj72/10/2004Fecal Occult Blood2003Lipid Screening 09/07/20031589Eftrthsdbtjzb17/10/2004Pneumococcal Vaccine: 50+ (1 of 1 - PCV) 2008Shingrix Vaccine (1 of 2)2008one Density Qfepdcldn79/10/2024 Advance Directive Ojssdrdgay63/01/2025ovid-19 Vaccine ( season) /11/2020, 09/09/2020Influenza Vaccine (#1)/12/2017, 05/09/2017, 05/10/2016, Additional history existsRSV Vaccine (1 - 1-dose 75+ series)2033 Insurance
--- OUTSIDE RECORDS SUMMARY | 2025-07-15 15:45 | XMS_ITS | Clinical Summary ---
Author Organization [facility] Address [address] [place] [address] Care Team Providers Care State Farm Agent Name Role Phone Unavailable Primary Care Provider Unavailabl e Social History Tobacco UseTypesPacks/DayYears UsedDateSmoking Tobacco: Never AssessedUT Safety & EnvironmentAnswerDate RecordedFear of Current or Ex-PartnerNot on file 09/19/2023Emotionally AbusedNot on file09/19/2023hysically AbusedNot on file 09/19/2023Sexually AbusedNot on file09/19/2023hysically or Sexually AbusedNot on file09/19/2023CommentsUnknownSex and Gender InformationValueDate RecordedSex Assigned at BirthNot on fileLegal ZhhIckqrm43/30/2022 12:41 AM EDT Gender IdentityNot on fileSexual OrientationNot on file Plan of Treatment Not on file
--- OUTSIDE RECORDS SUMMARY | 2025-07-15 15:45 | XMS_ITS | Clinical Summary ---
Author Organization [facility] Address [address] [facility] [place] [address] Care Team Providers Care Clinical Transplant Coordinator Name Role Phone Manuel Tomas MD Primary Care Provider [phone] Allergies Active AllergyReactionsCriticalityNoted BsaoNmuetsjvWtivsEogdzqh50/16/2022 Other Reaction(s): body rejects them Sulfa Jjjttonlngv87/06/2023 Other Reaction(s): Unknown Medications MedicationSigDispense QuantityRefillsLast FilledStart DateEnd DateStatus Multiple Vitamins-Minerals (Multivitamin Women) tablet Active CALCIUM PO Take by mouthActive Denosumab (PROLIA SC) Inject under the skinActive Active Problems No known active problems Encounters DateTypeDepartmentCare VxsjAqyerqfbvlq74/08/2025 9:00 AM EDTOffice Visit [facility] [address] [place] [address] Marky Hogan DO Left hip pain (Primary Dx); Primary osteoarthritis of left hip; Lumbar spondylosis; Discogenic syndrome, mulvvo8905/05/2025 8:05 AM EDTAncillary Procedure [facility] [address] [place] [address] 05/05/2025 8:00 AM EDTAncillary Procedure [facility] [address] [facility] [place] [address] 05/05/2025Travelfrom Last 3 Months Family History RelationNameStatusCommentsFatherAliveMotherDeceased Social History Tobacco UseTypesPacks/DayYears UsedDateSmoking Tobacco: NeverSmokeless Tobacco: Never Tobacco Cessation:Counseling Given: Not Answered Alcohol UseStandard Drinks/WeekCommentsNot Currently0 (1 standard drink = 0.6 oz pure alcohol)CommentsNoSex and Gender InformationValueDate RecordedSex Assigned at BirthNot on fileLegal MldXkrzly39/15/2023 7:05 PM EDTGender Identity Not on fileSexual OrientationNot on file Last Filed Vital Signs Vital SignReadingTime TakenCommentsBlood Zfubllqw813/6401 10:55 AM EST Pulse--Temperature--Respiratory Rate--Oxygen Saturation--Inhaled Oxygen Concentration--Vbagol27.7 kg (103 lb)05/05/2025 9:17 AM WTCUqwylp737.9 cm (4' 11 )05/05/2025 9:17 AM EDTBody Mass Index20.81 9:17 AM EDT Plan of Treatment DateTypeDepartmentCare Team (Latest Contact Info)Qzlfkfnknlc53/19/2026 10:15 AM ESTOffice Visit [facility] [address] [place] [address] [address] Taina Chakraborty DO [address] [address] Health MaintenanceDue DateLast DoneCommentsCT Bypiyfywghcz95/10/1959Colonoscopy 1958FIT1958FOBT1958Wlnafuowphcva26/10/1959Pneumococcal Vaccine: 65+ Years (1 of 1 - PCV)2008COVID-19 Vaccine (3 - 2024- season) 503/11/2020, 09/09/2020Influenza Vaccine (#1)/12/2017, 05/09/2017, 05/10/2016, Additional history hrxtxjOmjswzjjv50, 09/05/2023, 12/06/2021, Additional history existsColorectal Cancer Screening 09/18/2026FIT-DNA Procedures Procedure NamePriorityDate/TimeAssociated DiagnosisCommentsXR LUMBAR SPINE 2-3 JVSKPJzqgkod69/08/2025 7:51 AM EDT Left hip pain XR HIP 2 OR 3 VW FHNNMcajsbw95/08/2025 7:51 AM EDT Left hip pain BI MAMMOGRAM SCREENING TOMOSYNTHESIS LJSCLDTYORgptfkn23/11/2025 11:38 AM EDT Other screening mammogram LAB COLOGUARD?? COLON CANCER JNVTPEIuhapnz63/21/2024 8:00 AM EST Screening for colon cancer from Last 3 Months or Most Recently Relevant to Health Maintenance Results * XR lumbar spine 2 or 3 views (05/05/2025 7:51 AM EDT)Anatomical Region LateralityModalitySpine, L-spineRadiographic ImagingSpecimen (Source) Anatomical Location / LateralityCollection Method / VolumeCollection Time Received Time Narrative 05/07/2025 12:00 PM EDT Imaging Result: Examination of the x-ray AP and lateral views of the lumbar spine does show some degenerative change most pronounced at the lower segments. ?? No evidence of fracture. ??Overall alignment is appropriate. ?? Bone quality is appropriate. ?? Authorizing ProviderResult TypeResult StatusDavid A Pocos DOIMG XR PROCEDURES Final Result * XR hip left 2 or 3 views (05/05/2025 7:51 AM EDT)Anatomical RegionLaterality ModalityLower Extremities, HipLeftRadiographic ImagingSpecimen (Source) Anatomical Location / LateralityCollection Method / VolumeCollection Time Received Time Narrative 05/07/2025 12:00 PM EDT Imaging Result: X-rays AP pelvis, left hip total of three views with permanent images are saved to the record shows maybe a little bit of some early arthritic change bilaterally. ?? Authorizing ProviderResult TypeResult StatusDavid A Pocos DOIMG XR PROCEDURES Final Result * Bilateral screening mammogram with tomosynthesis (10/06/2024 11:38 AM EDT) Anatomical RegionLateralityModalityBreastBilateralMammographySpecimen (Source) Anatomical Location / LateralityCollection Method / VolumeCollection Time Received Time10/07/2024 11:22 AM EDT Impressions 10/07/2024 11:27 AM EDT [...] thickening which would be suggestive of malignancy. ?? Mild scattered benign-appearing calcifications on the right [...] benign-appearing calcifications on the right with a singlebenign- appearing calcification noted on the left. There are 2 adjacentsmall benign- appearing asymmetric densities in the superior aspect of theleft breast on MLO view similar to the prior study. IMPRESSION: Impression: No specific evidence of malignancy seen in either breast. BIRADS 2 - Benign Findings DENSITY: The breasts are heterogeneously dense, which may obscure smallmasses. FOLLOW-UP: Routine Screening Mammogram ELECTRONICALLY SIGNED BY: Ba Wilson M.D. Authorizing ProviderResult TypeResult StatusTaina Banerjeeawi DOIMG BI PROCEDURESFinal Result * Cologuard?? colon cancer screening (09/18/2023 8:00 AM EST)ComponentValueRef RangeTest MethodAnalysis TimePerformed AtPathologist SignatureNONINV COLON CA DNA+OCC BLD SCRN STL-VCXLvegkktpBjsjwxrm69/03/2024 12:18 AM [employer] (CLIA #:[id number])Comment: NEGATIVE TEST RESULT. A negative Cologuard result indicates a low likelihood that a colorectal cancer (CRC) or advanced adenoma (adenomatous polyps with more advanced pre-malignant features) ??is present. The chance that a person with a negative Cologuard test has a colorectal cancer is less than 1in 1500 (negative predictive value >99.9%) or has an advanced adenoma is less than 5.3% (negative predictive value 94.7%). These data are based on a prospective cross-sectional study of 10,000individuals at average risk for colorectal cancer who were screened with both Cologuard and colonoscopy. (Mary Sebastian al, N Engl J Med 2014;370(14):7926-0355) The normal value (reference range) for this assay is negative. COLOGUARD RE-SCREENING RECOMMENDATION: Periodic colorectal cancer screening is an important part ofpreventive healthcare for asymptomatic individuals at average risk for colorectal cancer. ??Following a negative Cologuard result, the [place] Cancer Society and U.S. Multi-Society Task Force screening guidelines recommend a Cologuard re-screening interval of 3 years. References: [place] Cancer Society Guideline for Colorectal Cancer Screening: https://www.cancer.or g/cancer/htbyp-rhystg-lsbdbf/cyfenhmpa-iciihtpuk-nkjhslz/acs-recommendations.htm jaky; Fab GENTILE, Ananya FOSS, Bella PachecoK, Colorectal Cancer Screening: Recommendations for Physicians and Patients from the U.S. Multi-Society Task Force on Colorectal Cancer Screening , Am J Gastroenterology 2017; 112:1096-3832. TEST DESCRIPTION: Composite algorithmic analysis of stool DNA-biomarkers with hemoglobin immunoassay. ?? Quantitative values of individual biomarkers are not reportable and are not associated with individual biomarker result reference ranges. Cologuard is intended for colorectal cancer screening ofadults of either sex, 45 years or older, [...] Tobias et al, N Engl J Med 2014;370(14):8037-4938.) Cologuard may produce a false negative or false positive result (no colorectal cancer or precancerous polyp present at colonoscopy follow up). A negative Cologuard test result does not guarantee the absence of CRC or advanced adenoma (pre-cancer). The current Cologuard screening interval is every 3 years. ([place] Cancer Society and U.S. Multi-Society Task Force). Cologuard performance data in a 10,000 patient pivotal study using colonoscopy as the reference method can be accessed at the following location: www.[employer].Expect Labs/results. Additional description of the Cologuard test process, warnings and precautions can be found at www.cologuard.com. Specimen (Source)Anatomical Location / LateralityCollection Method / Volume Collection TimeReceived TimeStool specimen (specimen)09/18/2023 8:00 AM EST 09/19/2023 12:47 PM EST Narrative Authorizing ProviderResult TypeResult StatusMona Junior Nataprsusana [facility] ORDERABLESFinal ResultPerforming OrganizationAddressCity/State/ZIP CodePhone Number .[employer] (CLIA #:[id number]) [address] [place] [address], [employer] (CLIA #:[id number]) [address] [place] [address] from Last 3 Months or Most Recently Relevant to Health Maintenance [place] [address] Care Teams Team MemberRelationshipSpecialtyStart DateEnd Manuel Tomas MD [address] [facility] [place] [phone] PCP - GeneralFamily Qvuqmbof38/8/25
== END 2025-07-15 15:40 | disposition home or self-care (01) ==
LOC: LAB 15:42
PROVIDERS: PCP Family Medicine; Visit Provider Family Medicine
DX: K90.0 Celiac disease (principal)
CPT/HCPCS: 36415

== ENCOUNTER 2025-07-28 07:38 | Outpatient (OUT) | payer MEDICARE, OTHER, SELFPAY ==
--- OUTSIDE RECORDS SUMMARY | 2025-07-28 07:39 | XMS_ITS | Clinical Summary ---
Author Organization [facility] Address [address] [place] [address] Care Team Providers Care Aluminum Sheet Cutter Name Role Phone Unavailable Primary Care Provider Unavailabl e Social History Tobacco UseTypesPacks/DayYears UsedDateSmoking Tobacco: Never AssessedUT Safety & EnvironmentAnswerDate RecordedFear of Current or Ex-PartnerNot on file 09/19/2023Emotionally AbusedNot on file09/19/2023hysically AbusedNot on file 09/19/2023Sexually AbusedNot on file09/19/2023hysically or Sexually AbusedNot on file09/19/2023CommentsUnknownSex and Gender InformationValueDate RecordedSex Assigned at BirthNot on fileLegal NzxThkxdc41/30/2022 12:41 AM EDT Gender IdentityNot on fileSexual OrientationNot on file Plan of Treatment Not on file
--- OUTSIDE RECORDS SUMMARY | 2025-07-28 07:39 | XMS_ITS | Clinical Summary ---
Author Organization [facility] Address [address] [place] [address] Phone Care Team Providers Care Stylist Assistant Name Role Phone Manuel Tomas MD Primary Care Provider [phone] Social History Tobacco UseTypesPacks/DayYears UsedDateSmoking Tobacco: Never Assessed CommentsUnknownSex and Gender InformationValueDate RecordedSex Assigned at Not on fileLegal YoyMdcrxs76/25/2022 10:02 AM ESTGender IdentityNot on file Sexual OrientationNot on file Last Filed Vital Signs Vital SignReadingTime TakenCommentsBlood Txnrtsjr517/5504 12:46 PM EDT Cwnhc4962 12:46 PM CKAJehcoshayse73.4 ??C (99.3 ??F)11/12/2018 12:46 PM EDTRespiratory Tkss5389 12:46 PM EDTOxygen Jaztrovhsd141%11/12/2018 12:46 PM EDTInhaled Oxygen Concentration--Pvjzjh09.3 kg (99 lb 13.9 oz) 11/12/2018 12:46 PM GBIArfhgy472.4 cm (5')11/12/2018 12:46 PM EDTBody Mass Index 19.504 12:46 PM EDT Plan of Treatment Not on file Care Teams Team MemberRelationshipSpecialtyStart DateEnd Date Manuel Tomas MD [address] [facility] [place] [address] PCP - General07/29/18
--- OUTSIDE RECORDS SUMMARY | 2025-07-28 07:40 | XMS_ITS | Clinical Summary ---
Author Organization [facility] Address [address] [facility] [place] [address] Care Team Providers Care Portuguese Tutor Name Role Phone Manuel Tomas MD Primary Care Provider [phone] Allergies Active AllergyReactionsCriticalityNoted UjtrKyhdjkbdXqirrBqspzmz46/16/2022 Other Reaction(s): body rejects them Sulfa Xgjhgleqciz62/06/2023 Other Reaction(s): Unknown Medications MedicationSigDispense QuantityRefillsLast FilledStart DateEnd DateStatus Multiple Vitamins-Minerals (Multivitamin Women) tablet Active CALCIUM PO Take by mouthActive Denosumab (PROLIA SC) Inject under the skinActive Active Problems No known active problems Encounters DateTypeDepartmentCare EsouMzhzbblmcsc58/08/2025 9:00 AM EDTOffice Visit [facility] [address] [facility] [place] [address] Marky Hogan DO Left hip pain (Primary Dx); Primary osteoarthritis of left hip; Lumbar spondylosis; Discogenic syndrome, mzduoo2705/05/2025 8:05 AM EDTAncillary Procedure [facility] [address] [place] [place] [address] 05/05/2025 8:00 AM EDTAncillary Procedure [facility] [address] [place] [place] [address] 05/05/2025Travelfrom Last 3 Months Family History RelationNameStatusCommentsFatherAliveMotherDeceased Social History Tobacco UseTypesPacks/DayYears UsedDateSmoking Tobacco: NeverSmokeless Tobacco: Never Tobacco Cessation:Counseling Given: Not Answered Alcohol UseStandard Drinks/WeekCommentsNot Currently0 (1 standard drink = 0.6 oz pure alcohol)CommentsNoSex and Gender InformationValueDate RecordedSex Assigned at BirthNot on fileLegal FuqNxuuyi75/15/2023 7:05 PM EDTGender Identity Not on fileSexual OrientationNot on file Last Filed Vital Signs Vital SignReadingTime TakenCommentsBlood Vbaamrnw724/6401 10:55 AM EST Pulse--Temperature--Respiratory Rate--Oxygen Saturation--Inhaled Oxygen Concentration--Rvappr24.7 kg (103 lb)05/05/2025 9:17 AM MGJRuojra941.9 cm (4' 11 )05/05/2025 9:17 AM EDTBody Mass Index20.81 9:17 AM EDT Plan of Treatment DateTypeDepartmentCare Team (Latest Contact Info)Zactwqmclfu01/19/2026 10:15 AM ESTOffice Visit [facility] [address] [address] Taina Chakraborty DO [address] [address] Health MaintenanceDue DateLast DoneCommentsCT Afxtvoesvadj21/10/1959Colonoscopy 1958FIT1958FOBT1958 1381Opfnrcrsqtmqy29/10/1959Pneumococcal Vaccine: 65+ Years (1 of 1 - PCV)2008Influenza Vaccine (#1)2025 05/03/2018, 05/09/2017, 05/10/2016, Additional history haokfgTxjuuvily50/11/2026 10/06/2024, 09/05/2023, 12/06/2021, Additional history existsColorectal Cancer Ettwxjcgy25/21/2027FIT-DNA7009/18/2023 Procedures Procedure NamePriorityDate/TimeAssociated DiagnosisCommentsXR LUMBAR SPINE 2-3 XAMECLfwueoa18/08/2025 7:51 AM EDT Left hip pain XR HIP 2 OR 3 VW JISKApcwrxx49/08/2025 7:51 AM EDT Left hip pain BI MAMMOGRAM SCREENING TOMOSYNTHESIS HBPHTMCTMDwncvwd83/11/2025 11:38 AM EDT Other screening mammogram LAB COLOGUARD?? COLON CANCER UVFSWFKylmprj86/21/2024 8:00 AM EST Screening for colon cancer [...] BY: Ba Wilson M.D. Authorizing ProviderResult TypeResult StatusMona J Natbenawi [facility] PROCEDURESFinal Result * Cologuard?? colon cancer screening (09/18/2023 8:00 AM EST)ComponentValueRef RangeTest MethodAnalysis TimePerformed AtPathologist SignatureNONINV COLON CA DNA+OCC BLD SCRN STL-VEHDjxijqtfDqktesmq64/03/2024 12:18 AM [employer] (CLIA #:[id number])Comment: NEGATIVE TEST RESULT. A negative Cologuard result [...] Douglas. et al, N Engl J Med 2014;370(14):9131-3026) The normal value (reference range) for this assay is negative. COLOGUARD RE-SCREENING RECOMMENDATION: Periodic colorectal cancer screening is an important part ofpreventive healthcare for asymptomatic individuals at average risk for colorectal cancer. ??Following a negative Cologuard result, the [place] [employer] and U.S. Multi-Society Task Force screening guidelines recommend a Cologuard re-screening interval of 3 years. References: [place] [employer] Guideline for Colorectal Cancer Screening: https://www.cancer.or g/cancer/lmptf-zchjhl-prblqa/bseosphts-jzqzrasrz-irqrhrb/acs-recommendations.htm jaky; Fab GENTILE, Ananya FOSS, Bella KIMBALL, Colorectal Cancer Screening: Recommendations for Physicians and Patients from the U.S. Multi-Society Task Force on Colorectal Cancer Screening , Am J Gastroenterology 2017; 112:7004-9768. TEST DESCRIPTION: Composite algorithmic analysis of stool [...] Tobias et al, N Engl J Med 2014;370(14):3209-8916.) Cologuard may produce a false negative or false positive result (no colorectal cancer or precancerous polyp present at colonoscopy follow up). A negative Cologuard test result does not guarantee the absence of CRC or advanced adenoma (pre-cancer). The current Cologuard screening interval is every 3 years. ([place] [employer] Society and U.S. Multi-Society Task Force). Cologuard performance data in a 10,000 patient pivotal study using colonoscopy as the reference method can be accessed at the following location: www.[employer]/results. Additional description of the Cologuard test process, warnings and precautions can be found at www.cologuard.com. Specimen (Source)Anatomical Location / LateralityCollection Method / Volume Collection TimeReceived TimeStool specimen (specimen)09/18/2023 8:00 AM EST 09/19/2023 12:47 PM EST Narrative Authorizing ProviderResult TypeResult StatusMona J Nataprawira [facility] ORDERABLESFinal ResultPerforming OrganizationAddressCity/State/ZIP CodePhone Number .[facility] (CLIA #:[id number]) [address] [place] [address], [place] (CLIA #:[id number]) [address] [address] from Last 3 Months or Most Recently [place]vant [place] [address] Care Teams Team MemberRelationshipSpecialtyStart DateEnd Manuel Tomas MD [address] [facility] [place] [phone] PCP - GeneralFamily Hlqstgrf66/8/25
--- OUTSIDE RECORDS SUMMARY | 2025-07-28 07:40 | XMS_ITS | Patient Health Record ---
Author Organization [facility] in [place] Address [address] [place] [address] Care Team Providers Care Rat Farmer Name Role Phone Sagar Tomas Primary Care Provider Allergies Allergen (clinical drug ingredient) Drug/Non Drug Allergy documented on EMR Reaction Allergy Type Onset Date Status Substance with sulfonamide s tructure and antibacterial mechanism of action (substance) Sulfa Antibiotics rash Drug Allergy ActiveSuturesbody rejects themAllergyActive Results Component Value Reference Range Notes CALCIUM Reviewed date:09/30/2024 09:14:07 PM Interpretation: Performing Lab: Notes/Report: [facility] , Calcium 8.7 8.5-10.1 mg/dL Performing Lab:see note - [facility] LBCALCIUM Reviewed date:04/14/2025 12:29:39 PM Interpretation: Performing Lab: Notes/Report: [facility] ,Calcium8.28.5-10.1 mg/dLPerforming Lab:see note - [facility] LB VITAMIN D 25 [place] Reviewed date:04/20/2025 12:48:04 PM Interpretation: Performing Lab: Notes/Report: [facility] ,Vitamin D29.5 <20 ng/mL Vit D deficient >100 ng/mL Potential Toxicity 20-<30 ng/mL Vit D insufficient 30-100 ng/mL Vit D sufficient [facility] LBTSH Reviewed date:04/20/2025 12:48:04 PM Interpretation: Performing Lab: Notes/Report: [facility] ,Thyroid Stimulating Hormone1.0680.358-3.740 uIU/mLPerforming Lab:see noteML - [facility] LBT4 Reviewed date:04/20/2025 12:48:04 PM Interpretation: Performing Lab: Notes/Report: [facility] ,T4 Thyroxine6.604.80-13.90 ug/dLPerforming Lab:see note - [facility] LBPROF 14(COMP METB) Reviewed date:04/20/2025 12:48:04 PM Interpretation: Performing Lab: Notes/Report: [facility] ,Sbkdry908357-977 mmol/LPotassium4.03.5-5.1 mmol/YNqevqqpw61743-025 mmol/LCarbon Pnkzbxu18.121.0-32.0 mmol/LAnion Gap9.5Setjlhy9529-588 mg/dLBlood Urea Nitrogen 19.07.0-18.0 mg/dLCreatinine0.810.55-1.02 mg/dLEstimated GFR ( Nila>60 >=60 mL/min/1.73m 2Estimated GFR (Non- Ayleen>60>=60 mL/min/1.73m 2BUN Creatinine Ratio23.0Terzpnx8.68.5-10.1 mg/dLBilirubin Total0.60.2-1.0 mg/dL Aspartate Amino Wyzjudlwzgh3506-72 U/LAlanine Ggohwdgtjbsiwwlp0845-23 U/L Alkaline Upnjvkiiuqa0332-963 U/LTotal Protein7.06.4-8.2 g/dLAlbumin Level3.73.4- 5.0 g/dLGlobulin3.3Albumin Globulin Ratio1.1Performing Lab:see noteML - [facility] LBLIPID PROFILE Reviewed date:04/20/2025 12:48:04 PM Interpretation: Performing Lab: Notes/Report: [facility] ,Ntzuvbsskvpfr300<=150 mg/bDMypuquqahri714<=200 mg/dLHDL Qpuxfyrxphe5819-87 mg/dL <40 mg/dl - HIGH CARDIOVASCULAR RISK > or =60 mg/dl - LOW CARDIOVASCULAR RISK LDL Cholesterol Idowlsvdjh427.0 130-159 mg/dl BORDERLINE HIGH <100 mg/dl OPTIMAL 160-189 mg/dl HIGH 100-129 mg/dl NEAR OR ABOVE OPTIMAL >190 mg/dl VERY HIGH VLDL XINNJGLCLDB18.2Chol HDL Ratio3.5 4.4 - 7.1 AVERAGE RISK 3.3 - 4.4 LOW RISK 7.1 - 11.0 MODERATE RISK >11.0 HIGH RISK Performing Lab:see noteML - [facility] LBIRON Reviewed date:04/20/2025 12:48:04 PM Interpretation: Performing Lab: Notes/Report: [facility] ,Mrug184.050.0-170.0 ug/dLPerforming Lab:see noteML - [facility] LB GLYCOHEMOGLOBIN A1C Reviewed date:04/20/2025 03:02:52 PM Interpretation: Performing Lab: Notes/Report: [facility] ,Glycohemoglobin A1C5.24.5-6.2 % > 7.0 ADA RECOMMENDED LIMIT 4.0 - 6.0 ACTION SUGGESTED ADA THERAPEUTIC TARGET < 7.0 Estimated Average Jrielxo619Wrnwzdaspv Lab:see note - [facility] FREE T3 Reviewed date:04/20/2025 12:48:04 PM Interpretation: Performing Lab: Notes/Report: [facility] ,Free T32.952.18-3.98 pg/mLPerforming Lab:see note - [facility] LB CBC AUTO DIFF Reviewed date:04/20/2025 12:48:04 PM Interpretation: Performing Lab: Notes/Report: [facility] ,White Blood Count5.94.0-11.0 10 3/uLRed Blood Count4.694.20-5.40 10 6/uL Ytavzdfhxb05.912.0-16.0 g/iUJunlpzqcbp54.036.0-48.0 %Mean Corpuscular Jphrqu81.6 81.0-99.0 fLMean Corpuscular Gtojxcerey09.626.7-34.0 pgMean Corpuscular HGB Conc 33.129.9-35.2 g/dLRed Cell Distribution Width12.311.0-15.0 %Platelet Qlwwt936 150-450 10 3/uLMean Platelet Volume9.89.5-13.5 fLNeutrophils Percent Auto56.9 43.0-75.0 %Lymphocytes Percent Auto34.620.5-60.0 %Monocytes Percent Auto6.31.7- 12.0 %Eosinophils Percent Auto1.00.9-7.0 %Basophils Percent Auto1.00.2-2.0 % Immature Granulocytes Pct Auto0.20.0-0.5 %Neutrophils Absolute Auto3.31.4-6.5 10 3/uLLymphocytes Absolute Auto2.01.2-3.8 10 3/uLMonocytes Absolute Auto0.40.3-0.8 10 3/uLEosinophils Absolute Auto0.10.0-0.7 10 3/uLBasophils Absolute Auto0.10.0- 0.1 10 3/uLImmature Granulocytes Abs Auto0.010.00-0.03 10 3/uLPerforming Lab:see noteML - [facility] LBLAB TESTING Reviewed date:07/20/2025 06:42:59 PM Interpretation: Performing Lab: Notes/Report: [id number] Celiac HLA DQ Association [facility] ,Miscellaneous TestCOMMENT. heterodimer. The celiac disease risk from the HLA DQA/DQB by the Food and Drug Administration. not necessary. DQB1*02:01:01G,06:03:01G D(ABMLI), F(ACHI) sequence based typing (SBT) and/or sequence specific DQ2 or DQ8 (Alize and Raheem, (1993) Gastroenterology If you have questions, please call HLA customer service DQ2 (DQA1 0501/0505,DQB1 02XX) Negative 2Q the 1% risk in the general population. HLA results were obtained using Next Generation determined by [employer]. It has not been cleared or approved DQ8 (DQA1 03XX,DQB1 0302) Negative 2Q at or email at [email or web address]. 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 This is less than patients who do not have Celiac disease. database version 3.58.0 HISTOCOMPATIBILITY SECTION DIRECTOR: Tomasz Barbour, PhD, Greater than 95% of celiac patients are positive for either Test Ordered: [id number] Celiac Disease HLA DQ Assoc. Reference Range: . Performed at: [facility] The FDA has determined that such clearance or approval is Reference Range: . Final Results: DQA1*01:03:01G,02:01:01G Performed at: 2 - [facility] DNA This test was developed and its performance characteristics oligonucleotide probes (SSOP) may be used as needed to 105:910-922). However these antigens may also be present in [address] [place] [address] [phone] HLA allele interpretation for all loci based on IMGT/HLA HLA Lab CLIA ID Number [id number] [address] [place] [address] [id number] Sequencing (NGS). Supplemental procedures based on obtain the required resolution. HLA NGS Methodology Comment 2 Reference Range: . Performing Lab:see note - [facility] LBCeliac Disease Comprehensive Reviewed date:04/21/2025 05:42:08 PM Interpretation: Performing Lab: Notes/Report: [facility] ,Deamidated Gliadin Abs, ZyM071-04 units Weak Positive 20 - 30 Moderate to Strong Positive >30 Negative 0 - 19 Deamidated Gliadin Abs, IsD09-69 units Weak Positive 20 - 30 Moderate [...] Positive >9 Endomysial Antibody IgANegativeNegativeImmunoglobulin A, Qn, Qzbtn96308-216 mg/dL Signal Technician: Aamir Hill PhD, Phone: [phone] [address] [place], [place] [phone] Performed at: [facility] Performing Lab:see note - [facility] LB Reason For Referral Diagnosis 1 Leg pain, diffuse, l eft (M79.605) Referral Organization [facility] Referring Provider First Name Sagar Referring Provider Last Name Genoveva Referring Provider Speciality [facility] icine Referred Provider Remington Shah Referred Provider Specialty Orthopedic S urgery Referral Priority Routine Diagnosis 1 Left hip pain (M25.5 52) Referral Organization [facility] Referring Provider First Name Sagar Referring Provider Last Name Genoveva Referring Provider Speciality [facility] reuben Referred Provider [facility], Physical Therap y Referred [...] alcohol in the p ast year? No Eevydf5TgkyjhrakwcuzlXmycnfdnGCVZV-T (Standard) Question Answer Notes Did you have a drink containing alcohol in the p ast year? No Ddqmwd5CskvboidhrxcdoWwmsuppc Problems Problem Type SNOMED Code ICD Code Onset Dates Problem Status W/U Status Risk Notes Problem Celiac disease (286363916) Celiac disease (K90.0) ActiveconfirmedProblemMitral valve prolapse (190522307)Mitral valve prolapse (I34.1)ActiveconfirmedProblemOsteopenia (004789822)Osteopenia (M85.80)Active confirmedProblemFibrocystic breast changes (31885949)Fibrocystic breast changes (N60.19)ActiveconfirmedProblemKidney stone (36312209)Kidney stones (N20.0)Active confirmedProblemAllergic rhinitis (42192781)Allergic rhinitis (J30.9)Active confirmedProblemArthralgia of the pelvic region and thigh (284866703)Left hip pain (M25.552)ActiveconfirmedProblemCramp in lower limb (019572317)Leg cramps (R25.2)ActiveconfirmedProblemPain in limb (72383132)Left thigh pain (M79.652) ActiveconfirmedProblemDisorder of conjunctiva (02107547)Conjunctiva disorder (H11.9)ActiveconfirmedProblemDisorder of eyelid (28686003)Eyelid abnormality (H02.9)ActiveconfirmedProblemMass of chest wall (719476082)Mass of chest wall (R22.2)ActiveconfirmedProblemLumbar radiculopathy (664607789)Lumbar radiculopathy, acute (M54.16)ActiveconfirmedProblemIrritable bowel syndrome (52500967)IBS (irritable colon syndrome) (K58.9)ActiveconfirmedProblemGoiter (1266351)Enlarged thyroid (E01.0)Activeconfirmed Vital Signs Blood pressure diastolic 62 mm Hg 07/09/2025 Xwoboe94 in07/09/2025lood pressure mm Hg07/09/20257498Skkfrk045.2 lbs 07/09/2025BMI20.15 kg/m207/09/2025 Encounters Encounter Location Date Provider Diagnosis [id number] [place] [address] 04/19/2025 Sagar Hoy Mitral valve prolaps e I34.1 ; Osteopenia M85.80 ; Enlarged thyroid E01.0 ; IBS (irritable colon syndrome) K58.9 and Leg pain, diffuse, left M79.605 [facility] [address] [place] [address] 06/23/2025 Sagar Hoy Acute non-recurrent sinusitis, unspecified location J01.90 and Nasal congestion R09.81 [facility] [address] [place] [address] 07/09/2025 Sagar Hoy Left hip pain M25.55 2 and Lumbar radiculopathy, acute M54.16 [facility] [address] [place] [address] 04/21/2025 Sagar Hoy [facility] [place] [address] 05/24/2025Doug HoyCeliac disease K90.0[facility] [place] [address]/Doug HoyLeft hip pain M25.552[facility] [place] [address]/ Sagar [facility] [place] [address]/06/2025[facility] [place] [address]/06/2025Doug Hoy Assessments Encounter Date Diagnosis (ICD Code) Assessment Notes Treatment Notes Treatment Clinical Notes Section Notes 04/19/2025 Mitral valve prolapse (ICD-10 - I34.1) occ soaqyrbpybpt46/22/2025Osteopenia (ICD-10 - M85.80)Getting prolia and recommend calcium with tums04/19/2025Enlarged thyroid (ICD-10 - E01.0)07/09/2025 Left hip pain (ICD-10 - M25.552)07/09/2025Lumbar radiculopathy, acute (ICD-10 - M54.16)05/24/2025eliac disease (ICD-10 - K90.0)05/27/2025Left hip pain (ICD-10 - M25.552)5Acute non-recurrent sinusitis, unspecified location (ICD-10 - J01.90)Rest and drink more liquids, especially water. You may use a humidifier or vaporizer to help keep the drainage moist. Qbxr-rzq-fezbijl Nasal Saline may help the stuffy and runny nose. Use Ibuprofen and or Tylenol as needed for fever, chills, body aches or pain. Children 5 years old should not be given iuwq-doh-vgyytjr cough and cold medications such as guaifenesin and dextromethorphan. If you're over age 5, you may try jnhm-dcg-dtjbjnb cold medications such as guaifenesin and dextromethorphan, [...] End Date [place] [address] [place] [address] [id number] Lisa Flemingelf - patient is the insuredMUTUAL OF [id number] [facility] [address] MEDICARE SU[place] [facility] [place] [phone] - patient is the insured Medical (General) History Medical History History ICD Code Kidney stones N20.0 Enlarged thyroid E01.0 Mass of chest wall R22.2 Leg cramps R25.2 Osteopenia M85.80 Fibrocystic breast changes N60.19 Allergic rhinitis J30.9 Mitral valve prolapse I34.1 Left hip pain M25.552 Left thigh pain M79.652 IBS (irritable colon syndrome) K58.9 Surgical History Surgery Date(Month/Year) Tonsillectomy 08/06/2006 Breast Biopsy, rt MAMADOU and BSO C- section x2
--- OUTSIDE RECORDS SUMMARY | 2025-07-28 07:40 | XMS_ITS | CCD ---
Author Organization [facility] CliniSysc Care Team Providers Care [employer] Teacher Name Role Phone Álvaro Powell Attending Unavailable Álvaro Powell Referring Unavailable Florencia Tomas Primary Care Unavailable Unavailable Primary Care Provider Unavailberna e Unavailable Primary Care Provider Unavailberna e STEVE ., DR DON Consulting Unavailable HOY ., [...] Unavailable HOY ., DR DON Attending Unavailable SWEETSER, DR MICKI Burgess Consulting Unavailable Unavailable Primary Care Provider UnavailLILLIE Robertson Attending Unavailable RUSSELL MAGALLANES Referring Unavailable RUSSELL MAGALLANES Attending Unavailable Florencia Tomas MD Primary Care Provider [phone] TAINA CHAKRABORTY Referring Unavailable TAINA CHAKRABORTY Referring Unavailable TAINA CHAKRABORTY Attending Unavailable MICKI LINDER Referring Unavailable MICKI LINDER Attending Unavailable MICKI LINDER Referring Unavailable Florencia Tomas MD Primary Care Provider [phone] Taina Chakraborty Attending Unavailable Taina Chakraborty Referring Unavailable Florencia Tomas Primary Care Unavailable Taina Chakraborty Admitting Unavailable Allergies Allergy ClassificationReported Allergen(s)Allergy TypeDate of OnsetReaction(s) Facility (9 sources)Sulfonamides (Antibiotic); Translations: [SULFA (SULFONAMIDE ANTIBIOTICS)]Propensity to adverse reactions to wgfq31-83-1390LnvdibyHtgnocrxk Clinic (6 sources)Sutures; Translations: [SUTURES]Propensity to adverse reactions 32-82-2153EalnebnCqxsjatww Clinic (1 source)Sulfonamides (Antibiotic)Drug allergy (disorder)61-59-1397IjnAcmc Healthcare System Repository (4 sources)OtherPropensity to adverse ricdipcrx89-38-2175RdaoddbKHZR Healthcare (1 source)Sulfonamides (Antibiotic)Drug allergy (disorder)10-77-3992YxlenpkosPremier Health [facility] Repository Medications Current Medications MedicationDrug Class(es)DatesSig (Normalized)Sig (Original)Calcium (2 sources)Phosphate Binder, CalciumCALCIUM PO Take by mouth ActiveMultiple Vitamins-Minerals (Multivitamin Women) tablet (4 sources)Multiple Vitamins-Minerals (Multivitamin Women) tablet ActiveMultiple Vitamins-Minerals (Multivitamin Women) tablet as directed Orally Active Completed/Discontinued Medications MedicationDrug Class(es)DatesSig (Normalized)Sig (Original)1 ml denosumab 60 mg/ml prefilled syringe (4 sources)RANK Ligand InhibitorStart: 08-12-2023 End: 94-97-0011ociykbjjc (Prolia) 60 MG/ML solution prefilled syringe Indications: Osteoporosis, post-menopausal (CMS/HCC) Inject 1 mL (60 mg) under the skin every 6 (six) months 1 mL 1 08/12/2023 08/10/2024 DiscontinuedDenosumab (PROLIA SC) Inject under the skin Activediclofenac sodium 75 mg delayed release oral tablet (4 sources)Nonsteroidal Anti-inflammatory DrugStart: 99-68-8612wrmu 1 tablet by mouth twice dailydiclofenac, EC, (VOLTAREN) 75 mg EC tablet Take 75 mg by mouth twice daily. 0 03/19/2022 ActiveComment on above:Take 75 mg by mouth twice daily.gabapentin 100 mg oral capsule (1 source)Anti-epileptic AgentStart: 02-04-2022 End: 71-43-8247rmss 1 capsule by mouth twice dailygabapentin (NEURONTIN) 100 mg capsule Take 100 mg by mouth twice daily. 0 02/04/2022 04/13/2022 Discontinued Comment on above:Take 100 mg by mouth twice daily.pregabalin 25 mg oral capsule (4 sources)Start: 04-13-2022 End: 76-04-8030qddszplhem (LYRICA) 25 mg capsule Indications: Radiculopathy of lumbar region Take one capsule daily at bedtime for 3-5 days, then one in the morning and one at night for 3-5 days. Then increase to one capsule three times daily if tolerating well. 90 capsule 1 04/13/2022 ActiveComment on above:Take one capsule daily at bedtime for 3-5 days, then one in the morning and one at night for 3-5 days. Then increase to one capsule three times daily if tolerating well. Problems Active Problems Problem ClassificationProblemDateDocumented DateEpisodic/ChronicAllergic reactions (1 source)Solar degeneration; Translations: [Other skin changes due to chronic exposure to nonionizing radiation]EpisodicOsteoarthritis (2 sources)Osteoarthritis of left hip joint; Translations: [Unilateral primary osteoarthritis, left hip]23-58-0142KkjgybzAzmetvgmwazs (5 sources)Postmenopausal osteoporosis; Translations: [Age-related osteoporosis without current pathological fracture]Onset: [id number] and unspecified benign neoplasm (1 source)Dermatofibroma; Translations: [Other benign neoplasm of skin, unspecified]EpisodicOther and unspecified benign neoplasm (1 source)Hemangioma; Translations: [Hemangioma unspecified site]EpisodicOther and unspecified benign neoplasm (1 source)Multiple benign melanocytic nevi ; Translations: [Melanocytic nevi, unspecified]EpisodicOther connective tissue disease (2 sources)Pain of left thigh; Translations: [Pain in left thigh]EpisodicOther female genital disorders (2 sources)Stenosis of vagina; 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] 75-07-4827CgqdlwhtAcqft injuries and conditions due to external causes (4 sources)Other injury of muscle, fascia and tendon of lower back, initial encounter; Translations: [OTH INJ MUSC FASC TEND LW BACK INIT]Onset: 08-20-2022 EpisodicOther non-traumatic joint disorders (4 sources)Hip pain; Translations: [Pain in left hip]EpisodicOther non-traumatic joint disorders (1 source)Pain in right hip; Translations: [PAIN IN RIGHT HIP]Onset: 08-28-2022 EpisodicOther non-traumatic joint disorders (1 source)Pain in right hip joint; Translations: [Pain in right hip]Onset: [id number] screening for suspected conditions (not mental disorders or infectious disease) (2 sources)Breast neoplasm screening status; Translations: [Encounter for screening mammogram for malignant neoplasm of breast]05-50-2403InbfroyvAxfoe skin disorders (1 source)Seborrheic keratosis; Translations: [Other seborrheic keratosis] EpisodicResidual codes; unclassified (2 sources)Postmenopausal state; Translations: [Asymptomatic menopausal state] 04-01-8556HuilzmebOkxzlvjr codes; unclassified (2 sources)History of hysterectomy for benign disease; Translations: [Acquired absence of both cervix and uterus]23-48-1982ZyrnmpyfOwlrvrnciqs; intervertebral disc disorders; other back problems (4 sources)Lumbar spondylosis; Translations: [Spondylosis without myelopathy or radiculopathy, lumbar region]81-59-5882JslhhhlVflrzdyjmaf; intervertebral disc disorders; other back problems (10 sources)Lumbar radiculopathy; Translations: [Radiculopathy, lumbar region] Onset: 38-76-0618HwkwztnmUjbrnrl and strains (2 sources)Strain of flexor muscle of left hip; Translations: [Strain of muscle, fascia and tendon of left hip, sequela]EpisodicViral infection (1 source)COVID-19; Translations: [COVID-19]Onset: 05-31-2022 Past or Other Problems Problem ClassificationProblemDateDocumented DateEpisodic/ChronicOther connective tissue disease (1 source)Pain in left thigh; Translations: [Left thigh pain]Onset: 04-13-2022 EpisodicOther non-traumatic joint disorders (1 source)Pain in left hip; Translations: [Lateral pain of left hip]Onset: 73-55-6843BoczyuiqKndvj upper respiratory infections (4 sources)Acute sinusitis, unspecified; Translations: [ACUTE SINUSITIS UNSPECIFIED]Onset: 52-44-5198Qeqluamb Results Test NameValueInterpretationReference RangeFacilityBI MAMMOGRAM SCREENING TOMOSYNTHESIS BILATERALon 22-41-1386XF MAMMOGRAM SCREENING TOMOSYNTHESIS BILATERALThis is a summary report. The complete report [...] Screening Mammogram ELECTRONICALLY SIGNED BY: Ba Wilson M.D.NormalNot AvailableDEXA BONE DENSITY on 59-79-9517VMCE BONE DENSITYExamination: DEXA BONE DENSITY Clinical History: screening Technique: [...] prior exam. ELECTRONICALLY SIGNED BY: Ba Wilson M.D.NormalNot AvailableUrinalysis macro (dipstick) panel (U)on 11-47-2099Dlxpcaqkg, UANegativeNegative - 4(70) +++ mg/dL NOMS HealthcareBlood, UANegativeNegative - 50 Shiv/mcLNOMS HealthcareClarity, UA ClearNOMS HealthcareColor, UAAmberNOMS HealthcareGlucose, UANegativeNegative - 1999(110) ++++ mg/dLNOMS HealthcareInterpretation and review of laboratory resultsNormalNOMS HealthcareKetones, UANegativeNegative - 160(16) ++++ mg/dLNOMS HealthcareLeukocytes, UANegativeNegative - 500+++ Mauricio/mcLNOMS HealthcareNitrite, UANegativeNegative - PositiveNOMS HealthcarepH, UA65 - 9NOMS HealthcareProtein, UATraceNegative - 2000(20) ++++ mg/dLNOMS HealthcareSpec Grav, UA1.021 - 1.03 NOMS HealthcareUrobilinogen, UA1.00.2 - 12 mg/dLNOMS HealthcareNOMS Healthcare CNOVon 09-77-2958NARHOvollo Visit (DERMCC) KARINA FLEMING ([id number]) 1960 F Date Time Provider Department 11/09/22 [...] Mid upper back - brown raised lesion [place] raised lesion- right cheek DERM HISTORY: No [...] Past Histories independently gathered by the clinical customer support consultant and the remaining scribed note accurately describes [...] for Encounter Date Provider Department Center 11/09/2022 [id number] BARONE [facility] Encounter Status:Closed by LILLIE BARONE on 11/09/22[facility] MIN 4 VIEWSon 44-67-6459OZ LSPINE MIN 4 VIEWSEXAMINATION: XR LSPINE MIN 4 VIEWS HISTORY: Muscle and tendon injury COMPARISON: No relevant comparison available. FINDINGS: BONES: Minimal dextrocurvature centered at L2-L3. Mild degenerative spondylosis and facet osteoarthropathy DISC SPACES: Normal. No significant disc height narrowing, subluxation, or endplate abnormality. PARASPINOUS: Negative. No paraspinous abnormality is seen. OTHER: Negative. IMPRESSION: Mild degenerative changes Electronically authenticated by: MICKI LUCERO Date: 2022-08-21 07:50[facility] HospitalGLUCOSE BLOODon 38-61-9797Sdzodaf [Mass/Vol]87 mg/dLNormal 74-106A[facility]c Healthcare SystemComment on above:Performed By: #### LIPID, GLUC #### [facility] [address] [place] [address] Dr. Kadeem ClemensLIPID PROFILEon 38-01-8155OEBB-HDL RATIO NORMSEE [facility] HospitalComment on above:Result Comment: 3.3 - 4.4 LOW RISK 4.4 - 7.1 AVERAGE RISK 7.1 - 11.0 MODERATE RISK >11.0 HIGH RISKPerformed By: #### LIPID, GLUC #### [facility] [address] [place] [address] Dr. Kadeem ClemensCholesterol [Mass/Vol]182 mg/dLNormal<=200[facility] Comment on above:Performed By: #### LIPID, GLUC #### [facility] [address] [address] [address] Kadeem Tysonesterol in HDL [Mass/Vol]66 mg/dLCritically mkxx60-01TziAcmc Healthcare SystemComment on above:Performed By: #### LIPID, GLUC #### [facility] [address] [address] [address] Kadeem ClemensCholesterol in LDL [Mass/Vol]101.4 mg/dLMiami Valley HospitalComment on above:Performed By: #### LIPID, GLUC #### [facility] [address] [address] [address] Kadeem [place].total/Cholesterol in HDL [Mass ratio]2.8 {ratio} NormalAcmc Healthcare SystemComment on above:Performed By: #### LIPID, GLUC #### [facility] [address] [address] [address] Kadeem Jolly NORMAL> or = 60 mg/dl - LOW CARDIOVASCULAR RISK <40 mg/dl - HIGH CARDIOVASCULAR RISKMiami Valley HospitalComment on above:Performed By: #### LIPID, GLUC #### [facility] [address] [address] [address] Kadeem Bro CALC NORMALSEE BELOWMiami Valley HospitalComment on above:Result Comment: <100 mg/dl OPTIMAL 100 - 129 mg/dl NEAR OR ABOVE OPTIMAL 130 - 159 mg/dl BORDERLINE HIGH 160 - 189 mg/dl HIGH >190 mg/dl VERY HIGH Performed By: #### LIPID, GLUC #### [facility] [address] [address] [address] Kadeem ClemensTriglyceride [Mass/Vol]73 mg/dLNormal<=150[facility] Comment on above:Performed By: #### LIPID, GLUC #### [facility] [address] [address] [address] Kadeem MillerLDL CALC14.6 mg/dLNoSamaritan North Health CenterComment on above: Performed By: #### LIPID, GLUC #### [facility] [address] [place] [address] Dr. Kadeem ClemensCovid-19 PCR (CVDTB)on 58-30-9302DSJF-CoV-2 (COVID-19) RNA DARÍO+probe Ql (Unsp spec)DetectedCritically abnormalNOT DETECTEDThe [facility] on above:Result Comment: This test is not yet approved or cleared by the [place] FDA. When there are no FDA-approved or cleared tests available, and other criteria are met, FDA can make tests available under an emergency access mechanism called an Emergency Use Authorization (EUA). The EUA for this test is supported by the Curriculum Director of Health and Human Service's (HHS's) declaration [...] no longer be used). Performed By: #### CVDTBH #### [facility] [address] [place] [address] Dr. Kadeem Argueta AND B AGon 83-12-6366QXDVSIKTNUMOHCincinnati Children's Hospital Medical Center on above:Result Comment: Negative for Flu A protein angiten. Infection due to Flu A cannot be ruled out. FluA angiten in the sample may be below the detection limit of the test.Performed By: #### INFLUAB #### [facility] [address] [place] [address] Dr. Kadeem ClemensINFLUBNEGHSEE [facility] on above: Result Comment: Negative for Flu B protein antigen. Infection due to Flu B cannot be ruled out. FluB antigen in the sample may be below the detection limit of the test.Performed By: #### INFLUAB #### [facility] [address] [place] [address] Dr. Kadeem Argueta AGNegativeNormalNEGATIVE SEE COMMENTThe [facility] on above:Performed By: #### INFLUAB #### [facility] [address] [address] [address] Kadeem Kenny AGNegativeNormalNEGATIVE SEE COMMENTThe [facility] Hospitalment on above:Performed By: #### INFLUAB #### [facility] [address] [address] [address] Kadeem ClemensINTERNAL CONTROLSWithin Normal LimitsNormalWithin Normal Limits The [facility] AndersonComment on above:Performed By: #### INFLUAB #### [facility] [address] [address] [address] Kadeem Hernandez 01-23-5949LFQOUpxbfc Visit (SPMESH) KARINA FLEMING ([id number]) 1960 F Date Time Provider Department 04/13/22 2:30 PM RUSSELL MAGALLANES During your visit today, we recorded the following information about you: Pulse Respiration Blood pressure Weight 65/minute 16/minute 111/47 45.5 kg Height 1.524 m Russell Magallanes DO 05/06/2022 1:40 PM Signed [facility] - [...] her back. -Ortho surgeon Dr. Agosto in [place] prior to pandemic. Told her it was not her back, but it was her sciatic nerve. 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 NormalGlenbeigh HospitalvelandNo Panel Informationon 64-30-3128Qkvaootgn ClinicXR HIP 3V PELV+ AP/LAT LTon 20-40-7558PU HIP 3V PELV+ AP/LAT LT* * *Final Report* * * DATE OF [...] right sacroiliac joint. IMPRESSION: No acute findings. Casting Machine Adjuster: GARY Transcribe Date/Time: Apr 14 2022 2:38P Dictated by : BRUNA LUONG MD This examination was interpreted and the report reviewed and electronically signed by: BRUNA LUONG MD on Apr 14 2022 2:39PM EST [id number] HospitalXR LUMBAR 2V AP/LATon 62-76-0317HD LUMBAR 2V AP/LAT* * *Final Report* * * DATE OF [...] is seen IMPRESSION: Lower lumbar degenerative changes Casting Machine Adjuster: GARY Transcribe Date/Time: Apr 15 2022 11:11P Dictated by : REGINO ELIAS MD This examination was interpreted and the report reviewed and electronically signed by: REGINO ELIAS MD on Apr 15 2022 11:12PM EST [id number] HospitalINSULINon 03-24-2022 Insulin6.0 uIU/mLNormal2.6-24.9The [facility] AndersonComment on above:Performed By: #### INSULIN ####[facility] [address] [id number]. Carolinlan ChangT4, T3U, FTI LABCORPon 55-21-2013Kvar Thyroxine Index 2.5Slemva5.2-4.9The [facility] AndersonComment on above:Performed By: #### THYLC ####[facility] [address] [id number]. Carolinlan ChangT3 Xhvjui25 %Eetuev51-73Kpu [facility] AndersonComment on above: Performed By: #### THYLC ####[facility] [address] [id number]. Yilan ChangT4 [Mass/Vol]7.1 ug/dLNormal4.5-12.0The [facility] AndersonComment on above:Performed By: #### THYLC ####[facility] Duetcbmduo[address] [place], [place] [address]Dr. Kadeem ChangCBC AUTO DIFFon 45-47-9977IXRB #0.1 103/ulNormal0.0-0.1The [facility] AndersonComment on above:Performed By: #### CBC ####[facility] Uiaeoefiv[address] [place], [place] [address]Dr.Kadeem ChangBasophils/100 WBC (Bld)1.0 %Normal 0.2-2.0The [facility] AndersonComment on above:Performed By: #### CBC ####[facility] [address]gr[address] [place], [place] [address]Dr.Yilan ChangEO # 0.1 103/ulNormal0.0-0.7The [facility] AndersonComment on above:Performed By: #### CBC ####[facility] Aflqnetimm[address] [place], [place] [address]Dr. Carolinlan ChangEosinophils/100 WBC (Bld)2.1 %Normal0.9-7.0The [facility] Comment on above:Performed By: #### CBC ####[facility] Qlumjbilts[address] [place], [place] [address]Dr.Kadeem ChangErythrocyte distribution width (RBC) [Ratio]12.2 %Uelzqw50.0-15.0The [facility] AndersonComment on above: Performed By: #### CBC ####[facility] M[address]auxqbuvl[address] [place], [place] [address]Dr.Kadeem ChangHematocrit (Bld) [Volume fraction]42.3 % Aacsdn41.0-48.0The [facility] AndersonComment on above:Performed By: #### CBC ####[facility] [address]bepbcsj[address] [place], [place] [address]Dr. Kadeem ChangHemoglobin (Bld) [Mass/Vol]13.8 g/zETbromd08.0-16.0The [facility] AndersonComment on above:Performed By: #### CBC ####[facility] [address] [address]Dr.Kadeem ClemensIG #0.01 10e3/ulNormal0.00-0.03The [facility] AndersonComment on above:Performed By: #### CBC ####[facility] Vsvatfzuag[address] [place], [place] [address]Dr. Kadeem ClemensIG %0.2 %Normal0.0-0.5The [facility] AndersonComment on above:Performed By: #### CBC ####[facility] Txjtqqaexu[address] [place], [place] [address]Dr.Kadeem ClemensLYMPH #2.3 103/ulNormal1.2-3.8The [facility] Comment on above:Performed By: #### CBC ####[facility] Oqlzftbhmw[address] [place], [place] [address]Dr.Kadeem ClemensLymphocytes/100 WBC (Bld)37.8 %Vpnnsf27.5-60.0The [facility] AndersonComment on above:Performed By: #### CBC ####[facility] Dcgsihkbqy[address] [place], [place] [address]Dr. Kadeem ClemensMANUAL DIFF REQNONormalThe [facility] AndersonComment on above: Performed By: #### CBC ####[facility] Ohzpjsblpp[address] [place], [place] [address]Dr.Kadeem ClemensELLIS ISLAND [facility] (RBC) [Entitic mass]29.1 pgNormal 26.7-34.0The [facility] AndersonComment on above:Performed By: #### CBC ####[facility] Fejvrpfjch[address] [place], [place] [address]Dr. Kadeem ClemensHC (RBC) [Mass/Vol]32.6 g/bWPbnagg69.9-35.2The [facility] Comment on above:Performed By: #### CBC ####[facility] F[address]vslkvyr[address] [place], [place] [address]Dr.Kadeem ClemensV (RBC) [Entitic vol]89.1 fL Astlpn49.0-99.0The [facility] AndersonComment on above:Performed By: #### CBC ####[facility] [address] [id number]. Kadeem ClemensMONO #0.5 103/ulNormal0.3-0.8The [facility] AndersonComment on above: Performed By: #### CBC ####[facility] [address] [address]Dr.Yilan ChangMonocytes/100 WBC (Bld)7.6 %Normal 1.7-12.0The [facility] AndersonComment on above:Performed By: #### CBC ####[facility] Algtrdlfxz[address] [place], [place] [address]Dr. Yilan ChangNEUT #3.1 103/ulNormal1.4-6.5The [facility] AndersonComment on above: Performed By: #### CBC ####[facility] Ivhposurao[address] [place], [place] [address]Dr.Yilan ChangNeutrophils/100 WBC (Bld)51.3 %Normal 43.0-75.0The [facility] AndersonComment on above:Performed By: #### CBC ####[facility] Lxagutkycn[address] [place], [place] [address]Dr. Yilan ChangPlatelet mean volume (Bld) [Entitic vol]9.6 fLNormal9.5-13.5The [facility] AndersonCominsight surgical hospital on above:Performed By: #### CBC ####[facility] Vfcijknxnz[address] [place], [place] [address]Dr.Yilan PzhiiREH940 103/ul Sverri689-244Lvd [facility] AndersonComment on above:Performed By: #### CBC ####[facility] R[address]pchdwmz[address] [place], [place] [address]Dr. Yilan ChangRBC4.75 106/ulNormal4.20-5.40The [facility] AndersonCominsight surgical hospital on above: Performed By: #### CBC ####[facility] B[address]aztijjob[address] [place], [place] [address]Dr.Yilan ChangWBC6.1 103/ulNormal4.0-11.0The [facility] AndersonComment on above:Performed By: #### CBC ####[facility] [address] [address]DrMarlene ClemensGLYCOHEMOGLOBIN A1Con 85-13-0936NNQ RECOMMENDATIONSEE [facility] HospitalCominsight surgical hospital on above:Result Comment: ADA RECOMMENDED LIMIT 4.0 - 6.0 ADA THERAPEUTIC TARGET < 7.0 ACTION SUGGESTED > 7.0Performed By: #### A1C ####[facility] [address] [address]Dr.Yilan ClemensGlucose [Mass/Vol]105 mg/dLNoSamaritan North Health CenterComment on above:Performed By: #### A1C ####[facility] [address] [address]DrMarlene ClemensHbA1c (Bld) [Mass fraction]5.3 %Normal4.5-6.2The [facility] AndersonComment on above:Performed By: #### A1C ####[facility] [address] [address]DrMarlene ClemensIRONon 06-44-7503Lcra [Mass/Vol]106.0 ug/iQWzvgap79.0-170.0The [facility] AndersonComment on above:Performed By: #### IRON #### [facility] [address] [address] [address] Kadeem ClemensLIPID PROFILEon 12-58-1659APIN-HDL RATIO NORMSEE [facility] HospitalComment on above:Result Comment: 3.3 - 4.4 LOW RISK 4.4 - 7.1 AVERAGE RISK 7.1 - 11.0 MODERATE RISK >11.0 HIGH RISKPerformed By: #### CMP, LIPID, TSH #### [facility] [address] [address] [address] Kadeem ClemensCholesterol [Mass/Vol]185 mg/dLNormal<=200The [facility] Comment on above:Performed By: #### CMP, LIPID, TSH #### [facility] [address] [address] [address] Kadeem ClemensCholesterol in HDL [Mass/Vol]66 mg/dLCritically yoao50-16Haq [facility] AndersonComment on above:Performed By: #### CMP, LIPID, TSH #### [facility] [facility] [address] [address] [address] Kadeem ClemensCholesterol in LDL [Mass/Vol]99.6 mg/dLNoSamaritan North Health CenterComment on above:Performed By: #### CMP, LIPID, TSH #### [facility] [address] [address] [address] Kadeem Tysonestermarino.total/Cholesterol in HDL [Mass ratio]2.8 {ratio} NormalAcmc Healthcare SystemCominsight surgical hospital on above:Performed By: #### CMP, LIPID, TSH #### [facility] [address] [address] [address] Kadeem Jolly NORMAL> or = 60 mg/dl - LOW CARDIOVASCULAR RISK <40 mg/dl - HIGH CARDIOVASCULAR RISKNoSamaritan North Health CenterComment on above:Performed By: #### CMP, LIPID, TSH #### [facility] [address] [address] [address] Kadeem Bro CALC NORMALSEE BELOWNoSamaritan North Health CenterComment on above:Result Comment: <100 mg/dl OPTIMAL 100 - 129 mg/dl NEAR OR ABOVE OPTIMAL 130 - 159 mg/dl BORDERLINE HIGH 160 - 189 mg/dl HIGH >190 mg/dl VERY HIGH Performed By: #### CMP, LIPID, TSH #### [facility] [address] [address] [address] Kadeem ClemensTriglyceride [Mass/Vol]97 mg/dLNormal<=150[facility] Comment on above:Performed By: #### CMP, LIPID, TSH #### [facility] [address] [address] [address] Kadeem ClemensVLDL CALC19.4 mg/dLNoSamaritan North Health CenterComment on above: Performed By: #### CMP, LIPID, TSH #### [facility] [address] [address] [address] Kadeem ClemensPROF 14(COMP METB)on 48-82-5426Ezfyzaf [Mass/Vol]4.0 g/dLNormal 3.4-5.0The [facility] AndersonComment on above:Performed By: #### CMP, LIPID, TSH #### [facility] [address] [address] [address] Kadeem ClemensAlbumin/Globulin [Mass ratio]1.3 {ratio}NormalThe [facility] AndersonComment on above:Performed By: #### CMP, LIPID, TSH #### [facility] [address] [address] [address] Kadeem Chiang [Catalytic activity/Vol]82 U/WWimard48-623Ckq [facility] Anderson[facility] on above:Performed By: #### CMP, LIPID, TSH #### [facility] [address] [place] [address] Dr. Kadeem Webber [Catalytic activity/Vol]20 U/EYjgtnb59-33Cec [facility] AndersonComment on above:Performed By: #### CMP, LIPID, TSH #### [facility] [address] [place] [address] Dr. Kadeem Sylvester gap [Moles/Vol]11.4 mmol/LNormalThe [facility] Comment on above:Performed By: #### CMP, LIPID, TSH #### [facility] [address] [place] [address] Dr. Kadeem Clark [Catalytic activity/Vol]23 U/MSzuhym21-83Fkj [facility] Anderson[facility] on above:Performed By: #### CMP, LIPID, TSH #### [facility] [address] [place] [address] Dr. Kadeem ClemensBilirubin [Mass/Vol]0.6 mg/dLNormal0.2-1.0The [facility] Comment on above:Performed By: #### CMP, LIPID, TSH #### [facility] [address] [place] [address] Dr. Kadeem ClemensCalcium [Mass/Vol]8.8 mg/dLNormal8.5-10.1The [facility] Comment on above:Performed By: #### CMP, LIPID, TSH #### [facility] [address] [place] [address] Dr. Kadeem ClemensChloride [Moles/Vol]105 mmol/ZRxmhrs77-651Mqz [facility] Comment on above:Performed By: #### CMP, LIPID, TSH #### [facility] [address] [address] [address] Kadeem ClemensCO2 [Moles/Vol]28.3 mmol/PCyrlxa98.0-32.0The [facility] Comment on above:Performed By: #### CMP, LIPID, TSH #### [facility] [address] [address] [address] Kadeem ClemensCreatinine [Mass/Vol]0.73 mg/dLNormal0.55-1.02The [facility] AndersonComment on above:Performed By: #### CMP, LIPID, TSH #### [facility] [address] [place] [address] Dr. Kadeem JayGFR-AF GUYANESE>60Normal>=60The [facility] AndersonComment on above:Performed By: #### CMP, LIPID, TSH #### [facility] [address] [place] [address] Dr. Kadeem JayGFR-NON AF GUYANESE>60Normal>=60The [facility] Anderson[facility] on above:Performed By: #### CMP, LIPID, TSH #### [facility] [address] [place] [address] Dr. Kadeem ClemensGlobulin (S) [Mass/Vol]3.2 g/dLNormalThe [facility] AndersonComment on above:Performed By: #### CMP, LIPID, TSH #### [facility] [address] [place] [address] Dr. Kadeem ClemnesGlucose [Mass/Vol]92 mg/yXAnnpeb63-957Swf [facility] Comment on above:Performed By: #### CMP, LIPID, TSH #### [facility] [address] [place] [address] Dr. Kadeem ClemensPotassium [Moles/Vol]3.7 mmol/LNormal3.5-5.1The [facility] Comment on above:Performed By: #### CMP, LIPID, TSH #### [facility] [address] [address] [address] Kadeem ClemensProtein [Mass/Vol]7.2 g/dLNormal6.4-8.2The [facility] Comment on above:Performed By: #### CMP, LIPID, TSH #### [facility] [address] [address] [address] Kadeem ClemensSodium [Moles/Vol]141 mmol/QDnxiyp079-331Bfn [facility] Comment on above:Performed By: #### CMP, LIPID, TSH #### [facility] [address] [address] [address] Kadeem ClemensUrea nitrogen [Mass/Vol]15.0 mg/dLNormal7.0-18.0The [facility] AndersonComment on above:Performed By: #### CMP, LIPID, TSH #### [facility] [address] [place] [address] Dr. Kadeem Rizvi nitrogen/Creatinine [Mass ratio]20.5 mg/mgNormalThe [facility] AndersonComment on above:Performed By: #### CMP, LIPID, TSH #### [facility] [address] [place] [address] Dr. Kadeem Robledo 63-67-4583VZA9.409 uIU/mLNormal0.358-3.740Acmc Healthcare SystemComment on above:Performed By: #### CMP, LIPID, TSH #### [facility] [address] [place] [address] Dr. Kadeem ClemensSCREENING MAMMOGRAM W/MELI, BILATERAL*on 25-39-2012WDZHMQMIK MAMMOGRAM W/MELI, BILATERAL*CLINICAL HISTORY: Screening Mammogram COMPARISON: Priors from 2020, [...] VERY IMPORTANT TO YOUR HEALTH. THE CURRENT [place] [employer] OF [employer] AND [employer]WORK GUIDELINES RECOMMENDS ANNUAL MAMMOGRAPHY BEGINNING AT AGE 38 THIS FACILITY USES A REMINDER SYSTEM TO ENSURE ALL PATIENTS RECEIVE REMINDER NOTIFICATIONS AT THE APPROPRIATE TIME BASED ON THE RECOMMENDATIONS OF THIS EXAM. Board Certified Radiologist. Accredited by the ACR and FDA. Report reported and signed by Deep Haney on 12/04/2021 1301NormalNortchandler regional medical centern [facility] Cytologyon 93-61-2920WCV CytologyMRN: [id number] Patient Name KARINA FLEMING Date of Procedure: 11/12/2018 Date Reported: 11/14/2018 Date Received: 11/12/2018 Date of / Sex 1960 (Age: 58) / F Race: WHITE Submitting Physician: ÁLVARO POWELL MD Attending Physician: ÁLVARO POWELL MD Other External # FINAL CYTOLOGICAL INTERPRETATION A. FINE NEEDLE ASPIRATION OF THYROID - RIGHT LOBE: --BENIGN. --ABUNDANT MACROPHAGES, FOLLICULAR CELLS AND COLLOID. Interpretation performed at: [facility] Department of Pathology [id number] [place] [address] Electronically Signed Out By MAXIME JACOBSEN MD By the signature on this report, the individual or group listed as making the Final Interpretation/Diagnosis certifies that they have reviewed this case. Slide(s) initially screened by a Medical Assistant Dermatology at [address] [address] Clinical History RIGHT THYROID NODULE Source of Specimen A: FINE NEEDLE ASPIRATION OF THYROID - RIGHT LOBE Specimen Submitted as: A: FINE NEEDLE ASPIRATION OF THYROID - RIGHT LOBE pap stain non-machine operator helper, pap stain non-machine operator helper, pap stain non-machine operator helper, Pap conventional Diff Quick, Pap conventional Diff Quick, Pap conventional Diff Quick, pap non-machine operator helper ThinPrep slide Gross Description A. FINE NEEDLE ASPIRATION OF THYROID - RIGHT LOBE: RECEIVED 30 cc TURBID WITH PARTICLES DARK RED CYTOLYT, 6 DIRECT SMEARS, 3 AIR DRIED, 3 SPRAY FIXEDNoSaint Joseph HospitalComment on above:Performed By: #### C #### [facility] Cytology [address] [place] [id number] FNA SUPERFCLon 79-71-6083GE FNA SUPERFCLMRN: [id number] Patient Name: KARINA FLEMING STUDY: US FNA SUPERFCL; 11/12/2018 3:03 pm INDICATION: right thyroid nodule. COMPARISON: Outside thyroid ultrasound, 08/26/2018. ACCESSION NUMBER(S): [id number] ORDERING CLINICIAN: ÁLVARO POWELL TECHNIQUE: Prior to [...] up to 1.7 cm. Electronically signed by: Zeyad LEW. [facility] Initial Visit (Otolaryngology)on 42-18-6397Vpzhgxx Visit (Otolaryngology) Diagnoses/Problems Right thyroid nodule (241.0) [...] all the different possible results. I will seeher after the biopsy. Chief Complaint Consultation for the management of a thyroid nodule History of Present Illness This 58-year-old lady is seen at the request of her family physician he cause she was found to havea thyroid nodule. This was found on a CT scan that was obtained for a different reason. This led tanna ultrasound that showed a 1.6 cm partially solid and partially cystic right-sided thyroid nodule.There is some calcification. There is no family history of thyroid cancer. Her mother takes thyroidmedication. I personally reviewed the scan that was [...] Sodium) Vitals Vital Signs Recorded: 14Oct2018 01:56PM Appbvymdvbr53.9 F Heart Rate73 Xbbylcny546 Hnezercpq93 Height5 ft Rfhvis121 lb 6 oz BMI Iryrooacro82.8 BSA Calculated1.4 Physical Exam The patient is [...] was carried out. Under topical Xylocaine and Alfredo- Synephrine the scope was introduced through the nostril. The nasopharynx, base of tongue, hypopharynx, and larynx are visualized. The vocal cords are normally mobile. There is no pooling of secretions in the piriform sinuses. There is no evidence of any mucosal lesions. Signatures Electronically signed by : Álvaro Powell MD; Oct 14 2018 2:19PM EST (Author) Normal Touchworks Vital Signs Date TimeVital SignValuePerforming XartdednlInmrgtqq24-17-0975 09:17-0400Body vehwec638.9 cmDavid Pocos DO Work Phone: [facility] SystemsNpjdycceom50-66-1300 09:17-0400Body mass index (BMI) [Ratio]20.8 kg/x9Llpcs Pocos DO Work Phone: [facility] SystemsJrqvwbwinf22-42-5889 09:17-0400Body avysmi31.72 kgDavid Pocos DO Work Phone: [facility] SystemsAvdebnypju44-05-6311 10:55-0500Body mass index (BMI) [Ratio]20.31 kg/m2Mona Nataprawira DO Work Phone: [facility] SystemsPrjtmhraii87-86-9223 10:55-0500Body xyrirj81.17 kgMona Nataprawira DO Work Phone: [facility] HospitalMbvbzlbsgx70-90-6151 10:55-0500Diastolic blood ulmemjgu00 mm[Hg]Taina Nataprawira DO Work Phone: [facility] HospitalDkqbqatquy37-84-7515 10:55-0500Systolic blood riwvgqwp676 mm[Hg]Taina Nataprawira DO Work Phone: [facility] HospitalMwxszcqutz33-73-1995 14:16-0400Diastolic blood wxenfhwa19 mm[Hg]Russell Magallanes DO Work Phone: [facility]09-16-2022 14:16-0400Systolic blood tmlglleu878 mm[Hg]Russell Magallanes DO Work Phone: [facility]09-16-2022 14:11-0400Body iaofde144.4 cmPhiteri Magallanes DO Work Phone: [phone]09-16-2022 14:11-0400Body nxbjba09.5 kgPhiteri Magallanes DO Work Phone: [phone]09-16-2022 14:11-0400Heart rate65 /min Russell Magallanes DO Work Phone: [address] [place] [address]-16-2022 14:110400Respiratory rate 16 /minPhiteri Magallanes DO Work Phone: [facility]09-16-2022 14:113235AnR1% (BldA) [Mass fraction]99 %Russell Magallanes DO Work Phone: [facility] Encounters Encounter DateEncounter TypeCare ProviderFacilityStart: 26-11-4503nhjnuabwkzKucd NataprawiraFacility:[facility] Hospitaltart: 05-05-2025 End: 19-87-1971Fzmbjub encounter procedureDavid A Pocos DO Work Phone: noms [place] [facility] OrthopaedicsComment on above:Left hip pain (Primary Dx); Primary osteoarthritis of left hip; Lumbar spondylosis; Discogenic syndrome, lumbarStart: 05-05-2025 End: 45-39-2368senehljrjfFFOHK A POCOSNot AvailableStart: 10-06-2024 End: 15-94-8377ilgzfngzfwUHOY J NATAPRAWIRANot AvailableStart: 08-12-2024 End: 98-74-1385Zefplh outpatient visit 15 minutesMonluigi Chakraborty DO Work Phone: NONL NB OBComment on above:Vaginal stenosis (Primary Dx); Osteoporosis, post-menopausal (CMS/HCC); Age-related osteoporosis without current pathological fracture (CMS/HCC); Postmenopausal; Hx of hysterectomy for benign disease; Low back pain, unspecified back pain laterality, unspecified chronicity, unspecified whether sciatica present; Other screening mammogramStart: 08-12-2024 End: 27-31-5153eereqirmwvVTMY J NATAPRAWIRANot AvailableStart: 11-09-2022 End: 81-12-4160wtjrewlqxxNOWNMG E BAKERFacility:[facility] Hospitaltart: 11-09-2022 End: 32-25-8461Ecconrf encounter procedureLillie Barone MD Work Phone: DermatologyComment on above:Diffuse photodamage of skin (Primary Dx); Dermatofibroma; Hemangioma, unspecified site; Seborrheic keratosis; Multiple benign neviStart: 08-28-2022 End: 48-70-5953vfbfwazmxnSW FLORENCIA HOY .Facility:Y1Oiwzu: 08-20-2022 End: 88-30-4949qicqrnxetaXG FLORENCIA HOY .Facility:X9Odooa: 84-46-8611Pxlmecbor for general adult medical examination without abnormal findingsJAMES PERERA [facility] HospitalStart: 07-10-2022 End: 49-54-8903cbdfgtkvvqVF FLORENCIA HOY .Facility:Z9Cjklc: 07-10-2022 End: 73-90-6937Stsalxgmv for general adult medical examination without abnormal findingsDR FLORENCIA HOY .Facility:G3Qtric: 05-29-2022 End: 02-94-2487jqbtkjojzbWA FLORENCIA HOY .Facility:Z1Lnjal: 04-13-2022 End: 51-90-2536Sztprenikj hospital visit by physicianXr [facility] Work Phone: RadiologyComment on above:Left thigh pain [M79.652] Start: 04-13-2022 End: 41-44-4517izvlilmlpiQkhrxc M Shimrock RT(R)RadiologyComment on above: Radiology XRStart: 04-13-2022 End: 25-00-7200Hqnrdzi encounter procedureDeborah Awad RT(R)TYLER Comment on above:Radiculopathy of lumbar region (Primary Dx); Left thigh pain; Lateral pain of left hip; Strain of flexor muscle of left hip, sequela; Strain of left piriformis muscle, sequelaStart: 03-23-2022 End: 41-67-4329sebvrgncdrQB FLORENCIA HOY .Facility:P1Iszga: 77-35-4269Fhmavrr encounter procedurePierre LavertuFacility:9297 Procedures DateProcedureProcedure DetailPerforming ClinicianStart: 05-05-2025 End: 88-62-1113Sqacb spine lumbosacral 2/3 viewsDavid A Pocos DO Work Phone: Start: 94-31-8627QtplvfhsfgyUabem Pocos DO Work Phone: Start: 78-94-1689Sgkcn dip stick/tablet rgnt non-auto w/o micrscpMona J Nataprawira DO Work Phone: start: 24-35-7148KvsrzedabgeEyhw Nataprawira DO Work Phone: start: 94-46-0976Xxugf hip unilateral with pelvis 2-3 viewsPhillip G Mendis DO Work Phone: Plan of Treatment DateCare ActivityDetailAuthorStart: 36-97-6731Rsxsnudiu for malignant neoplasm of colonNOMS HealthcareStart: 22-34-4061Saqrrguta for malignant neoplasm of breastMammogramNOVT HealthcareStart: 08-16-2025 End: 38-82-1134Vyguypg encounter procedureNOMS NB OBStart: 75-78-5899Lnkendyas vaccinationInfluenza Vaccine (#1)[facility] HealthcareStart: 09-06-2024 End: 59-28-3733AHN Breast - bilateral screeningBilateral screening mammogram with tomosynthesis Imaging Routine Other screening mammogram Expected: 09/06/2024, Expires: 10/08/2025[facility] Work Phone: comment on above:Expected: 09/06/2024, Expires: 10/08/2025Start: 58-26-5318Xajlopvkn for malignant neoplasm of breastMammogram [facility] HealthcareStart: 96-57-6336Nepnwhkpj vaccinationInfluenza Vaccine (#1)[facility] HealthcareStart: 02-74-6013Zmxdqeemiwnm Vaccine: 65+ Years (1 of 1 - PCV) Pneumococcal Vaccine: 65+ Years (1 of 1 - PCV)[facility] HealthcareStart: 03-29-2023 Influenza vaccinationINFLUENZA (Season Ended)[facility] Southtart: 07-29-2022 DEPRESSION ASSESSMENTDEPRESSION ASSESSMENTPrem[facility] Southtart: 03-29-2022 Influenza vaccinationINFLUENZA (#1)[facility]: 60-21-0342ARULVODGHG ASSESSMENTDEPRESSION ASSESSMENTPrem[facility] Southtart: 14-49-9427EADGG-19 VACCINE (3 - Booster for Pfizer series)COVID-19 VACCINE (3 - Booster for Pfizer series) [facility]: 78-71-6787RWEUT-19 VACCINE (3 - Booster for Pfizer series)COVID-19 VACCINE (3 - Booster for Pfizer series)[facility]: 37-98-9099Dddjrgpjgqpl Vaccine: 65+ Years (1 of 1 - PCV)Pneumococcal Vaccine: 65+ Years (1 of 1 - PCV)[facility] HealthcareStart: 62-42-4580AULQJYOS VACCINE (1 of 2)SHINGRIX VACCINE (1 of 2)[facility]: 22-83-2595BWURLJVGY (FIT-DNA) COLOGUARD (FIT-DNA)[facility]: 39-18-5493NsgqsziumibNLHNLANUIQN [facility]: 75-46-9889RYNBPWCBNB CANCER SCREENINGCOLORECTAL CANCER SCREENINGPrem[facility] Southtart: 37-28-1391ZU COLONOGRAPHYCT COLONOGRAPHY [facility]: 65-55-0096LRSHFYWX SCREENDIABETES SCREENUniversity Hospitals Health System Start: 65-71-7077XHXEK OCCULT BLOODFECAL OCCULT BLOODPrem[facility] Southtart: 69-38-2906POYWB SCREENLIPID SCREENPremier Health [facility] Southtart: 24-80-5169BJSBAXYVARWDY SIGMOIDOSCOPYPremier Health [facility] Southtart: 81-20-5575JrofksacdatIFLBPXIXMZxrdczsea ClinicStart: 22-68-4285VNT TESTINGHPV TESTINGPrem[facility] Southtart: 1988 Screening for malignant neoplasm of cervixNOMS HealthcareStart: 30-86-5657DYJ TESTINGPAP TESTINGPrem[facility] Southtart: 80-58-3278Qykuakhmd for malignant neoplasm of cervixPap SmearNOMS HealthcareStart: 97-65-4363Zmrkh microalbumin profileDTAP,TDAP,TD (1 - Tdap)[facility]: 02-03-3631XQEUUUDYT C SCREENINGHEPATITIS C SCREENINGPrem[facility] Health [facility] Southtart: 60-21-8381RMW SCREENINGHIV SCREENINGPrem[facility] Southtart: 73-98-5812Xmedn depression screening assessment DEPRESSION SCREENINGPrem[facility] Health [facility] Southtart: 11-26-2525Wgsbnrctd for malignant neoplasm of colonNOMS HealthcareCalcium [Mass/volume] in Serum or PlasmaCalcium Lab Routine Postmenopausal Ordered: 08/12/2024[facility] HealthcareComment on above: Ordered: 08/12/2024DXA Skeletal system Views for bone densityDEXA bone density Imaging Routine Postmenopausal Ordered: 08/12/2024[facility] HealthcareComment on above:Ordered: 08/12/2024 End: 32-22-6159Ubl spinal canal lumbar w/o contrast materialMRI LUMBAR SPINE WO IVCON Radiology Routine Radiculopathy of lumbar region Left thigh pain Lateral p ain of left hip 1 Occurrences starting 04/13/2022 until 05/13/2023[facility] Work Phone: Comment on above:1 Occurrences starting 04/13/2022 until 05/13/2023 End: 08-17-6496Xkicq spine lumbosacral 2/[facility] Work Phone: Comment on above:1 Occurrences starting 04/13/2022 until 04/13/2022XR Hip - left 3 ViewsXR hip left 2 or 3 views Imaging Routine Left hip pain 05/05/2025 7:51 AM [facility] Work Phone: XR Lumbar spine 2 or 3 ViewsXR lumbar spine 2 or 3 views Imaging Routine Left hip pain 05/05/2025 7:51 AM [facility] Immunizations Immunization DateImmunizationNotesCare QizqzeqtZeorovsq74-27-4973bajviafki virus vaccine, unspecified formulationMona Nataprawira DO Work Phone: [facility] Payers DatePayer CategoryPayerPolicy [id number]-pay2024MedicareMEDICARE [id number] [id number] 79-08-3541Hbdessc Health Insurance [id number] [id number]069Ctdxfzj 1.2.840.262176.1.13.159.2.7.3.902905.21104-84-6164RjqintpFRO097E8484157-34-9873 [id number] 2.16.840.1.847538.3.57[id number] 2.16.840.1.182526.3.579.2.54742-97-5714Eolmghp7869264 2.16.840.1.437096.3.579.2.25527-55-1694Xkssrye1251599 2.16.840.1.223132.3.579.[id number] 2.16.840.1.491101.3.579.[id number] 2.16.840.1.482227.3.579.[id number] 2.16.840.1.299241.3.57[id number] 2.16.840.1.734510.3.57[id number] 2.16.840.1.074584.3.579.2.[id number] 2.16.840.1.551960.3.579.2.120907-02-8341Kqgofng7404399 2..840.1.549479.3.579.2.837938-96-2854Rppaigy6437819 2..840.1.8097[id number] 2..840.1.333162.3.579.2.531 Social History DateTypeDetailFacilityStart: 04-13-2022 End: 82-57-9737Cgkkxbb smoking status NHISNever smoked tobaccoUniversity Hospitals Health System Start: 04-13-2022 End: 92-68-6201Wclfpmo use and exposureSmokeless tobacco non-userPremier Health [facility] Hospital Southtart: 94-75-3775Rbz Assigned At BirthNot on filePremier Health Miami Valley Hospital Southtart: 04-03-2022 End: 27-42-8523Tsypvxtl to SARS-CoV-2 (event)Not surePremier Health Miami Valley Hospital Southtart: 08-12-2024 End: 50-23-1441Cqvmeaujb beverage intakeEx-drinker (finding)[facility] Start: 08-12-2024 End: 18-55-5146Wulflgf of Social functionNOMS HealthcareStart: 08-12-2024 End: 19-70-1514Fmsolfu use panelNOVT HealthcareNEGATED: Highlighted rowStart: NINFHistory of tobacco usePassive smokerUniversity Hospitals Health System Clinical Notes 12-04-2021 to 05-05-2025 Note Date & VrmqXlcoNitjrrsi69-87-2455 History of Present illness Narrative* Caro Suarez - 05/05/2025 9:00 AM EDT Images from the original note were not included. GENERAL HISTORY AND PHYSICAL: NAME: Karina Fleming : 1960 CHIEF COMPLAINT: Left leg and hip pain. HISTORY OF PRESENT ILLNESS: This is a 64 y.o. female who presents for a pre-op H&P. Karina is z77-elml-dcw white female referred by Dr. Tomas today for nonspecific left leg pain, hip pain. She states she has had posterior thigh pain which is her primary complaint and her most significant of the complaints for a long time . This goes back more than five years. She has seen three other individuals for this. She is a little bit of a poor historian as to what these individuals were. She thinks they were orthopedic. She has seen neurology. She cannot tell names or where they were at. We do nothave any of that information here for review. She has had gabapentin and Lyrica. She states she didgo to neurology. They told her it was not coming from her back, but very little else. She took thatas meaning it is not from her back but it could be from somewhere else. She does have a history of osteoporosis and is on Prolia for that. She has had no other care or treatment. She has had MRI of her back. Again, we do not have that for review either, that was apparently at [facility].She is unsure what that study was of specifically. PAST MEDICAL HISTORY: Past Medical History: Diagnosis Date Breast lump removed x3 Celiac disease (HCC) Mitral valve prolapse Sciatic nerve pain PAST SURGICAL HISTORY: Past Surgical History: Procedure Laterality Date SECTION, LOW TRANSVERSE x2 DILATION AND CURETTAGE OF UTERUS HYSTERECTOMY 1999 MAMADOU/BSO SOCIAL HISTORY: Social History Occupational History Not on file Tobacco Use Smoking status: Never Smokeless tobacco: Never Substance and Sexual Activity Alcohol use: Not Currently Drug use: Never Sexual activity: Not Currently control/protection: Surgical ALLERGIES: Allergies Allergen Reactions Other Unknown Other Reaction(s): body rejects them Sulfa Antibiotics Other Reaction(s): Unknown MEDICATIONS: Current Outpatient Medications Medication Instructions CALCIUM PO Take by mouth Denosumab (PROLIA SC) Inject under the skin Multiple Vitamins-Minerals (Multivitamin Women) tablet REVIEW OF SYSTEMS: The review of systems, history and current medications list are all reviewed today. Vitals: Visit Vitals Ht 4' 11 Wt 103 lb BMI 20.80 kg/m OB Status Hysterectomy Smoking Status Never BSA 1.39 m PHYSICAL EXAM: Her orthopedic exam here today reveals no acute distress. She is petite, answers allquestions appropriately. Very pleasant here today. She has no specific tenderness over the posterior thigh area. There is no mass, no defect. She does have some discomfort with bench testing. Internal and external rotation of the hip is on the order of 45 degrees internal with 50 degrees external rotation bilaterally and without any pain. Negative impingement. She has no trochanteric tenderness on the right, minimal on the left side. Nothing really over the sacroiliacs, midline or sciatic notchbilaterally. Patellar and Achilles deep tendon reflexes are 2/4 and symmetric. Examination of the x-ray AP and lateral views of the lumbar spine does show some degenerative change most pronounced at the lower segments. No evidence of fracture. Overall alignment is appropriate. Bone quality is appropriate. X-rays AP pelvis, left hip total of three views with permanent images are saved to the record showsmaybe a little bit of some early arthritic change bilaterally. EMG NCV testing from Dr. Longo 03-22-2022 shows a normal study. Bone densometry 10-06-2024 does show osteoporosis. Surgical History and Physical: GENERAL AND PSYCHOLOGICAL: The patient is alert and oriented for age. HEAD AND E.E.N.T.: The skull is normocephalic. There is no mass or sign of trauma. NECK: The neck is supple. There is good range of motion. There is no mass or adenopathy appreciated. The thyroid is not enlarged. CARDIAC: The heart is regular. There is no murmur or ectopy appreciated. LUNGS: Inspiratory and expiratory excursions are symmetrical. The lung quinn are clear in all quadrants. ABDOMEN: The texture is soft. Bowel sounds are heard well in all quadrants. There is no tenderness to palpation. There is no organomegaly appreciated. OSTEOPATHIC AND STRUCTURAL: There is no gross evidence of kyphosis, lordosis, scoliosis, or apparent leg length discrepancy, with no acute tissue texture changes in sitting or standing positions. ASSESSMENT: Left hip pain with osteoarthritis, left hip. Lumbar degenerative disc disease and degenerative joint disease. PLAN: The findings are discussed. We did first and foremost describe that this is not an intrinsic etiology of hip pain. This does appear to be outside of the hip joint proper most likely coming fromher back. She does have symptoms that do go along with lumbar radiculopathy. We did discuss furtherwork up of this. We did explain that we do not have all the information of what she has been through in the past. This is an individual simply referred here today for left leg and hip pain. She has had an MRI in the past. We do not know what that study was or when it was. She likely would need an updated MRI. We did discuss treatment of the back including tapering dose prednisone. We would use a 12-day taper coupled with physical therapy. If this did not respond, would consider further work up and MRI. She may need an updated EMG NCV test. Her last one was over three years ago. We did explainthat that is simply a test. Her study was normal. This tells us that there was no finding of anything significant coming from the back, but further, no more finding of a more systemic process either.She is a little bit reassured about that. We did offer treatment here today versus her following sapna k up with her primary care to define and correlate this course for her. She does prefer the latter.We will leave her return here with myself as necessary. We did discuss the MyChart so she can go back and look at all of this. The gabapentin is certainly reasonable, but if she is looking to get to the bottom of this further, it does appear that the most likely etiology would be extrinsic to her hip and related to her lumbar spine. Follow up letter sent to Dr. Tomas. Micki Linder D.O. Cosigned by Micki Linder DO at 05/07/2025 11:58 AM EDT documented in this encounterSullivan County Memorial [id number] History of Present illness Narrative* Taina Chakraborty DO - 08/12/2024 10:45 AM EST Images from the original note were not [...] VERY IMPORTANT TO YOUR HEALTH. THE CURRENT [employer] [...] syringe Inject 1 mL (60 mg) under theskin every 6 (six) months 1 mL 1 [...] DO 08/12/2024 11:23 AM documented in this encounterSullivan County Memorial [id number] NoteHNO ID: [id number] Author: Lillie Barone MD Service: ? Author Type: Physician Type: Progress Notes Filed: 11/09/2022 8:49 AM Note Text: DERMATOLOGY / NEW PATIENT CONSULT Consultation requested by patient for an opinion regarding skin. HPI: The patient is a 62 year old female presenting with a 3 lesions of concern Left lateral lower leg - raised [place] lesion Mid upper back - brown raised lesion [place] raised lesion- right cheek DERM HISTORY: No [...] Past Histories independently gathered by the clinical customer support consultant and the remaining scribed note accurately describes my personal service to the patient. Lillie Barone MD Medical Decision Making: Problems: Low: 2+ self-limited or minor problems Risk: Low: Low risk from testing/treatment Medical Decision Making Level: 3 - [facility] History of Present illness Narrative* Lillie Barone MD - 11/09/2022 8:18 AM EDT DERMATOLOGY / NEW PATIENT CONSULT Consultation requested by patient for an opinion regarding skin. HPI: The patient is a 62 year old female presenting with a 3 lesions of concern Left lateral lower leg - raised [place] lesion Mid upper back - brown raised lesion [place] raised lesion- right cheek DERM HISTORY: No [...] Past Histories independently gathered by the clinical customer support consultant and the remaining scribed note accurately describes my personal service to the patient. Lillie Barone MD Medical Decision Making: Problems: Low: 2+ self-limited or minor problems Risk: Low: Low risk from testing/treatment Medical Decision Making Level: 3 - Low documented in this encounterUniversity Hospitals Health System01-24-2023 NotePROCEDURE: XR HIP RT 2 3V W PELVIS COMPARISON: None. HISTORY: Muscle and tendon injury FINDINGS: BONES:No fracture, acute abnormality, or significant arthropathy. SOFT TISSUES:Negative. No visible soft tissue swelling. EFFUSION:None visible. OTHER: Negative. IMPRESSION: No acute abnormality Electronically authenticated by: MICKI LUCERO Date: 2022-08-21 07:52[facility]09-16-[facility]22 NoteHNO ID: [id number] Author: RT Vaughn(Racheal) Service: ? Author Type: Technologist Type: Progress [...] DATA: Not applicable SIGNED BY: RT Vaughn(R), Deborah Awad RT April 13, 2022 3:41 [facility]09-16-2022 NoteHNO ID: [id number] Author: Russell Magallanes, DO Service: ? Author Type: Physician Type: Progress Notes Filed: 05/06/2022 1:40 PM Note Text: [facility] [place] [facility] [place] [facility] - Medical Spine Initial [...] her back. -Ortho surgeon Dr. Agosto in [place] prior to pandemic. Told her it was not her back, but it was her sciatic nerve. 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 FALL SCREENING: Has the patient [...] 13, 2022 3:41 PM documented in this encounterUniversity Hospitals Health System09-16-2022 History of Present illness Narrative* Russell Magallanes DO - 04/13/2022 2:25 PM EDT Images from the original note were not included. [facility] [place] [facility] [place] [facility] - Medical Spine Initial [...] her back. -Ortho surgeon Dr. Agosto in [place] prior to pandemic. Told her it was not her back, butit was her sciatic nerve. 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 No acute fracture or radiopaque foreign body [...] MRI left thigh with and without contrast ([place], [place]): Bones: Normal. No significant arthropathy or acute abnormality. Soft tissues: Negative. No visible soft tissue swelling, mass, fluid collection, edema or hematoma. Effusion: None visible. Other: Skin surface markers overlie the posterior thigh and localized area of pain. Impression: No abnormal or suspicious findings to account for patient's symptoms. 06/28/2021 ultrasound venous Doppler LLE ([place], [place]): No left femoral-popliteal venous thrombosis. 06/23/2021 XR left femur ([place], [place]): Bones: No fracture, acute abnormality, or [...] which included preparing to see the patient, [id number] patient care, completing clinical documentation, obtaining and/or reviewing separately obtained history, performing a medically appropriate examination, counseling and educating the pat ient/family/caregiver, ordering medications, tests, or procedures, independently interpreting results (not separately reported), and communicating results to the patient/family/caregiver. SIGNATURE: Russell Magallanes DO PATIENT NAME: Karina Fleming DATE: April 13, 2022 TIME: 2:25 PM documented in this encounterUniversity Hospitals Health System05-09-2022 NoteHISTORY: Bone density screening. COMPARISON: 09/03/2019 PROCEDURE: Imaging of the [...] and signed by Deep Haney on 12/04/2021 1305[facility]istEvaluation [facility]* Diagnosis Left thigh pain Pain in limb Lateral pain of left hip Pain in joint, pelvic region and thigh Radiculopathy of lumbar region Thoracic or lumbosacral neuritis or radiculitis, unspecified documented in this encounter [facility] SystemEvaluation [facility]* Diagnosis Radiculopathy of lumbar region- Primary Thoracic or lumbosacral neuritis or radiculitis, unspecified Left thigh pain Pain in limb Lateral pain of left hip Pain in joint, pelvic region and thigh Strain of flexor muscle of left hip, sequela Strain of left piriformis muscle, sequela documented in this encounter [facility] SystemEvaluation [facility]* Diagnosis Diffuse photodamage of skin- Primary Other chronic dermatitis due to solar radiation Dermatofibroma Benign neoplasm of skin, site unspecified Hemangioma, unspecified site Seborrheic keratosis Other seborrheic keratosis Multiple benign nevi Benign neoplasm of skin, site unspecified documented in this encounter [facility] SystemEvaluation note* Diagnosis Vaginal stenosis- Primary Osteoporosis, post-menopausal (CMS/HCC) Senile osteoporosis Age-related osteoporosis without current pathological fracture (CMS/HCC) Postmenopausal Asymptomatic postmenopausal status (age-related) (natural) Hx of hysterectomy for benign disease Low back pain, unspecified back pain laterality, unspecified chronicity, unspecified whether sciatica present Other screening mammogram documented in this encounter [facility] HealthcareEvaluation [facility]* Diagnosis Left hip pain- Primary Pain in joint, pelvic region and thigh Primary osteoarthritis of left hip Lumbar spondylosis Lumbosacral spondylosis without myelopathy Discogenic syndrome, lumbar Displacement of lumbar intervertebral disc without myelopathy documented in this encounter [facility]Re[facility] for referral (narrative)* Diagnostic Procedure Only (Routine) - ClosedSpecialtyDiagnoses / ProceduresReferred By ContactReferred To ContactXR IMAGING Diagnoses Radiculopathy of lumbar region Procedures XR LUMBAR LIMITED 2V AP/LAT RADEX SPINE LUMBOSACRAL 2/3 VIEWS Russell Magallanes DO [address] [place] [address] Xr Imaging Referral IDStatusReasonStart DateExpiration DateVisits RequestedVisits [id number] Auto-Generated Referral * Diagnostic Procedure Only (Routine) - ClosedSpecialtyDiagnoses / Procedures Referred By ContactReferred To ContactXR IMAGING Diagnoses Left thigh pain Lateral pain of left hip Procedures XR HIP GENERAL 3V PELV/AP/LAT LEFT RADEX HIP UNILATERAL WITH PELVIS 2-3 VIEWS Russell Magallanes, [address] [place] [address] Xr Imaging Referral IDStatusReasonStart DateExpiration DateVisits RequestedVisits [id number] Auto-Generated Referral [facility] for referral (narrative)* Diagnostic Procedure Only (Routine) - ClosedSpecialtyDiagnoses / ProceduresReferred By ContactReferred To ContactXR IMAGING Diagnoses Radiculopathy of lumbar region Procedures XR LUMBAR LIMITED 2V AP/LAT RADEX SPINE LUMBOSACRAL 2/3 VIEWS Russell Magallanes DO [address] [place] [address] Xr Imaging Referral IDStatusReasonStart DateExpiration DateVisits RequestedVisits [id number] Auto-Generated Referral * Diagnostic Procedure Only (Routine) - ClosedSpecialtyDiagnoses / Procedures Referred By ContactReferred To ContactXR IMAGING Diagnoses Left thigh pain Lateral pain of left hip Procedures XR HIP GENERAL 3V PELV/AP/LAT LEFT RADEX HIP UNILATERAL WITH PELVIS 2-3 VIEWS Russell Magallanes DO [address] [place] [address] Xr Imaging Referral IDStatusReasonStart DateExpiration DateVisits RequestedVisits [id number] Auto-Generated Referral * MRI/CT (Routine) - Pending ReviewSpecialtyDiagnoses / ProceduresReferred By ContactReferred To ContactMR IMAGING Diagnoses Radiculopathy of lumbar region Left thigh pain Lateral pain of left hip Procedures MRI LUMBAR SPINE WO IVCON MRI SPINAL CANAL LUMBAR W/O CONTRAST MATERIAL Russell Magallanes, DO [address] [place] [id number] Mr Imaging Referral IDStatusReasonStart DateExpiration DateVisits RequestedVisits [id number] Auto-Generated Referral [facility] for [facility] Narrative* Diagnostic Procedure Only (Routine) - ClosedSpecialtyDiagnoses / ProceduresReferred By ContactReferred To Contact XR IMAGING Diagnoses Radiculopathy of lumbar region Procedures XR LUMBAR LIMITED 2V AP/LAT RADEX SPINE LUMBOSACRAL 2/3 VIEWS Russell Magallanes, DO [address] [place] [id number] Xr Imaging Referral IDStatusReasonStart DateExpiration DateVisits RequestedVisits [id number] Auto-Generated Referral [facility] Summary Purpose Family History No Family History [...] FNA Findings: thyroid nodule Procedure performed by: ga Integrated Campaign Manager(s): none Estimated Blood Loss (mL): none Specimen: yes Informed Consent: written consent obtained Signature/Cosignature/Attestation: Attending AttestationI performed the procedure without a resident Electronic Signatures: Tomasz Mandujano) (Signed 12-Nov-2018 15:00) Authored: Pre-procedure Verification and Time Out, General Information, Signature/Cosignature/Attestation Last Updated: 12-Nov-2018 15:00 by Tomasz Mandujano) Additional Source Comments INFORMATION SOURCE (unrecogn ized section and content) DATE CREATED AUTHOR 10/14/2018 [facility] DATE CREATED AUTHOR AUTHOR'S ORGANIZ ATION 11/15/2018 [facility] DATE CREATED AUTHOR AUTHOR'S ORGANIZ ATION 02/16/2019 [facility] DATE CREATED AUTHOR AUTHOR'S ORGANIZ ATION 12/05/2021 [facility] DATE CREATED AUTHOR AUTHOR'S ORGANIZ ATION 09/28/2022 [facility] DATE CREATED AUTHOR AUTHOR'S ORGANIZ ATION 11/12/2022 [facility] DATE CREATED AUTHOR AUTHOR'S ORGANIZ ATION 05/07/2025 [facility] DATE CREATED AUTHOR AUTHOR'S ORGANIZ ATION 05/18/2025 [facility] Source Comments (unrecognize d section and content) In the event this informatio n is protected by the Federal Confidentiality of Alcohol and Drug Abuse Patient Records regulations: The Federal rules restrict any use of the information to criminally investigate or prosecute any alcohol or drug abuse patient.[facility] Health SystemIn the event this information is protected by the Federal Confidentiality of Alcohol and Drug Abuse Patient Records regulations: The Federal rules restrict any use of the information to criminally investigate or prosecute any alcohol or drug abuse patient.[facility] Health SystemIn the event this information is protected by the Federal Confidentiality of Alcohol and Drug Abuse Patient Records regulations: The Federal rules restrict any use of the information to criminally investigate or prosecute any alcohol or drug abuse patient.[facility] Reason for Visit (unrecogniz ed section and content) ReasonCommentsRadiology XRReasonCommentsLeg PainNerve pain in left leg since 2014. Begins middle of thigh downward and sometimes from inner thigh downward. Has xray and MRI of leg images from [facility]. Inaddition to left hip as well. Discwith MRI, Xray, and US of leg.ReasonCommentsLESION, SKINReason CommentsGynecologic ExamPatient here for a yearly. Denies any problems at this time. Mammogram and DEXA scan order sent to [facility]. Next Prolia infusion on 11/09/24. Completed cologuard on 09/18/23-normal. Calcium order printed and provided to the patient.ReasonCommentsPain Care Teams (unrecognized sec tion and content) Team MemberRelationshipSpecialtyStart DateEnd Date Florencia Tomas MD [address] [place] [address] PCP - GeneralFamily Reqmixld03/6/23Team MemberRelationshipSpecialtyStart DateEnd Date Florencia Tomas MD [address] [place] [address] PCP - GeneralFamily Pjstqyau86/8/25 FOR RECORDS PERTAINING TO PATIENTS WHO ARE [...] BE BASED ON THE PRIMARY CLINICAL RECORDS. [facility]. provides no warranty or guarantee of the accuracy or completeness of information in this document.
--- NOTE | 2025-07-28 07:42 | MR_ITS ---
[facility] [place] [id number] Patient Name: MUNA MCKINNEY MRN: [id number] date: 1960 Sex: F Assigned Patient Location: MRI Current Patient Location: MRI Accession/Order Number: [id number] Exam Date: 07/28/2025 08:00 Report Date: 07/28/2025 16:33 At the request of: FLORENCIA WILSON MD Procedure: MR hip LT wo con MR hip LT wo con 07/28/2025 10:00 AM SIGNS AND SYMPTOMS: Left Hip Pain, Lumbar Radiculopathy PROTOCOL: Multiplanar multisequence MR images of the left hip without IV contrast COMPARISON: None. FINDINGS: Alignment: Normal. Femoroacetabular impingement anatomy: None. Dysplasia: None. Fluid: No joint effusion. Labrum: Grossly intact. Cartilage: Femoral: Preserved. Acetabular: Preserved. Capsule/ligaments: Normal. Muscles/tendons/entheses: Flexors: Normal. Extensors: Normal. Abductors: Normal. Adductors: Normal. Rotators: Normal. Hamstrings: Normal. Bones (other than subarticular marrow): Mild edema is noted along the anterior margin of the left sacroiliac joint suggesting mild acute sacroiliitis. Vessels: Normal. Nerves: Visualized left sciatic and femoral nerves appear normal. Soft tissues: Normal. Viscera: Visualized pelvic structures appear normal. No lymphadenopathy by size criteria. No free fluid in the pelvis. MR/MR hip LT wo con IMPRESSION: Mild edema is noted along the anterior margin of the left sacroiliac joint suggesting mild acute sacroiliitis. The left hip is grossly intact. Impression dictated by: Johnny Campbell M.D. 07/28/2025 4:33 PM Dictation [facility] Electronically authenticated by: [id number] Y Date: 07/28/2025 16:33
--- NOTE | 2025-07-28 07:42 | MR_ITS ---
[place] [id number] Patient Name: MUNA MCKINNEY MRN: [id number] date: 1960 Sex: F Assigned Patient Location: MRI Current Patient Location: MRI Accession/Order Number: [id number] Exam Date: 07/28/2025 08:00 Report Date: 07/28/2025 16:38 At the request of: FLORENCIA WILSON MD Procedure: MR femur LT wo con MR femur LT wo con 07/28/2025 10:00 AM SIGNS AND SYMPTOMS: ^Left Femur Pain PROTOCOL: Multiplanar multisequence MR images of the left femur without IV contrast COMPARISON: None FINDINGS: The left femur is normal in signal. No evidence of marrow edema. The musculature of the right thigh is within normal limits. The visualized right sciatic nerve is normal in signal. The vascular structures show normal flow voids. The visualized left knee and left hip are grossly intact. The subcutaneous fat is normal in signal. MR/MR femur LT wo con IMPRESSION: Normal MRI of the left thigh. Impression dictated by: Johnny Campbell M.D. 07/28/2025 4:38 PM Dictation Location: [place] [address] Electronically authenticated by: [id number] Y Date: 07/28/2025 16:38
--- NOTE | 2025-07-28 07:42 | MR_ITS ---
The [address] [address] Patient Name: MUNA MCKINNEY MRN: [id number] date: 1960 Sex: F Assigned Patient Location: MRI Current Patient Location: MRI Accession/Order Number: [id number] Exam Date: 07/28/2025 08:00 Report Date: 07/28/2025 12:01 At the request of: FLORENCIA WILSON MD Procedure: MR lumbar spine wo con MRI lumbar spine performed without contrast INDICATION: Chronic lumbar pain radiating into left hip and left leg COMPARISON: None FINDINGS: Lumbar vertebral heights and alignment preserved. Slight heterogeneous appearance of bone marrow identified with predominantly diffuse fatty replacement. Mild disc space narrowing L5-S1. Multilevel disc desiccation L2-L5. Conus medullaris terminates normally at superior plate of L2. Paraspinal soft tissues unremarkable. T12-L1: Unremarkable. L1-2: Facet arthropathy. No significant disease central canal or neural from narrowing identified. L2-3:: Disc desiccation. Question minimal right foraminal zone bulge on the sagittal images. Mild right foraminal narrowing. Left foramen grossly patent. Canal is patent. L3-4: Broad-based disc bulge asymmetric towards the left extending to left foraminal zone. Mild to moderate facet arthropathy. Canal is patent. Right foramen is patent. There is mnnb-pc-lqbrgbfk left foraminal encroachment. L4-5: Broad-based disc bulge Left extraforaminal zone region of the distal demonstrates linear T2 hyperintense signal suggestive of focal fissuring. Moderate facet arthropathy. Trace left-sided facet fluid. Mild right mild to moderate left-sided neural foraminal narrowing. Canal is patent. L5-S1: Circumferential disc bulge with transverse band of T2 signal suggestive of a central fissure. Mild foraminal narrowing. Fbcw-bc-xznbelhl facet about. Canal is patent. MR/MR lumbar spine wo con IMPRESSION: Overall mild multilevel degenerative changes. Evidence of ssly-ea-xltzvlsl left-sided neural foraminal narrowing L3-L5 Impression dictated by: Grzegorz Pathak M.D. 07/28/2025 12:01 PM Dictation Location: [place] [id number] Electronically authenticated by: [id number] Y Date: 07/28/2025 12:01
== END 2025-07-28 07:39 | disposition home or self-care (01) ==
LOC: MRI 07:38
PROVIDERS: PCP Family Medicine; Visit Provider Family Medicine
DX: M54.16 Radiculopathy, lumbar region (principal); M25.552 Pain in left hip; M79.652 Pain in left thigh
CPT/HCPCS: 72148; 73718; 73721